=== PATIENT | male | born 1935 | race African-American/Black ===

== ENCOUNTER 2016-04-25 15:51 | Emergency (ER) | payer OTHER ==
[~2016-04-25] VITALS: Ht 182.9 cm; Wt 70.8 kg
[~2016-04-25 15:51] MED LIST: BACTRIM DS TAB1 EAC1 ORAL; IBUPROFEN600 MG ORAL; KEFLEX500 MG ORAL; LISINOPRIL10 MG ORAL; PHENAZOPYRIDIN100 MG ORAL; PHENERGAN6.25 MG/5 ORAL; UNOBMED
[2016-04-25] MEDS ORDERED: TRUVADA 100 MG1 EACH PO (16:16)
[2016-04-25] MEDS ORDERED: PREZISTA600 MG ORAL (16:16)
[2016-04-25 16:23] VITALS: BP 141/85
[2016-04-25] MEDS ORDERED: Dexamethasone 4mg/ml vial IM ONE (16:30)
[2016-04-25] MEDS ORDERED: DiphenhydrAMINE 50mg/ml Inj IM ONE (16:30)
[2016-04-25 17:58] LABS: EOSINOPHILS % (AUTO) 4.9 % (0.0-3.0); LYMPHOCYTES % (AUTO) 31.7 % (20.0-45.0); MEAN CORPUSCULAR HEMOGLOBIN 22.6 PG (27.0-31.0); MEAN CORPUSCULAR VOLUME 75 FL (80-99); MEAN PLATELET VOLUME 9.7 FL (6.5-10.1); MONOCYTES % (AUTO) 8.6 % (1.0-10.0); NEUTROPHILS % (AUTO) 53.8 % (45.0-75.0); PLATELET COUNT 167 K/UL (150-450); RED BLOOD COUNT 4.48 M/UL (4.70-6.10); RED CELL DISTRIBUTION WIDTH 13.8 % (11.6-14.8); WHITE BLOOD COUNT 6.8 K/UL (4.8-10.8)
[2016-04-25 18:06] LABS: PROTHROMBIN TIME 10.5 SEC (9.30-11.50)
[2016-04-25 18:08] VITALS: BP 132/79
[2016-04-25 18:11] LABS: ALANINE AMINOTRANSFERASE 17 U/L (3-41); ALBUMIN/GLOBULIN RATIO 0.9 (1.0-2.7); ANION GAP 13 (5-15); ASPARTATE AMINO TRANSFERASE 27 U/L (5-40); CARBON DIOXIDE 27 mEQ/L (20-30); CHLORIDE 100 mEQ/L (98-107); CREATININE 1.3 mg/dL (0.7-1.2); HEMOLYSIS 5; POTASSIUM 3.8 mEQ/L (3.4-4.9); SODIUM 140 mEQ/L (135-145); TOTAL PROTEIN 7.7 g/dL (6.6-8.7)
--- NOTE | 2016-04-25 18:16 | Emergency Room Report ---
History of Present Illness General Chief Complaint: General Complaint Present Illness HPI The patient is an 81-year-old male presenting with facial swelling which began this morning. Patient states that he feels a 2/10 dull ache to this region and does not radiate. Patient also experiences tingling. The patient states she has been taking lisinopril for the past 2 years but has not had this happen before. The patient denies using any new products or ingesting any new foods. The patient denies any difficulty swallowing or shortness of breath. Patient denies a rash. Patient denies other symptoms including nausea, vomiting, fever , chills, headache, dizziness, blurred vision Allergies: Coded Allergies: No Known Allergies (Unverified , 08/31/13) Patient History Past Medical History: see triage record Pertinent Family History: none Reviewed Nursing Documentation: PMH: Agreed, PSxH: Agreed Nursing Documentation-PMH Hx Hypertension: Yes Review of Systems All Other Systems: negative except mentioned in HPI Physical Exam Vital Signs Date Time Temp Pulse Resp B/P Pulse Ox O2 Delivery O2 Flow Rate FiO2 04/25/16 16:08 97.9 76 16 141/85 99 Room Air Sp02 EP Interpretation: reviewed, normal General Appearance: no apparent distress, alert, GCS 15, non-toxic Head: normocephalic, atraumatic Eyes: bilateral eye PERRL, bilateral eye normal inspection ENT: normal pharynx, other - + angioedema to R face Neck: normal inspection, full range of motion, supple/symm/no masses Respiratory: chest non-tender, lungs clear, normal breath sounds, no respiratory distress, no wheezing, speaking full sentences Cardiovascular #1: regular rate, rhythm, no edema Genitourinary: normal inspection, no CVA tenderness Musculoskeletal: back normal, gait/station normal, normal range of motion, non- tender Neurologic: alert, oriented x3, responsive, motor strength/tone normal, sensory intact, speech normal Psychiatric: judgement/insight normal, memory normal, mood/affect normal, no suicidal/homicidal ideation Skin: normal color, no rash, warm/dry, well hydrated Lymphatic: no adenopathy Medical Decision Making PA Attestation Dr. Adams is my supervising physician. Patient management was discussed with my supervising physician Diagnostic Impression: Primary Impression: Angioedema ER Course The patient is an 81-year-old male presenting with facial swelling which began this morning. Differential diagnoses considered but not limited to: Angioedema, dental abscess , dental infection, allergic reaction, cellulitis Physical exam: Vitals are within normal limits. No apparent distress HEENT: There is right-sided angioedema. Right cheek and right upper and lower lips are edematous. No tongue swelling. Oropharynx is patent. No lymphadenopathy. Respiratory distress. Lungs are clear to auscultation bilaterally. No rash. Skin is warm and dry Patient is given Decadron, Benadryl, and zantac Dr. Adams has spoken with the admitting physician regarding this patient at 18:15. The patient is placed on n.p.o. The patient has chosen to leave AMA. The patient states he is feeling better and wants to go home. Risks have been discussed with the patient including possible . Patient understands. The patient will return to ER if needed. Patient is advised he needs to stop taking the lisinopril and followup with his primary doctor as soon as possible. Laboratory Tests Test 04/25/16 17:30 White Blood Count 6.8 K/UL (4.8-10.8) Red Blood Count 4.48 M/UL (4.70-6.10) L Hemoglobin 10.1 G/DL (14.2-18.0) L Hematocrit 33.8 % (42.0-52.0) L Mean Corpuscular Volume 75 FL (80-99) L Mean Corpuscular Hemoglobin 22.6 PG (27.0-31.0) L Mean Corpuscular Hemoglobin Concent 30.0 G/DL (32.0-36.0) L Red Cell Distribution Width 13.8 % (11.6-14.8) Platelet Count 167 K/UL (150-450) Mean Platelet Volume 9.7 FL (6.5-10.1) Neutrophils (%) (Auto) 53.8 % (45.0-75.0) Lymphocytes (%) (Auto) 31.7 % (20.0-45.0) Monocytes (%) (Auto) 8.6 % (1.0-10.0) Eosinophils (%) (Auto) 4.9 % (0.0-3.0) H Basophils (%) (Auto) 1.0 % (0.0-2.0) Prothrombin Time 10.5 SEC (9.30-11.50) Prothrombin Time INR 1.0 (0.9-1.1) PTT 30 SEC (23-33) Sodium Level 140 mEQ/L (135-145) Potassium Level 3.8 mEQ/L (3.4-4.9) Chloride Level 100 mEQ/L (98-107) Carbon Dioxide Level 27 mEQ/L (20-30) Anion Gap 13 (5-15) Blood Urea Nitrogen 18 mg/dL (7-23) Creatinine 1.3 mg/dL (0.7-1.2) H Estimate Glomerular Filtration Rate mL/min (>60) Glucose Level 99 mg/dL (74-106) Calcium Level 9.0 mg/dL (8.6-10.2) Total Bilirubin < 0.2 mg/dL (0.0-1.2) Aspartate Amino Transferase (AST) 27 U/L (5-40) Alanine Aminotransferase (ALT) 17 U/L (3-41) Alkaline Phosphatase 118 U/L (40-129) Total Protein 7.7 g/dL (6.6-8.7) Albumin 3.7 g/dL (3.5-5.2) Globulin 4.0 g/dL Albumin/Globulin Ratio 0.9 (1.0-2.7) L Lab Results Impression CBC unremarkable. No leukocytosis CMP unremarkable Last Vital Signs Date Time Temp Pulse Resp B/P Pulse Ox O2 Delivery O2 Flow Rate FiO2 04/25/16 18:08 74 16 132/79 99 Room Air 04/25/16 16:08 97.9 Status: improved Disposition: AGAINST MEDICAL ADVICE Condition: Serious Referrals: NOT [facility]/,REFERRING (PCP) ANALI RAMIREZ Apr 25, 2016 18:16
[2016-04-25 20:03] VITALS: BP 128/72
[2016-04-25 20:05] VITALS: BP 128/72
== END 2016-04-25 20:06 | disposition left against medical advice (07) ==
LOC: EMR 17:46 → EDBEDREQ 18:58 → CANBEDREQ 19:52 → EMR 20:06
DX: T78.3XXA Angioneurotic edema, initial encounter (principal); I10 Essential (primary) hypertension; X58.XXXA Exposure to other specified factors, initial encounter; Y92.9 Unspecified place or not applicable; Y99.8 Other external cause status
CPT/HCPCS: 36415; 80053; 85025; 85610; 85730; 96372; 99283; J1100; J1200

== ENCOUNTER 2016-08-14 15:23 | Inpatient (IN) | payer OTHER ==
[~2016-08-14] VITALS: Ht 182.9 cm; Wt 61.7 kg
[~2016-08-14 15:23] MED LIST changes: +PREZISTA600 MG ORAL; +TRUVADA 100 MG1 EACH PO
--- NOTE | 2016-08-14 15:53 | Emergency Room Report ---
History of Present Illness General Chief Complaint: General Complaint Source: Medical Record Present Illness HPI 81 YO Male Presents to ED C/O productive cough x 2 weeks, with dysuria and frequency. denies fevers, reports chills. Patient reports history of prostate cancer, and HIV. Patient states his last CD4 count was in the 500s, and viral load was undetectable. Patient states he takes atripla. he denies rashes, abdominal pain, hematuria. Patient reports frequent nocturia. Patient states he is due for urology appointment at the end of this month. Denies penile discharge, testicular pain or swelling. Denies penile lesions. Denies CP, Palpitations, LOC, AMS, dizziness, Changes in Vision, Sensation, paresthesias, or a sudden severe headache. Allergies: Coded Allergies: No Known Allergies (Unverified , 08/31/13) Patient History Past Medical History: see triage record, HIV Past Surgical History: none Pertinent Family History: none Immunizations: UTD Reviewed Nursing Documentation: PMH: Agreed, PSxH: Agreed Nursing Documentation-PMH Past Medical History: No History, Except For Hx Hypertension: Yes Review of Systems All Other Systems: negative except mentioned in HPI Physical Exam Vital Signs Date Time Temp Pulse Resp B/P Pulse Ox O2 Delivery O2 Flow Rate FiO2 08/14/16 15:32 97.3 75 16 128/80 94 Room Air Sp02 EP Interpretation: reviewed, normal General Appearance: no apparent distress, alert, GCS 15, thin, Chronically Ill Head: normocephalic, atraumatic Eyes: bilateral eye PERRL, bilateral eye normal inspection ENT: normal ENT inspection Neck: no meningismus, no bony tend Respiratory: chest non-tender, lungs clear, normal breath sounds, speaking full sentences Cardiovascular #1: normal capillary refill Gastrointestinal: normal bowel sounds, non tender, soft, no guarding, no rebound, other - Negative Atwood signs, Negative MacBurney's sign, Negative Rosvigns Sign, Negative Psoas, No Peritoneal signs. Rectal: deferred Genitourinary: normal inspection, no CVA tenderness Musculoskeletal: back normal, gait/station normal, normal range of motion, non- tender Neurologic: alert, oriented x3, responsive, motor strength/tone normal, sensory intact, speech normal Psychiatric: judgement/insight normal, memory normal, mood/affect normal Skin: normal color, no rash, warm/dry, well hydrated Lymphatic: no adenopathy Medical Decision Making PA Attestation Dr. Adams is my supervising Physician whom patient management has been discussed with. Diagnostic Impression: Primary Impression: Acute UTI Additional Impression: Pneumonia Qualified Codes: J18.9 - Pneumonia, unspecified organism ER Course 81 YO Male Presents to ED C/O productive cough x 2 weeks, with dysuria and frequency. denies fevers, reports chills. Patient reports history of prostate cancer, and HIV. Patient states his last CD4 count was in the 500s, and viral load was undetectable. Patient states he takes atripla. he denies rashes, abdominal pain, hematuria. Patient reports frequent nocturia. Patient states he is due for urology appointment at the end of this month. Denies penile discharge, testicular pain or swelling. Denies penile lesions. Denies CP, Palpitations, LOC, AMS, dizziness, Changes in Vision, Sensation, paresthesias, or a sudden severe headache. Ddx considered but are not limited to URI, pneumonia, PE, pulmonary edema, bronchitis, AK, CHF, BPH, UTI Vital signs: Pt. has fever of 100.6, tachycardic 106 bpm H&PE are most consistent with possible PNA -- ORDERS: -CXR 1 View: Bilateral pulmonary infiltrates, no atelectasis, no effusions per preliminary read by Dr. Adams -CBC: anemia noted, not suspicious for acute blood loss -BMP: elevated alk. phos at 138, mildly elevate BUN, normal Cr. -UA: many bacteria, elevated WBC's, indicative of infection -Pro-BNP: WNL -Lactic Acid: WNL -Blood Cultures x 2: Pending -EK NSR with bi-Fasicular block no acute ST changes - interpreted by Dr. Adams ED INTERVENTIONS: -Pt placed on cardiac monitoring -IV Access established -3grams Unasyn IVPB DISPOSITION: at this time pt. will be admitted to Dr. Echeverria for Pneumonia and UTI. agreed to admit the pt. and to continue pt. care management. Labs Test 08/14/16 15:40 08/14/16 17:00 08/14/16 17:30 Urine Color Pale yellow Urine Appearance Cloudy Urine pH 6 (4.5-8.0) Urine Specific [place] 1.015 (1.005-1.035) Urine Protein 2+ (NEGATIVE) Urine Glucose (UA) Negative (NEGATIVE) Urine Ketones Negative (NEGATIVE) Urine Occult Blood 2+ (NEGATIVE) Urine Nitrite Negative (NEGATIVE) Urine Bilirubin Negative (NEGATIVE) Urine Urobilinogen Normal MG/DL (0.0-1.0) Urine Leukocyte Esterase 3+ (NEGATIVE) Urine RBC 0-2 /HPF (0 - 0) Urine WBC Tntc /HPF (0 - 0) Urine Squamous Epithelial Cells Occasional /LPF Urine Bacteria Many /HPF (NONE) Arterial Blood pH 7.383 (7.350-7.450) Arterial Blood Partial Pressure CO2 41.0 mmHg (35.0-45.0) Arterial Blood Partial Pressure O2 82.5 mmHg (75.0-100.0) Arterial Blood HCO3 23.9 mmol/L (22.0-26.0) Arterial Blood Oxygen Saturation 95.8 % (92.0-98.0) Arterial Blood Base Excess -1.1 Meek Test Positive White Blood Count 6.5 K/UL (4.8-10.8) Red Blood Count 5.07 M/UL (4.70-6.10) Hemoglobin 11.6 G/DL (14.2-18.0) Hematocrit 37.2 % (42.0-52.0) Mean Corpuscular Volume 73 FL (80-99) Mean Corpuscular Hemoglobin 22.9 PG (27.0-31.0) Mean Corpuscular Hemoglobin Concent 31.2 G/DL (32.0-36.0) Red Cell Distribution Width 15.4 % (11.6-14.8) Platelet Count 162 K/UL (150-450) Mean Platelet Volume 8.9 FL (6.5-10.1) Neutrophils (%) (Auto) 54.7 % (45.0-75.0) Lymphocytes (%) (Auto) 30.0 % (20.0-45.0) Monocytes (%) (Auto) 10.9 % (1.0-10.0) Eosinophils (%) (Auto) 3.1 % (0.0-3.0) Basophils (%) (Auto) 1.4 % (0.0-2.0) Sodium Level 143 mEQ/L (135-145) Potassium Level 4.2 mEQ/L (3.4-4.9) Chloride Level 102 mEQ/L (98-107) Carbon Dioxide Level 25 mEQ/L (20-30) Anion Gap 16 (5-15) Blood Urea Nitrogen 30 mg/dL (7-23) Creatinine 1.2 mg/dL (0.7-1.2) Estimat Glomerular Filtration Rate mL/min (>60) Glucose Level 88 mg/dL (74-106) Lactic Acid Level 0.80 mmol/L (0.66-2.22) Calcium Level 9.6 mg/dL (8.6-10.2) Total Bilirubin 0.2 mg/dL (0.0-1.2) Aspartate Amino Transf (AST/SGOT) 23 U/L (5-40) Alanine Aminotransferase (ALT/SGPT) 11 U/L (3-41) Alkaline Phosphatase 138 U/L (40-129) Pro-B-Type Natriuretic Peptide 80 pg/mL (0-450) Total Protein 8.7 g/dL (6.6-8.7) Albumin 3.9 g/dL (3.5-5.2) Globulin 4.8 g/dL Albumin/Globulin Ratio 0.8 (1.0-2.7) EKG Diagnostic Results EP Interpretation: Dr. Adams Rate: normal - 65 Rhythm: NSR ST Segments: no acute changes Other Impression bi-fasicular block noted. ASA given to the pt in ED: No PA Scribe Text this preliminary EKG reading was interpreted by Dr. Adams, and scribed by PA. Last Vital Signs Date Time Temp Pulse Resp B/P Pulse Ox O2 Delivery O2 Flow Rate FiO2 08/14/16 15:32 97.3 75 16 128/80 94 Room Air Disposition: ADMITTED INPATIENT Condition: Serious Referrals: [facility],REFERRING (PCP) Lou Chen Aug 14, 2016 15:53
[2016-08-14 16:11] VITALS: BP 128/80
[2016-08-14 16:34] LABS: APPEARANCE,URINE CLOUDY; KETONES,URINE NEGATIVE (NEGATIVE); LEUKOCYTE ESTERASE ,URINE 3+ (NEGATIVE); NITRITE,URINE NEGATIVE (NEGATIVE); PH,URINE 6 (4.5-8.0); PROTEIN,URINE 2+ (NEGATIVE); UROBILINOGEN,URINE NORMAL MG/DL (0.0-1.0)
[2016-08-14 16:45] LABS: RBC,URINE 0-2 /HPF (0 - 0); WBC,URINE TNTC /HPF (0 - 0)
[2016-08-14 16:46] LABS: BACTERIA,URINE MANY /HPF; SQUAMOUS EPITHELIAL CELL,UR OCCASIONAL /LPF (NONE/OCC)
[2016-08-14] MEDS ORDERED: Azithromycin 500 MG in NS 275 ML IV ONE (17:00)
[2016-08-14] MEDS ORDERED: cefTRIAXone 2 GM in NS 110 ML IVPB ONE (17:00)
[2016-08-14 17:30] VITALS: BP 131/84
[2016-08-14] MEDS ORDERED: Miralax 17gm pkt ORAL PRN (17:30)
[2016-08-14] MEDS ORDERED: Bactrim DS (160mg/800mg) tab ORAL SCH (17:30)
[2016-08-14] MEDS ORDERED: DuoNeb 0.5-3(2.5)mg/3ml neb HHN PRN (17:30)
[2016-08-14] MEDS ORDERED: Nitroglycerin Subl 0.4mg tab (Bottle Of 25) SL PRN (17:30)
[2016-08-14] MEDS ORDERED: Morphine Sulfate 2mg/ml Inj IVP PRN (17:30)
[2016-08-14 17:40] LABS: ABG ALLEN TEST POSITIVE; ABG BASE EXCESS -1.1
[2016-08-14 17:50] LABS: BASOPHILS % (AUTO) 1.4 % (0.0-2.0); EOSINOPHILS % (AUTO) 3.1 % (0.0-3.0); MEAN CORPUSCULAR HEMOGLOBIN 22.9 PG (27.0-31.0); MEAN CORPUSCULAR HGB CONC 31.2 G/DL (32.0-36.0); MEAN CORPUSCULAR VOLUME 73 FL (80-99); MEAN PLATELET VOLUME 8.9 FL (6.5-10.1); MONOCYTES % (AUTO) 10.9 % (1.0-10.0); NEUTROPHILS % (AUTO) 54.7 % (45.0-75.0); PLATELET COUNT 162 K/UL (150-450); RED BLOOD COUNT 5.07 M/UL (4.70-6.10); RED CELL DISTRIBUTION WIDTH 15.4 % (11.6-14.8); WHITE BLOOD COUNT 6.5 K/UL (4.8-10.8)
[2016-08-14 18:09] LABS: ALANINE AMINOTRANSFERASE 11 U/L (3-41); ALBUMIN/GLOBULIN RATIO 0.8 (1.0-2.7); ANION GAP 16 (5-15); ASPARTATE AMINO TRANSFERASE 23 U/L (5-40); CALCIUM 9.6 mg/dL (8.6-10.2); CARBON DIOXIDE 25 mEQ/L (20-30); CHLORIDE 102 mEQ/L (98-107); CREATININE 1.2 mg/dL (0.7-1.2); HEMOLYSIS 1; POTASSIUM 4.2 mEQ/L (3.4-4.9); SODIUM 143 mEQ/L (135-145); TOTAL PROTEIN 8.7 g/dL (6.6-8.7)
[2016-08-14 18:25] VITALS: BP 129/84
[2016-08-14] MEDS ORDERED: ASPIR 8181 MG ORAL (18:37)
[2016-08-14] MEDS ORDERED: INTELENCE100 MG ORAL (18:38)
[2016-08-14] MEDS ORDERED: INTELENCE200 MG ORAL (18:40)
[2016-08-14] MEDS ORDERED: NICOTINE PATCH1 EAC1 TD (18:42)
[2016-08-14] MEDS ORDERED: LISINOPRIL40 MG ORAL (18:44)
[2016-08-14] MEDS ORDERED: Azithromycin Inj IV ONE (18:45)
[2016-08-14] MEDS ORDERED: NORVIR100 MG ORAL (18:50)
[2016-08-14 19:57] VITALS: BP 141/94
[2016-08-14] MEDS: Darunavir 600mg tab ORAL SCH (21:00)
[2016-08-14] MEDS ORDERED: Vancomycin 1.25 GM in D5W 275 ML IVPB SCH (21:00)
[2016-08-14 22:00] VITALS: BP 148/84
[2016-08-14] MEDS ORDERED: Cefepime HCl 2 GM in D5W 110 ML IV SCH (23:00)
[2016-08-14 23:48] VITALS: BP 148/90
[2016-08-15] MEDS ORDERED: Cefepime 2gm ONE (00:07)
[2016-08-15] MEDS: Heparin 5000 units/ml inj SUBQ SCH ×3 (00:21→21:55)
[2016-08-15] MEDS ORDERED: Vancomycin 1.25 GM in D5W 275 ML IVPB SCH (02:00)
[2016-08-15] MEDS ORDERED: Vancomycin 1gm/D5W 275ml IVPB ONE ×2 (02:00)
[2016-08-15] MEDS ORDERED: Vancomycin 1gm inj IVPB ONE (02:06)
[2016-08-15] MEDS ORDERED: D5W IVPB ONE (03:00)
[2016-08-15] MEDS ORDERED: VANCOMYCIN IVPB ONE (03:00)
[2016-08-15 04:00] VITALS: BP 123/75
[2016-08-15 04:21] LABS: APPEARANCE,URINE CLEAR; KETONES,URINE NEGATIVE (NEGATIVE); LEUKOCYTE ESTERASE ,URINE 3+ (NEGATIVE); NITRITE,URINE NEGATIVE (NEGATIVE); PH,URINE 7 (4.5-8.0); PROTEIN,URINE 1+ (NEGATIVE); UROBILINOGEN,URINE NORMAL MG/DL (0.0-1.0)
[2016-08-15 04:39] LABS: BACTERIA,URINE MODERATE /HPF; SQUAMOUS EPITHELIAL CELL,UR FEW /LPF (NONE/OCC); TRANSITIONAL EPI CELLS,URINE FEW /LPF; WBC,URINE TNTC /HPF (0 - 0)
[2016-08-15 07:12] LABS: BASOPHILS % (AUTO) 1.2 % (0.0-2.0); EOSINOPHILS % (AUTO) 4.1 % (0.0-3.0); LYMPHOCYTES % (AUTO) 34.4 % (20.0-45.0); MEAN CORPUSCULAR HEMOGLOBIN 22.4 PG (27.0-31.0); MEAN CORPUSCULAR HGB CONC 29.8 G/DL (32.0-36.0); MEAN CORPUSCULAR VOLUME 75 FL (80-99); MEAN PLATELET VOLUME 9.5 FL (6.5-10.1); MONOCYTES % (AUTO) 9.6 % (1.0-10.0); NEUTROPHILS % (AUTO) 50.7 % (45.0-75.0); PLATELET COUNT 172 K/UL (150-450); RED BLOOD COUNT 5.06 M/UL (4.70-6.10); RED CELL DISTRIBUTION WIDTH 15.4 % (11.6-14.8); WHITE BLOOD COUNT 6.4 K/UL (4.8-10.8)
[2016-08-15 07:45] LABS: ALANINE AMINOTRANSFERASE 12 U/L (3-41); ALBUMIN/GLOBULIN RATIO 0.9 (1.0-2.7); ANION GAP 11 (5-15); ASPARTATE AMINO TRANSFERASE 23 U/L (5-40); CALCIUM 9.1 mg/dL (8.6-10.2); CARBON DIOXIDE 25 mEQ/L (20-30); CHLORIDE 104 mEQ/L (98-107); CREATININE 1.2 mg/dL (0.7-1.2); HEMOLYSIS 4; POTASSIUM 3.7 mEQ/L (3.4-4.9); SODIUM 140 mEQ/L (135-145)
[2016-08-15 08:00] VITALS: BP 134/97
[2016-08-15] MEDS: Darunavir 600mg tab ORAL SCH ×2 (09:00→21:49)
--- NOTE | 2016-08-15 11:33 | Diagnostic Imaging Report ---
Indication: Cough Comparison: 06/15/12 A single view chest radiograph was obtained. Findings: Reticular interstitial markings are present within the lungs bilaterally. The heart is borderline enlarged. Findings are probably on the basis of interstitial edema. Please correlate clinically. Aorta is mildly ectatic and calcified. Bones are osteopenic. Impression: Interstitial disease. Suspect interstitial edema versus pneumonitis. Please correlate clinically
[2016-08-15 12:00] VITALS: BP 144/88
--- NOTE | 2016-08-15 12:59 | History and Physical ---
History of Present Illness General Date patient seen: Aug 15, 2016 Reason for Hospitalization: General Complaint Present Illness HPI 81 year old male with hx of HIV, TD4> 500, ex-smoker, presented with CC of dysuria, nocturia, thinking that he has bladder infection. His cxr showed increased bilateral interstitial marking. He is admitted for further evaluation. Allergies: Coded Allergies: No Known Allergies (Unverified , 08/31/13) Medication History Scheduled Aspirin* (Aspir 81*), 81 MG ORAL DAILY, (Reported) Cephalexin* (Keflex*), 500 MG ORAL Q6H Darunavir Ethanolate* (Prezista*), 600 MG ORAL EVERY 12 HOURS, (Reported) Etravirine (Intelence), 200 MG ORAL BID, (Reported) Lisinopril* (Lisinopril*), 40 MG ORAL DAILY, (Reported) Phenazopyridine Hcl* (Pyridium*), 100 MG ORAL THREE TIMES A DAY Ritonavir* (Norvir*), 100 MG ORAL TWICE A DAY, (Reported) Trimethoprim/Sulfamethoxazole 160/800* (Bactrim Ds Tablet*), 1 TAB ORAL Q12H Scheduled PRN Ibuprofen* (Motrin*), 600 MG ORAL Q8H PRN for For Pain Promethazine/Dextromethorphan (Promethazine-Dm Syrup), 1 TSP ORAL Q4H PRN for For Cough Miscellaneous Medications Emtricitabine/Tenofovir (Truvada 100 mg-150 mg Tablet), 1 EACH PO, (Reported) Nicotine (Nicotine Patch), 21 MG TD, (Reported) Patient History Healthcare decision maker Resuscitation status Full Code Advanced Directive on File Past Medical/Surgical History Past Medical/Surgical History: (1) Interstitial lung disease (2) HIV disease (3) Acute UTI Review of Systems All Other Systems: negative except mentioned in HPI Physical Exam General Appearance: cachetic Lines, tubes and drains: peripheral HEENT: normocephalic Neck: non-tender, normal alignment Respiratory/Chest: chest wall non-tender, lungs clear Abdomen: normal bowel sounds, non tender Genitourinary/Rectal: normal genital exam Extremities: non-tender Last 24 Hour Vital Signs Date Time Temp Pulse Resp B/P Pulse Ox O2 Delivery O2 Flow Rate FiO2 08/15/16 12:00 97.7 68 18 144/88 95 Room Air 08/15/16 08:00 67 08/15/16 08:00 97.0 66 18 134/97 96 Room Air 08/15/16 04:00 97.5 64 18 123/75 97 Room Air 08/15/16 04:00 66 08/15/16 00:00 59 08/14/16 23:48 96.6 63 20 148/90 95 Room Air 08/14/16 22:15 98.4 68 23 141/94 97 Room Air 08/14/16 22:00 86 25 148/84 97 Room Air 08/14/16 19:57 98.4 68 23 141/94 97 Room Air 08/14/16 18:25 98.0 60 18 129/84 100 Room Air 08/14/16 17:30 98.0 67 18 131/84 97 Room Air 08/14/16 16:11 97.3 16 128/80 94 Room Air 08/14/16 15:32 97.3 75 16 128/80 94 Room Air Intake and Output 08/14/16 08/15/16 19:00 07:00 Intake Total 0 ml 580 ml Output Total 550 ml Balance 0 ml 30 ml Intake Oral 0 ml 360 ml IV Total 220 ml Output Urine Total 550 ml Laboratory Tests Test 08/14/16 15:40 08/14/16 17:00 08/14/16 17:30 08/15/16 02:50 Urine Color Pale yellow Yellow Urine Appearance Cloudy Clear Urine pH 6 (4.5-8.0) 7 (4.5-8.0) Urine Specific [place] 1.015 (1.005-1.035) 1.010 (1.005-1.035) Urine Protein 2+ (NEGATIVE) H 1+ (NEGATIVE) H Urine Glucose (UA) Negative (NEGATIVE) Negative (NEGATIVE) Urine Ketones Negative (NEGATIVE) Negative (NEGATIVE) Urine Occult Blood 2+ (NEGATIVE) H 1+ (NEGATIVE) H Urine Nitrite Negative (NEGATIVE) Negative (NEGATIVE) Urine Bilirubin Negative (NEGATIVE) Negative (NEGATIVE) Urine Urobilinogen Normal MG/DL (0.0-1.0) Normal MG/DL (0.0-1.0) Urine Leukocyte Esterase 3+ (NEGATIVE) H 3+ (NEGATIVE) H Urine RBC 0-2 /HPF (0 - 0) H 5-10 /HPF (0 - 0) H Urine WBC Tntc /HPF (0 - 0) H Tntc /HPF (0 - 0) H Urine Squamous Epithelial Cells Occasional /LPF Few /LPF (NONE/OCC) Urine Bacteria Many /HPF (NONE) H Moderate /HPF (NONE) H Arterial Blood pH 7.383 (7.350-7.450) Arterial Blood Partial Pressure CO2 41.0 mmHg (35.0-45.0) Arterial Blood Partial Pressure O2 82.5 mmHg (75.0-100.0) Arterial Blood HCO3 23.9 mmol/L (22.0-26.0) Arterial Blood Oxygen Saturation 95.8 % (92.0-98.0) Arterial Blood Base Excess -1.1 Meek Test Positive White Blood Count 6.5 K/UL (4.8-10.8) Red Blood Count 5.07 M/UL (4.70-6.10) Hemoglobin 11.6 G/DL (14.2-18.0) L Hematocrit 37.2 % (42.0-52.0) L Mean Corpuscular Volume 73 FL (80-99) L Mean Corpuscular Hemoglobin 22.9 PG (27.0-31.0) L Mean Corpuscular Hemoglobin Concent 31.2 G/DL (32.0-36.0) L Red Cell Distribution Width 15.4 % (11.6-14.8) H Platelet Count 162 K/UL (150-450) Mean Platelet Volume 8.9 FL (6.5-10.1) Neutrophils (%) (Auto) 54.7 % (45.0-75.0) Lymphocytes (%) (Auto) 30.0 % (20.0-45.0) Monocytes (%) (Auto) 10.9 % (1.0-10.0) H Eosinophils (%) (Auto) 3.1 % (0.0-3.0) H Basophils (%) (Auto) 1.4 % (0.0-2.0) Sodium Level 143 mEQ/L (135-145) Potassium Level 4.2 mEQ/L (3.4-4.9) Chloride Level 102 mEQ/L (98-107) Carbon Dioxide Level 25 mEQ/L (20-30) Anion Gap 16 (5-15) H Blood Urea Nitrogen 30 mg/dL (7-23) H Creatinine 1.2 mg/dL (0.7-1.2) Estimat Glomerular Filtration Rate mL/min (>60) Glucose Level 88 mg/dL (74-106) Lactic Acid Level 0.80 mmol/L (0.66-2.22) Calcium Level 9.6 mg/dL (8.6-10.2) Total Bilirubin 0.2 mg/dL (0.0-1.2) Aspartate Amino Transf (AST/SGOT) 23 U/L (5-40) Alanine Aminotransferase (ALT/SGPT) 11 U/L (3-41) Alkaline Phosphatase 138 U/L (40-129) H Pro-B-Type Natriuretic Peptide 80 pg/mL (0-450) Total Protein 8.7 g/dL (6.6-8.7) Albumin 3.9 g/dL (3.5-5.2) Globulin 4.8 g/dL Albumin/Globulin Ratio 0.8 (1.0-2.7) L Urine Transitional Epithelial Cells Few /LPF (NONE) H Test 08/15/16 05:20 White Blood Count 6.4 K/UL (4.8-10.8) Red Blood Count 5.06 M/UL (4.70-6.10) Hemoglobin 11.3 G/DL (14.2-18.0) L Hematocrit 37.9 % (42.0-52.0) L Mean Corpuscular Volume 75 FL (80-99) L Mean Corpuscular Hemoglobin 22.4 PG (27.0-31.0) L Mean Corpuscular Hemoglobin Concent 29.8 G/DL (32.0-36.0) L Red Cell Distribution Width 15.4 % (11.6-14.8) H Platelet Count 172 K/UL (150-450) Mean Platelet Volume 9.5 FL (6.5-10.1) Neutrophils (%) (Auto) 50.7 % (45.0-75.0) Lymphocytes (%) (Auto) 34.4 % (20.0-45.0) Monocytes (%) (Auto) 9.6 % (1.0-10.0) Eosinophils (%) (Auto) 4.1 % (0.0-3.0) H Basophils (%) (Auto) 1.2 % (0.0-2.0) Sodium Level 140 mEQ/L (135-145) Potassium Level 3.7 mEQ/L (3.4-4.9) Chloride Level 104 mEQ/L (98-107) Carbon Dioxide Level 25 mEQ/L (20-30) Anion Gap 11 (5-15) Blood Urea Nitrogen 27 mg/dL (7-23) H Creatinine 1.2 mg/dL (0.7-1.2) Estimat Glomerular Filtration Rate mL/min (>60) Glucose Level 93 mg/dL (74-106) Calcium Level 9.1 mg/dL (8.6-10.2) Total Bilirubin 0.2 mg/dL (0.0-1.2) Aspartate Amino Transf (AST/SGOT) 23 U/L (5-40) Alanine Aminotransferase (ALT/SGPT) 12 U/L (3-41) Alkaline Phosphatase 116 U/L (40-129) Total Protein 8.0 g/dL (6.6-8.7) Albumin 3.8 g/dL (3.5-5.2) Globulin 4.2 g/dL Albumin/Globulin Ratio 0.9 (1.0-2.7) L Microbiology Date/Time Source Procedure Growth Status 08/14/16 15:40 Urine,Clean Catch Urine Culture - Preliminary Resulted Height (Feet): 6 Height (Inches): 0.00 Weight (Pounds): 136 Medications Current Medications Medications (Trade) Dose Ordered Sig/Delgado Route PRN Reason Start Time Stop Time Status Last Admin Dose Admin Acetaminophen (Tylenol) 650 mg Q4H PRN ORAL fever 08/14/16 17:30 09/13/16 17:29 Albuterol/ Ipratropium 3 ml 3 ml Q4H PRN HHN Shortness of Breath 08/14/16 17:30 08/19/16 17:29 Cefepime HCl/ Dextrose (Maxipime/D5W) 110 ml @ 220 mls/hr Q24H IV 08/14/16 23:00 08/21/16 22:59 08/15/16 00:22 Darunavir (Prezista) 600 mg EVERY 12 HOURS ORAL 08/14/16 21:00 09/13/16 20:59 UNV Heparin Sodium (Porcine) (Heparin 5000 units/ml) 5,000 units EVERY 12 HOURS SUBQ 08/14/16 21:00 09/13/16 20:59 08/15/16 08:11 Morphine Sulfate (Morphine Sulfate) 2 mg Q4H PRN IVP Moderate Pain (Pain Scale 4-6) 08/14/16 17:30 08/21/16 17:29 Nitroglycerin (Ntg) 0.4 mg Q5MIN PRN SL Prn Chest Pain 08/14/16 17:30 09/13/16 17:29 Ondansetron HCl (Zofran) 4 mg Q6H PRN IVP Nausea & Vomiting 08/14/16 17:30 09/13/16 17:29 Polyethylene Glycol (Miralax) 17 gm DAILYPRN PRN ORAL Constipation 08/14/16 17:30 09/13/16 17:29 Temazepam (Restoril) 15 mg HSPRN PRN ORAL Insomnia 08/14/16 17:30 08/21/16 17:29 Vancomycin HCl 1 ea 1 ea DAILY PRN MISC PRN RX PROTOCOL 08/14/16 19:15 09/13/16 19:14 Vancomycin HCl/ Dextrose (Vancomycin/D5W) 275 ml @ 183.3 mls/ hr Q24H IVPB 08/15/16 02:00 08/20/16 01:59 Assessment/Plan Problem List: (1) Acute UTI (2) HIV disease ICD Codes: B20 - Human immunodeficiency virus [HIV] disease SNOMED: 36639709 (3) Interstitial lung disease ICD Codes: J84.9 - Interstitial pulmonary disease, unspecified SNOMED: 69354037, 197536216 (4) Hypertension Assessment/Plan IV antibiotics Urology evaluation monitor BP and treat check cultures ID to see to evaluate pts HIV status. med/surg DREW HAYDEN Aug 15, 2016 12:59
[2016-08-15 16:00] VITALS: BP 116/82
[2016-08-15] MEDS ORDERED: Azithromycin 500 MG in D5W 275 ML IVPB SCH (17:15)
[2016-08-15] MEDS ORDERED: cefTRIAXone 1 GM in D5W 55 ML IVPB SCH (17:15)
--- NOTE | 2016-08-15 17:38 | Consultation ---
Consult Note Consult Note DATE OF CONSULTATION: 08/15/2016 Infectious Diseases CONSULTATION covering for Dr. Moon CONSULTING PHYSICIAN: Cezar Jacob M.D., [facility]& REQUESTING PHYSICIAN: Gracie Echeverria M.D. 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 Lives in [facility] by himself, denies any sick contacts, reports remote h/o prostate ca for which he received XRT, prior davidson >3 years ago for a brief period but none recently, and currently is not sexually active per report. Denies sensation of urinary retention, denies any fever, chills, n/v, h/a, or visual complaints. Receives HIV care through Dr Roberto Carlos Zhang at [facility], and reports he was changed to this salvage ART regimen several years ago due to treatment failure. Kehinde CD4 reported to be 5 many years ago, but he also denies any history of OI to include PCP, cryptococcal meningitis, toxo encephalitis, or TB, and he reports he is up to date on his flu screen. 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 Denies any illicit drug use, and he endorses good compliance with his ART mesd. Labs on admission notable for absence of leukocytosis, pyuria and proteinuria with urine cx pending, normal LFTs, BNP wnl. unable to get sputum specimen in absence of productive cough. not on supplemental O2, but interestingly his PaO2 on ABG is low at 82. He was initially ordered for ceftriaxone and azithromycin but then switched to cefepime and vancomycin. PAST MEDICAL HISTORY: HIV prostate CA 2015 hemorrhoids Home MEDICATIONS: reviewed Current antibiotics: IV Cefepime and vancomycin ALLERGIES: No known drug allergies. SOCIAL HISTORY: as above in HPI. REVIEW OF SYSTEMS: Constitutional: No fever, no chills, and no night sweats. Skin: No rashes, bumps, or itching. HEENT: No headache, hearing, or vision changes. Breasts: No lumps, pain, or discharge. Pulmonary: non productive cough cough, endorses subtle shortness of breath. Cardiovascular: No chest pain, tightness, or palpitations. Gastrointestinal: No nausea or vomiting, : as above. PHYSICAL EXAMINATION: GENERAL: The patient is in no distress. VITAL SIGNS: Afebrile, normotensive, vitals reviewed. PULMONARY: scattered rhonchi, no dullness to percussion, equal chest expansion CARDIOVASCULAR: Regular rate. No S3 or S4., systolic ejection murmur ABDOMEN: Soft, nontender and nondistended. EXTREMITIES: No edema. Skin: no rash, faint patches of vitilligo : no discharge from penis, no scrotal edema nor tenderness rectal: external hemorrhoid. dried fecal material perianally neuro: non focal, neck supple LABORATORY DATA: reviewed. no leukocytosis. u/a: pyuria, proteinuria. urine and blood cx pending. Radiology: CXR reviewed Assessment/Plan ASSESSMENT: 81 y/o HIV+ male, presumably well-reconstituted by his report on salvage regimen of Truvada/Darunavir/r/Etravirine, admitted with UTI and pneumonitis w/ o fevers or hemodynamic instability. It will be important to confirm his CD4> 200, since his subacute dyspnea with PaO2 only at about 80 with interstitial lung pattern on CXR if he did have CD4<200 would be concerning for pneumocystis. 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 UTI, r/o low likelihood GC/chlamydia Pneumonitis HIV Plan d/c IV vancomycin and ertapenem Start ceftriaxone 1gm IV qday and azitromycin 500mg IV qday for 5 day course. plan to transition to oral regimen in next 1-2 days if responding to treatment. further antibiotic recs pending Ucx results. resume Truvada, Darunavir, ritonavir, and Etravirine CD4, HIV VL now MRSA nares screening urine legionella Ag hepatitis panel GC/chlamydia urine NAAT LDH PSA monitor CBC, chem panel Thank you for this consult. Please contact me with any questions. [phone] Cezar Jacob M.D. Aug 15, 2016 17:38
[2016-08-15] MEDS ORDERED: Nitroglycerin Subl 0.4mg tab (Bottle Of 25) SL PRN (18:00)
[2016-08-15] MEDS ORDERED: Ritonavir 100mg tab ORAL SCH (18:00)
[2016-08-15] MEDS ORDERED: Darunavir 600mg tab ORAL SCH (18:00)
[2016-08-15 18:30] LABS: PSA TOTAL 19.2 ng/mL (< 4.5)
[2016-08-15] MEDS ORDERED: DuoNeb 0.5-3(2.5)mg/3ml neb HHN PRN (18:30)
[2016-08-15] MEDS ORDERED: Miralax 17gm pkt ORAL PRN (18:30)
[2016-08-15] MEDS ORDERED: Morphine Sulfate 2mg/ml Inj IVP PRN (18:30)
[2016-08-15 20:00] VITALS: BP 145/91
[2016-08-15] MEDS ORDERED: Etravirine 100mg tab ORAL SCH (21:00)
[2016-08-15] MEDS: Etravirine 100mg tab ORAL SCH (21:50)
[2016-08-15] MEDS: Ritonavir 100mg tab ORAL SCH (21:50)
[2016-08-15] MEDS: cefTRIAXone 1 GM in D5W 55 ML IVPB SCH (21:51)
[2016-08-15] MEDS: Azithromycin 500 MG in D5W 275 ML IV SCH (23:16)
[2016-08-16] VITALS: BP 145/90
[2016-08-16 04:00] VITALS: BP 107/71
[2016-08-16 07:47] LABS: BASOPHILS % (AUTO) 1.4 % (0.0-2.0); EOSINOPHILS % (AUTO) 4.1 % (0.0-3.0); LYMPHOCYTES % (AUTO) 46.1 % (20.0-45.0); MEAN CORPUSCULAR HEMOGLOBIN 22.1 PG (27.0-31.0); MEAN CORPUSCULAR HGB CONC 29.5 G/DL (32.0-36.0); MEAN CORPUSCULAR VOLUME 75 FL (80-99); MEAN PLATELET VOLUME 9.8 FL (6.5-10.1); MONOCYTES % (AUTO) 8.6 % (1.0-10.0); NEUTROPHILS % (AUTO) 39.7 % (45.0-75.0); PLATELET COUNT 195 K/UL (150-450); RED BLOOD COUNT 5.62 M/UL (4.70-6.10); RED CELL DISTRIBUTION WIDTH 15.5 % (11.6-14.8)
[2016-08-16 07:49] LABS: ALANINE AMINOTRANSFERASE 16 U/L (3-41); ALBUMIN/GLOBULIN RATIO 0.8 (1.0-2.7); ANION GAP 17 (5-15); ASPARTATE AMINO TRANSFERASE 27 U/L (5-40); CALCIUM 9.5 mg/dL (8.6-10.2); CARBON DIOXIDE 22 mEQ/L (20-30); CHLORIDE 97 mEQ/L (98-107); CREATININE 1.2 mg/dL (0.7-1.2); HEMOLYSIS 4; MAGNESIUM 2.1 mg/dL (1.7-2.5); PHOSPHORUS 3.1 mg/dL (2.5-4.8); POTASSIUM 3.6 mEQ/L (3.4-4.9); SODIUM 136 mEQ/L (135-145); TOTAL PROTEIN 8.8 g/dL (6.6-8.7)
[2016-08-16 08:50] VITALS: BP 126/80
[2016-08-16] MEDS: Lisinopril 20mg tab ORAL SCH (08:54)
[2016-08-16] MEDS: Ritonavir 100mg tab ORAL SCH ×2 (08:54→17:43)
[2016-08-16] MEDS: Etravirine 100mg tab ORAL SCH ×2 (08:55→21:14)
[2016-08-16] MEDS: Darunavir 600mg tab ORAL SCH ×2 (08:57→17:44)
[2016-08-16] MEDS ORDERED: Lisinopril 20mg tab ORAL SCH (09:00)
[2016-08-16] MEDS: Heparin 5000 units/ml inj SUBQ SCH ×2 (09:03→21:15)
--- NOTE | 2016-08-16 10:16 | Diagnostic Imaging Report ---
Indications: COPD, chronic interstitial disease, smoker Technique: Continuous helical CT imaging of the thorax was performed with automatic exposure control on a Siemens sensation [address] scanner. Axial, coronal, sagittal images were reconstructed at 5 mm slice thickness. Thin section high-resolution axial images were reconstructed at 1 mm slice thickness and 10 mm interval. CTDI volume(s): 16 mGy Total DLP: 633 mGy-cm Findings: Comparison: CT abdomen pelvis 06/12/2014 Lungs are normally, symmetrically inflated. Increased interstitial markings primarily in the form of interlobular septal thickening are present throughout the periphery of both lungs, most prominent in the bases. Interspersed small-caliber cystic lucencies/honeycombing again noted. Mild traction bronchiectasis suggested in the affected portions of lung bases. Basal components of disease have increased from previous exam. 7 mm circumscribed soft tissue nodule with mild spiculation in the basal aspect of the lingula (5-48) unchanged. No new focal parenchymal abnormality detected. No significant emphysematous changes, interstitial nodularity, groundglass opacity, bronchial wall thickening. No significant pleural abnormalities detected. Heart remains normal in size. No pericardial abnormality is demonstrated. Scattered arterial mural calcifications including coronary artery involvement. Vascular patency indeterminate. Thoracic aorta nonaneurysmal. Central pulmonary arteries not overtly enlarged. Small lymph nodes are present in the mediastinum up to 1.5 cm in diameter, retaining their fatty roc. Chest wall soft tissues nonfocal. 1 cm circumscribed low-attenuation focus in posterior interpolar cortex of right kidney unchanged. Disc space narrowing with marginal osteophyte formation again noted in lower thoracic spine. IMPRESSION: Diffuse bilateral interstitial disease/fibrosis, apparently progressive from 06/12/2014. 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 No pleural calcification/plaque in to support a diagnosis of asbestos exposure, however. Stable 7 mm spiculated nodule left lung base, stability supporting benignity Arteriosclerosis Probable right renal cortical cysts Degenerative spondylosis
[2016-08-16 12:20] VITALS: BP 121/74
--- NOTE | 2016-08-16 14:28 | Infectious Diseases Prog Note ---
Assessment/Plan Assessment/Plan ASSESSMENT: 81 y/o HIV+ male, presumably well-reconstituted by his report on salvage regimen of Truvada/Darunavir/r/Etravirine, admitted with pyuria and pneumonitis w/o fevers or hemodynamic instability. It will be important to confirm his CD4> 200, since his subacute dyspnea with PaO2 only at about 80 with interstitial lung pattern on CXR if he did have CD4<200 would be concerning for pneumocystis. 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 Now that Ucx from admission seems to be negative for typical gram negative UTI organisms, he does have a boggy tender prostate on exam, and PSA is elevated without prior for comparison, he has acute vs chronic prostatitis, will still r/o chlamydia urethritis, and await results of CD4 count to ensure he doesn't need induced sputum for DFA. Prostatitis pyuria, r/o low likelihood GC/chlamydia Pneumonitis HIV Plan Continue ceftriaxone 1gm IV qday and azitromycin 500mg IV qday d#2/5 for pneumonitis, but plan to switch to oral monotherapy Levofloxacin 500mg oral once daily for 28 days in next 1-2 days for treatment of his acute prostatitis Start flomax 0.4mg oral once daily. Will need f/u with urologist with repeat PSA as outpatient in 2-3 months. continue Truvada, Darunavir, ritonavir, and Etravirine monitor results of CD4, HIV VL monitor results of urine legionella Ag pending hepatitis panel Pending chlamydia urine NAAT re-ordered GC urine NAAT monitor CBC, chem panel Subjective Constitutional: Reports: no symptoms Respiratory: Reports: dry cough Cardiovascular: Reports: no symptoms Genitourinary: Reports: frequency, other - weak urinary stream Allergies: Coded Allergies: No Known Allergies (Unverified , 08/31/13) Objective Vital Signs Last 24 Hour Vital Signs Date Time Temp Pulse Resp B/P Pulse Ox O2 Delivery O2 Flow Rate FiO2 08/16/16 12:20 97.9 64 18 121/74 96 Room Air 08/16/16 08:54 126/80 08/16/16 08:50 97.2 67 18 126/80 96 Room Air 08/16/16 04:00 97.7 62 18 107/71 95 Room Air 08/16/16 00:00 98.1 75 20 145/90 96 08/15/16 22:22 97.5 08/15/16 20:00 97.5 68 20 145/91 94 Room Air 08/15/16 16:00 97.7 68 18 116/82 95 Room Air Height (Feet): 6 Height (Inches): 0.00 Weight (Pounds): 136 General Appearance: no acute distress HEENT: anicteric Respiratory/Chest: rhonchi - bilaterally Cardiovascular: normal peripheral pulses, normal rate, regular rhythm Abdomen: normal bowel sounds, soft, non tender, non distended Genitourinary: other - boggy, tender prostate Extremities: no cyanosis, no edema Skin: no rash 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 Complete 08/15/16 02:50 Indwelling Cath Urine Culture - Preliminary Resulted 08/14/16 15:40 Urine,Clean Catch Urine Culture - Final Mixed Gram Positive Organism Complete Laboratory Tests Test 08/15/16 17:30 08/16/16 05:30 White Blood Count Pending 7.0 K/UL (4.8-10.8) Lymphocytes Pending Lactate Dehydrogenase 274 U/L (135-230) H Prostate Specific Antigen 19.2 ng/mL (< 4.5) H Percent CD3 Cells Pending Absolute CD3 Count Pending Percent CD4 Cells Pending Absolute CD4 Count Pending T-Lymphocyte CD4/CD8 Ratio Pending Percent CD8 Cells Pending Absolute CD8 Count Pending Hepatitis A IgM Antibody Pending Hepatitis B Surface Antigen Pending Hepatitis B Core IgM Antibody Pending Hepatitis C Antibody Pending HIV-1 RNA (PCR) log10 Value Pending HIV-1 RNA Ultraquantitative (PCR) Pending Urine Legionella Antigen Pending Red Blood Count 5.62 M/UL (4.70-6.10) Hemoglobin 12.4 G/DL (14.2-18.0) L Hematocrit 42.1 % (42.0-52.0) Mean Corpuscular Volume 75 FL (80-99) L Mean Corpuscular Hemoglobin 22.1 PG (27.0-31.0) L Mean Corpuscular Hemoglobin Concent 29.5 G/DL (32.0-36.0) L Red Cell Distribution Width 15.5 % (11.6-14.8) H Platelet Count 195 K/UL (150-450) Mean Platelet Volume 9.8 FL (6.5-10.1) Neutrophils (%) (Auto) 39.7 % (45.0-75.0) L Lymphocytes (%) (Auto) 46.1 % (20.0-45.0) H Monocytes (%) (Auto) 8.6 % (1.0-10.0) Eosinophils (%) (Auto) 4.1 % (0.0-3.0) H Basophils (%) (Auto) 1.4 % (0.0-2.0) Sodium Level 136 mEQ/L (135-145) Potassium Level 3.6 mEQ/L (3.4-4.9) Chloride Level 97 mEQ/L (98-107) L Carbon Dioxide Level 22 mEQ/L (20-30) Anion Gap 17 (5-15) H Blood Urea Nitrogen 23 mg/dL (7-23) Creatinine 1.2 mg/dL (0.7-1.2) Estimat Glomerular Filtration Rate mL/min (>60) Glucose Level 91 mg/dL (74-106) Calcium Level 9.5 mg/dL (8.6-10.2) Phosphorus Level 3.1 mg/dL (2.5-4.8) Magnesium Level 2.1 mg/dL (1.7-2.5) Total Bilirubin 0.3 mg/dL (0.0-1.2) Aspartate Amino Transf (AST/SGOT) 27 U/L (5-40) Alanine Aminotransferase (ALT/SGPT) 16 U/L (3-41) Alkaline Phosphatase 139 U/L (40-129) H Total Protein 8.8 g/dL (6.6-8.7) H Albumin 4.1 g/dL (3.5-5.2) Globulin 4.7 g/dL Albumin/Globulin Ratio 0.8 (1.0-2.7) L Current Medications Medications (Trade) Dose Ordered Sig/Delgado Route PRN Reason Start Time Stop Time Status Last Admin Dose Admin Acetaminophen (Tylenol) 650 mg Q4H PRN ORAL T>100.5 08/15/16 18:30 09/14/16 18:29 Albuterol/ Ipratropium (DuoNeb 0.5-3(2.5)mg/3ml) 3 ml Q4H PRN HHN Shortness of Breath 08/15/16 18:30 08/20/16 18:29 Azithromycin 500 mg/Dextrose 275 ml @ 275 mls/hr Q24HRS IV 08/15/16 20:00 08/21/16 20:01 08/15/16 23:16 Ceftriaxone Sodium/Dextrose (Rocephin/D5W) 55 ml @ 110 mls/hr Q24H IVPB 08/15/16 19:30 08/22/16 19:29 08/15/16 21:51 Darunavir (Prezista) 600 mg TWICE A DAY ORAL 08/15/16 20:00 09/14/16 19:59 08/16/16 08:57 Emtricitabine/ Tenofovir (Truvada 200/ 300mg) 1 tab DAILY ORAL 08/15/16 20:00 09/14/16 19:59 08/16/16 08:54 Etravirine (Intelence) 200 mg Q12HR ORAL 08/15/16 20:00 09/14/16 19:59 08/16/16 08:55 Heparin Sodium (Porcine) (Heparin 5000 units/ml) 5,000 units EVERY 12 HOURS SUBQ 08/15/16 21:00 09/14/16 20:59 08/16/16 09:03 Lisinopril (Prinivil) 40 mg DAILY ORAL 08/16/16 09:00 09/15/16 08:59 08/16/16 08:54 Morphine Sulfate (Morphine Sulfate) 2 mg Q4H PRN IVP Moderate Pain (Pain Scale 4-6) 08/15/16 18:30 08/22/16 18:29 08/15/16 21:52 Nitroglycerin (Ntg) 0.4 mg Q5MIN PRN SL Prn Chest Pain 08/15/16 18:00 09/14/16 17:59 Ondansetron HCl (Zofran) 4 mg Q6H PRN IVP Nausea & Vomiting 08/15/16 18:30 09/14/16 18:29 Polyethylene Glycol (Miralax) 17 gm DAILYPRN PRN ORAL Constipation 08/15/16 18:30 09/14/16 18:29 Ritonavir (Norvir) 100 mg TWICE A DAY ORAL 08/15/16 20:00 09/14/16 19:59 08/16/16 08:54 Temazepam (Restoril) 15 mg HSPRN PRN ORAL Insomnia 08/15/16 21:00 08/22/16 20:59 Cezar Jacob M.D. Aug 16, 2016 14:28
[2016-08-16 16:00] VITALS: BP 135/99
--- NOTE | 2016-08-16 18:30 | Consultation ---
DATE OF CONSULTATION: UROLOGY CONSULTATION ATTENDING/CONSULTING PHYSICIAN: Gracie Echeverria M.D. CHIEF COMPLAINT/HISTORY OF PRESENT ILLNESS: I was asked by Dr. Echeverria to evaluate this 81-year-old gentleman regarding history of urinary tract infection with dysuria and nocturia secondary to the same. Briefly, the patient reports a few-day history of some discomfort with urination and frequency of going. He denies any previous history of urinary tract infections. He presented to the emergency room where evidence of urinary tract infection was found on urinalysis and culture is still pending. The patient also has a history of prostate cancer. He underwent radiation treatment for the same approximately two to three years ago and reports that since that time, he has done well without evidence of recurrence. Given the urinary tract infection, I was asked to evaluate the patient regarding this. PAST MEDICAL HISTORY: 1. Prostate cancer. 2. HIV. 3. Interstitial lung disease with lung infections. PAST SURGICAL HISTORY: None. MEDICATIONS: Please see the chart for current medications administration details. ALLERGIES: No known drug allergies. SOCIAL HISTORY: Noncontributory. Unremarkable. FAMILY HISTORY: Noncontributory. REVIEW OF SYSTEMS: A 12-system review of systems was essentially unremarkable outside of what is described above. PHYSICAL EXAMINATION: GENERAL: The patient is an older gentleman, awake and alert, pleasant and oriented x4. No obvious distress. HEENT: NC/AT. EOMI. NECK: Supple. Oropharynx clear. CHEST: Within normal limits. ABDOMEN: Soft, flat, nontender, and nondistended. EXTREMITIES: Warm and well perfused. No cyanosis, clubbing or edema. BACK: No CVA tenderness to percussion. GENITOURINARY: Exam reveals normal male. External genitalia. LABORATORY DATA: White blood cell count 7.0, hematocrit 42.1, and platelets 195,000. Sodium 136, potassium 3.6, chloride 97, bicarb 22, BUN 23, and creatinine 1.2. LFTs within normal limits. Alkaline phosphatase 139. PSA 19.2. Urinalysis, specific gravity 1.010, pH 7.0. Dip test notable for 1+ protein, 1+ occult blood, 3+ leukocyte esterase. Microanalysis with 5 to 10 red blood cells per high-power field, too numerous to count white blood cells per high-power field, and moderate bacteria seen. Urine culture is pending. DIAGNOSTIC IMAGING: Chest x-ray with interstitial disease suspect interstitial edema versus pneumonitis. ASSESSMENT AND PLAN: In summary, the patient is an 81-year-old HIV-positive gentleman with a history of dysuria and nocturia for two to three days time. Workup here with urinalysis revealed evidence of urinary tract infection which is now being treated with ceftriaxone and azithromycin. The patient's discomfort has improved on the antibiotics. He also has a history of prostate cancer for which he underwent radiation therapy. His prostate specific antigen low, but the prostate specific antigen done here in the hospital reveals a value of 19. This could certainly be elevated secondary to his urinary tract infection/inflammation. I would not recommend any further pursuit of this until his infection is cleared and a repeat prostate specific antigen is done after he has recovered. In addition to the antibiotics, I am going to start the patient on some Flomax in effort to help him urinate a little better. Once his infection has been treated, he will be stable for discharge home and can follow up with his regular urologist. Thank you again for allowing me to participate in the care of this nice gentleman. Please do not hesitate to contact me any questions that you further have regarding his care. I will be happy to continue seeing him with you as needed. Joseph Mckeon M.D. DR: MARTHA JOB#: [id number] CC:
[2016-08-16] MEDS: cefTRIAXone 1 GM in D5W 55 ML IVPB SCH (18:51)
[2016-08-16 20:00] VITALS: BP 123/67
[2016-08-16] MEDS: Tamsulosin 0.4mg cap ORAL SCH (21:15)
[2016-08-16] MEDS: Azithromycin 500 MG in D5W 275 ML IV SCH (21:15)
--- NOTE | 2016-08-16 21:51 | Pulmonology Progress Note ---
Assessment/Plan Problems: (1) Acute UTI (2) HIV disease (3) Interstitial lung disease (4) Hypertension Assessment/Plan imrpoving continue abx check cultrues iD recommendation appreciated Subjective ROS Limited/Unobtainable: No Interval Events: doing better Allergies: Coded Allergies: No Known Allergies (Unverified , 08/31/13) Objective Last 24 Hour Vital Signs Date Time Temp Pulse Resp B/P Pulse Ox O2 Delivery O2 Flow Rate FiO2 08/16/16 20:00 97.3 69 20 123/67 95 Room Air 08/16/16 16:00 97.3 82 18 135/99 95 Room Air 08/16/16 12:20 97.9 64 18 121/74 96 Room Air 08/16/16 08:54 126/80 08/16/16 08:50 97.2 67 18 126/80 96 Room Air 08/16/16 04:00 97.7 62 18 107/71 95 Room Air 08/16/16 00:00 98.1 75 20 145/90 96 08/15/16 22:22 97.5 Intake and Output 08/15/16 08/16/16 19:00 07:00 Intake Total 400 ml 330 ml Output Total 550 ml 1200 ml Balance -150 ml -870 ml Intake Oral 400 ml IV Total 330 ml Output Urine Total 550 ml 1200 ml # Voids 2 General Appearance: WD/WN HEENT: normocephalic, atraumatic Respiratory/Chest: chest wall non-tender, lungs clear Cardiovascular: normal peripheral pulses, normal rate Genitourinary: normal external genitalia Extremities: no clubbing 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 Complete 08/15/16 02:50 Indwelling Cath Urine Culture - Preliminary Resulted 08/14/16 15:40 Urine,Clean Catch Urine Culture - Final Mixed Gram Positive Organism Complete Laboratory Tests 08/16/16 05:30: White Blood Count 7.0, Red Blood Count 5.62, Hemoglobin 12.4L, Hematocrit 42.1, Mean Corpuscular Volume 75L, Mean Corpuscular Hemoglobin 22.1L, Mean Corpuscular Hemoglobin Concent 29.5L, Red Cell Distribution Width 15.5H, Platelet Count 195, Mean Platelet Volume 9.8, Neutrophils (%) (Auto) 39.7L, Lymphocytes (%) (Auto) 46.1H, Monocytes (%) (Auto) 8.6, Eosinophils (%) (Auto) 4.1H, Basophils (%) (Auto) 1.4, Sodium Level 136, Potassium Level 3.6, Chloride Level 97L, Carbon Dioxide Level 22, Anion Gap 17H, Blood Urea Nitrogen 23, Creatinine 1.2, Estimat Glomerular Filtration Rate , Glucose Level 91, Calcium Level 9.5, Phosphorus Level 3.1, Magnesium Level 2.1, Total Bilirubin 0.3, Aspartate Amino Transf (AST/SGOT) 27, Alanine Aminotransferase (ALT/SGPT) 16, Alkaline Phosphatase 139H, Total Protein 8.8H, Albumin 4.1, Globulin 4.7, Albumin/Globulin Ratio 0.8L Current Medications Medications (Trade) Dose Ordered Sig/Delgado Route PRN Reason Start Time Stop Time Status Last Admin Dose Admin Acetaminophen (Tylenol) 650 mg Q4H PRN ORAL T>100.5 08/15/16 18:30 09/14/16 18:29 Albuterol/ Ipratropium (DuoNeb 0.5-3(2.5)mg/3ml) 3 ml Q4H PRN HHN Shortness of Breath 08/15/16 18:30 08/20/16 18:29 Azithromycin 500 mg/Dextrose 275 ml @ 275 mls/hr Q24HRS IV 08/15/16 20:00 08/21/16 20:01 08/16/16 21:15 Ceftriaxone Sodium/Dextrose (Rocephin/D5W) 55 ml @ 110 mls/hr Q24H IVPB 08/15/16 19:30 08/22/16 19:29 08/16/16 18:51 Darunavir (Prezista) 600 mg TWICE A DAY ORAL 08/15/16 20:00 09/14/16 19:59 08/16/16 17:44 Emtricitabine/ Tenofovir (Truvada 200/ 300mg) 1 tab DAILY ORAL 08/15/16 20:00 09/14/16 19:59 08/16/16 08:54 Etravirine (Intelence) 200 mg Q12HR ORAL 08/15/16 20:00 09/14/16 19:59 08/16/16 21:14 Heparin Sodium (Porcine) (Heparin 5000 units/ml) 5,000 units EVERY 12 HOURS SUBQ 08/15/16 21:00 09/14/16 20:59 08/16/16 21:15 Lisinopril (Prinivil) 40 mg DAILY ORAL 08/16/16 09:00 09/15/16 08:59 08/16/16 08:54 Morphine Sulfate (Morphine Sulfate) 2 mg Q4H PRN IVP Moderate Pain (Pain Scale 4-6) 08/15/16 18:30 08/22/16 18:29 08/15/16 21:52 Nitroglycerin (Ntg) 0.4 mg Q5MIN PRN SL Prn Chest Pain 08/15/16 18:00 09/14/16 17:59 Ondansetron HCl (Zofran) 4 mg Q6H PRN IVP Nausea & Vomiting 08/15/16 18:30 09/14/16 18:29 Polyethylene Glycol (Miralax) 17 gm DAILYPRN PRN ORAL Constipation 08/15/16 18:30 09/14/16 18:29 Ritonavir (Norvir) 100 mg TWICE A DAY ORAL 08/15/16 20:00 09/14/16 19:59 08/16/16 17:43 Tamsulosin HCl (Flomax) 0.4 mg BEDTIME ORAL 08/16/16 21:00 09/15/16 20:59 08/16/16 21:15 Temazepam (Restoril) 15 mg HSPRN PRN ORAL Insomnia 08/15/16 21:00 08/22/16 20:59 DREW HAYDEN Aug 16, 2016 21:51
[2016-08-17] VITALS (7 sets, daily range): BP systolic 103–134; BP diastolic 64–84
[2016-08-17] MEDS: Etravirine 100mg tab ORAL SCH ×2 (08:12→20:44)
[2016-08-17] MEDS: Lisinopril 20mg tab ORAL SCH (08:13)
[2016-08-17] MEDS: Darunavir 600mg tab ORAL SCH ×2 (08:13→17:00)
[2016-08-17] MEDS: Ritonavir 100mg tab ORAL SCH ×2 (08:14→17:00)
[2016-08-17] MEDS: Heparin 5000 units/ml inj SUBQ SCH ×2 (08:18→22:18)
[2016-08-17] MEDS ORDERED: Tubing IV Secondary IV ONE (10:03)
[2016-08-17] MEDS ORDERED: NS 275ml ONE (10:03)
--- NOTE | 2016-08-17 15:43 | Pulmonology Progress Note ---
Assessment/Plan Problems: (1) Acute UTI (2) HIV disease (3) Interstitial lung disease (4) Hypertension Assessment/Plan continue current abx check cultures doign better dc planning inprogress check labs in am tolerating diet Subjective ROS Limited/Unobtainable: No Constitutional: Reports: no symptoms HEENT: Repors: no symptoms Respiratory: Reports: no symptoms Allergies: Coded Allergies: No Known Allergies (Unverified , 08/31/13) Objective Last 24 Hour Vital Signs Date Time Temp Pulse Resp B/P Pulse Ox O2 Delivery O2 Flow Rate FiO2 08/17/16 12:00 98.1 69 18 104/69 95 Room Air 08/17/16 08:13 103/64 08/17/16 08:01 97.5 64 18 103/64 96 Room Air 08/17/16 04:00 97.2 68 20 110/66 95 Room Air 08/17/16 00:00 97.7 71 18 119/71 96 Room Air 08/16/16 20:00 97.3 69 20 123/67 95 Room Air 08/16/16 16:00 97.3 82 18 135/99 95 Room Air Intake and Output 08/16/16 08/17/16 19:00 07:00 Intake Total 450 ml Output Total 350 ml 1400 ml Balance -350 ml -950 ml Intake Oral 120 ml IV Total 330 ml Output Urine Total 350 ml 1400 ml # Bowel Movements 1 1 General Appearance: cachetic HEENT: normocephalic, atraumatic Respiratory/Chest: chest wall non-tender, lungs clear, chest wall tender Cardiovascular: normal peripheral pulses, normal rate Abdomen: normal bowel sounds, no organomegaly Extremities: no cyanosis 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: 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 Complete 08/15/16 02:50 Indwelling Cath Urine Culture - Final NO GROWTH AFTER 48 HOURS Complete 08/14/16 18:41 Rectum VRE Culture - Final NO VANCOMYCIN RESISTANT ENTEROCOCCUS ... Complete Current Medications Medications (Trade) Dose Ordered Sig/Delgado Route PRN Reason Start Time Stop Time Status Last Admin Dose Admin Acetaminophen (Tylenol) 650 mg Q4H PRN ORAL T>100.5 08/15/16 18:30 09/14/16 18:29 Albuterol/ Ipratropium (DuoNeb 0.5-3(2.5)mg/3ml) 3 ml Q4H PRN HHN Shortness of Breath 08/15/16 18:30 08/20/16 18:29 Azithromycin 500 mg/Dextrose 275 ml @ 275 mls/hr Q24HRS IV 08/15/16 20:00 08/21/16 20:01 08/16/16 21:15 Ceftriaxone Sodium/Dextrose (Rocephin/D5W) 55 ml @ 110 mls/hr Q24H IVPB 08/15/16 19:30 08/22/16 19:29 08/16/16 18:51 Darunavir (Prezista) 600 mg TWICE A DAY ORAL 08/15/16 20:00 09/14/16 19:59 08/17/16 08:13 Emtricitabine/ Tenofovir (Truvada 200/ 300mg) 1 tab DAILY ORAL 08/15/16 20:00 09/14/16 19:59 08/17/16 08:13 Etravirine (Intelence) 200 mg Q12HR ORAL 08/15/16 20:00 09/14/16 19:59 08/17/16 08:12 Heparin Sodium (Porcine) (Heparin 5000 units/ml) 5,000 units EVERY 12 HOURS SUBQ 08/15/16 21:00 09/14/16 20:59 08/17/16 08:18 Lisinopril (Prinivil) 40 mg DAILY ORAL 08/16/16 09:00 09/15/16 08:59 08/16/16 08:54 Morphine Sulfate (Morphine Sulfate) 2 mg Q4H PRN IVP Moderate Pain (Pain Scale 4-6) 08/15/16 18:30 08/22/16 18:29 08/15/16 21:52 Nitroglycerin (Ntg) 0.4 mg Q5MIN PRN SL Prn Chest Pain 08/15/16 18:00 09/14/16 17:59 Ondansetron HCl (Zofran) 4 mg Q6H PRN IVP Nausea & Vomiting 08/15/16 18:30 09/14/16 18:29 Polyethylene Glycol (Miralax) 17 gm DAILYPRN PRN ORAL Constipation 08/15/16 18:30 09/14/16 18:29 Ritonavir (Norvir) 100 mg TWICE A DAY ORAL 08/15/16 20:00 09/14/16 19:59 08/17/16 08:14 Tamsulosin HCl (Flomax) 0.4 mg BEDTIME ORAL 08/16/16 21:00 09/15/16 20:59 08/16/16 21:15 Temazepam (Restoril) 15 mg HSPRN PRN ORAL Insomnia 08/15/16 21:00 08/22/16 20:59 DREW HAYDEN Aug 17, 2016 15:43
--- NOTE | 2016-08-17 17:55 | Cardiology Report ---
APPROVED REPORT EKG Measurement Heart [id number] Normal sinus rhythm Left axis deviation Right bundle branch block Abnormal ECG
--- NOTE | 2016-08-17 18:19 | Infectious Diseases Prog Note ---
Assessment/Plan Assessment/Plan ASSESSMENT: 81 y/o HIV+ male, presumably well-reconstituted by his report on salvage regimen of Truvada/Darunavir/r/Etravirine, admitted with acute prostatitis and pneumonitis w/o fevers or hemodynamic instability. Pending CD4 to confirm he's not at risk of Pneumocystis. Stable on empiric ceftriaxone and azithromycin. repeat ucx from 08/16 is negative. blood cx remains ngtd. Acute Prostatitis pyuria, r/o low likelihood GC/chlamydia Pneumonitis HIV Plan Continue ceftriaxone 1gm IV qday and azitromycin 500mg IV qday d#3/5 for pneumonitis, but plan to switch to oral monotherapy Levofloxacin 500mg oral once daily for 28 days in next 1-2 days for treatment of his acute prostatitis Continue flomax 0.4mg oral once daily. Will need f/u with urologist with repeat PSA as outpatient in 2-3 months. continue Truvada, Darunavir, ritonavir, and Etravirine monitor results of CD4, HIV VL monitor results of urine legionella Ag pending hepatitis panel Pending chlamydia urine NAAT pending GC urine NAAT monitor CBC, chem panel Subjective Constitutional: Reports: no symptoms Respiratory: Reports: dry cough Allergies: Coded Allergies: No Known Allergies (Unverified , 08/31/13) Objective Vital Signs Last 24 Hour Vital Signs Date Time Temp Pulse Resp B/P Pulse Ox O2 Delivery O2 Flow Rate FiO2 08/17/16 16:00 96.6 57 18 133/76 97 Room Air 08/17/16 12:00 98.1 69 18 104/69 95 Room Air 08/17/16 08:13 103/64 08/17/16 08:01 97.5 64 18 103/64 96 Room Air 08/17/16 04:00 97.2 68 20 110/66 95 Room Air 08/17/16 00:00 97.7 71 18 119/71 96 Room Air 08/16/16 20:00 97.3 69 20 123/67 95 Room Air Height (Feet): 6 Height (Inches): 0.00 Weight (Pounds): 136 HEENT: atraumatic, anicteric Respiratory/Chest: rhonchi - bilaterally Cardiovascular: normal rate, regular rhythm Abdomen: soft, non tender, no organomegaly Skin: no rash Microbiology Date/Time Source Procedure Growth Status 08/14/16 18:41 Nasal Nares MRSA Culture - Final NO METHICILLIN RESISTANT STAPH AUREUS... Complete 08/15/16 02:50 Indwelling Cath Urine Culture - Final NO GROWTH AFTER 48 HOURS Complete 08/14/16 18:41 Rectum VRE Culture - Final NO VANCOMYCIN RESISTANT ENTEROCOCCUS ... Complete Current Medications Medications (Trade) Dose Ordered Sig/Delgado Route PRN Reason Start Time Stop Time Status Last Admin Dose Admin Acetaminophen (Tylenol) 650 mg Q4H PRN ORAL T>100.5 08/15/16 18:30 09/14/16 18:29 Albuterol/ Ipratropium (DuoNeb 0.5-3(2.5)mg/3ml) 3 ml Q4H PRN HHN Shortness of Breath 08/15/16 18:30 08/20/16 18:29 Azithromycin 500 mg/Dextrose 275 ml @ 275 mls/hr Q24HRS IV 08/15/16 20:00 08/21/16 20:01 08/16/16 21:15 Ceftriaxone Sodium/Dextrose (Rocephin/D5W) 55 ml @ 110 mls/hr Q24H IVPB 08/15/16 19:30 08/22/16 19:29 08/16/16 18:51 Darunavir (Prezista) 600 mg TWICE A DAY ORAL 08/15/16 20:00 09/14/16 19:59 08/17/16 17:00 Emtricitabine/ Tenofovir (Truvada 200/ 300mg) 1 tab DAILY ORAL 08/15/16 20:00 09/14/16 19:59 08/17/16 08:13 Etravirine (Intelence) 200 mg Q12HR ORAL 08/15/16 20:00 09/14/16 19:59 08/17/16 08:12 Heparin Sodium (Porcine) (Heparin 5000 units/ml) 5,000 units EVERY 12 HOURS SUBQ 08/15/16 21:00 09/14/16 20:59 08/17/16 08:18 Lisinopril (Prinivil) 40 mg DAILY ORAL 08/16/16 09:00 09/15/16 08:59 08/16/16 08:54 Morphine Sulfate (Morphine Sulfate) 2 mg Q4H PRN IVP Moderate Pain (Pain Scale 4-6) 08/15/16 18:30 08/22/16 18:29 08/15/16 21:52 Nitroglycerin (Ntg) 0.4 mg Q5MIN PRN SL Prn Chest Pain 08/15/16 18:00 09/14/16 17:59 Ondansetron HCl (Zofran) 4 mg Q6H PRN IVP Nausea & Vomiting 08/15/16 18:30 09/14/16 18:29 Polyethylene Glycol (Miralax) 17 gm DAILYPRN PRN ORAL Constipation 08/15/16 18:30 09/14/16 18:29 Ritonavir (Norvir) 100 mg TWICE A DAY ORAL 08/15/16 20:00 09/14/16 19:59 08/17/16 17:00 Tamsulosin HCl (Flomax) 0.4 mg BEDTIME ORAL 08/16/16 21:00 09/15/16 20:59 08/16/16 21:15 Temazepam (Restoril) 15 mg HSPRN PRN ORAL Insomnia 08/15/16 21:00 08/22/16 20:59 Cezar Jacob M.D. Aug 17, 2016 18:19
[2016-08-17] MEDS: Tamsulosin 0.4mg cap ORAL SCH (20:43)
[2016-08-17] MEDS: cefTRIAXone 1 GM in D5W 55 ML IVPB SCH (20:43)
[2016-08-17] MEDS: Azithromycin 500 MG in D5W 275 ML IV SCH (21:58)
[2016-08-18 04:00] VITALS: BP 122/68
[2016-08-18 07:08] LABS: CD3 ABSOLUTE 1972 /uL (622-2402); CD4 ABSOLUTE 592 /uL (359-1519); CD8 ABSOLUTE 1354 /uL (109-897); LYMPHOCYTES ABSOLUTE 2.9 x10E3/uL (0.7-3.1); LYMPHS 41 % (.); WBC 7.2 x10E3/uL (3.4-10.8)
[2016-08-18 08:00] VITALS: BP 116/72
[2016-08-18] MEDS: Etravirine 100mg tab ORAL SCH (08:38)
[2016-08-18] MEDS: Darunavir 600mg tab ORAL SCH (08:38)
[2016-08-18] MEDS: Lisinopril 20mg tab ORAL SCH (08:38)
[2016-08-18] MEDS: Heparin 5000 units/ml inj SUBQ SCH (08:41)
[2016-08-18] MEDS: Ritonavir 100mg tab ORAL SCH (08:41)
[2016-08-18 12:00] VITALS: BP 112/68
[2016-08-18] MEDS ORDERED: LEVOFLOXACIN500 MG ORAL (14:56)
--- NOTE | 2016-08-18 15:01 | Infectious Diseases Prog Note ---
Assessment/Plan Assessment/Plan ASSESSMENT: 81 y/o HIV+ male, CD4 now 592 (20.4%) on salvage regimen of Truvada/Darunavir/r/ Etravirine, admitted with acute prostatitis and pneumonitis w/o fevers or hemodynamic instability. .Stable on empiric ceftriaxone and azithromycin day 4. repeat ucx from 08/16 is negative. blood cx remains ngtd. Although he does have some discordance between his absolute CD4 and CD4%, so that his effective CD4 count is closer to 350 based on the CD4%, he isn't at significant risk of Pneumocystis, and his CT demonstrates some interval worsening of chronic interstitial disease vs 2 years ago. Ucx were nondiagnostic, and so final diagnosis here is Acute prostatitis, and is stable for discharge from ID standpoint today. I've ordered his 28 days Levofloxacin in the EMR. Acute Prostatitis pyuria, r/o low likelihood GC/chlamydia Pneumonitis HIV Plan D/C ceftriazone/azithromycin. Start oral monotherapy Levofloxacin 500mg oral once daily for 28 days for treatment of his acute prostatitis Continue flomax 0.4mg oral once daily. Will need f/u with urologist with repeat PSA as outpatient in 2-3 months. continue Truvada, Darunavir, ritonavir, and Etravirine Stable for hospital discharge from ID standpoint Subjective Constitutional: Reports: no symptoms Respiratory: Reports: no symptoms Genitourinary: Reports: no symptoms Skin: Reports: no symptoms Allergies: Coded Allergies: No Known Allergies (Unverified , 08/31/13) Objective Vital Signs Last 24 Hour Vital Signs Date Time Temp Pulse Resp B/P Pulse Ox O2 Delivery O2 Flow Rate FiO2 08/18/16 12:00 97.0 65 19 112/68 97 Room Air 08/18/16 08:38 116/72 08/18/16 08:00 97.5 83 18 116/72 96 Room Air 08/18/16 04:00 97.8 63 18 122/68 95 Room Air 08/17/16 23:38 97.0 69 18 131/80 94 Room Air 08/17/16 20:00 97.0 70 20 134/84 94 Room Air 08/17/16 16:00 96.6 57 18 133/76 97 Room Air Height (Feet): 6 Height (Inches): 0.00 Weight (Pounds): 136 General Appearance: no acute distress HEENT: atraumatic, anicteric Respiratory/Chest: lungs clear, rhonchi - bilaterally Cardiovascular: normal peripheral pulses Abdomen: soft, non tender, no organomegaly Extremities: no cyanosis, no edema Skin: no rash 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: 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 normal Musculoskeletal: atrophy Current Medications Medications (Trade) Dose Ordered Sig/Delgado Route PRN Reason Start Time Stop Time Status Last Admin Dose Admin Acetaminophen (Tylenol) 650 mg Q4H PRN ORAL T>100.5 08/15/16 18:30 09/14/16 18:29 Albuterol/ Ipratropium (DuoNeb 0.5-3(2.5)mg/3ml) 3 ml Q4H PRN HHN Shortness of Breath 08/15/16 18:30 08/20/16 18:29 Azithromycin 500 mg/Dextrose 275 ml @ 275 mls/hr Q24HRS IV 08/15/16 20:00 08/21/16 20:01 08/17/16 21:58 Ceftriaxone Sodium/Dextrose (Rocephin/D5W) 55 ml @ 110 mls/hr Q24H IVPB 08/15/16 19:30 08/22/16 19:29 08/17/16 20:43 Darunavir (Prezista) 600 mg TWICE A DAY ORAL 08/15/16 20:00 09/14/16 19:59 08/18/16 08:38 Emtricitabine/ Tenofovir (Truvada 200/ 300mg) 1 tab DAILY ORAL 08/15/16 20:00 09/14/16 19:59 08/18/16 08:38 Etravirine (Intelence) 200 mg Q12HR ORAL 08/15/16 20:00 09/14/16 19:59 08/18/16 08:38 Heparin Sodium (Porcine) (Heparin 5000 units/ml) 5,000 units EVERY 12 HOURS SUBQ 08/15/16 21:00 09/14/16 20:59 08/18/16 08:41 Lisinopril (Prinivil) 40 mg DAILY ORAL 08/16/16 09:00 09/15/16 08:59 08/18/16 08:38 Morphine Sulfate (Morphine Sulfate) 2 mg Q4H PRN IVP Moderate Pain (Pain Scale 4-6) 08/15/16 18:30 08/22/16 18:29 08/15/16 21:52 Nitroglycerin (Ntg) 0.4 mg Q5MIN PRN SL Prn Chest Pain 08/15/16 18:00 09/14/16 17:59 Ondansetron HCl (Zofran) 4 mg Q6H PRN IVP Nausea & Vomiting 08/15/16 18:30 09/14/16 18:29 Polyethylene Glycol (Miralax) 17 gm DAILYPRN PRN ORAL Constipation 08/15/16 18:30 09/14/16 18:29 Ritonavir (Norvir) 100 mg TWICE A DAY ORAL 08/15/16 20:00 09/14/16 19:59 08/18/16 08:41 Tamsulosin HCl (Flomax) 0.4 mg BEDTIME ORAL 08/16/16 21:00 09/15/16 20:59 08/17/16 20:43 Temazepam (Restoril) 15 mg HSPRN PRN ORAL Insomnia 08/15/16 21:00 08/22/16 20:59 Cezar Jacob M.D. Aug 18, 2016 15:01
--- NOTE | 2016-08-18 15:46 | Pulmonology Progress Note ---
Assessment/Plan Problems: (1) Acute UTI (2) HIV disease (3) Interstitial lung disease (4) Hypertension Assessment/Plan continue current abx check cultures doign better dc planning inprogress check labs in am tolerating diet\ dc home today Subjective ROS Limited/Unobtainable: No Constitutional: Reports: no symptoms HEENT: Repors: no symptoms Respiratory: Reports: no symptoms Cardiovascular: Reports: no symptoms Allergies: Coded Allergies: No Known Allergies (Unverified , 08/31/13) Objective Last 24 Hour Vital Signs Date Time Temp Pulse Resp B/P Pulse Ox O2 Delivery O2 Flow Rate FiO2 08/18/16 12:00 97.0 65 19 112/68 97 Room Air 08/18/16 08:38 116/72 08/18/16 08:00 97.5 83 18 116/72 96 Room Air 08/18/16 04:00 97.8 63 18 122/68 95 Room Air 08/17/16 23:38 97.0 69 18 131/80 94 Room Air 08/17/16 20:00 97.0 70 20 134/84 94 Room Air 08/17/16 16:00 96.6 57 18 133/76 97 Room Air Intake and Output 08/17/16 08/18/16 19:00 07:00 Intake Total 720 ml 730 ml Output Total 900 ml Balance 720 ml -170 ml Intake Oral 720 ml 400 ml IV Total 330 ml Output Urine Total 900 ml # Voids 10 # Bowel Movements 2 1 General Appearance: cachetic HEENT: normocephalic, atraumatic Respiratory/Chest: chest wall non-tender, lungs clear Cardiovascular: normal peripheral pulses, normal rate Abdomen: normal bowel sounds, soft, non tender Genitourinary: normal external genitalia Extremities: no clubbing 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: abnormal gait, responsive Lymphatic: no neck adenopathy Current Medications Medications (Trade) Dose Ordered Sig/Delgado Route PRN Reason Start Time Stop Time Status Last Admin Dose Admin Acetaminophen (Tylenol) 650 mg Q4H PRN ORAL T>100.5 08/15/16 18:30 09/14/16 18:29 Albuterol/ Ipratropium (DuoNeb 0.5-3(2.5)mg/3ml) 3 ml Q4H PRN HHN Shortness of Breath 08/15/16 18:30 08/20/16 18:29 Azithromycin 500 mg/Dextrose 275 ml @ 275 mls/hr Q24HRS IV 08/15/16 20:00 08/21/16 20:01 08/17/16 21:58 Ceftriaxone Sodium/Dextrose (Rocephin/D5W) 55 ml @ 110 mls/hr Q24H IVPB 08/15/16 19:30 08/22/16 19:29 08/17/16 20:43 Darunavir (Prezista) 600 mg TWICE A DAY ORAL 08/15/16 20:00 09/14/16 19:59 08/18/16 08:38 Emtricitabine/ Tenofovir (Truvada 200/ 300mg) 1 tab DAILY ORAL 08/15/16 20:00 09/14/16 19:59 08/18/16 08:38 Etravirine (Intelence) 200 mg Q12HR ORAL 08/15/16 20:00 09/14/16 19:59 08/18/16 08:38 Heparin Sodium (Porcine) (Heparin 5000 units/ml) 5,000 units EVERY 12 HOURS SUBQ 08/15/16 21:00 09/14/16 20:59 08/18/16 08:41 Lisinopril (Prinivil) 40 mg DAILY ORAL 08/16/16 09:00 09/15/16 08:59 08/18/16 08:38 Morphine Sulfate (Morphine Sulfate) 2 mg Q4H PRN IVP Moderate Pain (Pain Scale 4-6) 08/15/16 18:30 08/22/16 18:29 08/15/16 21:52 Nitroglycerin (Ntg) 0.4 mg Q5MIN PRN SL Prn Chest Pain 08/15/16 18:00 09/14/16 17:59 Ondansetron HCl (Zofran) 4 mg Q6H PRN IVP Nausea & Vomiting 08/15/16 18:30 09/14/16 18:29 Polyethylene Glycol (Miralax) 17 gm DAILYPRN PRN ORAL Constipation 08/15/16 18:30 09/14/16 18:29 Ritonavir (Norvir) 100 mg TWICE A DAY ORAL 08/15/16 20:00 09/14/16 19:59 08/18/16 08:41 Tamsulosin HCl (Flomax) 0.4 mg BEDTIME ORAL 08/16/16 21:00 09/15/16 20:59 08/17/16 20:43 Temazepam (Restoril) 15 mg HSPRN PRN ORAL Insomnia 08/15/16 21:00 08/22/16 20:59 DREW HAYDEN Aug 18, 2016 15:46
[2016-08-18 16:00] VITALS: BP 125/70
[2016-08-18] MEDS ORDERED: LEVAQUIN500 MG ORAL (16:21)
[2016-08-18] MEDS ORDERED: Tubing IV Secondary IV ONE (16:29)
[2016-08-18 22:08] LABS: HIV RNA PCR QUANT <40 copies/mL (.)
--- NOTE | 2016-08-19 07:41 | Discharge Summary ---
Discharge Summary Hospital Course Date of Admission Aug 14, 2016 at 17:34 Date of Discharge Aug 18, 2016 at 16:30 Admitting Diagnosis PNEUMONIA HPI Saira Menjivar is a 81 year old male who was admitted on Aug 14, 2016 at 17:34 for Pneumonia Hospital Course dc summary #[id number] Discharge Medications New Medications: Levofloxacin (Levofloxacin*) 500 Mg Tablet 500 MG ORAL DAILY for 28 Days, #28 TAB Tamsulosin Hcl (Tamsulosin Hcl*) 0.4 Mg Cap.er.24h 0.4 MG ORAL BEDTIME, #30 CAP Continued Medications: Darunavir Ethanolate* (Prezista*) 600 Mg Tablet 600 MG ORAL EVERY 12 HOURS, TAB Emtricitabine/Tenofovir (Truvada 100 mg-150 mg Tablet) 1 Each Tablet 1 EACH PO, TAB Etravirine (Intelence) 200 Mg Tablet 200 MG ORAL BID Lisinopril* (Lisinopril*) 40 Mg Tablet 40 MG ORAL DAILY Ritonavir* (Norvir*) 100 Mg Capsule 100 MG ORAL TWICE A DAY Discontinued Medications: Cephalexin* (Keflex*) 500 Mg Capsule 500 MG ORAL Q6H, #28 CAP Trimethoprim/Sulfamethoxazole 160/800* (Bactrim Ds Tablet*) 1 Each Tablet 1 TAB ORAL Q12H, #28 TAB Discharge Condition Upon Discharge: stable Discharge Disposition Patient was discharged to Home () Discharge Diagnoses: Discharge Instructions Discharge Instructions Special Instructions I have been assigned to complete a D/C Summary on this account. I was not involved in the patient management Kelsi Hart NP ([place]) Aug 19, 2016 07:41
--- NOTE | 2016-08-19 12:16 | Discharge Summary 2 SIG ---
DATE OF ADMISSION: 08/14/2016 DATE OF DISCHARGE: 08/18/2016 REASON FOR ADMISSION: 81-year-old male with history of HIV, HTN, prior smoking, presented to emergency room with complaint of dysuria and nocturia. He stated that he had a bladder infection. In the emergency department, chest x-ray revealed interstitial lung disease. Urinalysis was positive for UTI. No leukocytosis. ABG was stable on room air. The patient admitted for further management. ADMITTING DIAGNOSES: 1. Acute urinary tract infection. 2. Interstitial lung disease. 3. Human immunodeficiency virus disease. 4. History of hypertension. HOSPITAL STAY: The patient was admitted. The patient started on empiric antibiotics. ID consult was requested. Initial urine culture with mixed gram-positive organism. Repeated urine culture was negative. Infectious disease doctor diagnosed the patient with acute prostatitis and changed antibiotic therapy to monotherapy with Levaquin for total of 28 days. Urologist seen and evaluated the patient. Urologist started the patient on Flomax. PSA was elevated - 19.2. The patient with a history of prostate cancer, status post radiation in the past. According to urologist, the patient needs to be treated with antibiotics for acute prostatitis as well as take Flomax to help him with urination. The patient needs to follow up with the regular urologist and then repeat PSA in two to three months. T-cell subset was checked. CD4- 592. ART therapy was continued as per ID. Hepatitis panel was negative. Supplemental oxygen and pulmonary toilet provided as needed. Pulse oximetry was stable on room air. CT of the chest demonstrated findings consistent with usual interstitial pneumonitis, secondary to either idiopathic pulmonary fibrosis, collagen vascular disease or asbestosis. However, no pleural calcification or plaque to support the diagnosis of asbestos exposure. Stable 7 mm spiculated nodule in the left lung base. Stability supporting benign character. Blood pressure was stable with PAULA inhibitor. DVT prophylaxis provided. The patient's clinical condition improved. No fever. No leukocytosis. Laboratory work was stable. Patient was stable for discharge home on oral antibiotic for total of 28 days along with ART therapy. The patient to continue Flomax and follow up with the urologist on outpatient basis. DISCHARGE DIAGNOSES: 1. Acute prostatitis. 2. Interstitial pneumonitis. 3. Human immunodeficiency virus status. 4. Hypertension. 5. History of prostate cancer with radiation. DISCHARGE MEDICATIONS: see medications reconciliation lsit DISCHARGE INSTRUCTIONS: The patient to follow up with the primary medical doctor and urologist. Gracie Echeverria M.D. I have been assigned to dictate discharge summary on this account and I was not involved in the patient's management. Kelsi ChinoOur Lady Of Lourdes Memorial HospitalSerene NDerrick DR: ALLI JOB#: [id number] CC: DEJAH
== END 2016-08-18 16:30 | disposition home or self-care (01) | DRG 727 ==
LOC: EMR 15:45 → EDBEDREQ 17:19 → 2E 17:34 → EDBEDREQ 19:40 → 4W 08-15 17:51
DX: N41.0 Acute prostatitis (principal); B20 Human immunodeficiency virus [HIV] disease; J84.89 Other specified interstitial pulmonary diseases; N39.0 Urinary tract infection, site not specified; I10 Essential (primary) hypertension; Z85.46 Personal history of malignant neoplasm of prostate; Z87.891 Personal history of nicotine dependence; Z92.3 Personal history of irradiation
CPT/HCPCS: 36415; 36600; 71010; 71250; 80053; 81001; 81003; 82164; 82803; 83605; 83615; 83735; 83880; 84100; 84153; 85025; 86360; 86705; 86709; 86803; 87040; 87081; 87086; 87340; 87491; 87536; 93005

== ENCOUNTER 2016-11-09 11:51 | Emergency (ER) | payer MEDICARE, OTHER ==
[~2016-11-09] VITALS: Ht 182.9 cm; Wt 63.0 kg
[~2016-11-09 11:51] MED LIST changes: +ASPIR 8181 MG ORAL; +INTELENCE100 MG ORAL; +INTELENCE200 MG ORAL; +LEVAQUIN500 MG ORAL; +LEVOFLOXACIN500 MG ORAL; +LISINOPRIL40 MG ORAL; +NICOTINE PATCH1 EAC1 TD; +NORVIR100 MG ORAL
[2016-11-09 12:10] VITALS: BP 124/78
[2016-11-09] MEDS ORDERED: Dicyclomine HCl 10mg/5ml oral soln ORAL ONE (12:45)
--- NOTE | 2016-11-09 12:46 | Emergency Room Report ---
History of Present Illness General Chief Complaint: Diarrhea Source: Medical Record Present Illness HPI 81-year-old male presents to the emergency department complaining of diarrhea since this a.m. Patient states that he takes Bentyl twice daily regularly for approximately 2 years to manage side effects of his HIV medications which is diarrhea. States he has an appt. this wed with his PCP. Patient denies abdominal pain he denies blood in the stools or black tarry stools patient denies fevers, nausea, vomiting, recent travel or ill contacts with similar symptoms. Patient denies feeling lightheaded. he states he sees his infectious disease doctor regularly and states that his viral load is undetectable and CD4 counts are approximately 600. He denies recent antibiotic use. Denies CP, Palpitations, LOC, AMS, dizziness, Changes in Vision, Sensation, paresthesias, or a sudden severe headache. Allergies: Coded Allergies: No Known Allergies (Unverified , 08/31/13) Patient History Past Medical History: see triage record, HIV Past Surgical History: none Pertinent Family History: none Immunizations: UTD Reviewed Nursing Documentation: PMH: Agreed, PSxH: Agreed Nursing Documentation-PMH Past Medical History: No History, Except For Hx Hypertension: Yes Hx Diabetes: No Hx Cancer: Yes - Prostate cancer 2015 Hx Neurological Problems: No Review of Systems All Other Systems: negative except mentioned in HPI Physical Exam Vital Signs Date Time Temp Pulse Resp B/P (MAP) Pulse Ox O2 Delivery O2 Flow Rate FiO2 11/09/16 12:10 97.5 67 14 124/78 98 Room Air Sp02 EP Interpretation: reviewed, normal General Appearance: no apparent distress, alert, GCS 15, non-toxic Head: normocephalic, atraumatic Eyes: bilateral eye normal inspection, bilateral eye PERRL ENT: hearing grossly normal, normal voice Neck: full range of motion Respiratory: lungs clear, normal breath sounds, speaking full sentences Cardiovascular #1: regular rate, rhythm Gastrointestinal: normal bowel sounds, non tender, soft, non-distended, no guarding, no rebound Rectal: deferred Musculoskeletal: back normal, gait/station normal, normal range of motion, non- tender Neurologic: alert, oriented x3, responsive, motor strength/tone normal, sensory intact, normal gait, speech normal Psychiatric: judgement/insight normal, memory normal, mood/affect normal Skin: normal color, no rash, warm/dry, well hydrated Medical Decision Making PA Attestation Dr. Mendoza is my supervising Physician whom patient management has been discussed with. Diagnostic Impression: Primary Impression: Medication refill Additional Impression: Diarrhea Qualified Codes: R19.7 - Diarrhea, unspecified ER Course 81-year-old male presents to the emergency department complaining of diarrhea since this a.m. Patient states that he takes Bentyl twice daily regularly for approximately 2 years to manage side effects of his HIV medications which is diarrhea. States he has an appt. this wed with his PCP. Patient denies abdominal pain he denies blood in the stools or black tarry stools patient denies fevers, nausea, vomiting, recent travel or ill contacts with similar symptoms. Patient denies feeling lightheaded. he states he sees his infectious disease doctor regularly and states that his viral load is undetectable and CD4 counts are approximately 600. He denies recent antibiotic use. Denies CP, Palpitations, LOC, AMS, dizziness, Changes in Vision, Sensation, paresthesias, or a sudden severe headache. --- his soonest appt. with his PMD is this Wed. Ddx considered but are not limited to: medication non-compliance, OD, GE, infectious colitis, hypovolemia just to name a few. Vital signs: are WNL, pt. is afebrile H&PE are most consistent with need for medication refill. ORDERS: none required at this time, the diagnosis is clinical ED INTERVENTIONS: None required at this time. DISCHARGE: At this time pt. is stable for d/c to home. Will provide printed patient care instructions, and any necessary prescriptions. Care plan and follow up instructions have been discussed with the patient prior to discharge. Last Vital Signs Date Time Temp Pulse Resp B/P (MAP) Pulse Ox O2 Delivery O2 Flow Rate FiO2 11/09/16 12:10 97.5 67 14 124/78 98 Room Air Disposition: HOME, SELF-CARE Condition: Stable Scripts Dicyclomine Hcl* (BENTYL*) 10 Mg Capsule 10 MG ORAL BID, #10 CAP Prov: Lou Chen 11/09/16 Patient Instructions: Diarrhea, Adult, Medicine Refill at the Emergency Department Additional Instructions: Take medications as directed. Follow up with a Primary Care Provider in 3-5 days, even if your symptoms have resolved. --Please review list of primary care clinics, if you do not already have a primary care provider Return sooner to ED if new symptoms occur, or current symptoms become worse. - Please note that this Emergency Department Report was dictated using [employer]ice technology software, occasionally this can lead to erroneous entry secondary to interpretation by the dictation equipment. Lou Chen Nov 09, 2016 12:46
[2016-11-09] MEDS ORDERED: BENTYL10 MG ORAL (12:47)
== END 2016-11-09 12:56 | disposition home or self-care (01) ==
LOC: EMR 12:25
DX: R19.7 Diarrhea, unspecified (principal); Z76.0 Encounter for issue of repeat prescription; B20 Human immunodeficiency virus [HIV] disease; I10 Essential (primary) hypertension; Z85.46 Personal history of malignant neoplasm of prostate
CPT/HCPCS: 99281

== ENCOUNTER 2017-02-10 07:35 | Emergency (ER) | payer MEDICARE ==
[~2017-02-10] VITALS: Ht 182.9 cm; Wt 62.6 kg
[~2017-02-10 07:35] MED LIST changes: +BENTYL10 MG ORAL
[2017-02-10] MEDS ORDERED: ORABASE11.9 GM MM (08:04)
[2017-02-10] MEDS ORDERED: TESSALON PERLE100 MG ORAL (08:04)
--- NOTE | 2017-02-10 08:09 | Emergency Room Report ---
History of Present Illness General Chief Complaint: Pain Source: Patient Present Illness HPI 81-year-old male, no significant past medical history, presenting with right sided oral lesion intermittently for the last week. States that it is sometimes painful and he is unable to put his dentures on. Also states that he has had a dry cough for the last 2 days. No fever no chills no shortness of breath. He has been eating and drinking well Allergies: Coded Allergies: No Known Allergies (Unverified , 08/31/13) Patient History Past Medical History: see triage record Past Surgical History: none Pertinent Family History: none Reviewed Nursing Documentation: PMH: Agreed, PSxH: Agreed Nursing Documentation-PMH Hx Hypertension: Yes Hx Diabetes: No Hx Cancer: Yes - Prostate cancer 2015 Hx Neurological Problems: No Review of Systems All Other Systems: negative except mentioned in HPI Physical Exam Vital Signs Date Time Temp Pulse Resp B/P (MAP) Pulse Ox O2 Delivery O2 Flow Rate FiO2 02/10/17 07:44 97.5 68 19 149/99 99 Room Air Sp02 EP Interpretation: reviewed, normal General Appearance: normal inspection, well appearing, no apparent distress, alert, GCS 15, non-toxic Head: normocephalic, atraumatic Eyes: bilateral eye normal inspection, bilateral eye PERRL, bilateral eye EOMI ENT: other - small aphthous ulcer R side buccal mucosa. no signs of infection. mildly tender. no surrounding erythema Neck: normal inspection, full range of motion, supple Respiratory: normal inspection, lungs clear, normal breath sounds, no respiratory distress, no retraction, no wheezing, speaking full sentences, chest symmetrical Cardiovascular #1: normal inspection, regular rate, rhythm, no edema, normal capillary refill Cardiovascular #2: 2+ radial (R), 2+ radial (L) Gastrointestinal: normal inspection, non tender, soft, non-distended, no guarding Genitourinary: no CVA tenderness Musculoskeletal: normal inspection, back normal, normal range of motion, non- tender Neurologic: normal inspection, alert, oriented x3, responsive, motor strength/ tone normal, sensory intact, normal gait, speech normal Psychiatric: normal inspection, judgement/insight normal, memory normal Skin: normal inspection, normal color, no rash, warm/dry, well hydrated, normal turgor Medical Decision Making Diagnostic Impression: Primary Impression: Cough Additional Impression: Oral ulceration ER Course 81-year-old male, right-sided ulceration, cough for 2 days DDX: Right-sided ulceration appears to be an aphthous ulcer, recommended close followup with primary care Likely viral cough, lungs are clear Plan: None ER course: Patient has remained stable during ED stay. Disposition: Patient is to be discharged to home. Prescriptions given are O[employer] and Tessalon Perles Patient is instructed to follow up with their primary care doctor within 5 days. Patient is instructed to follow up closely for the aphthous ulcer Strict return precautions discussed with patient such as fever, chills, worsening/severe pain, chest pain, SOB, nausea, vomiting, which may indicate severe illness. Patient verbalizes understanding and agrees with plan. Please note that this Emergency Department Report was dictated using [employer] technology software, occasionally this can lead to erroneous entry secondary to interpretation by the dictation equipment Last Vital Signs Date Time Temp Pulse Resp B/P (MAP) Pulse Ox O2 Delivery O2 Flow Rate FiO2 02/10/17 07:44 97.5 68 19 149/99 99 Room Air Disposition: HOME, SELF-CARE Condition: Stable Scripts Benzonatate* (TESSALON PERLE*) 100 Mg Capsule 100 MG ORAL THREE TIMES A DAY for 7 Days, #21 PERLE 0 Refills Prov: Josephine Interiano M.D. 02/10/17 Benzocaine (ORABASE) 11.9 Gm Paste..g. 11.9 GM MM BID, #1 TUBE 0 Refills Prov: Josephine Interiano M.D. 02/10/17 Patient Instructions: Oral Ulcers, Cough, Adult Josephine Interiano M.D. Feb 10, 2017 08:09
[2017-02-10 08:22] VITALS: BP 149/99
== END 2017-02-10 08:22 | disposition home or self-care (01) ==
LOC: EMR 08:22
DX: R05 Cough (principal); K12.0 Recurrent oral aphthae; I10 Essential (primary) hypertension; Z85.46 Personal history of malignant neoplasm of prostate
CPT/HCPCS: 99283

== ENCOUNTER 2017-04-09 17:17 | Emergency (ER) | payer MEDICARE ==
[~2017-04-09] VITALS: Ht 182.9 cm; Wt 68.0 kg
[~2017-04-09 17:17] MED LIST changes: +ORABASE11.9 GM MM; +TESSALON PERLE100 MG ORAL
[2017-04-09 17:50] VITALS: BP 146/96
[2017-04-09 19:11] LABS: BASOPHILS % (AUTO) 1.5 % (0.0-2.0); EOSINOPHILS % (AUTO) 4.7 % (0.0-3.0); HEMATOCRIT 38.9 % (42.0-52.0); HEMOGLOBIN 11.9 G/DL (14.2-18.0); LYMPHOCYTES % (AUTO) 33.1 % (20.0-45.0); MEAN CORPUSCULAR VOLUME 78 FL (80-99); MONOCYTES % (AUTO) 9.5 % (1.0-10.0); NEUTROPHILS % (AUTO) 51.3 % (45.0-75.0); PLATELET COUNT 167 K/UL (150-450); RED BLOOD COUNT 4.98 M/UL (4.70-6.10); RED CELL DISTRIBUTION WIDTH 12.6 % (11.6-14.8); WHITE BLOOD COUNT 6.2 K/UL (4.8-10.8)
[2017-04-09 19:18] LABS: ANION GAP 7 mmol/L (5-15); BLOOD UREA NITROGEN 30 mg/dL (7-18); CALCIUM 9.2 MG/DL (8.5-10.1); CARBON DIOXIDE 28 MMOL/L (21-32); CHLORIDE 105 MMOL/L (98-107); CREATININE 1.2 MG/DL (0.55-1.30); POTASSIUM 3.7 MMOL/L (3.5-5.1); SODIUM 139 MMOL/L (136-145)
[2017-04-09 19:25] VITALS: BP 138/97
[2017-04-09 19:31] LABS: ALANINE AMINOTRANSFERASE 28 U/L (12-78); ALBUMIN 3.4 G/DL (3.4-5.0); ALBUMIN/GLOBULIN RATIO 0.7 (1.0-2.7); ALKALINE PHOSPHATASE 201 U/L (46-116); ASPARTATE AMINO TRANSFERASE 28 U/L (15-37); BILIRUBIN,TOTAL 0.2 MG/DL (0.2-1.0); CKMB 2.4 NG/ML (0.0-3.6); CREATINE KINASE 179 U/L (26-308)
--- NOTE | 2017-04-09 20:45 | Emergency Room Report ---
History of Present Illness General Chief Complaint: Multiple Trauma/Fall Source: Patient Present Illness HPI This patient states that he was walking today and fell onto his left shoulder. He has left shoulder pain. He states that the ground was uneven and he fell. He denies loss of consciousness. He denies head trauma. He states that this happened twice. He denies chest pain or shortness of breath. He denies fever or chills. He denies nausea or vomiting. He denies abdominal pain. He denies headache or neck pain. He has no other complaints. Allergies: Coded Allergies: No Known Allergies (Unverified , 08/31/13) Patient History Past Medical History: see triage record, HIV, other - metastatic prostate CA Social History: Denies: smoking, alcohol use, drug use Reviewed Nursing Documentation: PMH: Agreed, PSxH: Agreed Nursing Documentation-PMH Hx Cardiac Problems: No - HIV Hx Hypertension: Yes Hx Pacemaker: No Hx Asthma: No Hx COPD: No Hx Diabetes: No Hx Cancer: Yes - Prostate cancer 2015/ Bone CA Hx Gastrointestinal Problems: Yes - colostomy Hx Dialysis: No History Of Psychiatric Problem: No Hx Neurological Problems: No Hx Cerebrovascular Accident: No Hx Seizures: No Review of Systems All Other Systems: negative except mentioned in HPI Physical Exam Vital Signs Date Time Temp Pulse Resp B/P (MAP) Pulse Ox O2 Delivery O2 Flow Rate FiO2 04/09/17 17:40 97.7 71 16 146/96 95 Room Air 97.7 Sp02 EP Interpretation: reviewed, normal General Appearance: no apparent distress, alert, GCS 15, non-toxic Head: normocephalic, atraumatic Eyes: bilateral eye normal inspection, bilateral eye PERRL ENT: hearing grossly normal, normal pharynx, no angioedema, normal voice Neck: full range of motion, supple/symm/no masses Respiratory: chest non-tender, lungs clear, normal breath sounds, no respiratory distress, no retraction, no accessory muscle use, speaking full sentences Cardiovascular #1: regular rate, rhythm, no edema Gastrointestinal: normal bowel sounds, non tender, soft, non-distended, no guarding, no rebound Rectal: deferred Musculoskeletal: back normal, gait/station normal, normal range of motion, other - Pain with ROM of L. shoulder Neurologic: alert, oriented x3, responsive, motor strength/tone normal, sensory intact, speech normal Psychiatric: judgement/insight normal, memory normal, mood/affect normal, no suicidal/homicidal ideation Skin: normal color, no rash, warm/dry, well hydrated Lymphatic: no adenopathy Medical Decision Making Diagnostic Impression: Primary Impression: Fall Additional Impression: Contusion of left arm ER Course This patient had a couple falls and complains of left shoulder pain. Left shoulder x-ray, left humerus x-ray left elbow x-ray are unremarkable. I also obtained a CT of the patient's head secondary to his age. This is also unremarkable. Laboratory workup is also unremarkable. Overall this patient's evaluation is benign. The patient states he needed x-rays so that he could see a tanker serviceman because he feels that the roads should be fixed. He states that he does have a place to stay and now radiates the bus system regularly. He does not want to see a director of social work. Laboratory Tests Test 04/09/17 18:30 White Blood Count 6.2 K/UL (4.8-10.8) Red Blood Count 4.98 M/UL (4.70-6.10) Hemoglobin 11.9 G/DL (14.2-18.0) L Hematocrit 38.9 % (42.0-52.0) L Mean Corpuscular Volume 78 FL (80-99) L Mean Corpuscular Hemoglobin 23.9 PG (27.0-31.0) L Mean Corpuscular Hemoglobin Concent 30.6 G/DL (32.0-36.0) L Red Cell Distribution Width 12.6 % (11.6-14.8) Platelet Count 167 K/UL (150-450) Mean Platelet Volume 9.3 FL (6.5-10.1) Neutrophils (%) (Auto) 51.3 % (45.0-75.0) Lymphocytes (%) (Auto) 33.1 % (20.0-45.0) Monocytes (%) (Auto) 9.5 % (1.0-10.0) Eosinophils (%) (Auto) 4.7 % (0.0-3.0) H Basophils (%) (Auto) 1.5 % (0.0-2.0) Prothrombin Time 10.2 SEC (9.30-11.50) Prothrombin Time INR 1.0 (0.9-1.1) PTT 29 SEC (23-33) Sodium Level 139 MMOL/L (136-145) Potassium Level 3.7 MMOL/L (3.5-5.1) Chloride Level 105 MMOL/L (98-107) Carbon Dioxide Level 28 MMOL/L (21-32) Anion Gap 7 mmol/L (5-15) Blood Urea Nitrogen 30 mg/dL (7-18) H Creatinine 1.2 MG/DL (0.55-1.30) Estimate Glomerular Filtration Rate mL/min (>60) Glucose Level 95 MG/DL (74-106) Calcium Level 9.2 MG/DL (8.5-10.1) Total Bilirubin 0.2 MG/DL (0.2-1.0) Aspartate Amino Transferase (AST) 28 U/L (15-37) Alanine Aminotransferase (ALT) 28 U/L (12-78) Alkaline Phosphatase 201 U/L (46-116) H Total Creatine Kinase 179 U/L (26-308) Creatine Kinase MB 2.4 NG/ML (0.0-3.6) Creatine Kinase MB Relative Index 1.3 Troponin I 0.000 ng/mL (0.000-0.056) Total Protein 8.2 G/DL (6.4-8.2) Albumin 3.4 G/DL (3.4-5.0) Globulin 4.8 g/dL Albumin/Globulin Ratio 0.7 (1.0-2.7) L EKG Diagnostic Results Rate: normal Rhythm: NSR ST Segments: no acute changes Rhythm Strip Diag. Results EP Interpretation: yes Rate: 60's Rhythm: NSR, no PVC's, no ectopy, other - R.BBB Other X-Ray Diagnostic Results Other X-Ray Diagnostic Results : X-Ray ordered: L. shoulder, L. humerus, L. elbow # of Views/Limited Vs Complete: Complete Indication: Pain EP Interpretation: Yes Interpretation: no dislocation, no soft tissue swelling, no fractures, nonspecific bowel gas Impression: No acute disease Electronically Signed by: Anthony CT/MRI/US Diagnostic Results CT/MRI/US Diagnostic Results : Imaging Test Ordered: CT head Impression No acute findings. No intracranial bleed or mass effect. See official report. Last Vital Signs Date Time Temp Pulse Resp B/P (MAP) Pulse Ox O2 Delivery O2 Flow Rate FiO2 04/09/17 17:50 97.7 16 146/96 95 Room Air 97.7 04/09/17 17:40 71 Status: improved Disposition: HOME, SELF-CARE Condition: Improved Referrals: [facility],REFERRING (PCP) JAYLEEN BENAVIDEZ D.O. Apr 09, 2017 20:45
[2017-04-09 20:50] VITALS: BP 133/99
[2017-04-09 21:00] VITALS: BP 133/99
--- NOTE | 2017-04-10 10:24 | Diagnostic Imaging Report ---
Indication: Headache. Head trauma Technique: Contiguous 5 mm thick transaxial imaging of the head obtained in a Siemens Sensation [address] scanner. Soft tissue and bone windows generated. Automatic Exposure Control was utilized. Total Dose length Product (DLP): 1375.[address] Dose Index Volume (CTDIvol): 70.38 mGy Comparison: 05/01/2015 Findings: There is mild prominence of the ventricles, basal cisterns, and cerebral sulci consistent with atrophy. Mild, nonspecific, white matter hypoattenuation is noted throughout the brain consistent with chronic small vessel disease. Small focus of low-attenuation in the left thalamus consistent with an old lacunar infarct seen previously. There is no midline shift, edema, acute hemorrhage, mass effect, or abnormal extra-axial fluid collections. Bones and extra osseous soft tissues are unremarkable. Impression: No acute intracranial bleed, mass effect or edema. Mild atrophy of the brain. 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 [facility] has communicated the preliminary results to the Emergency Department. Their findings are largely concordant with this report. The CT scanner at [facility] is accredited by the [employer] and the scans are performed using dose optimization techniques as appropriate to a performed exam including Automatic Exposure control.
--- NOTE | 2017-04-10 11:08 | Diagnostic Imaging Report ---
Indication: Pain Findings: 3 views of the left elbow were obtained. No acute fractures, malalignment, erosions or periostitis are identified. Soft tissues are unremarkable. Impression: No acute injury
--- NOTE | 2017-04-10 11:08 | Diagnostic Imaging Report ---
Indication: Pain Findings: 2 views of the left humerus were obtained. No acute fractures, malalignment, erosions or periostitis are identified. Bones are osteopenic. Soft tissues are unremarkable. Impression: No acute injury.
--- NOTE | 2017-04-10 11:09 | Diagnostic Imaging Report ---
Indication: left shoulder pain Findings: 3 views of the left shoulder were obtained. Alignment of the left shoulder is normal. No acute fracture is identified. Bones are osteopenic. Soft tissues are unremarkable. Impression: No acute injury
--- NOTE | 2017-04-10 11:10 | Diagnostic Imaging Report ---
Indication: Chest pain. Chest trauma Comparison: 08/14/2016 A single view chest radiograph was obtained. Findings: Reticular densities demonstrated within the lungs bilaterally. Findings appear chronic. Heart is enlarged. Aorta is ectatic. Bones are osteopenic. IMPRESSION: No acute findings. Interstitial lung disease
--- NOTE | 2017-04-12 16:09 | Cardiology Report ---
APPROVED REPORT EKG Measurement Heart [id number] Normal sinus rhythm Left axis deviation Right bundle branch block Abnormal ECG
== END 2017-04-09 21:00 | disposition home or self-care (01) ==
LOC: EMR 18:32
DX: S40.022A Contusion of left upper arm, initial encounter (principal); W19.XXXA Unspecified fall, initial encounter; Y92.9 Unspecified place or not applicable; I10 Essential (primary) hypertension; Z93.3 Colostomy status; G31.9 Degenerative disease of nervous system, unspecified; J84.9 Interstitial pulmonary disease, unspecified; Z85.830 Personal history of malignant neoplasm of bone; Z85.46 Personal history of malignant neoplasm of prostate
CPT/HCPCS: 36415; 70450; 71045; 80053; 82550; 82553; 82962; 84484; 85025; 85610; 85730; 93005; 99284

== ENCOUNTER 2017-07-25 09:20 | Emergency (ER) | payer MEDICARE, OTHER ==
[~2017-07-25] VITALS: Ht 182.9 cm; Wt 72.6 kg
--- NOTE | 2017-07-25 09:54 | Emergency Room Report ---
History of Present Illness General Chief Complaint: Medication Refill Source: Patient Present Illness HPI The patient is requesting a refill of his HIV medications. He has no other complaints. Allergies: Coded Allergies: No Known Allergies (Unverified , 08/31/13) Patient History Past Medical History: HIV, other - Prostate CA Social History: Denies: smoking, alcohol use, drug use Reviewed Nursing Documentation: PMH: Agreed; PSxH: Agreed Nursing Documentation-PMH Hx Cardiac Problems: No - HIV Hx Hypertension: Yes Hx Pacemaker: No Hx Asthma: No Hx COPD: No Hx Diabetes: No Hx Cancer: Yes - Prostate cancer 2015/ Bone CA Hx Gastrointestinal Problems: Yes - colostomy Hx Dialysis: No Hx Neurological Problems: No Hx Cerebrovascular Accident: No Hx Seizures: No Review of Systems All Other Systems: negative except mentioned in HPI Physical Exam Vital Signs Date Time Temp Pulse Resp B/P (MAP) Pulse Ox O2 Delivery O2 Flow Rate FiO2 07/25/17 09:30 97.4 66 21 157/101 98 Room Air 97.3 Sp02 EP Interpretation: reviewed, normal General Appearance: no apparent distress, alert, GCS 15, non-toxic Head: normocephalic, atraumatic Eyes: bilateral eye normal inspection, bilateral eye PERRL ENT: hearing grossly normal, no angioedema, normal voice Respiratory: no respiratory distress, no retraction, no accessory muscle use, speaking full sentences Rectal: deferred Musculoskeletal: gait/station normal Neurologic: alert, oriented x3, responsive, motor strength/tone normal, sensory intact, speech normal Psychiatric: judgement/insight normal, memory normal, mood/affect normal, no suicidal/homicidal ideation Skin: normal color, no rash, warm/dry, well hydrated Medical Decision Making Diagnostic Impression: Primary Impression: Encounter for medication refill Additional Impression: HIV disease ER Course The patient is requesting a medication refill for his HIV meds. I felt that this patient should go to a local clinic so that he could have the proper testing and proper medication and follow-up. He was referred with a map to a clinic very close to this hospital. I am uncomfortable refilling HIV medications as this was not within my scope of practice. There is no evidence of an emergency medical condition based upon my history and physical exam. Last Vital Signs Date Time Temp Pulse Resp B/P (MAP) Pulse Ox O2 Delivery O2 Flow Rate FiO2 07/25/17 09:30 97.4 66 21 157/101 98 Room Air 97.3 Disposition: HOME, SELF-CARE Condition: Stable Patient Instructions: Medicine Refill at the Emergency Department Juana Suarez DO Jul 25, 2017 09:54
[2017-07-25 10:00] VITALS: BP 157/101
== END 2017-07-25 10:00 | disposition home or self-care (01) ==
LOC: EMR 09:50
DX: Z76.0 Encounter for issue of repeat prescription (principal); B20 Human immunodeficiency virus [HIV] disease; I10 Essential (primary) hypertension; Z85.46 Personal history of malignant neoplasm of prostate
CPT/HCPCS: 99281

== ENCOUNTER 2017-10-22 09:19 | Emergency (ER) | payer MEDICARE, MEDICAID ==
[~2017-10-22] VITALS: Ht 182.9 cm; Wt 63.5 kg
[2017-10-22] MEDS ORDERED: Isovue-300 100ml vial INJ PRN (09:45)
[2017-10-22 09:53] LABS: BASOPHILS % (AUTO) 1.1 % (0.0-2.0); HEMATOCRIT 41.1 % (42.0-52.0); HEMOGLOBIN 12.5 G/DL (14.2-18.0); MEAN CORPUSCULAR VOLUME 78 FL (80-99); MONOCYTES % (AUTO) 10.9 % (1.0-10.0); PLATELET COUNT 135 K/UL (150-450); RED BLOOD COUNT 5.27 M/UL (4.70-6.10); RED CELL DISTRIBUTION WIDTH 13.2 % (11.6-14.8); WHITE BLOOD COUNT 6.5 K/UL (4.8-10.8)
[2017-10-22 10:07] LABS: ANION GAP 9 mmol/L (5-15); BLOOD UREA NITROGEN 28 mg/dL (7-18); CARBON DIOXIDE 26 MMOL/L (21-32); CHLORIDE 110 MMOL/L (98-107); SODIUM 145 MMOL/L (136-145)
[2017-10-22 10:11] VITALS: BP 143/89
[2017-10-22 10:11] LABS: ALANINE AMINOTRANSFERASE 33 U/L (12-78); ALBUMIN 3.3 G/DL (3.4-5.0); ALBUMIN/GLOBULIN RATIO 0.7 (1.0-2.7); ALKALINE PHOSPHATASE 346 U/L (46-116); ASPARTATE AMINO TRANSFERASE 25 U/L (15-37); BILIRUBIN,TOTAL 0.3 MG/DL (0.2-1.0)
[2017-10-22 11:08] LABS: APPEARANCE,URINE CLEAR; BILIRUBIN, URINE NEGATIVE (NEGATIVE); COLOR,URINE PALE YELLOW; GLUCOSE, URINE (UA) NEGATIVE (NEGATIVE); KETONES,URINE NEGATIVE (NEGATIVE); LEUKOCYTE ESTERASE ,URINE 3+ (NEGATIVE); NITRITE,URINE POSITIVE (NEGATIVE); PH,URINE 7 (4.5-8.0); PROTEIN,URINE 1+ (NEGATIVE); UROBILINOGEN,URINE NORMAL MG/DL (0.0-1.0)
--- NOTE | 2017-10-22 11:18 | Diagnostic Imaging Report ---
Clinical Indication: Abdominal pain, rectal bleeding with straining, no bowel movements for 2 to 3 days Technique: No oral contrast utilized, per emergency room physician request IV administration nonionic contrast. Venous phase spiral acquisition obtained through the abdomen and pelvis. Multiplanar reconstructions were generated. Total dose length product 491.79 mGycm. CTDIvol(s) 9.87 mGy. Dose reduction achieved using automated exposure control Comparison: 06/12/2014 Findings: Lack of enteric contrast limits assessment of the GI tract. The rectum is filled with feces, upper limits of normal in caliber. There is colonic diverticulosis again demonstrated. Moderate retained stool is seen in the proximal colon. What may be a normal appendix is visible immediately adjacent to the cecum on the coronal images. There is no evidence of acute appendicitis. No small bowel distention. Distal esophagus, stomach, duodenum are unremarkable. No free or loculated intraperitoneal gas or fluid The liver, gallbladder, bile ducts, pancreas are all unremarkable. The spleen demonstrates a subcentimeter upper pole low-attenuation lesion, probably present previously in retrospect. The adrenals are unremarkable. The right kidney demonstrates an interpolar region cyst. Both kidneys demonstrate subcentimeter low-attenuation lesions which are too small to characterize. No retroperitoneal or mesenteric mass or adenopathy. There is some mural thickening of the distal aorta. The bladder wall is thickened. It demonstrates an anterior diverticulum. There is bilateral gynecomastia again demonstrated. The lung bases demonstrate extensive chronic fibrotic changes with honeycombing which appears to have progressed since the prior study. The bones demonstrate multiple osteosclerotic lesions. This is a new finding. The prostate does not appear to be enlarged. There are degenerative changes of the thoracic and lumbar spine Impression: Limited assessment of the GI tract, due to lack of enteric contrast Stool-filled but not frankly distended rectum. 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 Correlate with clinical history as regards any history of primary malignancy Progressive end-stage pulmonary fibrotic change Thickened bladder wall, probably on the basis of chronic bladder outlet obstruction. Cystitis also possibility. Bladder diverticulum is noted Bilateral gynecomastia Other findings as noted, including degenerative thoracic spondylosis, right renal cyst, subcentimeter low-attenuation renal lesions which are too small to characterize, nonspecific subcentimeter upper pole splenic lesion The CT scanner at [facility] is accredited by the [employer] and the scans are performed using protocols designed to limit radiation exposure to as low as reasonably achievable to attain images of sufficient resolution adequate for diagnostic evaluation.
--- NOTE | 2017-10-22 11:26 | Emergency Room Report ---
History of Present Illness General Chief Complaint: Constipation Source: Patient Present Illness HPI Patient complains of constipation. The patient's studies had constipation intermittently for many years. He states that he hasn't had a bowel movement in the past 3 days. He states he did try to disimpact himself at home with his fingers and with a Fleet enema. He has a history of HIV and is on antiretroviral therapy. He states he has a history of prostate cancer. He does have some fullness and abdominal pain. He denies nausea or vomiting. He denies fever or chills. He has started having some rectal bleeding after attempting to disimpact himself. He has no other complaints. Allergies: Coded Allergies: No Known Allergies (Unverified , 08/31/13) Patient History Past Medical History: HTN, HIV, other - Prostate CA Social History: Denies: smoking, alcohol use, drug use Reviewed Nursing Documentation: PMH: Agreed; PSxH: Agreed Nursing Documentation-PMH Past Medical History: No History, Except For Hx Cardiac Problems: No - HIV Hx Hypertension: Yes Hx Pacemaker: No Hx Asthma: No Hx COPD: No Hx Diabetes: No Hx Cancer: Yes - Prostate cancer 2015/ Bone CA Hx Gastrointestinal Problems: Yes - colostomy Hx Dialysis: No Hx Neurological Problems: No Hx Cerebrovascular Accident: No Hx Seizures: No Review of Systems All Other Systems: negative except mentioned in HPI Physical Exam Vital Signs Date Time Temp Pulse Resp B/P (MAP) Pulse Ox O2 Delivery O2 Flow Rate FiO2 10/22/17 09:24 97.2 68 14 145/92 96 Room Air 97.2 Sp02 EP Interpretation: reviewed, normal General Appearance: no apparent distress, alert, GCS 15, non-toxic, cachetic Head: normocephalic, atraumatic Eyes: bilateral eye normal inspection, bilateral eye PERRL ENT: hearing grossly normal, normal pharynx, no angioedema, normal voice Neck: full range of motion, supple/symm/no masses Respiratory: chest non-tender, lungs clear, normal breath sounds, no respiratory distress, no retraction, no accessory muscle use, speaking full sentences Cardiovascular #1: regular rate, rhythm, no edema Gastrointestinal: normal bowel sounds, non tender, soft, non-distended, no guarding, no rebound Rectal: blood streaked stool Musculoskeletal: back normal, gait/station normal, normal range of motion, non- tender Neurologic: alert, oriented x3, responsive, motor strength/tone normal, sensory intact, speech normal Psychiatric: judgement/insight normal, memory normal, mood/affect normal, no suicidal/homicidal ideation Skin: normal color, no rash, warm/dry, well hydrated Medical Decision Making Diagnostic Impression: Primary Impression: Constipation Additional Impressions: Lytic bone lesions on xray Prostatitis ER Course The patient had complained of 3 days of constipation. I was concerned given the patient's history of cancer that there could be a tumor or other reason for his constipation. I obtained a CT of the abdomen and pelvis. Appears he had a fecal impaction. He also is noted to have lytic lesions in his spine. 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 The patient was educated on these findings and instructed to follow-up with his primary oncologist. The patient is also found to have a urinary tract infection which is likely prostatitis. I will go ahead and treat this patient with a 10 day course of ciprofloxacin. I also put the patient on a bowel regimen. The patient underwent a Fleet enema and a soapsuds enema with complete resolution of his symptoms and a large bowel movement. The patient requested to go home. I did educate the patient on the importance of following up closely with his primary care physician. He is given close return precautions and follow-up instructions. Laboratory Tests Test 10/22/17 09:41 10/22/17 10:50 White Blood Count 6.5 K/UL (4.8-10.8) Red Blood Count 5.27 M/UL (4.70-6.10) Hemoglobin 12.5 G/DL (14.2-18.0) L Hematocrit 41.1 % (42.0-52.0) L Mean Corpuscular Volume 78 FL (80-99) L Mean Corpuscular Hemoglobin 23.8 PG (27.0-31.0) L Mean Corpuscular Hemoglobin Concent 30.5 G/DL (32.0-36.0) L Red Cell Distribution Width 13.2 % (11.6-14.8) Platelet Count 135 K/UL (150-450) L Mean Platelet Volume 8.0 FL (6.5-10.1) Neutrophils (%) (Auto) 58.0 % (45.0-75.0) Lymphocytes (%) (Auto) 25.0 % (20.0-45.0) Monocytes (%) (Auto) 10.9 % (1.0-10.0) H Eosinophils (%) (Auto) 5.0 % (0.0-3.0) H Basophils (%) (Auto) 1.1 % (0.0-2.0) Sodium Level 145 MMOL/L (136-145) Potassium Level 4.0 MMOL/L (3.5-5.1) Chloride Level 110 MMOL/L (98-107) H Carbon Dioxide Level 26 MMOL/L (21-32) Anion Gap 9 mmol/L (5-15) Blood Urea Nitrogen 28 mg/dL (7-18) H Creatinine 1.0 MG/DL (0.55-1.30) Estimate Glomerular Filtration Rate mL/min (>60) Glucose Level 87 MG/DL (74-106) Calcium Level 9.0 MG/DL (8.5-10.1) Total Bilirubin 0.3 MG/DL (0.2-1.0) Aspartate Amino Transferase (AST) 25 U/L (15-37) Alanine Aminotransferase (ALT) 33 U/L (12-78) Alkaline Phosphatase 346 U/L (46-116) H Total Protein 8.0 G/DL (6.4-8.2) Albumin 3.3 G/DL (3.4-5.0) L Globulin 4.7 g/dL Albumin/Globulin Ratio 0.7 (1.0-2.7) L Urine Color Pale yellow Urine Appearance Clear Urine pH 7 (4.5-8.0) Urine Specific [place] 1.010 (1.005-1.035) Urine Protein 1+ (NEGATIVE) H Urine Glucose (UA) Negative (NEGATIVE) Urine Ketones Negative (NEGATIVE) Urine Blood 2+ (NEGATIVE) H Urine Nitrite Positive (NEGATIVE) H Urine Bilirubin Negative (NEGATIVE) Urine Urobilinogen Normal MG/DL (0.0-1.0) Urine Leukocyte Esterase 3+ (NEGATIVE) H Urine RBC 2-4 /HPF (0 - 0) H Urine WBC 30-40 /HPF (0 - 0) H Urine Squamous Epithelial Cells Occasional /LPF Urine Bacteria Moderate /HPF (NONE) H CT/MRI/US Diagnostic Results CT/MRI/US Diagnostic Results : Imaging Test Ordered: CT abd/pelvis Impression Impression: Limited assessment of the GI tract, due to lack of enteric contrast Stool-filled but not frankly distended rectum. 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 Correlate with clinical history as regards any history of primary malignancy Progressive end-stage pulmonary fibrotic change Thickened bladder wall, probably on the basis of chronic bladder outlet obstruction. Cystitis also possibility. Bladder diverticulum is noted Bilateral gynecomastia Other findings as noted, including degenerative thoracic spondylosis, right renal cyst, subcentimeter low-attenuation renal lesions which are too small to characterize, nonspecific subcentimeter upper pole splenic lesion Last Vital Signs Date Time Temp Pulse Resp B/P (MAP) Pulse Ox O2 Delivery O2 Flow Rate FiO2 10/22/17 10:11 97.2 69 16 143/89 96 Room Air 97.2 Status: improved Disposition: HOME, SELF-CARE Condition: Improved Referrals: [facility],REFERRING (PCP) Patient Instructions: Constipation, Adult Juana Suarez DO Oct 22, 2017 11:26
[2017-10-22] MEDS ORDERED: cefTRIAXone 1 GM in NS 55 ML IVPB ONE (11:30)
[2017-10-22] MEDS ORDERED: Fleet's Enema 133ml RECTAL ONE (11:30)
[2017-10-22 13:00] VITALS: BP 142/88
[2017-10-22] MEDS ORDERED: COLACE100 MG ORAL (13:14)
[2017-10-22] MEDS ORDERED: MIRALAX17 G2 ORAL (13:14)
[2017-10-22] MEDS ORDERED: CIPROFLOXACIN500 M2 ORAL (13:14)
[2017-10-22 13:47] VITALS: BP 142/88
== END 2017-10-22 13:48 | disposition home or self-care (01) ==
LOC: EMR 09:59
DX: K59.00 Constipation, unspecified (principal); N41.9 Inflammatory disease of prostate, unspecified; M89.9 Disorder of bone, unspecified
CPT/HCPCS: 36415; 74177; 80053; 81003; 85025; 87086; 96361; 96365; 99284; J0696; Q9967

== ENCOUNTER 2017-12-23 15:14 | Emergency (ER) | payer MEDICARE, MEDICAID ==
[~2017-12-23] VITALS: Ht 182.9 cm; Wt 63.5 kg
[~2017-12-23 15:14] MED LIST changes: +CIPROFLOXACIN500 M2 ORAL; +COLACE100 MG ORAL; +MIRALAX17 G2 ORAL
[2017-12-23 15:58] VITALS: BP 117/73
--- NOTE | 2017-12-23 16:19 | Diagnostic Imaging Report ---
Indication: Chest pain Technique: One view of the chest Comparison: 04/09/2017 Findings: Again demonstrated is diffuse mild interstitial disease, similar to the previous exam. The heart size is upper limits normal. The aorta is tortuous. No focal airspace consolidation. Pleural spaces are clear. Impression: Bilateral diffuse interstitial disease. Nonspecific, but appearance and similarity to previous study suggests on the basis of chronic senescent changes. Correlate with clinical history and findings.
[2017-12-23 16:43] LABS: ANION GAP 6 mmol/L (5-15); BLOOD UREA NITROGEN 23 mg/dL (7-18); CALCIUM 9.5 MG/DL (8.5-10.1); CARBON DIOXIDE 29 MMOL/L (21-32); CHLORIDE 103 MMOL/L (98-107); CREATININE 1.1 MG/DL (0.55-1.30); POTASSIUM 4.5 MMOL/L (3.5-5.1); SODIUM 138 MMOL/L (136-145)
[2017-12-23 16:46] LABS: EOSINOPHILS % (AUTO) 5.5 % (0.0-3.0); HEMATOCRIT 37.9 % (42.0-52.0); LYMPHOCYTES % (AUTO) 29.9 % (20.0-45.0); MEAN CORPUSCULAR VOLUME 77 FL (80-99); MONOCYTES % (AUTO) 13.7 % (1.0-10.0); NEUTROPHILS % (AUTO) 48.8 % (45.0-75.0); PLATELET COUNT 130 K/UL (150-450); RED CELL DISTRIBUTION WIDTH 13.6 % (11.6-14.8)
[2017-12-23 16:47] LABS: ALANINE AMINOTRANSFERASE 20 U/L (12-78); ALBUMIN/GLOBULIN RATIO 0.5 (1.0-2.7); ALKALINE PHOSPHATASE 405 U/L (46-116); ASPARTATE AMINO TRANSFERASE 29 U/L (15-37); BILIRUBIN,TOTAL 0.4 MG/DL (0.2-1.0); CREATINE KINASE 82 U/L (26-308)
--- NOTE | 2017-12-23 17:59 | Emergency Room Report ---
History of Present Illness General Chief Complaint: General Complaint Source: Patient Present Illness HPI 82-year-old male presenting with diarrhea. Says he had diarrhea 2 days ago about 5 episodes at that time. No fever no chills or abdominal pain. Ever since it has stopped. He was given Lomotil by his PCP. Currently denying any symptoms at this time. Has been able to eat and drink today. No history of antibiotic use or recent travel Allergies: Coded Allergies: No Known Allergies (Unverified , 08/31/13) Patient History Past Medical History: see triage record Past Surgical History: none Pertinent Family History: none Reviewed Nursing Documentation: PMH: Agreed; PSxH: Agreed Nursing Documentation-PMH Hx Cardiac Problems: No - HIV Hx Hypertension: Yes Hx Pacemaker: No Hx Asthma: No Hx COPD: No Hx Diabetes: No Hx Cancer: Yes - Prostate cancer 2015/ Bone CA Hx Gastrointestinal Problems: Yes - colostomy Hx Dialysis: No Hx Neurological Problems: No Hx Cerebrovascular Accident: No Hx Seizures: No Review of Systems All Other Systems: negative except mentioned in HPI Physical Exam Vital Signs Date Time Temp Pulse Resp B/P (MAP) Pulse Ox O2 Delivery O2 Flow Rate FiO2 12/23/17 15:34 97.3 84 14 117/73 96 Room Air Sp02 EP Interpretation: reviewed, normal General Appearance: normal inspection, well appearing, no apparent distress, alert, GCS 15, non-toxic Head: normocephalic, atraumatic Eyes: bilateral eye normal inspection, bilateral eye PERRL, bilateral eye EOMI ENT: normal ENT inspection, normal pharynx, normal voice, moist mucus membranes Neck: normal inspection, full range of motion, supple Respiratory: normal inspection, lungs clear, normal breath sounds, no respiratory distress, no retraction, no wheezing, speaking full sentences, chest symmetrical Cardiovascular #1: normal inspection, regular rate, rhythm, no edema, normal capillary refill Cardiovascular #2: 2+ radial (R), 2+ radial (L) Gastrointestinal: normal inspection, non tender, soft, non-distended, no guarding Genitourinary: no CVA tenderness Musculoskeletal: normal inspection, back normal, normal range of motion, non- tender Neurologic: normal inspection, alert, oriented x3, responsive, motor strength/ tone normal, sensory intact, normal gait, speech normal Psychiatric: normal inspection, judgement/insight normal, memory normal Skin: normal inspection, normal color, no rash, warm/dry, well hydrated, normal turgor Medical Decision Making Diagnostic Impression: Primary Impression: Diarrhea ER Course 82-year-old male with diarrhea 2 days ago, now resolved DDX: Gastroenteritis, infectious diarrhea although less likely as it has already resolved Is denying any abdominal pain this time Plan: Will obtain basic labs ER course: Patient has remained stable during ED stay. no diarrhea repeat abd exam benign ambulating around ed tolerating PO dc home Disposition: Patient is to be discharged to home. Patient is instructed to follow up with their primary care doctor within 5 days. Strict return precautions discussed with patient such as fever, chills, abdominal pain, chest pain, SOB, nausea, vomiting, return of severe diarrhea which may indicate severe illness. Patient verbalizes understanding and agrees with plan. Please note that this Emergency Department Report was dictated using [employer] maker technology software, occasionally this can lead to erroneous entry secondary to interpretation by the dictation equipment EKG Diagnostic Results EP Interpretation: Yes Rate: normal Rhythm: NSR ST Segments: No acute changes , RBBB ASA given to patient: No Rhythm Strip EP Interpretation: Yes Rate: 70 Rhythm: NSR, no PVCs, no ectopy Chest X-ray CXR: Ordered: Yes 1 view Indication: Chest pain EP interpretation: Yes Read by radiology Impression: Bilateral diffuse interstitial disease. Nonspecific, but appearance and similarity to previous study suggests on the basis of chronic senescent changes. Correlate with clinical history and findings. Electronically signed by Josephine Interiano MD Laboratory Tests Test 12/23/17 16:00 12/23/17 18:00 White Blood Count 7.0 K/UL (4.8-10.8) Red Blood Count 4.90 M/UL (4.70-6.10) Hemoglobin 12.0 G/DL (14.2-18.0) L Hematocrit 37.9 % (42.0-52.0) L Mean Corpuscular Volume 77 FL (80-99) L Mean Corpuscular Hemoglobin 24.6 PG (27.0-31.0) L Mean Corpuscular Hemoglobin Concent 31.7 G/DL (32.0-36.0) L Red Cell Distribution Width 13.6 % (11.6-14.8) Platelet Count 130 K/UL (150-450) L Mean Platelet Volume 8.8 FL (6.5-10.1) Neutrophils (%) (Auto) 48.8 % (45.0-75.0) Lymphocytes (%) (Auto) 29.9 % (20.0-45.0) Monocytes (%) (Auto) 13.7 % (1.0-10.0) H Eosinophils (%) (Auto) 5.5 % (0.0-3.0) H Basophils (%) (Auto) 2.0 % (0.0-2.0) Sodium Level 138 MMOL/L (136-145) Potassium Level 4.5 MMOL/L (3.5-5.1) Chloride Level 103 MMOL/L (98-107) Carbon Dioxide Level 29 MMOL/L (21-32) Anion Gap 6 mmol/L (5-15) Blood Urea Nitrogen 23 mg/dL (7-18) H Creatinine 1.1 MG/DL (0.55-1.30) Estimate Glomerular Filtration Rate mL/min (>60) Glucose Level 74 MG/DL (74-106) Lactic Acid Level 1.50 mmol/L (0.4-2.0) Calcium Level 9.5 MG/DL (8.5-10.1) Total Bilirubin 0.4 MG/DL (0.2-1.0) Aspartate Amino Transferase (AST) 29 U/L (15-37) Alanine Aminotransferase (ALT) 20 U/L (12-78) Alkaline Phosphatase 405 U/L (46-116) H Total Creatine Kinase 82 U/L (26-308) Troponin I 0.000 ng/mL (0.000-0.056) Total Protein 8.8 G/DL (6.4-8.2) H Albumin 3.0 G/DL (3.4-5.0) L Globulin 5.8 g/dL Albumin/Globulin Ratio 0.5 (1.0-2.7) L Lipase 186 U/L (73-393) Urine Color Pale yellow Urine Appearance Clear Urine pH 6.5 (4.5-8.0) Urine Specific [place] 1.015 (1.005-1.035) Urine Protein Negative (NEGATIVE) Urine Glucose (UA) Negative (NEGATIVE) Urine Ketones Negative (NEGATIVE) Urine Blood Negative (NEGATIVE) Urine Nitrite Negative (NEGATIVE) Urine Bilirubin Negative (NEGATIVE) Urine Urobilinogen Normal MG/DL (0.0-1.0) Urine Leukocyte Esterase Negative (NEGATIVE) Microbiology Date/Time Source Procedure Growth Status 12/23/17 16:00 Nasal Nares Influenza Types A,B Antigen (ONUR) - Final Complete Last Vital Signs Date Time Temp Pulse Resp B/P (MAP) Pulse Ox O2 Delivery O2 Flow Rate FiO2 12/23/17 16:43 84 14 Room Air 12/23/17 15:58 97.3 117/73 96 Disposition: HOME, SELF-CARE Condition: Improved Referrals: NON PHYSICIAN (PCP) Josephine Interiano M.D. Dec 23, 2017 17:59
[2017-12-23 18:02] VITALS: BP 137/81
[2017-12-23 18:31] LABS: APPEARANCE,URINE CLEAR; BILIRUBIN, URINE NEGATIVE (NEGATIVE); COLOR,URINE PALE YELLOW; GLUCOSE, URINE (UA) NEGATIVE (NEGATIVE); KETONES,URINE NEGATIVE (NEGATIVE); LEUKOCYTE ESTERASE ,URINE NEGATIVE (NEGATIVE); NITRITE,URINE NEGATIVE (NEGATIVE); PH,URINE 6.5 (4.5-8.0); PROTEIN,URINE NEGATIVE (NEGATIVE); UROBILINOGEN,URINE NORMAL MG/DL (0.0-1.0)
[2017-12-23 19:27] VITALS: BP 132/83
--- NOTE | 2017-12-25 16:39 | Cardiology Report ---
APPROVED REPORT EKG Measurement Heart [id number] Normal sinus rhythm Right bundle branch block Abnormal ECG
== END 2017-12-23 19:35 | disposition home or self-care (01) ==
LOC: EMR 17:04
DX: R19.7 Diarrhea, unspecified (principal); I10 Essential (primary) hypertension; Z85.46 Personal history of malignant neoplasm of prostate; Z85.830 Personal history of malignant neoplasm of bone
CPT/HCPCS: 36415; 71045; 80053; 81003; 82550; 83605; 83690; 84484; 85025; 86710; 87040; 93005; 96360; 99284

== ENCOUNTER 2018-01-01 09:52 | Emergency (ER) | payer MEDICAID, MEDICARE, OTHER ==
[~2018-01-01] VITALS: Ht 182.9 cm; Wt 61.2 kg
[2018-01-01 10:11] VITALS: BP 157/92
[2018-01-01] MEDS ORDERED: LOMOTIL TABLET1 EAC1 PO (10:30)
[2018-01-01] MEDS ORDERED: PHENERGAN6.25 MG/5 ORAL (10:30)
[2018-01-01 10:35] VITALS: BP 143/97
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
== END 2018-01-01 10:38 | disposition home or self-care (01) ==
LOC: EMR 10:25
DX: K52.9 Noninfective gastroenteritis and colitis, unspecified (principal); J84.9 Interstitial pulmonary disease, unspecified; I10 Essential (primary) hypertension; Z85.46 Personal history of malignant neoplasm of prostate; Z85.830 Personal history of malignant neoplasm of bone
CPT/HCPCS: 99283

== ENCOUNTER 2018-04-02 11:07 | Emergency (ER) | payer MEDICARE, MEDICAID ==
[~2018-04-02] VITALS: Ht 170.2 cm; Wt 74.8 kg
[~2018-04-02 11:07] MED LIST changes: +LOMOTIL TABLET1 EAC1 PO
[2018-04-02 11:10] VITALS: BP 135/91
[2018-04-02] MEDS ORDERED: Tylenol #3 tab (300mg/30mg) ORAL ONE (11:30)
[2018-04-02 11:58] LABS: BASOPHILS % (AUTO) 1.1 % (0.0-2.0); EOSINOPHILS % (AUTO) 1.4 % (0.0-3.0); HEMATOCRIT 41.6 % (42.0-52.0); HEMOGLOBIN 12.6 G/DL (14.2-18.0); LYMPHOCYTES % (AUTO) 21.2 % (20.0-45.0); MEAN CORPUSCULAR VOLUME 75 FL (80-99); MONOCYTES % (AUTO) 12.3 % (1.0-10.0); NEUTROPHILS % (AUTO) 64.1 % (45.0-75.0); PLATELET COUNT 186 K/UL (150-450); RED BLOOD COUNT 5.56 M/UL (4.70-6.10); RED CELL DISTRIBUTION WIDTH 13.3 % (11.6-14.8); WHITE BLOOD COUNT 8.8 K/UL (4.8-10.8)
[2018-04-02 12:09] LABS: ANION GAP 11 mmol/L (5-15); BLOOD UREA NITROGEN 17 mg/dL (7-18); CALCIUM 9.7 MG/DL (8.5-10.1); CARBON DIOXIDE 24 MMOL/L (21-32); CHLORIDE 101 MMOL/L (98-107); CREATININE 1.1 MG/DL (0.55-1.30); POTASSIUM 4.4 MMOL/L (3.5-5.1); SODIUM 136 MMOL/L (136-145)
[2018-04-02 12:19] LABS: ALANINE AMINOTRANSFERASE 25 U/L (12-78); ALBUMIN 3.1 G/DL (3.4-5.0); ALBUMIN/GLOBULIN RATIO 0.6 (1.0-2.7); ALKALINE PHOSPHATASE 844 U/L (46-116); ASPARTATE AMINO TRANSFERASE 98 U/L (15-37); BILIRUBIN,TOTAL 0.5 MG/DL (0.2-1.0)
[2018-04-02 12:56] LABS: APPEARANCE,URINE CLEAR; BILIRUBIN, URINE NEGATIVE (NEGATIVE); COLOR,URINE PALE YELLOW; GLUCOSE, URINE (UA) NEGATIVE (NEGATIVE); KETONES,URINE NEGATIVE (NEGATIVE); LEUKOCYTE ESTERASE ,URINE 1+ (NEGATIVE); NITRITE,URINE NEGATIVE (NEGATIVE); PH,URINE 7 (4.5-8.0); PROTEIN,URINE 1+ (NEGATIVE); UROBILINOGEN,URINE NORMAL MG/DL (0.0-1.0)
--- NOTE | 2018-04-02 12:58 | Emergency Room Report ---
History of Present Illness General Chief Complaint: Pain Source: Patient Present Illness HPI 82yo M with h/o HIV on antiretrovirals, last viral load undetectable, htn, prostate ca not on meds, presents with dizziness, reports he was just standing and covered dizzy and fell hitting his head, he denies any neck pain, reports pain all over. Denies f/c, slurred speech, n/v, n/t/weakness. He has a rash which he reports was itchy earlier this week, but went to [facility] and was given a topical ointment that has resolved the itching. Allergies: Coded Allergies: No Known Allergies (Unverified , 08/31/13) Patient History Past Medical History: see triage record Reviewed Nursing Documentation: PMH: Agreed; PSxH: Agreed Nursing Documentation-PMH Past Medical History: No History, Except For Hx Hypertension: Yes Hx Pacemaker: No Hx Asthma: No Hx COPD: No Hx Diabetes: No Hx Cancer: Yes - bone cancer Hx Gastrointestinal Problems: Yes - colostomy Hx Dialysis: No Hx Neurological Problems: No Hx Cerebrovascular Accident: No Hx Seizures: No Review of Systems All Other Systems: negative except mentioned in HPI Physical Exam Vital Signs Date Time Temp Pulse Resp B/P (MAP) Pulse Ox O2 Delivery O2 Flow Rate FiO2 04/02/18 11:10 98.2 95 15 135/91 96 Room Air Sp02 EP Interpretation: reviewed, normal General Appearance: no apparent distress, alert, non-toxic Head: normocephalic, atraumatic - R frontal brow with 3cm linear laceration, no active bleeding or wound contamination Eyes: bilateral eye normal inspection, bilateral eye PERRL, bilateral eye EOMI ENT: normal ENT inspection, hearing grossly normal, normal pharynx, no angioedema, normal voice, moist mucus membranes Neck: normal inspection, full range of motion, supple, supple/symm/no masses Respiratory: chest non-tender, lungs clear, normal breath sounds, no rhonchi, no respiratory distress, no retraction, no accessory muscle use, chest symmetrical, palpation of chest normal Cardiovascular #1: normal peripheral pulses, regular rate, rhythm Cardiovascular #2: 2+ radial (R), 2+ radial (L) Gastrointestinal: normal inspection, non tender, soft, no mass, no guarding, no rebound Rectal: deferred Genitourinary: normal inspection, no CVA tenderness Musculoskeletal: back normal, gait/station normal, normal range of motion, non- tender, no calf tenderness Neurologic: alert, 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 Results Rhythm Strip Time: 12:57 EP Interpretation: yes Rate: 94 Rhythm: NSR, no PVC's, no ectopy Chest X-Ray Diagnostic Results Chest X-Ray Diagnostic Results : Chest X-Ray Ordered: Yes # of Views/Limited/Complete: 1 View Indication: Other - syncope EP Interpretation: Yes Interpretation: no consolidation, no effusion, no pneumothorax, no acute cardiopulmonary disease Impression: No acute disease Electronically Signed by: Esdras Mcgee MD Last Vital Signs Date Time Temp Pulse Resp B/P (MAP) Pulse Ox O2 Delivery O2 Flow Rate FiO2 04/02/18 12:16 98.2 04/02/18 11:10 94 16 135/91 96 Room Air Referrals: NON PHYSICIAN (PCP) ESDRAS MCGEE M.D Apr 02, 2018 12:58
[2018-04-02] MEDS ORDERED: Tetanus/Diptheria/Pertussis Vaccine 0.5ml Syr IM ONE (13:00)
[2018-04-02 13:02] VITALS: BP 159/93
[2018-04-02] MEDS ORDERED: Lidocaine 1% MPF 10mg/ml 5ml ONE (14:24)
[2018-04-02] MEDS ORDERED: Lidocaine 1% MPF 10mg/ml 5ml IM ONE (14:30)
[2018-04-02] MEDS ORDERED: Gadavist 7.5mMol/7.5ml vial IV PRN (14:30)
--- NOTE | 2018-04-02 14:34 | Diagnostic Imaging Report ---
Indication: Headache Technique: Contiguous 5 mm thick transaxial imaging of the head obtained in a Siemens Sensation [address] scanner. Soft tissue and bone windows generated. Automatic Exposure Control was utilized. Total Dose length Product (DLP): 1411.[address] Dose Index Volume (CTDIvol): 70.38 mGy Comparison: none Findings: There is a 5 mm focus of hypoattenuation in the left anterior thalamus region. This is likely a small hypertensive bleed. This is not likely to be traumatic. There is no edema or mass effect. Patchy low attenuation of white matter tracts demonstrated throughout the auguste radiata and centrum semiovale and deep white matter. Moderate atrophy of the brain noted involving both cerebrum and cerebellum. Osseous structures are intact. IMPRESSION: 5 mm round focus of acute hemorrhage in the left anterior thalamus region. No associated edema or mass effect. This was not seen previously. Mild to moderate generalized atrophy of the brain. White matter low-attenuation mostly periventricular in location likely due to chronic small vessel disease Findings discussed with Dr. Serrano via telephone to: 2:20 PM, 04/02/[address] scanner at [facility] is accredited by the [employer] and the scans are performed using dose optimization techniques as appropriate to a performed exam including Automatic Exposure control.
[2018-04-02] MEDS ORDERED: LORazepam Inj 2mg/ml 1ml ONE (14:40)
--- NOTE | 2018-04-02 14:42 | Diagnostic Imaging Report ---
Indication: Neck pain. Technique: Continuous helical imaging of the cervical spine was obtained transaxially from the skull base to the upper thoracic spine. 2-D coronal and sagittal reformatted images were obtained. Automatic Exposure Control was utilized. Total Dose length Product (DLP): 272.[address] Dose Index Volume (CTDIvol): 13.06 mGy Comparison: None Findings: No acute fractures identified. Bone mineralization is patchy with areas of abnormal sclerosis involving several levels suspicious for osteoblastic metastasis. 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 The findings are compatible with that diagnosis. There is no acute fracture or pathologic fracture identified. The vertebral body heights are normal. The configuration of the facets and lateral bodies and lamina appear normal. There is no soft tissue swelling identified. Mild endplate spur formation noted within the mid cervical spine. Some calcification of the carotid arteries demonstrated within the neck. IMPRESSION: No acute fracture or acute injury identified. 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 Mild degenerative changes as described above The CT scanner at [facility] is accredited by the [employer] and the scans are performed using dose optimization techniques as appropriate to a performed exam including Automatic Exposure control.
[2018-04-02] MEDS ORDERED: LORazepam Inj 2mg/ml 1ml IV ONE (15:00)
--- NOTE | 2018-04-02 15:19 | Diagnostic Imaging Report ---
Indication: Dyspnea Comparison: 12/23/2017 A single view chest radiograph was obtained. Findings: Reticular densities throughout the lungs demonstrated probably slightly worse although the current examination is technically dissimilar. The heart is enlarged. Aorta is mildly enlarged. Bones are osteopenic. IMPRESSION: Interstitial disease. A component of this is likely fibrosis. There may be superimposed pneumonitis or mild interstitial edema. Please correlate clinically. Cardiomegaly
[2018-04-02 15:20] LABS: INR 1.1 (0.9-1.1)
[2018-04-02 16:00] VITALS: BP 151/100
--- NOTE | 2018-04-02 16:23 | Diagnostic Imaging Report ---
Indication: Acute bleed seen on recent CT. Patient presented with head trauma Technique: The head was imaged in a 1.5 Eunice magnet. Sequences obtained include sagittal and axial T1 FLAIR, axial T2 fast spin echo with fat saturation, axial T2 FLAIR, diffusion and ADC map. Gadolinium-enhanced axial and coronal T1 FLAIR obtained also. Comparison: None Study is degraded by motion. There is a 5 mm rounded focus of isointense signal both on T1 and T2-weighted images in the anterior left thalamus corresponding to the hyperdense focus on recent CT and consistent with a acute focus of hemorrhage. There is no associated edema or mass effect. The lesion does not enhance. No abnormal enhancement of the brain or meninges identified on this study. Given the location, the finding is probably on the basis of hypertension. Gradient echo T2* sequence also demonstrates associated blooming artifact. There are other areas of low signal blooming artifact within the central aspect of the midbrain, right thalamus, the fredi. These are also small vessel territories and likely represent areas of hypertension related old microbleeds. Differential diagnosis includes cavernous angiomas and amyloid deposition but the distribution favors chronic hypertension. Patchy T2 hyperintense signal involving white matter tracts in the auguste radiata and centrum semiovale as well as deep white matter including white matter tracts in the brainstem noted. Findings likely due to chronic small vessel disease. Generalized atrophy of the cerebrum and cerebellum noted. The corpus callosum is unremarkable. The sella is unremarkable. Calvarial signal appears relatively normal. There is abnormal low signal intensity within the visualized part of the cervical spine consistent with metastatic neoplasm. IMPRESSION: 5 mm acute bleed in the anterior left thalamus. No associated edema or mass effect or abnormal enhancement. Favor hypertensive etiology. Multifocal blooming artifacts from hemosiderin on T2* gradient echo within small vessel territories of the thalami and brainstem. These are also likely associated with chronic hypertension. No evidence of ANIMAL TECHNICIAN metastasis. Abnormal bone marrow within the visualized part of the cervical spine consistent with prostate metastasis. Age-related involutional changes of the brain. Nonspecific white matter signal alteration likely due to chronic microvascular disease.
[2018-04-02] MEDS ORDERED: Metoprolol 5mg/5ml Inj IVP STA (17:29)
[2018-04-02 20:36] VITALS: BP 172/99
[2018-04-02 21:41] VITALS: BP 172/99
== END 2018-04-02 21:40 | disposition short-term general hospital (02) ==
LOC: EDBD 11:07 → EMR 11:50 → EDBEDREQ 13:07 → UNDOADMIN 13:15 → 2E 13:15 → EDBEDREQ 13:55 → EMR 21:40
DX: S01.81XA Laceration without foreign body of other part of head, initial encounter (principal); W19.XXXA Unspecified fall, initial encounter; Y92.89 Other specified places as the place of occurrence of the external cause; Z23 Encounter for immunization; I62.9 Nontraumatic intracranial hemorrhage, unspecified; R21 Rash and other nonspecific skin eruption; I10 Essential (primary) hypertension; Z85.46 Personal history of malignant neoplasm of prostate; Z85.830 Personal history of malignant neoplasm of bone; Z93.3 Colostomy status; Z79.82 Long term (current) use of aspirin; R00.0 Tachycardia, unspecified
CPT/HCPCS: 12013; 36415; 70450; 70553; 71045; 72125; 80053; 81003; 83690; 83880; 84484; 85025; 85610; 85730; 86710; 87081; 90471; 90715; 93005; 96361; 96374; 96375; 99284; A9585

== ENCOUNTER 2018-04-25 10:01 | Inpatient (IN) | payer MEDICARE, MEDICAID ==
[~2018-04-25] VITALS: Ht 175.3 cm; Wt 60.4 kg
[2018-04-25 10:04] VITALS: BP 122/76
--- NOTE | 2018-04-25 10:09 | NUR ---
ED Nurse Note: pt brought by RA from home due to bilateral leg pain for several weeks. per pt, seen by multiple ERs and was in rehab facility but nothing helped. per EMS, pt was able to walk with minimal assistance with walker. per pt, using electric wheelchair for ambulation. AAO x4. respirations even and non-labored noted. skin looks very dry. per pt, grand son takes care pt at home. no recent injury. will wait for the further order.
[2018-04-25] MEDS ORDERED: Meclizine 25mg tab ORAL ONE (10:15)
--- NOTE | 2018-04-25 10:28 | Emergency Room Report ---
History of Present Illness General Chief Complaint: Pain Source: Patient, Medical Record, EMS Present Illness HPI Patient is an 83-year-old male who presented after increased generalized body pain. Patient a prior history of intracranial hemorrhage on prior visit. Patient reported having bilateral leg pain. He reports having associated dizziness and difficulty with ambulation. Patient was noted to have recently been seen at [facility]. Allergies: Coded Allergies: No Known Allergies (Unverified , 08/31/13) Patient History Reviewed Nursing Documentation: PMH: Agreed; PSxH: Agreed Nursing Documentation-PMH Past Medical History: No History, Except For Hx Cardiac Problems: No - HIV POSITIVE Hx Hypertension: Yes Hx Pacemaker: No Hx Asthma: No Hx COPD: No Hx Diabetes: No Hx Cancer: Yes - prostate Hx Gastrointestinal Problems: Yes - colostomy Hx Dialysis: No Hx Neurological Problems: No Hx Cerebrovascular Accident: No Hx Seizures: No Review of Systems All Other Systems: negative except mentioned in HPI Physical Exam Vital Signs Date Time Temp Pulse Resp B/P (MAP) Pulse Ox O2 Delivery O2 Flow Rate FiO2 04/25/18 09:58 97.9 76 14 122/76 99 Room Air Sp02 EP Interpretation: reviewed, normal General Appearance: normal inspection, well appearing, no apparent distress, alert, GCS 15 Head: atraumatic ENT: normal ENT inspection, hearing grossly normal, normal voice Neck: normal inspection, full range of motion, supple, no bony tend Respiratory: normal inspection, lungs clear, normal breath sounds, no respiratory distress, no retraction, no wheezing Cardiovascular #1: regular rate, rhythm, no edema Gastrointestinal: normal inspection, normal bowel sounds, non tender, soft, no guarding, no hernia Genitourinary: no CVA tenderness Musculoskeletal: normal inspection, back normal, normal range of motion Neurologic: normal inspection, alert, oriented x3, responsive, obstetrician and gynaecologist III-XII nml as tested, speech normal Psychiatric: normal inspection, judgement/insight normal, mood/affect normal Skin: normal inspection, normal color, no rash Medical Decision Making Diagnostic Impression: Primary Impression: HIV disease Additional Impressions: Dehydration Thalamic hemorrhage ER Course Patient presented for dizziness and lower extremity pain. Differential diagnosis include was not limited to thalamic pain syndrome, vascular insufficiency, electrolyte abnormality among others.Because of complexity of patient's case laboratory testing and imaging studies were ordered. Patient was noted to have CT head which is unchanged from previous CT which showed some thalamic hemorrhage. Laboratory testing was notable for elevated alkaline phosphatase as well as some evidence of dehydration. Patient was started on IV fluids. Dr. Prabhu Trejo was contacted for inpatient management due to panel physician Labs Test 04/25/18 10:30 White Blood Count 7.3 K/UL (4.8-10.8) Red Blood Count 4.86 M/UL (4.70-6.10) Hemoglobin 11.0 G/DL (14.2-18.0) Hematocrit 36.3 % (42.0-52.0) Mean Corpuscular Volume 75 FL (80-99) Mean Corpuscular Hemoglobin 22.6 PG (27.0-31.0) Mean Corpuscular Hemoglobin Concent 30.2 G/DL (32.0-36.0) Red Cell Distribution Width 13.4 % (11.6-14.8) Platelet Count 183 K/UL (150-450) Mean Platelet Volume 7.0 FL (6.5-10.1) Neutrophils (%) (Auto) 64.7 % (45.0-75.0) Lymphocytes (%) (Auto) 21.4 % (20.0-45.0) Monocytes (%) (Auto) 11.7 % (1.0-10.0) Eosinophils (%) (Auto) 0.5 % (0.0-3.0) Basophils (%) (Auto) 1.7 % (0.0-2.0) Prothrombin Time 11.9 SEC (9.30-11.50) Prothromb Time International Ratio 1.1 (0.9-1.1) Activated Partial Thromboplast Time 34 SEC (23-33) Sodium Level 142 MMOL/L (136-145) Potassium Level 4.0 MMOL/L (3.5-5.1) Chloride Level 103 MMOL/L (98-107) Carbon Dioxide Level 27 MMOL/L (21-32) Anion Gap 12 mmol/L (5-15) Blood Urea Nitrogen 25 mg/dL (7-18) Creatinine 1.1 MG/DL (0.55-1.30) Estimat Glomerular Filtration Rate mL/min (>60) Glucose Level 118 MG/DL (74-106) Calcium Level 9.6 MG/DL (8.5-10.1) Total Bilirubin 0.5 MG/DL (0.2-1.0) Aspartate Amino Transf (AST/SGOT) 24 U/L (15-37) Alanine Aminotransferase (ALT/SGPT) 14 U/L (12-78) Alkaline Phosphatase 643 U/L (46-116) Total Protein 8.8 G/DL (6.4-8.2) Albumin 2.7 G/DL (3.4-5.0) Globulin 6.1 g/dL Albumin/Globulin Ratio 0.4 (1.0-2.7) Triglycerides Level 118 MG/DL (30-150) Cholesterol Level 187 MG/DL (< 200) LDL Cholesterol 131 mg/dL (<100) HDL Cholesterol 34 MG/DL (40-60) Cholesterol/HDL Ratio 5.5 (3.3-4.4) EKG Diagnostic Results Rate: normal - 74 Rhythm: NSR ST Segments: other - rbbb Last Vital Signs Date Time Temp Pulse Resp B/P (MAP) Pulse Ox O2 Delivery O2 Flow Rate FiO2 04/25/18 10:04 97.9 76 14 122/76 99 Room Air Status: improved Disposition: ADMITTED INPATIENT Condition: Stable Curtis Gallegos MD Apr 25, 2018 10:28
[2018-04-25 10:40] LABS: BASOPHILS % (AUTO) 1.7 % (0.0-2.0); EOSINOPHILS % (AUTO) 0.5 % (0.0-3.0); HEMATOCRIT 36.3 % (42.0-52.0); LYMPHOCYTES % (AUTO) 21.4 % (20.0-45.0); MEAN CORPUSCULAR VOLUME 75 FL (80-99); MONOCYTES % (AUTO) 11.7 % (1.0-10.0); NEUTROPHILS % (AUTO) 64.7 % (45.0-75.0); PLATELET COUNT 183 K/UL (150-450); RED BLOOD COUNT 4.86 M/UL (4.70-6.10); RED CELL DISTRIBUTION WIDTH 13.4 % (11.6-14.8); WHITE BLOOD COUNT 7.3 K/UL (4.8-10.8)
[2018-04-25 10:52] LABS: INR 1.1 (0.9-1.1)
--- NOTE | 2018-04-25 10:56 | NUR ---
ED Nurse Note: per Dr. Gallegos, pt does not need to be on equipment monitor phototypesetting.
[2018-04-25 10:58] LABS: ANION GAP 12 mmol/L (5-15); BLOOD UREA NITROGEN 25 mg/dL (7-18); CALCIUM 9.6 MG/DL (8.5-10.1); CARBON DIOXIDE 27 MMOL/L (21-32); CHLORIDE 103 MMOL/L (98-107); CREATININE 1.1 MG/DL (0.55-1.30); SODIUM 142 MMOL/L (136-145)
[2018-04-25 11:02] LABS: ALANINE AMINOTRANSFERASE 14 U/L (12-78); ALBUMIN 2.7 G/DL (3.4-5.0); ALBUMIN/GLOBULIN RATIO 0.4 (1.0-2.7); ALKALINE PHOSPHATASE 643 U/L (46-116); ASPARTATE AMINO TRANSFERASE 24 U/L (15-37); BILIRUBIN,TOTAL 0.5 MG/DL (0.2-1.0); CHOLESTEROL 187 MG/DL (< 200); HDL CHOLESTEROL 34 MG/DL (40-60); TRIGLYCERIDES 118 MG/DL (30-150)
--- NOTE | 2018-04-25 11:02 | Diagnostic Imaging Report ---
EXAM: CT Head Without Intravenous Contrast CLINICAL HISTORY: DIZZY TECHNIQUE: Axial computed tomography images of the head/brain without intravenous contrast. Coronal and sagittal images were obtained and reviewed. CTDI is 140.91 mGy and DLP is 2628 mGy-cm. One or more of the following dose reduction techniques were used: automated exposure control, adjustment of the mA and/or kV according to patient size, use of iterative reconstruction technique. COMPARISON: CT head dated 04/02/18 FINDINGS: Brain: 5 mm residual hyperdensity in the anterior left thalamus. Generalized parenchymal volume loss, likely age-related. Mild periventricular white matter hypodensities. No evidence of acute intracranial hemorrhage. No mass effect or midline shift. Ventricles: Unremarkable. No ventriculomegaly. Bones/joints: Unremarkable. No acute fracture. Soft tissues: Unremarkable. Sinuses: Unremarkable as visualized. No acute sinusitis. Mastoid air cells: Unremarkable as visualized. No mastoid effusion. IMPRESSION: 1. No significant change in the 5 mm hyperdensity in the anterior left thalamus, consistent with a remote parenchymal hemorrhage. 2. No acute intracranial hemorrhage, mass effect, or midline shift. 3. Moderate periventricular white matter hypodensities, likely related to chronic small vessel disease changes. 4. Mild generalized cerebral parenchymal volume loss, likely age- related.
[2018-04-25] MEDS ORDERED: COREG3.125 MG ORAL (11:21)
[2018-04-25 12:04] VITALS: BP 119/72
--- NOTE | 2018-04-25 12:37 | NUR ---
ED Nurse Note: lunch tray provide.
[2018-04-25] MEDS ORDERED: Miralax 17gm pkt ORAL PRN (13:30)
[2018-04-25] MEDS ORDERED: Zolpidem 5mg tab ORAL PRN (13:30)
[2018-04-25] MEDS ORDERED: Morphine Sulfate 2mg/ml Inj(IV/IM USE ONLY) IVP PRN (13:30)
[2018-04-25] MEDS ORDERED: Mylanta II UD 30ml ORAL PRN (13:30)
[2018-04-25] MEDS ORDERED: LORazepam Inj 2mg/ml 1ml IV PRN (13:30)
[2018-04-25] MEDS ORDERED: Dextrose 50% 25ml Syringe IV PRN (13:45)
[2018-04-25 14:01] VITALS: BP 127/79
--- NOTE | 2018-04-25 16:11 | NUR ---
NURSE NOTES: Received patient via gurney from ER, report given by LORI Moyer. Patient in stable condition. Heart monitor on, IV patent. Patient is confused and forgetful. Bed in lowest position with 2 side rails up. Call light and bed side table within reach. Will continue to monitor.
--- NOTE | 2018-04-25 16:11 | NUR ---
ED Nurse Note: Reports given to LORI Fonseca
[2018-04-25 16:25] VITALS: BP 125/76
--- NOTE | 2018-04-25 16:53 | Consultation ---
History of Present Illness General Date patient seen: Apr 25, 2018 Chief Complaint: Pain Present Illness HPI 83 year male with hx of HIV, thalamic CVA, cachexia, pulmonary fibrosis, recently signed AMA from an nursing facility. Brought in by paramedics with CC of increased weakness, unable to care for himself. Pt is admitted to telemetry for further w/u. Allergies: Coded Allergies: No Known Allergies (Unverified , 08/31/13) Medication History Scheduled Aspirin* (Aspir 81*), 81 MG ORAL DAILY, (Reported) Benzocaine (Orabase), 11.9 GM MM BID Benzonatate* (Tessalon Perle*), 100 MG ORAL THREE TIMES A DAY Carvedilol (Coreg), Unknown Dose ORAL EVERY 12 HOURS, (Reported) Cephalexin* (Keflex*), 500 MG ORAL Q6H Ciprofloxacin Hcl* (Ciprofloxacin Hcl*), 500 MG ORAL Q12H Darunavir Ethanolate* (Prezista*), 600 MG ORAL EVERY 12 HOURS, (Reported) Dicyclomine Hcl* (Bentyl*), 10 MG ORAL BID Diphenoxylate HCl/Atropine (Lomotil Tablet), 1 EACH PO THREE TIMES A DAY Docusate Sodium* (Colace*), 100 MG ORAL TWICE A DAY Etravirine (Intelence), 200 MG ORAL BID, (Reported) Levofloxacin (Levofloxacin*), 500 MG ORAL DAILY Levofloxacin* (Levaquin*), 500 MG ORAL DAILY, (Reported) Levofloxacin* (Levaquin*), 500 MG ORAL DAILY, (Reported) Lisinopril* (Lisinopril*), 40 MG ORAL DAILY, (Reported) Phenazopyridine Hcl* (Pyridium*), 100 MG ORAL THREE TIMES A DAY Polyethylene Glycol 3350* (Miralax*), 17 GM ORAL DAILY Ritonavir* (Norvir*), 100 MG ORAL TWICE A DAY, (Reported) Trimethoprim/Sulfamethoxazole 160/800* (Bactrim Ds Tablet*), 1 TAB ORAL Q12H Scheduled PRN Ibuprofen* (Motrin*), 600 MG ORAL Q8H PRN for For Pain Promethazine/Dextromethorphan (Promethazine-Dm Syrup), 1 TSP ORAL Q4H PRN for For Cough Miscellaneous Medications Emtricitabine/Tenofovir (Truvada 100 mg-150 mg Tablet), 1 EACH PO, (Reported) Nicotine (Nicotine Patch), 21 MG TD, (Reported) Patient History Healthcare decision maker N Resuscitation status Advanced Directive on File Past Medical/Surgical History Past Medical/Surgical History: (1) Thalamic hemorrhage (2) HIV disease (3) Interstitial lung disease (4) Hypertension Review of Systems All Other Systems: negative except mentioned in HPI Physical Exam General Appearance: WD/WN Lines, tubes and drains: peripheral, central line HEENT: normocephalic, atraumatic Neck: non-tender, normal alignment Respiratory/Chest: chest wall non-tender, lungs clear Breasts: no masses Cardiovascular/Chest: normal peripheral pulses Abdomen: normal bowel sounds Last 24 Hour Vital Signs Date Time Temp Pulse Resp B/P (MAP) Pulse Ox O2 Delivery O2 Flow Rate FiO2 04/25/18 16:25 98.0 78 20 125/76 (92) 04/25/18 16:09 98.0 75 16 120/70 100 Room Air 04/25/18 14:01 98.2 78 20 127/79 95 Room Air 04/25/18 12:04 98.0 74 14 119/72 96 Room Air 04/25/18 10:56 76 14 Room Air 04/25/18 10:04 97.9 76 14 122/76 99 Room Air 04/25/18 09:58 97.9 76 14 122/76 99 Room Air Laboratory Tests Test 04/25/18 10:30 White Blood Count 7.3 K/UL (4.8-10.8) Red Blood Count 4.86 M/UL (4.70-6.10) Hemoglobin 11.0 G/DL (14.2-18.0) L Hematocrit 36.3 % (42.0-52.0) L Mean Corpuscular Volume 75 FL (80-99) L Mean Corpuscular Hemoglobin 22.6 PG (27.0-31.0) L Mean Corpuscular Hemoglobin Concent 30.2 G/DL (32.0-36.0) L Red Cell Distribution Width 13.4 % (11.6-14.8) Platelet Count 183 K/UL (150-450) Mean Platelet Volume 7.0 FL (6.5-10.1) Neutrophils (%) (Auto) 64.7 % (45.0-75.0) Lymphocytes (%) (Auto) 21.4 % (20.0-45.0) Monocytes (%) (Auto) 11.7 % (1.0-10.0) H Eosinophils (%) (Auto) 0.5 % (0.0-3.0) Basophils (%) (Auto) 1.7 % (0.0-2.0) Prothrombin Time 11.9 SEC (9.30-11.50) H Prothromb Time International Ratio 1.1 (0.9-1.1) Activated Partial Thromboplast Time 34 SEC (23-33) H Sodium Level 142 MMOL/L (136-145) Potassium Level 4.0 MMOL/L (3.5-5.1) Chloride Level 103 MMOL/L (98-107) Carbon Dioxide Level 27 MMOL/L (21-32) Anion Gap 12 mmol/L (5-15) Blood Urea Nitrogen 25 mg/dL (7-18) H Creatinine 1.1 MG/DL (0.55-1.30) Estimat Glomerular Filtration Rate mL/min (>60) Glucose Level 118 MG/DL (74-106) H Calcium Level 9.6 MG/DL (8.5-10.1) Total Bilirubin 0.5 MG/DL (0.2-1.0) Aspartate Amino Transf (AST/SGOT) 24 U/L (15-37) Alanine Aminotransferase (ALT/SGPT) 14 U/L (12-78) Alkaline Phosphatase 643 U/L (46-116) H Total Protein 8.8 G/DL (6.4-8.2) H Albumin 2.7 G/DL (3.4-5.0) L Globulin 6.1 g/dL Albumin/Globulin Ratio 0.4 (1.0-2.7) L Triglycerides Level 118 MG/DL (30-150) Cholesterol Level 187 MG/DL (< 200) LDL Cholesterol 131 mg/dL (<100) H HDL Cholesterol 34 MG/DL (40-60) L Cholesterol/HDL Ratio 5.5 (3.3-4.4) H Height (Feet): 5 Height (Inches): 9.00 Weight (Pounds): 160 Medications Current Medications Medications (Trade) Dose Ordered Sig/Delgado Route PRN Reason Start Time Stop Time Status Last Admin Dose Admin Acetaminophen (Tylenol) 650 mg Q4H PRN ORAL fever 04/25/18 13:40 05/25/18 13:39 Al Hydroxide/Mg Hydroxide (Mylanta II) 30 ml Q6H PRN ORAL dyspepsia 04/25/18 13:30 05/25/18 13:29 Darunavir (Prezista) 600 mg EVERY 12 HOURS ORAL 04/25/18 21:00 05/25/18 20:59 UNV Dextrose (Dextrose 50%) 25 ml Q30M PRN IV Hypoglycemia 04/25/18 13:45 05/25/18 13:39 Dextrose (Dextrose 50%) 50 ml Q30M PRN IV hypoglycemia 04/25/18 13:45 05/25/18 13:44 Lorazepam (Ativan 2mg/ml 1ml) 0.5 mg Q4H PRN IV For Anxiety 04/25/18 13:30 05/02/18 13:29 Morphine Sulfate (Morphine Sulfate) 1 mg Q4H PRN IVP For Pain 04/25/18 13:30 05/02/18 13:29 Ondansetron HCl (Zofran) 4 mg Q6H PRN IVP Nausea & Vomiting 04/25/18 13:30 05/25/18 13:29 Polyethylene Glycol (Miralax) 17 gm HSPRN PRN ORAL Constipation 04/25/18 13:30 05/25/18 13:29 Ritonavir (Norvir) 100 mg TWICE A DAY ORAL 04/25/18 18:00 05/25/18 17:59 UNV Zolpidem Tartrate (Ambien) 5 mg HSPRN PRN ORAL Insomnia 04/25/18 13:30 05/02/18 13:29 Assessment/Plan Problem List: (1) Acute encephalopathy ICD Codes: G93.40 - Encephalopathy, unspecified SNOMED: 93561365, 270180770 (2) Interstitial lung disease ICD Codes: J84.9 - Interstitial pulmonary disease, unspecified SNOMED: 39414154, 478586878 (3) HIV disease ICD Codes: B20 - Human immunodeficiency virus [HIV] disease SNOMED: 91678087 (4) Thalamic hemorrhage ICD Codes: I61.0 - Nontraumatic intracerebral hemorrhage in hemisphere, subcortical SNOMED: 576550234 (5) Polyneuropathic pain ICD Codes: M79.2 - Neuralgia and neuritis, unspecified SNOMED: 791537800 (6) Protein-calorie malnutrition, severe ICD Codes: E43 - Unspecified severe protein-calorie malnutrition SNOMED: 144281315, 935238750, 211428475 (7) Hypertension Assessment/Plan symptomatic treatment iv fluids check electrolytes HIV treatment pt/ot pain management, trial of Methadone for neuropathic pain dvt prophylaxis. Gracie Echeverria MD Apr 25, 2018 16:52
[2018-04-25] MEDS ORDERED: Ritonavir 100mg tab ORAL SCH (18:00)
--- NOTE | 2018-04-25 19:16 | NUR ---
HAND-OFF: Report given to LORI Nieto.
--- NOTE | 2018-04-25 19:49 | NUR ---
NURSE NOTES: RECEIVED PATIENT RESTING IN BED, NO COMPLAINTS OF PAIN AT THIS TIME. FALL PRECAUTIONS IN PLACE: CALL LIGHT, BEDSIDE TABLE AND URINAL WITHIN REACH, BED IN LOW POSITION AND BED ALARM ON. WILL CONTINUE WITH PLAN OF CARE.
[2018-04-25 20:00] VITALS: BP 126/74
[2018-04-25] MEDS ORDERED: Darunavir 600mg tab ORAL SCH (21:00)
[2018-04-26] VITALS: BP 112/72
[2018-04-26 04:00] VITALS: BP 126/69
--- NOTE | 2018-04-26 07:22 | NUR ---
HAND-OFF: Report given to LORI LAL. PATIENT ASLEEP, NO SIGNS OF DISTRESS NOTED.
[2018-04-26 07:32] LABS: BASOPHILS % (AUTO) 1.1 % (0.0-2.0); EOSINOPHILS % (AUTO) 1.1 % (0.0-3.0); HEMATOCRIT 32.1 % (42.0-52.0); HEMOGLOBIN 9.8 G/DL (14.2-18.0); LYMPHOCYTES % (AUTO) 26.5 % (20.0-45.0); MEAN CORPUSCULAR VOLUME 75 FL (80-99); MONOCYTES % (AUTO) 12.8 % (1.0-10.0); NEUTROPHILS % (AUTO) 58.6 % (45.0-75.0); PLATELET COUNT 171 K/UL (150-450); RED BLOOD COUNT 4.28 M/UL (4.70-6.10); RED CELL DISTRIBUTION WIDTH 13.4 % (11.6-14.8); WHITE BLOOD COUNT 7.4 K/UL (4.8-10.8)
[2018-04-26 07:47] LABS: ALANINE AMINOTRANSFERASE 11 U/L (12-78); ALBUMIN 2.5 G/DL (3.4-5.0); ALBUMIN/GLOBULIN RATIO 0.4 (1.0-2.7); ALKALINE PHOSPHATASE 545 U/L (46-116); ANION GAP 12 mmol/L (5-15); ASPARTATE AMINO TRANSFERASE 21 U/L (15-37); BILIRUBIN,TOTAL 0.6 MG/DL (0.2-1.0); BLOOD UREA NITROGEN 26 mg/dL (7-18); CALCIUM 9.6 MG/DL (8.5-10.1); CARBON DIOXIDE 23 MMOL/L (21-32); CHLORIDE 107 MMOL/L (98-107); CHOLESTEROL 172 MG/DL (< 200); CREATININE 1.1 MG/DL (0.55-1.30); HDL CHOLESTEROL 32 MG/DL (40-60); POTASSIUM 3.8 MMOL/L (3.5-5.1); SODIUM 142 MMOL/L (136-145); TRIGLYCERIDES 94 MG/DL (30-150)
[2018-04-26 08:00] VITALS: BP 122/76
--- NOTE | 2018-04-26 11:09 | Pulmonology Progress Note ---
Assessment/Plan Problems: (1) Sepsis (2) Acute encephalopathy (3) Interstitial lung disease (4) HIV disease (5) Thalamic hemorrhage (6) Polyneuropathic pain (7) Protein-calorie malnutrition, severe (8) Hypertension Assessment/Plan had one episode of fever chaudhry culture start empiric Zosyn ID evaluation anemia w/u iv fluids pt/ot Subjective ROS Limited/Unobtainable: No Interval Events: comfortable Allergies: Coded Allergies: No Known Allergies (Unverified , 08/31/13) Objective Last 24 Hour Vital Signs Date Time Temp Pulse Resp B/P (MAP) Pulse Ox O2 Delivery O2 Flow Rate FiO2 04/26/18 04:00 97.2 81 18 126/69 (88) 97 04/26/18 04:00 79 04/26/18 00:00 84 04/26/18 00:00 97.3 87 18 112/72 (85) 95 04/25/18 23:17 97.3 04/25/18 21:00 Room Air 04/25/18 20:00 84 04/25/18 20:00 101.4 85 16 126/74 (91) 95 04/25/18 16:47 Room Air 04/25/18 16:40 81 04/25/18 16:25 98.0 78 20 125/76 (92) 04/25/18 16:09 98.0 75 16 120/70 100 Room Air 04/25/18 14:01 98.2 78 20 127/79 95 Room Air 04/25/18 12:04 98.0 74 14 119/72 96 Room Air Intake and Output 04/25/18 04/26/18 19:00 07:00 Intake Total 200 ml Output Total 300 ml 100 ml Balance -100 ml -100 ml Intake Oral 200 ml Output Urine Total 300 ml 100 ml # Voids 2 # Bowel Movements 1 General Appearance: WD/WN HEENT: normocephalic, atraumatic Respiratory/Chest: chest wall non-tender, lungs clear Cardiovascular: normal peripheral pulses, normal rate Abdomen: normal bowel sounds, soft, non tender Genitourinary: normal external genitalia Extremities: no clubbing Skin: no lesions 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: shank sorter II-XII grossly normal Laboratory Tests 04/26/18 06:15: White Blood Count 7.4, Red Blood Count 4.28L, Hemoglobin 9.8L, Hematocrit 32.1L , Mean Corpuscular Volume 75L, Mean Corpuscular Hemoglobin 23.0L, Mean Corpuscular Hemoglobin Concent 30.6L, Red Cell Distribution Width 13.4, Platelet Count 171, Mean Platelet Volume 7.8, Neutrophils (%) (Auto) 58.6, Lymphocytes (%) (Auto) 26.5, Monocytes (%) (Auto) 12.8H, Eosinophils (%) (Auto) 1.1, Basophils (%) (Auto) 1.1, Sodium Level 142, Potassium Level 3.8, Chloride Level 107, Carbon Dioxide Level 23, Anion Gap 12, Blood Urea Nitrogen 26H, Creatinine 1.1, Estimat Glomerular Filtration Rate , Glucose Level 102, Uric Acid [Pending], Calcium Level 9.6, Total Bilirubin 0.6, Aspartate Amino Transf ( AST/SGOT) 21, Alanine Aminotransferase (ALT/SGPT) 11L, Alkaline Phosphatase 545H , Total Creatine Kinase [Pending], Total Protein 8.2, Albumin 2.5L, Globulin 5.7 , Albumin/Globulin Ratio 0.4L, Triglycerides Level 94, Cholesterol Level 172, LDL Cholesterol 117H, HDL Cholesterol 32L, Cholesterol/HDL Ratio 5.4H, Thyroid Stimulating Hormone (TSH) 0.888 Current Medications Medications (Trade) Dose Ordered Sig/Delgado Route PRN Reason Start Time Stop Time Status Last Admin Dose Admin Acetaminophen (Tylenol) 650 mg Q4H PRN ORAL fever 04/25/18 13:40 05/25/18 13:39 04/25/18 22:47 Al Hydroxide/Mg Hydroxide (Mylanta II) 30 ml Q6H PRN ORAL dyspepsia 04/25/18 13:30 05/25/18 13:29 Darunavir (Prezista) 600 mg EVERY 12 HOURS ORAL 04/25/18 21:00 05/25/18 20:59 UNV Dextrose (Dextrose 50%) 25 ml Q30M PRN IV Hypoglycemia 04/25/18 13:45 05/25/18 13:39 Dextrose (Dextrose 50%) 50 ml Q30M PRN IV hypoglycemia 04/25/18 13:45 05/25/18 13:44 Lorazepam (Ativan 2mg/ml 1ml) 0.5 mg Q4H PRN IV For Anxiety 3/17/19 13:30 05/02/18 13:29 Morphine Sulfate (Morphine Sulfate) 1 mg Q4H PRN IVP For Pain 04/25/18 13:30 05/02/18 13:29 Ondansetron HCl (Zofran) 4 mg Q6H PRN IVP Nausea & Vomiting 04/25/18 13:30 05/25/18 13:29 Piperacillin Sod/ Tazobactam Sod 3.375 gm/Sodium Chloride 110 ml @ 220 mls/hr EVERY 8 HOURS IVPB 04/26/18 14:00 05/03/18 13:59 UNV Polyethylene Glycol (Miralax) 17 gm HSPRN PRN ORAL Constipation 04/25/18 13:30 05/25/18 13:29 Ritonavir (Norvir) 100 mg TWICE A DAY ORAL 04/25/18 18:00 05/25/18 17:59 UNV Zolpidem Tartrate (Ambien) 5 mg HSPRN PRN ORAL Insomnia 04/25/18 13:30 05/02/18 13:29 Gracie Echeverria MD Apr 26, 2018 11:09
[2018-04-26 11:18] LABS: CREATINE KINASE 73 U/L (26-308)
[2018-04-26] MEDS ORDERED: Morphine Sulfate 2mg/ml Inj(IV/IM USE ONLY) IVP PRN (11:30)
--- NOTE | 2018-04-26 11:40 | NUR ---
CASE MANAGEMENT:REVIEW 83 YR OLD MALE BIBA FROM HOME CC: BLE PAIN. GENERALIZED WEAKNESS PMH: HIV SI: DEHYDRATION. THALAMIC HEMORRHAGE 97.8 76 14 122/76 99% ON RA H/H-11.0/36.3 BUN+25 IS: MECLIZINE PO VENOUS DUPLEX CT HEAD : TO TELEMETRY INTERQUAL CRITERIA MET
[2018-04-26 12:00] VITALS: BP 132/72
--- NOTE | 2018-04-26 13:42 | Consultation ---
History of Present Illness General Date patient seen: Apr 26, 2018 Chief Complaint: Pain Present Illness HPI 83 y/o M with hx of HIV on ARV (per pt he is undetectable), prostatitis, HTN, thalamic CVA, cachexia, pulmonary fibrosis, SNF resident presents to ED on 04/25 with increased weakness, b/l leg pain, dizziness and unable to care for himself. Of note, he had recently signed AMA from a nursing facility Tm 101.4 no leukocytosis Allergies: Coded Allergies: No Known Allergies (Unverified , 08/31/13) Medication History Scheduled Aspirin* (Aspir 81*), 81 MG ORAL DAILY, (Reported) Benzocaine (Orabase), 11.9 GM MM BID Benzonatate* (Tessalon Perle*), 100 MG ORAL THREE TIMES A DAY Carvedilol (Coreg), Unknown Dose ORAL EVERY 12 HOURS, (Reported) Cephalexin* (Keflex*), 500 MG ORAL Q6H Ciprofloxacin Hcl* (Ciprofloxacin Hcl*), 500 MG ORAL Q12H Darunavir Ethanolate* (Prezista*), 600 MG ORAL EVERY 12 HOURS, (Reported) Dicyclomine Hcl* (Bentyl*), 10 MG ORAL BID Diphenoxylate HCl/Atropine (Lomotil Tablet), 1 EACH PO THREE TIMES A DAY Docusate Sodium* (Colace*), 100 MG ORAL TWICE A DAY Etravirine (Intelence), 200 MG ORAL BID, (Reported) Levofloxacin (Levofloxacin*), 500 MG ORAL DAILY Levofloxacin* (Levaquin*), 500 MG ORAL DAILY, (Reported) Levofloxacin* (Levaquin*), 500 MG ORAL DAILY, (Reported) Lisinopril* (Lisinopril*), 40 MG ORAL DAILY, (Reported) Phenazopyridine Hcl* (Pyridium*), 100 MG ORAL THREE TIMES A DAY Polyethylene Glycol 3350* (Miralax*), 17 GM ORAL DAILY Ritonavir* (Norvir*), 100 MG ORAL TWICE A DAY, (Reported) Trimethoprim/Sulfamethoxazole 160/800* (Bactrim Ds Tablet*), 1 TAB ORAL Q12H Scheduled PRN Ibuprofen* (Motrin*), 600 MG ORAL Q8H PRN for For Pain Promethazine/Dextromethorphan (Promethazine-Dm Syrup), 1 TSP ORAL Q4H PRN for For Cough Miscellaneous Medications Emtricitabine/Tenofovir (Truvada 100 mg-150 mg Tablet), 1 EACH PO, (Reported) Nicotine (Nicotine Patch), 21 MG TD, (Reported) Patient History Healthcare decision maker N Resuscitation status Full Code Advanced Directive on File Patient History Narrative Pmhx: as above Shx: reviewed Fhx non contributory Review of Systems All Other Systems: negative except mentioned in HPI Physical Exam Physical Exam Narrative General Appearance: WD/WN Lines, tubes and drains: peripheral, central line HEENT: normocephalic, atraumatic Neck: non-tender, normal alignment Respiratory/Chest: chest wall non-tender, lungs clear Breasts: no masses Cardiovascular/Chest: normal peripheral pulses Abdomen: normal bowel sounds Last 24 Hour Vital Signs Date Time Temp Pulse Resp B/P (MAP) Pulse Ox O2 Delivery O2 Flow Rate FiO2 04/26/18 04:00 97.2 81 18 126/69 (88) 97 04/26/18 04:00 79 04/26/18 00:00 84 04/26/18 00:00 97.3 87 18 112/72 (85) 95 04/25/18 23:17 97.3 04/25/18 21:00 Room Air 04/25/18 20:00 84 04/25/18 20:00 101.4 85 16 126/74 (91) 95 04/25/18 16:47 Room Air 04/25/18 16:40 81 04/25/18 16:25 98.0 78 20 125/76 (92) 04/25/18 16:09 98.0 75 16 120/70 100 Room Air 04/25/18 14:01 98.2 78 20 127/79 95 Room Air Intake and Output 04/25/18 04/26/18 19:00 07:00 Intake Total 200 ml Output Total 300 ml 100 ml Balance -100 ml -100 ml Intake Oral 200 ml Output Urine Total 300 ml 100 ml # Voids 2 # Bowel Movements 1 Laboratory Tests Test 04/26/18 06:15 White Blood Count 7.4 K/UL (4.8-10.8) Red Blood Count 4.28 M/UL (4.70-6.10) L Hemoglobin 9.8 G/DL (14.2-18.0) L Hematocrit 32.1 % (42.0-52.0) L Mean Corpuscular Volume 75 FL (80-99) L Mean Corpuscular Hemoglobin 23.0 PG (27.0-31.0) L Mean Corpuscular Hemoglobin Concent 30.6 G/DL (32.0-36.0) L Red Cell Distribution Width 13.4 % (11.6-14.8) Platelet Count 171 K/UL (150-450) Mean Platelet Volume 7.8 FL (6.5-10.1) Neutrophils (%) (Auto) 58.6 % (45.0-75.0) Lymphocytes (%) (Auto) 26.5 % (20.0-45.0) Monocytes (%) (Auto) 12.8 % (1.0-10.0) H Eosinophils (%) (Auto) 1.1 % (0.0-3.0) Basophils (%) (Auto) 1.1 % (0.0-2.0) Sodium Level 142 MMOL/L (136-145) Potassium Level 3.8 MMOL/L (3.5-5.1) Chloride Level 107 MMOL/L (98-107) Carbon Dioxide Level 23 MMOL/L (21-32) Anion Gap 12 mmol/L (5-15) Blood Urea Nitrogen 26 mg/dL (7-18) H Creatinine 1.1 MG/DL (0.55-1.30) Estimat Glomerular Filtration Rate mL/min (>60) Glucose Level 102 MG/DL (74-106) Uric Acid 6.6 MG/DL (2.6-7.2) Calcium Level 9.6 MG/DL (8.5-10.1) Total Bilirubin 0.6 MG/DL (0.2-1.0) Aspartate Amino Transf (AST/SGOT) 21 U/L (15-37) Alanine Aminotransferase (ALT/SGPT) 11 U/L (12-78) L Alkaline Phosphatase 545 U/L (46-116) H Total Creatine Kinase 73 U/L (26-308) Total Protein 8.2 G/DL (6.4-8.2) Albumin 2.5 G/DL (3.4-5.0) L Globulin 5.7 g/dL Albumin/Globulin Ratio 0.4 (1.0-2.7) L Triglycerides Level 94 MG/DL (30-150) Cholesterol Level 172 MG/DL (< 200) LDL Cholesterol 117 mg/dL (<100) H HDL Cholesterol 32 MG/DL (40-60) L Cholesterol/HDL Ratio 5.4 (3.3-4.4) H Thyroid Stimulating Hormone (TSH) 0.888 uiU/mL (0.358-3.740) Height (Feet): 5 Height (Inches): 9.00 Weight (Pounds): 160 Medications Current Medications Medications (Trade) Dose Ordered Sig/Delgado Route PRN Reason Start Time Stop Time Status Last Admin Dose Admin Acetaminophen (Tylenol) 650 mg Q4H PRN ORAL fever 04/25/18 13:40 05/25/18 13:39 04/25/18 22:47 Al Hydroxide/Mg Hydroxide (Mylanta II) 30 ml Q6H PRN ORAL dyspepsia 04/25/18 13:30 05/25/18 13:29 Darunavir (Prezista) 600 mg EVERY 12 HOURS ORAL 04/25/18 21:00 05/25/18 20:59 UNV Dextrose (Dextrose 50%) 25 ml Q30M PRN IV Hypoglycemia 04/25/18 13:45 05/25/18 13:39 Dextrose (Dextrose 50%) 50 ml Q30M PRN IV hypoglycemia 04/25/18 13:45 05/25/18 13:44 Lorazepam (Ativan 2mg/ml 1ml) 0.5 mg Q4H PRN IV For Anxiety 04/25/18 13:30 05/02/18 13:29 Methadone HCl (Methadone HCl) 5 mg EVERY 12 HOURS ORAL 04/26/18 11:15 05/03/18 11:14 04/26/18 12:06 Morphine Sulfate (Morphine Sulfate) 1 mg Q4H PRN IVP breakthrough pain 04/26/18 11:30 05/02/18 13:29 Ondansetron HCl (Zofran) 4 mg Q6H PRN IVP Nausea & Vomiting 04/25/18 13:30 05/25/18 13:29 Piperacillin Sod/ Tazobactam Sod 3.375 gm/Sodium Chloride 110 ml @ 27.5 mls/hr EVERY 8 HOURS IVPB 04/26/18 14:00 05/03/18 13:59 Polyethylene Glycol (Miralax) 17 gm HSPRN PRN ORAL Constipation 04/25/18 13:30 05/25/18 13:29 Ritonavir (Norvir) 100 mg TWICE A DAY ORAL 04/25/18 18:00 05/25/18 17:59 UNV Zolpidem Tartrate (Ambien) 5 mg HSPRN PRN ORAL Insomnia 04/25/18 13:30 05/02/18 13:29 Assessment/Plan Assessment/Plan Abx: Zosyn 04/26- Assessment: Fever- ?source- r/o flu, bacteremia, PNA, DVT -04/26 CXR: Bilateral interstitial disease, suspect chronic, unchanged from . Superimposed acute process also possible -Head CT: No significant change in the 5 mm hyperdensity in the anterior left thalamus, consistent with a remote parenchymal hemorrhage. No acute intracranial hemorrhage, mass effect, or midline shift. Moderate periventricular white matter hypodensities, likely related to chronic small vessel disease changes. Mild generalized cerebral parenchymal volume loss, likely age-related. No leukocytosis Dizziness/weakness HIV prostatitis HTN thalamic CVA/ICH cachexia pulmonary fibrosis SNF resident Plan: -Switch Zosyn #1 to Ceftriaxone, empiric pending cultures -f.u cx -Monitor CBC/CMP, temperatures -u/a w/ reflex, CXR, influenza sc, Bcx x2 -HIV VL and CD4 am -will hold ARV until we have a complete list of his HIV regimen as to avoid partial/incomplete treatment and enhance drug resistance -aspiration precautions -f/u V. duplex Thank you for this consultation. Will continue to follow along with you. Valeria Wadsworth M.D. Apr 26, 2018 13:42
[2018-04-26] MEDS ORDERED: Piperacillin/Tazobactam 3.375 GM in NS 110 ML IVPB SCH (14:00)
--- NOTE | 2018-04-26 14:24 | NUR ---
RADIOLOGY DEPT., CHEST X-RAY DONE..-P.DYE
[2018-04-26 16:00] VITALS: BP 122/71
--- NOTE | 2018-04-26 16:29 | Diagnostic Imaging Report ---
Indication: Cough Technique: One view of the chest Comparison: 04/02/2018 Findings: Bilateral interstitial disease appears unchanged, is likely chronic. No focal airspace consolidation. Heart size is normal. Impression: Bilateral interstitial disease, suspect chronic, unchanged from 04/02/2018. Superimposed acute process also possible
--- NOTE | 2018-04-26 19:30 | NUR ---
NURSE NOTES: Received report from Segundo Davis RN. Patient in bed asleep with no S/S of acute pain or distress noted at this time. Able to verbally express needs and wants appropriately with no difficulty. On R/A with 02 sat at 95-96% with no respiratory distress at this time. IV line intact and patent. Safety precaution in place; siderails x3 up, call light within reach, bed in lowest position, brakes and alarm on at all times and placed on continuous cardiac monitoring per protocol. Needs and wants anticipated and attended, will continue plan of care and monitor for any changes noted.
[2018-04-26 20:00] VITALS: BP 156/89
--- NOTE | 2018-04-26 21:30 | History and Physical Report ---
DATE OF ADMISSION: 04/25/2018 TIME SEEN: 2 p.m. CONSULTANTS: 1. Gracie Echeverria M.D. 2. Diego Kurtz M.D. 3. Charlie Moon M.D. 4. Horace Gagnon M.D. CHIEF COMPLAINT: Increased weakness, lower extremity pain. BRIEF HISTORY: This is an 83-year-old male, who lives at home, with history of HIV presents to [facility] last night with history of one-week increased weakness, lower extremity pain. The patient diagnosed with the above, being admitted to telemetry for further care. Currently, calm in bed, slight general pain, slightly weak. No complaint. REVIEW OF SYSTEMS: No chest pain. No shortness of breath. No nausea, vomiting, or diarrhea. PAST MEDICAL HISTORY: HIV, prostate cancer, malnutrition, polyneuropathy, hypertension, encephalopathy. PAST SURGICAL HISTORY: None. ALLERGIES: Denies. SOCIAL HISTORY: Positive smoking. No alcohol. No intravenous drug abuse. FAMILY HISTORY: Noncontributory. PHYSICAL EXAMINATION: GENERAL: Calm in bed, oriented x2, in no acute distress. VITAL SIGNS: Temperature is 97 degrees, pulse 81, respiratory rate 18, and blood pressure 126/69 CARDIOVASCULAR: No murmurs. LUNGS: Distant and clear. ABDOMEN: Bowel sounds positive. Nontender. Nondistended. EXTREMITIES: No cyanosis, clubbing, or edema. NEUROLOGIC: The patient moves all extremities, slightly weak LABORATORY AND DIAGNOSTIC DATA: H and H 9.8/32 otherwise CBC is normal. BMP shows BUN 26, ALT 11, alkaline phosphatase 145. Albumin 2.5. TSH 0.88. INR is 1.1. PTT is 34. MEDICATIONS: Include Zosyn, morphine, methadone, ritonavir, Tylenol, polyethylene glycol, morphine, zolpidem, lorazepam. ASSESSMENT: 1. Weakness, lower extremity pain. 2. Dizziness. 3. History of HIV. 4. Prostate cancer. 5. Malnutrition. 6. Polyneuropathy. 7. Acute hypertension. 8. Encephalopathy. PLAN: 1. Blood pressure and pain control. 2. Continue previous medications. 3. Psych evaluation. 4. PT and dietary evaluation. 5. CBC and BMP in the morning. 6. We will continue to follow the patient. Prabhu Trejo D.O. DR: Hu JOB#: [id number] CC:
[2018-04-26] MEDS ORDERED: cefTRIAXone 1 GM in D5W 55 ML IVPB SCH (22:30)
[2018-04-27] VITALS: BP 126/84
[2018-04-27 04:00] VITALS: BP 121/77
--- NOTE | 2018-04-27 04:01 | NUR ---
NURSE NOTES: Patient in bed asleep with no S/S of acute pain or distress at this time. Will continue to monitor
--- NOTE | 2018-04-27 07:19 | NUR ---
HAND-OFF: Report given to Suellen Szymanski Patient in bed in stable condition. Endorsed plan of care
--- NOTE | 2018-04-27 07:20 | NUR ---
NURSE NOTES: Received patient awake on semi larsen position on stable condition with no SOB or distress noted. On tele monitor, SR. A/O X 2-3, verbally responsive and able to make needs known. IV intact and patent. Kept patient clean and comfortable in bed, call light within patient reach, will continue to monitor accordingly.
[2018-04-27 08:00] VITALS: BP 123/85
[2018-04-27 08:06] LABS: INR 1.1 (0.9-1.1)
[2018-04-27 08:10] LABS: BASOPHILS % (AUTO) 1.4 % (0.0-2.0); EOSINOPHILS % (AUTO) 1.6 % (0.0-3.0); HEMATOCRIT 31.8 % (42.0-52.0); HEMOGLOBIN 9.8 G/DL (14.2-18.0); LYMPHOCYTES % (AUTO) 26.7 % (20.0-45.0); MEAN CORPUSCULAR VOLUME 75 FL (80-99); MONOCYTES % (AUTO) 9.4 % (1.0-10.0); NEUTROPHILS % (AUTO) 60.9 % (45.0-75.0); PLATELET COUNT 175 K/UL (150-450); RED BLOOD COUNT 4.26 M/UL (4.70-6.10); RED CELL DISTRIBUTION WIDTH 13.2 % (11.6-14.8); WHITE BLOOD COUNT 7.6 K/UL (4.8-10.8)
[2018-04-27 08:28] LABS: LACTATE DEHYDROGENASE 200 U/L (81-234); PHOSPHORUS 3.3 MG/DL (2.5-4.9)
[2018-04-27 08:55] LABS: % IRON SATURATION 14 % (15-50); IRON 22 ug/dL (50-175); TOTAL IRON BINDING CAPACITY 154 ug/dL (250-450)
[2018-04-27 08:58] LABS: ANION GAP 13 mmol/L (5-15); BLOOD UREA NITROGEN 28 mg/dL (7-18); CALCIUM 9.4 MG/DL (8.5-10.1); CARBON DIOXIDE 22 MMOL/L (21-32); CHLORIDE 107 MMOL/L (98-107); CREATININE 1.1 MG/DL (0.55-1.30); SODIUM 142 MMOL/L (136-145)
[2018-04-27] MEDS ORDERED: Memantine 5 MG TAB ORAL SCH (09:00)
[2018-04-27 10:00] LABS: APPEARANCE,URINE CLEAR; BILIRUBIN, URINE NEGATIVE (NEGATIVE); GLUCOSE, URINE (UA) NEGATIVE (NEGATIVE); KETONES,URINE NEGATIVE (NEGATIVE); LEUKOCYTE ESTERASE ,URINE 1+ (NEGATIVE); NITRITE,URINE NEGATIVE (NEGATIVE); PH,URINE 5 (4.5-8.0); PROTEIN,URINE 1+ (NEGATIVE); UROBILINOGEN,URINE 1 MG/DL (0.0-1.0)
[2018-04-27 10:13] LABS: COLOR,URINE YELLOW
--- NOTE | 2018-04-27 10:15 | Pulmonology Progress Note ---
Assessment/Plan Problems: (1) Sepsis (2) Acute encephalopathy (3) Interstitial lung disease (4) HIV disease (5) Thalamic hemorrhage (6) Polyneuropathic pain (7) Protein-calorie malnutrition, severe (8) Hypertension Assessment/Plan pain is better controlled with methadone had one episode of fever chaudhry culture start empiric Zosyn ID evaluation appreciated anemia w/u check PSA start Venofer iv fluids pt/ot Subjective ROS Limited/Unobtainable: No Constitutional: Reports: no symptoms HEENT: Repors: no symptoms Respiratory: Reports: no symptoms Allergies: Coded Allergies: No Known Allergies (Unverified , 08/31/13) Objective Last 24 Hour Vital Signs Date Time Temp Pulse Resp B/P (MAP) Pulse Ox O2 Delivery O2 Flow Rate FiO2 04/27/18 09:00 Room Air 04/27/18 08:00 98.1 79 18 123/85 (98) 98 04/27/18 08:00 76 04/27/18 04:00 98.2 81 19 121/77 (92) 98 04/27/18 04:00 78 04/27/18 00:00 98.0 83 19 126/84 (98) 97 04/27/18 00:00 82 04/26/18 21:00 Room Air 04/26/18 20:00 98.5 76 20 156/89 (111) 97 04/26/18 20:00 88 04/26/18 16:00 78 04/26/18 16:00 97.4 86 18 122/71 (88) 97 04/26/18 12:00 97.3 84 18 132/72 (92) 96 04/26/18 12:00 81 Intake and Output 04/26/18 04/27/18 18:59 06:59 Intake Total 480 ml 120 ml Output Total 650 ml 200 ml Balance -170 ml -80 ml Intake Oral 480 ml 120 ml Output Urine Total 650 ml 200 ml General Appearance: cachetic HEENT: normocephalic, atraumatic Respiratory/Chest: chest wall non-tender, lungs clear Cardiovascular: normal peripheral pulses, normal rate, regular rhythm Abdomen: normal bowel sounds, soft, non tender Genitourinary: normal external genitalia Extremities: no clubbing Skin: no rash 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: casing man II-XII grossly normal Microbiology Date/Time Source Procedure Growth Status 04/25/18 16:00 Nasal Nares MRSA Culture - Final NO METHICILLIN RESISTANT STAPH AUREUS... Complete 04/25/18 16:00 Rectum VRE Culture - Final NO VANCOMYCIN RESISTANT ENTEROCOCCUS ... Complete 04/25/18 16:00 Rectum - Final NO CARBAPENEM-RESISTANT ENTEROBACTERI... Complete Laboratory Tests 04/27/18 06:20: White Blood Count 7.6, Red Blood Count 4.26L, Hemoglobin 9.8L, Hematocrit 31.8L , Mean Corpuscular Volume 75L, Mean Corpuscular Hemoglobin 23.0L, Mean Corpuscular Hemoglobin Concent 30.7L, Red Cell Distribution Width 13.2, Platelet Count 175, Mean Platelet Volume 6.8, Neutrophils (%) (Auto) 60.9, Lymphocytes (%) (Auto) 26.7, Monocytes (%) (Auto) 9.4, Eosinophils (%) (Auto) 1.6, Basophils (%) (Auto) 1.4, Neutrophils % (Manual) [Pending], Lymphocytes % ( Manual) [Pending], Lymphocytes [Pending], Platelet Estimate [Pending], Platelet Morphology [Pending], Erythrocyte Sedimentation Rate 85H, Reticulocyte Count [ Pending], Prothrombin Time 11.6H, Prothromb Time International Ratio 1.1, Activated Partial Thromboplast Time 36H, Sodium Level 142, Potassium Level 4.0, Chloride Level 107, Carbon Dioxide Level 22, Anion Gap 13, Blood Urea Nitrogen 28H, Creatinine 1.1, Estimat Glomerular Filtration Rate , Glucose Level 87, Calcium Level 9.4, Phosphorus Level 3.3, Magnesium Level 2.2, Iron Level 22L, Total Iron Binding Capacity 154L, Percent Iron Saturation 14L, Unsaturated Iron Binding 132, Lactate Dehydrogenase 200, C-Reactive Protein, Quantitative 17.8H, Carcinoembryonic Antigen [Pending], Vitamin B12 Level 592, Folate 13.7, Percent CD3 Cells [Pending], Absolute CD3 Count [Pending], Percent CD4 Cells [Pending], Absolute CD4 Count [Pending], T-Lymphocyte CD4/CD8 Ratio [Pending], Percent CD8 Cells [Pending], Absolute CD8 Count [Pending], HIV-1 RNA (PCR) log10 Value [ Pending], HIV-1 RNA Ultraquantitative (PCR) [Pending] 04/27/18 09:15: Urine Color Yellow, Urine Appearance Clear, Urine pH 5, Urine Specific [place] 1.020, Urine Protein 1+H, Urine Glucose (UA) Negative, Urine Ketones Negative, Urine Blood Negative, Urine Nitrite Negative, Urine Bilirubin Negative, Urine Urobilinogen 1H, Urine Leukocyte Esterase 1+H, Urine RBC [Pending], Urine WBC [ Pending], Urine Squamous Epithelial Cells [Pending], Urine Bacteria [Pending] Current Medications Medications (Trade) Dose Ordered Sig/Delgado Route PRN Reason Start Time Stop Time Status Last Admin Dose Admin Acetaminophen (Tylenol) 650 mg Q4H PRN ORAL fever 04/25/18 13:40 05/25/18 13:39 04/25/18 22:47 Al Hydroxide/Mg Hydroxide (Mylanta II) 30 ml Q6H PRN ORAL dyspepsia 04/25/18 13:30 05/25/18 13:29 Ceftriaxone Sodium 1 gm/ Dextrose 55 ml @ 110 mls/hr Q24H IVPB 04/26/18 22:30 05/03/18 22:29 04/26/18 21:32 Dextrose (Dextrose 50%) 25 ml Q30M PRN IV Hypoglycemia 04/25/18 13:45 05/25/18 13:39 Dextrose (Dextrose 50%) 50 ml Q30M PRN IV hypoglycemia 04/25/18 13:45 05/25/18 13:44 Iron Sucrose 100 mg/Sodium Chloride 60 ml @ 240 mls/hr BEDTIME IVPB 04/27/18 21:00 05/01/18 21:14 UNV Lorazepam (Ativan 2mg/ml 1ml) 0.5 mg Q4H PRN IV For Anxiety 04/25/18 13:30 05/02/18 13:29 Memantine (Namenda) 5 mg BID ORAL 04/27/18 09:00 05/27/18 08:59 04/27/18 09:33 Methadone HCl (Methadone HCl) 5 mg EVERY 12 HOURS ORAL 04/26/18 11:15 05/03/18 11:14 04/27/18 08:15 Morphine Sulfate (Morphine Sulfate) 1 mg Q4H PRN IVP breakthrough pain 04/26/18 11:30 05/02/18 13:29 Ondansetron HCl (Zofran) 4 mg Q6H PRN IVP Nausea & Vomiting 04/25/18 13:30 05/25/18 13:29 Polyethylene Glycol (Miralax) 17 gm HSPRN PRN ORAL Constipation 04/25/18 13:30 05/25/18 13:29 Zolpidem Tartrate (Ambien) 5 mg HSPRN PRN ORAL Insomnia 04/25/18 13:30 05/02/18 13:29 Gracie Echeverria MD Apr 27, 2018 10:15
--- NOTE | 2018-04-27 11:05 | Infectious Diseases Prog Note ---
Assessment/Plan Assessment/Plan Abx: Zosyn 04/26- Assessment: Fever; improving- ?source- r/o flu, bacteremia, PNA -04/26 CXR: Bilateral interstitial disease, suspect chronic, unchanged from . Superimposed acute process also possible -Head CT: No significant change in the 5 mm hyperdensity in the anterior left thalamus, consistent with a remote parenchymal hemorrhage. No acute intracranial hemorrhage, mass effect, or midline shift. Moderate periventricular white matter hypodensities, likely related to chronic small vessel disease changes. Mild generalized cerebral parenchymal volume loss, likely age-related. -Bcx , influenza sc p -u/a wbc 5-10, nit neg, leuk +1; no UTI symptoms -v/ duplex BLE: no DVT No leukocytosis Dizziness/weakness HIV- per pt VL Undetectable prostatitis HTN thalamic CVA/ICH cachexia pulmonary fibrosis SNF resident Plan: -Continue empiric Ceftriaxone #2 pending cultures -04/26 SP ZOsyn #1 -f.u cx -Monitor CBC/CMP, temperatures -f/u influenza sc, Bcx x2 -f/u HIV VL and CD4 -will hold ARV until we have a complete list of his HIV regimen as to avoid partial/incomplete treatment and enhance drug resistance -aspiration precautions Thank you for this consultation. Will continue to follow along with you. Subjective Allergies: Coded Allergies: No Known Allergies (Unverified , 08/31/13) Subjective afebrile >36hrs no leukocytosis Bcx p Objective Vital Signs Last 24 Hour Vital Signs Date Time Temp Pulse Resp B/P (MAP) Pulse Ox O2 Delivery O2 Flow Rate FiO2 04/27/18 09:00 Room Air 04/27/18 08:00 98.1 79 18 123/85 (98) 98 04/27/18 08:00 76 04/27/18 04:00 98.2 81 19 121/77 (92) 98 04/27/18 04:00 78 04/27/18 00:00 98.0 83 19 126/84 (98) 97 04/27/18 00:00 82 04/26/18 21:00 Room Air 04/26/18 20:00 98.5 76 20 156/89 (111) 97 04/26/18 20:00 88 04/26/18 16:00 78 04/26/18 16:00 97.4 86 18 122/71 (88) 97 04/26/18 12:00 97.3 84 18 132/72 (92) 96 04/26/18 12:00 81 Height (Feet): 5 Height (Inches): 9.00 Weight (Pounds): 160 Objective General Appearance: WD/WN Lines, tubes and drains: peripheral, central line HEENT: normocephalic, atraumatic Neck: non-tender, normal alignment Respiratory/Chest: chest wall non-tender, lungs clear Breasts: no masses Cardiovascular/Chest: normal peripheral pulses Abdomen: normal bowel sounds Microbiology Date/Time Source Procedure Growth Status 04/25/18 16:00 Nasal Nares MRSA Culture - Final NO METHICILLIN RESISTANT STAPH AUREUS... Complete 04/25/18 16:00 Rectum VRE Culture - Final NO VANCOMYCIN RESISTANT ENTEROCOCCUS ... Complete 04/25/18 16:00 Rectum - Final NO CARBAPENEM-RESISTANT ENTEROBACTERI... Complete Laboratory Tests Test 04/27/18 06:20 04/27/18 09:15 White Blood Count 7.6 K/UL (4.8-10.8) Red Blood Count 4.26 M/UL (4.70-6.10) L Hemoglobin 9.8 G/DL (14.2-18.0) L Hematocrit 31.8 % (42.0-52.0) L Mean Corpuscular Volume 75 FL (80-99) L Mean Corpuscular Hemoglobin 23.0 PG (27.0-31.0) L Mean Corpuscular Hemoglobin Concent 30.7 G/DL (32.0-36.0) L Red Cell Distribution Width 13.2 % (11.6-14.8) Platelet Count 175 K/UL (150-450) Mean Platelet Volume 6.8 FL (6.5-10.1) Neutrophils (%) (Auto) 60.9 % (45.0-75.0) Lymphocytes (%) (Auto) 26.7 % (20.0-45.0) Monocytes (%) (Auto) 9.4 % (1.0-10.0) Eosinophils (%) (Auto) 1.6 % (0.0-3.0) Basophils (%) (Auto) 1.4 % (0.0-2.0) Neutrophils % (Manual) Pending Lymphocytes % (Manual) Pending Lymphocytes Pending Platelet Estimate Pending Platelet Morphology Pending Erythrocyte Sedimentation Rate 85 MM/HR (0-20) H Reticulocyte Count Pending Prothrombin Time 11.6 SEC (9.30-11.50) H Prothromb Time International Ratio 1.1 (0.9-1.1) Activated Partial Thromboplast Time 36 SEC (23-33) H Sodium Level 142 MMOL/L (136-145) Potassium Level 4.0 MMOL/L (3.5-5.1) Chloride Level 107 MMOL/L (98-107) Carbon Dioxide Level 22 MMOL/L (21-32) Anion Gap 13 mmol/L (5-15) Blood Urea Nitrogen 28 mg/dL (7-18) H Creatinine 1.1 MG/DL (0.55-1.30) Estimat Glomerular Filtration Rate mL/min (>60) Glucose Level 87 MG/DL (74-106) Calcium Level 9.4 MG/DL (8.5-10.1) Phosphorus Level 3.3 MG/DL (2.5-4.9) Magnesium Level 2.2 MG/DL (1.8-2.4) Iron Level 22 ug/dL (50-175) L Total Iron Binding Capacity 154 ug/dL (250-450) L Percent Iron Saturation 14 % (15-50) L Unsaturated Iron Binding 132 ug/dL (112-346) Lactate Dehydrogenase 200 U/L (81-234) C-Reactive Protein, Quantitative 17.8 mg/dL (0.00-0.90) H Carcinoembryonic Antigen Pending Free Prostate Specific Antigen Pending Percent Free Prostate Specific Ag Pending Prostate Specific Antigen Total Pending Vitamin B12 Level 592 PG/ML (193-986) Folate 13.7 NG/ML (8.6-58.9) Percent CD3 Cells Pending Absolute CD3 Count Pending Percent CD4 Cells Pending Absolute CD4 Count Pending T-Lymphocyte CD4/CD8 Ratio Pending Percent CD8 Cells Pending Absolute CD8 Count Pending HIV-1 RNA (PCR) log10 Value Pending HIV-1 RNA Ultraquantitative (PCR) Pending Urine Color Yellow Urine Appearance Clear Urine pH 5 (4.5-8.0) Urine Specific [place] 1.020 (1.005-1.035) Urine Protein 1+ (NEGATIVE) H Urine Glucose (UA) Negative (NEGATIVE) Urine Ketones Negative (NEGATIVE) Urine Blood Negative (NEGATIVE) Urine Nitrite Negative (NEGATIVE) Urine Bilirubin Negative (NEGATIVE) Urine Urobilinogen 1 MG/DL (0.0-1.0) H Urine Leukocyte Esterase 1+ (NEGATIVE) H Urine RBC 0 /HPF (0 - 0) Urine WBC 5-10 /HPF (0 - 0) H Urine Squamous Epithelial Cells Few /LPF (NONE/OCC) Urine Bacteria Few /HPF (NONE) Current Medications Medications (Trade) Dose Ordered Sig/Delgado Route PRN Reason Start Time Stop Time Status Last Admin Dose Admin Acetaminophen (Tylenol) 650 mg Q4H PRN ORAL fever 04/25/18 13:40 05/25/18 13:39 04/25/18 22:47 Al Hydroxide/Mg Hydroxide (Mylanta II) 30 ml Q6H PRN ORAL dyspepsia 04/25/18 13:30 05/25/18 13:29 Ceftriaxone Sodium 1 gm/ Dextrose 55 ml @ 110 mls/hr Q24H IVPB 04/26/18 22:30 05/03/18 22:29 04/26/18 21:32 Dextrose (Dextrose 50%) 25 ml Q30M PRN IV Hypoglycemia 04/25/18 13:45 05/25/18 13:39 Dextrose (Dextrose 50%) 50 ml Q30M PRN IV hypoglycemia 04/25/18 13:45 05/25/18 13:44 Iron Sucrose 100 mg/Sodium Chloride 60 ml @ 240 mls/hr BEDTIME IV 04/27/18 21:00 05/01/18 21:14 Lorazepam (Ativan 2mg/ml 1ml) 0.5 mg Q4H PRN IV For Anxiety 04/25/18 13:30 05/02/18 13:29 Memantine (Namenda) 5 mg BID ORAL 04/27/18 09:00 05/27/18 08:59 04/27/18 09:33 Methadone HCl (Methadone HCl) 5 mg EVERY 12 HOURS ORAL 04/26/18 11:15 05/03/18 11:14 04/27/18 08:15 Morphine Sulfate (Morphine Sulfate) 1 mg Q4H PRN IVP breakthrough pain 04/26/18 11:30 05/02/18 13:29 Ondansetron HCl (Zofran) 4 mg Q6H PRN IVP Nausea & Vomiting 04/25/18 13:30 05/25/18 13:29 Polyethylene Glycol (Miralax) 17 gm HSPRN PRN ORAL Constipation 04/25/18 13:30 05/25/18 13:29 Zolpidem Tartrate (Ambien) 5 mg HSPRN PRN ORAL Insomnia 04/25/18 13:30 05/02/18 13:29 Valeria Wadsworth M.D. Apr 27, 2018 11:05
[2018-04-27 12:00] VITALS: BP 120/80
--- NOTE | 2018-04-27 12:40 | NUR ---
NURSE NOTES: Transferred patient to [address] on stable condition, no SOB or distress noted. Belongings checked with nurse. Charge nurse, fish house worker aware of transfer.
[2018-04-27] MEDS ORDERED: LORazepam Inj 2mg/ml 1ml IV PRN (13:30)
[2018-04-27] MEDS ORDERED: Mylanta II UD 30ml ORAL PRN (13:30)
[2018-04-27] MEDS ORDERED: Morphine Sulfate 2mg/ml Inj(IV/IM USE ONLY) IVP PRN (14:00)
--- NOTE | 2018-04-27 14:26 | General Progress Note ---
Assessment/Plan Problem List: (1) Protein-calorie malnutrition, severe ICD Codes: E43 - Unspecified severe protein-calorie malnutrition SNOMED: 553984629, [id number], [id number] (2) Polyneuropathic pain ICD Codes: M79.2 - Neuralgia and neuritis, unspecified SNOMED: 877492743 (3) Acute UTI (4) Hypertension (5) HIV disease ICD Codes: B20 - Human immunodeficiency virus [HIV] disease SNOMED: 98616479 Status: unchanged Assessment/Plan pt diet abx cbc bmp am Subjective Constitutional: Reports: weakness Allergies: Coded Allergies: No Known Allergies (Unverified , 08/31/13) All Systems: reviewed and negative except above Subjective sleepy calm in bed Objective Last 24 Hour Vital Signs Date Time Temp Pulse Resp B/P (MAP) Pulse Ox O2 Delivery O2 Flow Rate FiO2 04/27/18 12:00 97.8 80 18 120/80 (93) 98 04/27/18 09:00 Room Air 04/27/18 08:00 98.1 79 18 123/85 (98) 98 04/27/18 08:00 76 04/27/18 04:00 98.2 81 19 121/77 (92) 98 04/27/18 04:00 78 04/27/18 00:00 98.0 83 19 126/84 (98) 97 04/27/18 00:00 82 04/26/18 21:00 Room Air 04/26/18 20:00 98.5 76 20 156/89 (111) 97 04/26/18 20:00 88 04/26/18 16:00 78 04/26/18 16:00 97.4 86 18 122/71 (88) 97 Intake and Output 04/26/18 04/27/18 19:00 07:00 Intake Total 480 ml 120 ml Output Total 650 ml 200 ml Balance -170 ml -80 ml Intake Oral 480 ml 120 ml Output Urine Total 650 ml 200 ml Laboratory Tests 04/27/18 06:20: White Blood Count 7.6, Red Blood Count 4.26L, Hemoglobin 9.8L, Hematocrit 31.8L , Mean Corpuscular Volume 75L, Mean Corpuscular Hemoglobin 23.0L, Mean Corpuscular Hemoglobin Concent 30.7L, Red Cell Distribution Width 13.2, Platelet Count 175, Mean Platelet Volume 6.8, Neutrophils (%) (Auto) 60.9, Lymphocytes (%) (Auto) 26.7, Monocytes (%) (Auto) 9.4, Eosinophils (%) (Auto) 1.6, Basophils (%) (Auto) 1.4, Differential Total Cells Counted 100, Neutrophils % (Manual) 64, Lymphocytes % (Manual) 23, Monocytes % (Manual) 11H, Eosinophils % (Manual) 2, Basophils % (Manual) 0, Band Neutrophils 0, Lymphocytes [Pending], Platelet Estimate Adequate, Platelet Morphology Normal, Hypochromasia 1+, Microcytosis 1+, Erythrocyte Sedimentation Rate 85H, Reticulocyte Count 0.6, Prothrombin Time 11.6H, Prothromb Time International Ratio 1.1, Activated Partial Thromboplast Time 36H, Sodium Level 142, Potassium Level 4.0, Chloride Level 107, Carbon Dioxide Level 22, Anion Gap 13, Blood Urea Nitrogen 28H, Creatinine 1.1, Estimat Glomerular Filtration Rate , Glucose Level 87, Calcium Level 9.4, Phosphorus Level 3.3, Magnesium Level 2.2, Iron Level 22L, Total Iron Binding Capacity 154L, Percent Iron Saturation 14L, Unsaturated Iron Binding 132, Lactate Dehydrogenase 200, C-Reactive Protein, Quantitative 17.8H, Carcinoembryonic Antigen [Pending], Free Prostate Specific Antigen [Pending], Percent Free Prostate Specific Ag [Pending], Prostate Specific Antigen Total [Pending], Vitamin B12 Level 592, Folate 13.7, Percent CD3 Cells [Pending], Absolute CD3 Count [Pending], Percent CD4 Cells [Pending], Absolute CD4 Count [Pending], T-Lymphocyte CD4/CD8 Ratio [Pending], Percent CD8 Cells [Pending], Absolute CD8 Count [Pending], HIV-1 RNA (PCR) log10 Value [ Pending], HIV-1 RNA Ultraquantitative (PCR) [Pending] 04/27/18 09:15: Urine Color Yellow, Urine Appearance Clear, Urine pH 5, Urine Specific [place] 1.020, Urine Protein 1+H, Urine Glucose (UA) Negative, Urine Ketones Negative, Urine Blood Negative, Urine Nitrite Negative, Urine Bilirubin Negative, Urine Urobilinogen 1H, Urine Leukocyte Esterase 1+H, Urine RBC 0, Urine WBC 5-10H, Urine Squamous Epithelial Cells Few, Urine Bacteria Few Height (Feet): 5 Height (Inches): 9.00 Weight (Pounds): 160 General Appearance: lethargic EENT: normal ENT inspection Neck: normal alignment Cardiovascular: normal peripheral pulses, normal rate, regular rhythm Respiratory/Chest: chest wall non-tender, lungs clear, normal breath sounds Abdomen: normal bowel sounds, non tender, soft Extremities: normal inspection Edema: no edema noted Arm (L), no edema noted Arm (R), no edema noted Leg (L), no edema noted Leg (R), no edema noted Pedal (L), no edema noted Pedal (R), no edema noted Generalized Neurologic: motor weakness Skin: normal pigmentation, warm/dry Prabhu Trejo DO Apr 27, 2018 14:26
[2018-04-27 15:50] VITALS: BP 116/77
--- NOTE | 2018-04-27 15:53 | NUR ---
Rehab/P.T Note: P.T evaluation completed and treatment initiated. Please refer to P.T evaluation for current functional status. Pt is alert, O x 4 , pleasant and cooperative. Pt appeared generally weak and deconditioned. Pt currently requires MIN A X 1 for bed mobility , transfers and gait/ambulation activities using the FWW. Skilled P.T service is warranted to improve his strength, balance and endurance to increase his independence functional mobilities and safety. Recommend SNF for short term rehab VS home with P.T depending on progress. Thank you for this referral.
[2018-04-27] MEDS: Memantine 5 MG TAB ORAL SCH (17:08)
--- NOTE | 2018-04-27 19:27 | NUR ---
HAND-OFF: Report given to LORI Johns.
--- NOTE | 2018-04-27 19:30 | NUR ---
NURSE NOTES: Report received from LORI France. Patient alert, oriented, resting in bed. Denies pain. IV intact patent. Bed in low position, side rails up x2, call light within reach. Encouraged to call as needed for assistance oob. Will continue to monitor.
[2018-04-27 20:00] VITALS: BP 140/81
--- NOTE | 2018-04-27 20:19 | Cardiology Progress Note ---
Assessment/Plan Assessment/Plan The patient is seen and examined, full consult note is dictated. Objective Last 24 Hour Vital Signs Date Time Temp Pulse Resp B/P (MAP) Pulse Ox O2 Delivery O2 Flow Rate FiO2 04/27/18 15:50 98.4 77 18 116/77 (90) 97 04/27/18 12:00 97.8 80 18 120/80 (93) 98 04/27/18 09:00 Room Air 04/27/18 08:00 98.1 79 18 123/85 (98) 98 04/27/18 08:00 76 04/27/18 04:00 98.2 81 19 121/77 (92) 98 04/27/18 04:00 78 04/27/18 00:00 98.0 83 19 126/84 (98) 97 04/27/18 00:00 82 04/26/18 21:00 Room Air Intake and Output 04/26/18 04/27/18 19:00 07:00 Intake Total 480 ml 120 ml Output Total 650 ml 200 ml Balance -170 ml -80 ml Intake Oral 480 ml 120 ml Output Urine Total 650 ml 200 ml Laboratory Tests Test 04/27/18 06:20 04/27/18 09:15 White Blood Count 7.6 K/UL (4.8-10.8) Red Blood Count 4.26 M/UL (4.70-6.10) L Hemoglobin 9.8 G/DL (14.2-18.0) L Hematocrit 31.8 % (42.0-52.0) L Mean Corpuscular Volume 75 FL (80-99) L Mean Corpuscular Hemoglobin 23.0 PG (27.0-31.0) L Mean Corpuscular Hemoglobin Concent 30.7 G/DL (32.0-36.0) L Red Cell Distribution Width 13.2 % (11.6-14.8) Platelet Count 175 K/UL (150-450) Mean Platelet Volume 6.8 FL (6.5-10.1) Neutrophils (%) (Auto) 60.9 % (45.0-75.0) Lymphocytes (%) (Auto) 26.7 % (20.0-45.0) Monocytes (%) (Auto) 9.4 % (1.0-10.0) Eosinophils (%) (Auto) 1.6 % (0.0-3.0) Basophils (%) (Auto) 1.4 % (0.0-2.0) Differential Total Cells Counted 100 Neutrophils % (Manual) 64 % (45-75) Lymphocytes % (Manual) 23 % (20-45) Monocytes % (Manual) 11 % (1-10) H Eosinophils % (Manual) 2 % (0-3) Basophils % (Manual) 0 % (0-2) Band Neutrophils 0 % (0-8) Lymphocytes Pending Platelet Estimate Adequate Platelet Morphology Normal Hypochromasia 1+ Microcytosis 1+ Erythrocyte Sedimentation Rate 85 MM/HR (0-20) H Reticulocyte Count 0.6 % (0.0-2.0) Prothrombin Time 11.6 SEC (9.30-11.50) H Prothromb Time International Ratio 1.1 (0.9-1.1) Activated Partial Thromboplast Time 36 SEC (23-33) H Sodium Level 142 MMOL/L (136-145) Potassium Level 4.0 MMOL/L (3.5-5.1) Chloride Level 107 MMOL/L (98-107) Carbon Dioxide Level 22 MMOL/L (21-32) Anion Gap 13 mmol/L (5-15) Blood Urea Nitrogen 28 mg/dL (7-18) H Creatinine 1.1 MG/DL (0.55-1.30) Estimat Glomerular Filtration Rate mL/min (>60) Glucose Level 87 MG/DL (74-106) Calcium Level 9.4 MG/DL (8.5-10.1) Phosphorus Level 3.3 MG/DL (2.5-4.9) Magnesium Level 2.2 MG/DL (1.8-2.4) Iron Level 22 ug/dL (50-175) L Total Iron Binding Capacity 154 ug/dL (250-450) L Percent Iron Saturation 14 % (15-50) L Unsaturated Iron Binding 132 ug/dL (112-346) Lactate Dehydrogenase 200 U/L (81-234) C-Reactive Protein, Quantitative 17.8 mg/dL (0.00-0.90) H Carcinoembryonic Antigen Pending Free Prostate Specific Antigen Pending Percent Free Prostate Specific Ag Pending Prostate Specific Antigen Total Pending Vitamin B12 Level 592 PG/ML (193-986) Folate 13.7 NG/ML (8.6-58.9) Percent CD3 Cells Pending Absolute CD3 Count Pending Percent CD4 Cells Pending Absolute CD4 Count Pending T-Lymphocyte CD4/CD8 Ratio Pending Percent CD8 Cells Pending Absolute CD8 Count Pending HIV-1 RNA (PCR) log10 Value Pending HIV-1 RNA Ultraquantitative (PCR) Pending Urine Color Yellow Urine Appearance Clear Urine pH 5 (4.5-8.0) Urine Specific [place] 1.020 (1.005-1.035) Urine Protein 1+ (NEGATIVE) H Urine Glucose (UA) Negative (NEGATIVE) Urine Ketones Negative (NEGATIVE) Urine Blood Negative (NEGATIVE) Urine Nitrite Negative (NEGATIVE) Urine Bilirubin Negative (NEGATIVE) Urine Urobilinogen 1 MG/DL (0.0-1.0) H Urine Leukocyte Esterase 1+ (NEGATIVE) H Urine RBC 0 /HPF (0 - 0) Urine WBC 5-10 /HPF (0 - 0) H Urine Squamous Epithelial Cells Few /LPF (NONE/OCC) Urine Bacteria Few /HPF (NONE) Microbiology Date/Time Source Procedure Growth Status 04/25/18 16:00 Nasal Nares MRSA Culture - Final NO METHICILLIN RESISTANT STAPH AUREUS... Complete 04/25/18 16:00 Rectum VRE Culture - Final NO VANCOMYCIN RESISTANT ENTEROCOCCUS ... Complete 04/25/18 16:00 Rectum - Final NO CARBAPENEM-RESISTANT ENTEROBACTERI... Complete Horace Gagnon MD Apr 27, 2018 20:19
[2018-04-27] MEDS ORDERED: Zolpidem 5mg tab ORAL PRN (21:00)
[2018-04-27] MEDS ORDERED: Iron Sucrose 100 MG in NS 55 ML IV SCH (21:00)
[2018-04-27] MEDS ORDERED: Miralax 17gm pkt ORAL PRN (21:00)
[2018-04-27] MEDS: Iron Sucrose 100 MG in NS 55 ML IV SCH (21:50)
[2018-04-28] VITALS (9 sets, daily range): BP systolic 103–145; BP diastolic 66–97
[2018-04-28] MEDS: cefTRIAXone 1 GM in D5W 55 ML IVPB SCH ×2 (00:05→22:46)
--- NOTE | 2018-04-28 00:15 | Consultation ---
DATE OF CONSULTATION: 04/27/2018 CARDIOLOGY CONSULTATION CONSULTING PHYSICIAN: Horace Gagnon M.D. REFERRING PHYSICIAN: Prabhu Trejo D.O. REASON FOR CONSULTATION: Management of presyncope. HISTORY OF PRESENT ILLNESS: The patient is a very pleasant 83-year-old gentleman, who presents to the hospital with increased generalized body pain, weakness, and inability to bear weight, as well as difficulty with ambulation. The patient was recently seen in [facility] as well as at [facility]. His cardiovascular history is significant for history of hypertension and intracranial hemorrhage. At the time of arrival to the hospital, the patient's blood pressure was 122/76 and heart rate was 76. Cardiology consultation was made at the request of Dr. Trejo for management of presyncope. The patient denies any chest pain or shortness of breath with activities. PAST MEDICAL HISTORY: Significant for, 1. Human immunodeficiency virus disease. 2. Hypertension. 3. History of prostate cancer. 4. Status post colostomy placement. PAST SURGICAL HISTORY: Colostomy placement. MEDICATIONS: List of medications at home includes, 1. Aspirin 81 mg p.o. daily. 2. Benzocaine paste. 3. Coreg 3.125 mg twice daily. 4. Keflex 500 mg q.6 hours. 5. Ciprofloxacin 500 mg q.12 hours. 6. Prezista 600 mg q.12 hours. 7. Bentyl 10 mg p.o. twice daily. 8. Lomotil tablet 1 tablet 3 times a day. 9. Colace 100 mg twice a day. 10. Truvada 100/150 one tablet daily. 11. 200 mg twice daily. 12. Motrin 600 mg q.6 h. p.r.n. pain. 13. Levofloxacin 500 mg daily. 14. Lisinopril 40 mg p.o. daily. 15. Nicotine patch 20 mg t.i.d. 16. Pyridium 100 mg 3 times daily. 17. MiraLAX 17 gram daily. 18. Promethazine DM syrup 1 teaspoon oral q.4 hours p.r.n. cough. 19. Norvir 100 mg twice daily. 20. Bactrim DS 1 tablet q.12 hours. ALLERGIES: No known drug allergies. SOCIAL HISTORY: Denies any tobacco, alcohol, or illicit drug use. REVIEW OF SYSTEMS: HEENT: Denies any headache, diplopia, or blurred vision. CONSTITUTIONAL: Complains of generalized weakness, but no fever, chills, or night sweats. CARDIOVASCULAR: Denies any chest pain, shortness of breath, PND, orthopnea, or leg swelling. PULMONARY: Denies any cough, hemoptysis, or wheezing. GASTROINTESTINAL: Denies any nausea, vomiting, diarrhea, constipation, abdominal pain, or GI bleed. GENITOURINARY: Denies any hematuria, dysuria, or incontinence. History of prostate cancer. NEUROLOGY: Denies any motor dysfunction, sensory deficit, or altered speech although the patient has history of intracranial hemorrhage. PHYSICAL EXAMINATION: VITAL SIGNS: Blood pressure was 122/76, respirations of 14, pulse of 76, temperature 97.9 degrees Fahrenheit, and O2 saturation 99% on room air. GENERAL: This is a very unfortunate 83-year-old gentleman seen in Cardiology consultation. He appeared to be cachectic, awake, and alert. No apparent respiratory distress. HEENT: Atraumatic and normocephalic. Pupils are equal, round, and reactive to light and accommodation. Bitemporal wasting. NECK: JVP less than 5 cm. No carotid bruit. CVS: Normal S1 and S2. There is a 2/6 mid systolic murmur at the left sternal border. PMI is at fourth intercostal space at midclavicular line. LUNGS: Clear to auscultation bilaterally. ABDOMEN: Soft, nontender, and nondistended. No hepatosplenomegaly. Positive bowel sounds. EXTREMITIES: No evidence of edema, clubbing, or cyanosis. Presence of arachnodactyly and long arm span as well bilaterally. IMAGING STUDY: Chest x-ray showed bilateral interstitial disease, suspect chronic interstitial lung disease. LABORATORY FINDING: WBC 7.3, hemoglobin 11.0, hematocrit of 36.3, and platelet counts is 183,000. Sodium 142, potassium is 4.0, chloride is 103, bicarbonate 27, BUN of 35, and creatinine 1.1. Glucose is 118. Calcium is 9.6. Total cholesterol 187, LDL of 131, and HDL of 34. INR is 1.1. ASSESSMENT AND PLAN: The patient is an unfortunate 83-year-old gentleman, seen in Cardiology consultation. 1. Presyncope. The patient also had a prior history of syncope, possible etiologies would be vasovagal versus neurocardiogenic syncope. The patient requires to be on hydration. In view of systolic murmur, I would like to obtain 2D echocardiography for assessment of aortic valve disease. 2. History of intracranial hemorrhage. 3. History of prostate cancer. 4. History of colostomy bag placement. 5. History of hypertension. I would like to thank, Dr. Trejo, for allowing me to participate in the care of this patient. Horace Gagnon M.D. DR: ROME JOB#: [id number] CC:
--- NOTE | 2018-04-28 02:30 | Consultation ---
DATE OF CONSULTATION: 04/27/2018 INITIAL PSYCHIATRIC EVALUATION: CONSULTING PHYSICIAN: Shar Jacob M.D. HISTORY OF PRESENT ILLNESS: This is an 83-year-old male patient who is admitted to [facility] progressively increased weakness and lower extremity pain, but he has been exhibiting altered mental status and decline in cognition below his baseline secondary to the progression of his medical illness. He lives at home. He does have altered mental status, confusion, the cognition has declined below baseline. That is why, his attending has requested daily psychiatric consultation. I saw and assessed at bedside. He was slightly poor historian. Unable to give much information because he and lot of information has been chart review. The patient is a poor historian. MEDICAL HISTORY: He has a history of hypertension, angioedema, history of HIV, , sepsis, GI problems, urinary tract infection as well. ALLERGIES: No known drug allergies. PSYCHOTROPIC MEDICATIONS ON ADMISSION: He is only on Ativan at this point. SUBSTANCE ABUSE HISTORY: The patient has no history of any drug and alcohol use. FAMILY PSYCHIATRIC HISTORY: Denies. PAIN ASSESSMENT: 0/10. DEVELOPMENTAL PROBLEMS: Denies. SOCIAL HISTORY: He lives with his family. He is financially supported by [address] and Medicare. PSYCHIATRIC HISTORY: The patient has possible depression per chart, but no clear evidence. This patient reports . STRENGTHS: He is motivated to get better and has a place to live. WEAKNESSES: Minimal support system and poor finances per chart. MENTAL STATUS EXAMINATION: This is an 83-year-old male. Appearance is disheveled. Attitude, irritable and agitated. Affect, guarded and restricted. Intellect is poor as he does not know current events and does not know the last four presidents. Mood depressed and anxious. Motor activity, psychomotor agitation. Attention span is poor. He is able to do serial 7's, spell world backwards. Orientation x2, place and person, not time and situation. Speech is low volume. Thought process, disorganized. Thought content, no signs of any paranoid delusions or auditory hallucinations. Abstract reasoning is poor, the patient does not understand proverbs, has concrete thinking. Insight is poor because he is unable to recognize he has psych disorder. Judgment is poor because he is unable to make clear decisions for self. No signs of any suicidal or homicidal ideations. Short-term memory 2/3 word recall after with poor short-term memory. Long-term memory is intact based on the knowledge of long-term events in his life such as the high school that he went to. DIAGNOSIS: Major depressive disorder, mild, recurrent with psychotic features, rule out pseudodementia. PLAN: Plan for this patient is I am going to add a dose of Namenda 5 mg twice a day to prevent any further decline in this patient's cognition and he will continue to be followed by Psychiatry throughout hospital course and in addition to that I am also going to continue him on his Ativan at a dose of 0.5 mg IV q.4 h. p.r.n. anxiety and agitation. Provided him 20 minutes of cognitive behavioral therapy as well as 20 minutes of insight-oriented psychotherapy to help him identify condition such as better behavior and impulse control on the unit. Chart is reviewed. Discussed with staff. Seen and assessed at bedside. I would like to thank Dr. Prabhu Trejo for this interesting consultation. Shar Jacob M.D. DR: FRANCISCA JOB#: [id number] CC:
--- NOTE | 2018-04-28 06:30 | NUR ---
NURSE NOTES: Orthostatic vital signs as follows: Supine BP 145/95 Pulse 80 O2Sat 95% Sitting BP 140/94 Pulse 86 O2Sat 96% Standing BP 143/97 Pulse 106 O2Sat 96%
[2018-04-28 07:31] LABS: ANION GAP 11 mmol/L (5-15); BLOOD UREA NITROGEN 25 mg/dL (7-18); CALCIUM 9.6 MG/DL (8.5-10.1); CARBON DIOXIDE 25 MMOL/L (21-32); CHLORIDE 108 MMOL/L (98-107); CREATININE 0.9 MG/DL (0.55-1.30); POTASSIUM 3.9 MMOL/L (3.5-5.1); SODIUM 144 MMOL/L (136-145)
--- NOTE | 2018-04-28 07:42 | NUR ---
NURSE NOTES:WALKING ROUNDS DONE WITH NIGHT RN(CEM),PATIENT A/OX4,ROOM AIR,IV SITE PATENT,NO C/ PAIN,ADVISED RE:NEEDS UA COLLECTION,VERBALIZED UNDERSTANDING.PLAN OF CARE DISCUSSED,WILL CONTINUE TO MONITOR,
--- NOTE | 2018-04-28 07:42 | NUR ---
NURSE NOTES: Given report to Rachel Cano RN
[2018-04-28 07:53] LABS: BASOPHILS % (AUTO) 1.9 % (0.0-2.0); EOSINOPHILS % (AUTO) 3.3 % (0.0-3.0); HEMOGLOBIN 9.2 G/DL (14.2-18.0); LYMPHOCYTES % (AUTO) 27.3 % (20.0-45.0); MEAN CORPUSCULAR VOLUME 75 FL (80-99); MONOCYTES % (AUTO) 10.5 % (1.0-10.0); PLATELET COUNT 181 K/UL (150-450); RED BLOOD COUNT 4.03 M/UL (4.70-6.10); RED CELL DISTRIBUTION WIDTH 12.9 % (11.6-14.8); WHITE BLOOD COUNT 6.5 K/UL (4.8-10.8)
[2018-04-28] MEDS: Memantine 5 MG TAB ORAL SCH ×2 (08:19→17:27)
[2018-04-28 11:08] LABS: APPEARANCE,URINE CLEAR; BILIRUBIN, URINE NEGATIVE (NEGATIVE); GLUCOSE, URINE (UA) NEGATIVE (NEGATIVE); KETONES,URINE NEGATIVE (NEGATIVE); LEUKOCYTE ESTERASE ,URINE 1+ (NEGATIVE); NITRITE,URINE NEGATIVE (NEGATIVE); PH,URINE 5 (4.5-8.0); PROTEIN,URINE 1+ (NEGATIVE); UROBILINOGEN,URINE 1 MG/DL (0.0-1.0)
[2018-04-28 11:09] LABS: COLOR,URINE YELLOW
--- NOTE | 2018-04-28 11:54 | Pulmonology Progress Note ---
Assessment/Plan Problems: (1) Sepsis (2) Acute encephalopathy (3) Interstitial lung disease (4) HIV disease (5) Thalamic hemorrhage (6) Polyneuropathic pain (7) Protein-calorie malnutrition, severe (8) Prostate cancer (9) Hypertension Assessment/Plan start marinol pain is better controlled with methadone, responding very well to Methadone had one episode of fever chaudhry culture start empiric Zosyn ID evaluation appreciated anemia w/u check PSA, > 1200 start Venofer iv fluids pt/ot Subjective Interval Events: no new complains Allergies: Coded Allergies: No Known Allergies (Unverified , 08/31/13) Objective Last 24 Hour Vital Signs Date Time Temp Pulse Resp B/P (MAP) Pulse Ox O2 Delivery O2 Flow Rate FiO2 04/28/18 08:00 97.2 74 18 116/75 (89) 97 04/28/18 07:44 Room Air 04/28/18 06:10 106 143/97 (112) 96 04/28/18 06:05 86 140/94 (109) 96 04/28/18 06:00 80 145/95 (112) 95 04/28/18 04:00 98.1 74 18 134/77 (96) 95 04/28/18 00:00 98.0 77 18 131/79 (96) 94 04/27/18 21:00 Room Air 04/27/18 20:00 97.8 77 16 140/81 (100) 97 04/27/18 15:50 98.4 77 18 116/77 (90) 97 04/27/18 12:00 97.8 80 18 120/80 (93) 98 Intake and Output 04/27/18 04/28/18 18:59 06:59 Intake Total 480 ml 360 ml Output Total 350 ml 700 ml Balance 130 ml -340 ml Intake Oral 480 ml 360 ml Output Urine Total 350 ml 700 ml # Voids 5 General Appearance: cachetic HEENT: normocephalic, atraumatic Respiratory/Chest: chest wall non-tender, lungs clear Cardiovascular: normal peripheral pulses, regular rhythm Abdomen: normal bowel sounds, soft, non tender Genitourinary: normal external genitalia Extremities: no cyanosis Skin: no rash 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: fashion consultant II-XII grossly normal Lymphatic: no neck adenopathy Microbiology Date/Time Source Procedure Growth Status 04/26/18 20:15 Blood Blood Culture - Preliminary NO GROWTH AFTER 24 HOURS Resulted 04/26/18 20:00 Blood Blood Culture - Preliminary NO GROWTH AFTER 24 HOURS Resulted 04/25/18 16:00 Nasal Nares MRSA Culture - Final NO METHICILLIN RESISTANT STAPH AUREUS... Complete 04/25/18 16:00 Rectum VRE Culture - Final NO VANCOMYCIN RESISTANT ENTEROCOCCUS ... Complete 04/25/18 16:00 Rectum - Final NO CARBAPENEM-RESISTANT ENTEROBACTERI... Complete Laboratory Tests 04/28/18 06:03: White Blood Count 6.5, Red Blood Count 4.03L, Hemoglobin 9.2L, Hematocrit 30.0L , Mean Corpuscular Volume 75L, Mean Corpuscular Hemoglobin 22.9L, Mean Corpuscular Hemoglobin Concent 30.7L, Red Cell Distribution Width 12.9, Platelet Count 181, Mean Platelet Volume 6.5, Neutrophils (%) (Auto) 57.0, Lymphocytes (%) (Auto) 27.3, Monocytes (%) (Auto) 10.5H, Eosinophils (%) (Auto) 3.3H, Basophils (%) (Auto) 1.9, Sodium Level 144, Potassium Level 3.9, Chloride Level 108H, Carbon Dioxide Level 25, Anion Gap 11, Blood Urea Nitrogen 25H, Creatinine 0.9, Estimat Glomerular Filtration Rate , Glucose Level 89, Calcium Level 9.6 Current Medications Medications (Trade) Dose Ordered Sig/Delgado Route PRN Reason Start Time Stop Time Status Last Admin Dose Admin Acetaminophen (Tylenol) 650 mg Q4H PRN ORAL T>100.5 04/27/18 13:45 05/25/18 13:39 Al Hydroxide/Mg Hydroxide (Mylanta II) 30 ml Q6H PRN ORAL dyspepsia 04/27/18 13:30 05/25/18 13:29 Ceftriaxone Sodium 1 gm/ Dextrose 55 ml @ 110 mls/hr Q24H IVPB 04/27/18 22:30 05/03/18 22:29 04/28/18 00:05 Dextrose (Dextrose 50%) 25 ml Q30M PRN IV Hypoglycemia 04/27/18 13:15 05/25/18 13:39 Dextrose (Dextrose 50%) 50 ml Q30M PRN IV hypoglycemia 04/27/18 13:15 05/25/18 13:44 Iron Sucrose 100 mg/Sodium Chloride 60 ml @ 240 mls/hr BEDTIME IV 04/27/18 21:00 05/01/18 21:14 04/27/18 21:50 Lorazepam (Ativan 2mg/ml 1ml) 0.5 mg Q4H PRN IV For Anxiety 04/27/18 13:30 05/02/18 13:29 Memantine (Namenda) 5 mg BID ORAL 04/27/18 18:00 05/27/18 08:59 04/28/18 08:19 Methadone HCl (Methadone HCl) 5 mg EVERY 12 HOURS ORAL 04/27/18 21:00 05/03/18 11:14 04/28/18 08:19 Morphine Sulfate (Morphine Sulfate) 1 mg Q4H PRN IVP breakthrough pain 04/27/18 14:00 05/02/18 13:59 Ondansetron HCl (Zofran) 4 mg Q6H PRN IVP Nausea & Vomiting 04/27/18 13:30 05/25/18 13:29 Polyethylene Glycol (Miralax) 17 gm HSPRN PRN ORAL Constipation 04/27/18 21:00 05/25/18 20:59 Zolpidem Tartrate (Ambien) 5 mg HSPRN PRN ORAL Insomnia 04/27/18 21:00 05/02/18 20:59 Gracie Echeverria MD Apr 28, 2018 11:54
--- NOTE | 2018-04-28 12:29 | NUR ---
NURSE NOTES:SPOKE WITH JUAN(NV TECH) RE:NM WHOLE BODY SCAN TO BE DONE TOMORROW MORNING.PER CONVERSATION,NO PREP FOR THIS PROCEDURE.CHARGE NURSE(ANNABELLA SANDOVAL.)INFORMED.
[2018-04-28] MEDS ORDERED: Tubing IV Secondary IV ONE (13:13)
[2018-04-28] MEDS ORDERED: NS 275ml ONE (13:13)
--- NOTE | 2018-04-28 13:20 | Infectious Diseases Prog Note ---
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 Superimposed acute process also possible -Head CT: No significant change in the 5 mm hyperdensity in the anterior left thalamus, consistent with a remote parenchymal hemorrhage. No acute intracranial hemorrhage, mass effect, or midline shift. Moderate periventricular white matter hypodensities, likely related to chronic small vessel disease changes. Mild generalized cerebral parenchymal volume loss, likely age-related. -Bcx NTD -influenza sc p -u/a wbc 5-10, nit neg, leuk +1; no UTI symptoms -v/ duplex BLE: no DVT No leukocytosis Dizziness/weakness HIV- per pt VL Undetectable -04/2018 CD4 508 (20.4%) prostatitis HTN thalamic CVA/ICH cachexia pulmonary fibrosis SN[facility] resident Plan: -Continue empiric Ceftriaxone #3/-5 pending cultures -04/26 SP ZOsyn #1 -f.u cx -Monitor CBC/CMP, temperatures -f/u influenza sc, Bcx x2 -f/u HIV VL -Resume ARV (Isentress, norvir, truvada, intelence, prezista) -aspiration precautions Thank you for this consultation. Will continue to follow along with you. Subjective Allergies: Coded Allergies: No Known Allergies (Unverified , 08/31/13) Subjective afebrile >48 hrs no leukocytosis Bcx NTD feeling better Objective Vital Signs Last 24 Hour Vital Signs Date Time Temp Pulse Resp B/P (MAP) Pulse Ox O2 Delivery O2 Flow Rate FiO2 04/28/18 12:00 97.9 72 17 124/77 (93) 99 04/28/18 08:00 97.2 74 18 116/75 (89) 97 04/28/18 07:44 Room Air 04/28/18 06:10 106 143/97 (112) 96 04/28/18 06:05 86 140/94 (109) 96 04/28/18 06:00 80 145/95 (112) 95 04/28/18 04:00 98.1 74 18 134/77 (96) 95 04/28/18 00:00 98.0 77 18 131/79 (96) 94 04/27/18 21:00 Room Air 04/27/18 20:00 97.8 77 16 140/81 (100) 97 04/27/18 15:50 98.4 77 18 116/77 (90) 97 Height (Feet): 5 Height (Inches): 9.00 Weight (Pounds): 133 Objective General Appearance: WD/WN Lines, tubes and drains: peripheral, central line HEENT: normocephalic, atraumatic Neck: non-tender, normal alignment Respiratory/Chest: chest wall non-tender, lungs clear Breasts: no masses Cardiovascular/Chest: normal peripheral pulses Abdomen: normal bowel sounds Microbiology Date/Time Source Procedure Growth Status 04/26/18 20:15 Blood Blood Culture - Preliminary NO GROWTH AFTER 24 HOURS Resulted 04/26/18 20:00 Blood Blood Culture - Preliminary NO GROWTH AFTER 24 HOURS Resulted 04/25/18 16:00 Nasal Nares MRSA Culture - Final NO METHICILLIN RESISTANT STAPH AUREUS... Complete 04/25/18 16:00 Rectum VRE Culture - Final NO VANCOMYCIN RESISTANT ENTEROCOCCUS ... Complete 04/25/18 16:00 Rectum - Final NO CARBAPENEM-RESISTANT ENTEROBACTERI... Complete Laboratory Tests Test 04/28/18 06:03 White Blood Count 6.5 K/UL (4.8-10.8) Red Blood Count 4.03 M/UL (4.70-6.10) L Hemoglobin 9.2 G/DL (14.2-18.0) L Hematocrit 30.0 % (42.0-52.0) L Mean Corpuscular Volume 75 FL (80-99) L Mean Corpuscular Hemoglobin 22.9 PG (27.0-31.0) L Mean Corpuscular Hemoglobin Concent 30.7 G/DL (32.0-36.0) L Red Cell Distribution Width 12.9 % (11.6-14.8) Platelet Count 181 K/UL (150-450) Mean Platelet Volume 6.5 FL (6.5-10.1) Neutrophils (%) (Auto) 57.0 % (45.0-75.0) Lymphocytes (%) (Auto) 27.3 % (20.0-45.0) Monocytes (%) (Auto) 10.5 % (1.0-10.0) H Eosinophils (%) (Auto) 3.3 % (0.0-3.0) H Basophils (%) (Auto) 1.9 % (0.0-2.0) Sodium Level 144 MMOL/L (136-145) Potassium Level 3.9 MMOL/L (3.5-5.1) Chloride Level 108 MMOL/L (98-107) H Carbon Dioxide Level 25 MMOL/L (21-32) Anion Gap 11 mmol/L (5-15) Blood Urea Nitrogen 25 mg/dL (7-18) H Creatinine 0.9 MG/DL (0.55-1.30) Estimat Glomerular Filtration Rate mL/min (>60) Glucose Level 89 MG/DL (74-106) Calcium Level 9.6 MG/DL (8.5-10.1) Current Medications Medications (Trade) Dose Ordered Sig/Delgado Route PRN Reason Start Time Stop Time Status Last Admin Dose Admin Acetaminophen (Tylenol) 650 mg Q4H PRN ORAL T>100.5 04/27/18 13:45 05/25/18 13:39 Al Hydroxide/Mg Hydroxide (Mylanta II) 30 ml Q6H PRN ORAL dyspepsia 04/27/18 13:30 05/25/18 13:29 Ceftriaxone Sodium 1 gm/ Dextrose 55 ml @ 110 mls/hr Q24H IVPB 04/27/18 22:30 05/03/18 22:29 04/28/18 00:05 Dextrose (Dextrose 50%) 25 ml Q30M PRN IV Hypoglycemia 04/27/18 13:15 05/25/18 13:39 Dextrose (Dextrose 50%) 50 ml Q30M PRN IV hypoglycemia 04/27/18 13:15 05/25/18 13:44 Dronabinol (Marinol) 2.5 mg TID ORAL 04/28/18 13:00 05/28/18 12:59 Iron Sucrose 100 mg/Sodium Chloride 60 ml @ 240 mls/hr BEDTIME IV 04/27/18 21:00 05/01/18 21:14 04/27/18 21:50 Lorazepam (Ativan 2mg/ml 1ml) 0.5 mg Q4H PRN IV For Anxiety 04/27/18 13:30 05/02/18 13:29 Memantine (Namenda) 5 mg BID ORAL 04/27/18 18:00 4/18/19 08:59 04/28/18 08:19 Methadone HCl (Methadone HCl) 5 mg EVERY 12 HOURS ORAL 04/27/18 21:00 05/03/18 11:14 04/28/18 08:19 Morphine Sulfate (Morphine Sulfate) 1 mg Q4H PRN IVP breakthrough pain 04/27/18 14:00 05/02/18 13:59 Ondansetron HCl (Zofran) 4 mg Q6H PRN IVP Nausea & Vomiting 04/27/18 13:30 05/25/18 13:29 Polyethylene Glycol (Miralax) 17 gm HSPRN PRN ORAL Constipation 04/27/18 21:00 05/25/18 20:59 Zolpidem Tartrate (Ambien) 5 mg HSPRN PRN ORAL Insomnia 04/27/18 21:00 05/02/18 20:59 Valeria Wadsworth M.D. Apr 28, 2018 13:20
[2018-04-28] MEDS: Dronabinol 2.5mg Cap ORAL SCH ×2 (13:22→17:27)
--- NOTE | 2018-04-28 14:42 | NUR ---
CASE MANAGEMENT:REVIEW 04/28/18 SI: SEPSIS. ACUTE ENCEPHALOPATHY PROSTATE CANCER 97.9 72 17 124/77 99% ON RA H/H-9.2/30.0 IS: IV ROCEPHIN Q24HRS IV VENOFER QHS METHADONE PO Q12 : MED/SURG STATUS 3 EAST DCP: HOME WITH HOME HEALTH
--- NOTE | 2018-04-28 14:47 | General Progress Note ---
Assessment/Plan Problem List: (1) Protein-calorie malnutrition, severe ICD Codes: E43 - Unspecified severe protein-calorie malnutrition SNOMED: 309137782, 180934398, 677100082 (2) Polyneuropathic pain ICD Codes: M79.2 - Neuralgia and neuritis, unspecified SNOMED: 798025124 (3) Acute UTI (4) Hypertension (5) HIV disease ICD Codes: B20 - Human immunodeficiency virus [HIV] disease SNOMED: 83777920 Status: stable, progressing Assessment/Plan pt diet abx cbc bmp am dc plan w hh Subjective Constitutional: Reports: weakness Allergies: Coded Allergies: No Known Allergies (Unverified , 08/31/13) All Systems: reviewed and negative except above Subjective sleepy calm in bed Objective Last 24 Hour Vital Signs Date Time Temp Pulse Resp B/P (MAP) Pulse Ox O2 Delivery O2 Flow Rate FiO2 04/28/18 12:00 97.9 72 17 124/77 (93) 99 04/28/18 08:00 97.2 74 18 116/75 (89) 97 04/28/18 07:44 Room Air 04/28/18 06:10 106 143/97 (112) 96 04/28/18 06:05 86 140/94 (109) 96 04/28/18 06:00 80 145/95 (112) 95 04/28/18 04:00 98.1 74 18 134/77 (96) 95 04/28/18 00:00 98.0 77 18 131/79 (96) 94 04/27/18 21:00 Room Air 04/27/18 20:00 97.8 77 16 140/81 (100) 97 04/27/18 15:50 98.4 77 18 116/77 (90) 97 Intake and Output 04/27/18 04/28/18 19:00 07:00 Intake Total 480 ml 360 ml Output Total 350 ml 700 ml Balance 130 ml -340 ml Intake Oral 480 ml 360 ml Output Urine Total 350 ml 700 ml # Voids 5 Laboratory Tests 04/28/18 06:03: White Blood Count 6.5, Red Blood Count 4.03L, Hemoglobin 9.2L, Hematocrit 30.0L , Mean Corpuscular Volume 75L, Mean Corpuscular Hemoglobin 22.9L, Mean Corpuscular Hemoglobin Concent 30.7L, Red Cell Distribution Width 12.9, Platelet Count 181, Mean Platelet Volume 6.5, Neutrophils (%) (Auto) 57.0, Lymphocytes (%) (Auto) 27.3, Monocytes (%) (Auto) 10.5H, Eosinophils (%) (Auto) 3.3H, Basophils (%) (Auto) 1.9, Sodium Level 144, Potassium Level 3.9, Chloride Level 108H, Carbon Dioxide Level 25, Anion Gap 11, Blood Urea Nitrogen 25H, Creatinine 0.9, Estimat Glomerular Filtration Rate , Glucose Level 89, Calcium Level 9.6 Height (Feet): 5 Height (Inches): 9.00 Weight (Pounds): 133 General Appearance: lethargic EENT: normal ENT inspection Neck: normal alignment Cardiovascular: normal peripheral pulses, normal rate, regular rhythm Respiratory/Chest: chest wall non-tender, lungs clear, normal breath sounds Abdomen: normal bowel sounds, non tender, soft Extremities: normal inspection Edema: no edema noted Arm (L), no edema noted Arm (R), no edema noted Leg (L), no edema noted Leg (R), no edema noted Pedal (L), no edema noted Pedal (R), no edema noted Generalized Neurologic: responsive, motor weakness Skin: normal pigmentation, warm/dry Prabhu Trejo DO Apr 28, 2018 14:47
--- NOTE | 2018-04-28 16:00 | NUR ---
NURSE NOTES:AMBULATING IN HALLWAY WITH PHYSICAL THERAPY,TOLERATED ACTIVITY WELL.NO SYNCOPAL EPISODE.NO SIGNIFICANT TO NEURO STATUS,A/OX2-3.NEEDS ATTENDED.CALL BRAY WITH IN REACH.
[2018-04-28] MEDS: Patient's Own Med - Norvir 100mg ORAL SCH (17:27)
[2018-04-28] MEDS ORDERED: Ritonavir 100mg tab ORAL SCH (18:00)
[2018-04-28] MEDS ORDERED: Darunavir 600mg tab ORAL SCH (18:00)
--- NOTE | 2018-04-28 19:35 | NUR ---
NURSE NOTES: Initial rounding done, pt is AAOX3, responds appropriately to simple questions. resting comfortably at the moment, repositioned and placed pillow for leg support. Call light w/in reach.
--- NOTE | 2018-04-28 19:40 | NUR ---
NURSE NOTES: Pt resting in bed comfortably, responds appropriately with simple questions. no c/o noted. Call light w/in reach.
--- NOTE | 2018-04-28 19:47 | NUR ---
HAND-OFF: Report given to TASNEEM SANDOVAL.PATIENT STABLE.
[2018-04-28] MEDS ORDERED: Etravirine 100mg tab ORAL SCH (21:00)
[2018-04-28] MEDS ORDERED: Isentress 400mg tab ORAL SCH (21:00)
[2018-04-28] MEDS: Iron Sucrose 100 MG in NS 55 ML IV SCH (21:49)
--- NOTE | 2018-04-28 23:51 | Cardiology Progress Note ---
Assessment/Plan Assessment/Plan 1. Presyncope. The patient also had a prior history of syncope, possible etiologies would be vasovagal versus neurocardiogenic syncope. Continue hydration. 2. Mild aortic stenosis 3. History of intracranial hemorrhage. 4. History of hypertension. Subjective Subjective Sinus rhythm at rate of 74. Objective Last 24 Hour Vital Signs Date Time Temp Pulse Resp B/P (MAP) Pulse Ox O2 Delivery O2 Flow Rate FiO2 04/28/18 21:00 Room Air 04/28/18 20:00 97.9 74 18 103/66 (78) 98 04/28/18 16:00 98.2 84 18 118/73 (88) 97 04/28/18 16:00 98.2 79 18 127/77 (94) 97 04/28/18 16:00 98.2 92 18 128/80 (96) 97 04/28/18 12:00 97.9 72 17 124/77 (93) 99 04/28/18 08:00 97.2 74 18 116/75 (89) 97 04/28/18 07:44 Room Air 04/28/18 06:10 106 143/97 (112) 96 04/28/18 06:05 86 140/94 (109) 96 04/28/18 06:00 80 145/95 (112) 95 04/28/18 04:00 98.1 74 18 134/77 (96) 95 04/28/18 00:00 98.0 77 18 131/79 (96) 94 Intake and Output 04/27/18 04/28/18 19:00 07:00 Intake Total 480 ml 360 ml Output Total 350 ml 700 ml Balance 130 ml -340 ml Intake Oral 480 ml 360 ml Output Urine Total 350 ml 700 ml # Voids 5 2D Echo: LVEF 65%, Mild AR, Mod MR, Grade I LVDD, RVSP 41 mmHg, ANSHU 1.7 cm2 Laboratory Tests Test 04/28/18 06:03 White Blood Count 6.5 K/UL (4.8-10.8) Red Blood Count 4.03 M/UL (4.70-6.10) L Hemoglobin 9.2 G/DL (14.2-18.0) L Hematocrit 30.0 % (42.0-52.0) L Mean Corpuscular Volume 75 FL (80-99) L Mean Corpuscular Hemoglobin 22.9 PG (27.0-31.0) L Mean Corpuscular Hemoglobin Concent 30.7 G/DL (32.0-36.0) L Red Cell Distribution Width 12.9 % (11.6-14.8) Platelet Count 181 K/UL (150-450) Mean Platelet Volume 6.5 FL (6.5-10.1) Neutrophils (%) (Auto) 57.0 % (45.0-75.0) Lymphocytes (%) (Auto) 27.3 % (20.0-45.0) Monocytes (%) (Auto) 10.5 % (1.0-10.0) H Eosinophils (%) (Auto) 3.3 % (0.0-3.0) H Basophils (%) (Auto) 1.9 % (0.0-2.0) Sodium Level 144 MMOL/L (136-145) Potassium Level 3.9 MMOL/L (3.5-5.1) Chloride Level 108 MMOL/L (98-107) H Carbon Dioxide Level 25 MMOL/L (21-32) Anion Gap 11 mmol/L (5-15) Blood Urea Nitrogen 25 mg/dL (7-18) H Creatinine 0.9 MG/DL (0.55-1.30) Estimat Glomerular Filtration Rate mL/min (>60) Glucose Level 89 MG/DL (74-106) Calcium Level 9.6 MG/DL (8.5-10.1) Microbiology Date/Time Source Procedure Growth Status 04/26/18 20:15 Blood Blood Culture - Preliminary NO GROWTH AFTER 24 HOURS Resulted 04/26/18 20:00 Blood Blood Culture - Preliminary NO GROWTH AFTER 24 HOURS Resulted 04/28/18 16:45 Nasopharynx Influenza Types A,B Antigen (ONUR) - Final Complete Objective HEENT: Atraumatic and normocephalic. Pupils are equal, round, and reactive to light and accommodation. Bitemporal wasting. NECK: JVP less than 5 cm. No carotid bruit. CVS: Normal S1 and S2. There is a 2/6 mid systolic murmur at the left sternal border. PMI is at fourth intercostal space at midclavicular line. LUNGS: Clear to auscultation bilaterally. ABDOMEN: Soft, nontender, and nondistended. No hepatosplenomegaly. Positive bowel sounds. EXTREMITIES: No evidence of edema, clubbing, or cyanosis. Presence of arachnodactyly and long arm span as well bilaterally. Horace Gagnon MD Apr 28, 2018 23:51
[2018-04-29] VITALS (8 sets, daily range): BP systolic 117–141; BP diastolic 72–84
--- NOTE | 2018-04-29 02:45 | Progress Note ---
DATE: 04/28/2018 SUBJECTIVE: This is an 83-year-old female patient. She is admitted to the hospital at [facility] secondary to generalized weakness and lower extremity pain but she also has been having altered mental status and decline in cognition below baseline that is why her attending physician has requested daily psychiatric consultation for this patient. MENTAL STATUS EXAMINATION: The patient is an 83-year-old female. Appearance is disheveled. Attitude, irritable and agitated. Affect, guarded and restricted. Intellect poor. Mood depressed and anxious. Motor activity, psychomotor agitation. Attention span is poor. Orientation x2. Speech is pressured. Thought process, disorganized and illogical. Insight and judgment is poor. DIAGNOSIS: Major depressive disorder, mild, recurrent with psychotic features, rule out pseudodementia. PLAN: Plan for this patient is to treat this patient with the psychotropic medication regimen consisting of Namenda 5 mg twice a day and Ativan 0.5 mg IV q.4 hours p.r.n. anxiety and agitation. Provided with 20 minutes of cognitive physical therapy to help identify automatic negative thoughts and help convert negative thoughts to more positive thoughts to reduce depression, anxiety, and mood lability and help her to have more adaptive behavioral pattern. Chart reviewed and discussed with staff. Seen and assessed at room. A 20 minutes of cognitive behavioral therapy provided. Shar Jacob M.D. DR: Luther JOB#: [id number] CC:
[2018-04-29 07:46] LABS: BASOPHILS % (AUTO) 1.9 % (0.0-2.0); EOSINOPHILS % (AUTO) 3.9 % (0.0-3.0); HEMATOCRIT 36.8 % (42.0-52.0); HEMOGLOBIN 11.1 G/DL (14.2-18.0); LYMPHOCYTES % (AUTO) 27.4 % (20.0-45.0); MEAN CORPUSCULAR VOLUME 76 FL (80-99); MONOCYTES % (AUTO) 7.7 % (1.0-10.0); NEUTROPHILS % (AUTO) 59.1 % (45.0-75.0); PLATELET COUNT 207 K/UL (150-450); RED BLOOD COUNT 4.82 M/UL (4.70-6.10); WHITE BLOOD COUNT 6.4 K/UL (4.8-10.8)
[2018-04-29 07:47] LABS: ANION GAP 14 mmol/L (5-15); BLOOD UREA NITROGEN 26 mg/dL (7-18); CALCIUM 10.3 MG/DL (8.5-10.1); CARBON DIOXIDE 25 MMOL/L (21-32); CHLORIDE 104 MMOL/L (98-107); POTASSIUM 3.9 MMOL/L (3.5-5.1); SODIUM 143 MMOL/L (136-145)
--- NOTE | 2018-04-29 07:48 | NUR ---
HAND-OFF: Report given to LORI Mcneil.
--- NOTE | 2018-04-29 07:50 | NUR ---
NURSE NOTES: Report received from outgoing RN, rounds made. Patient alert, oriented x3, calm. Nuclear Medicine at bedside. Patient aware of new order for body scan, to be done around 11 am. LFA IV heplock intact, site asymptomatic. No distress noted. Denies pain, NV, SOB on RA. Call light in reach, bed in lowest position. Will continue to monitor.
[2018-04-29] MEDS: Memantine 5 MG TAB ORAL SCH ×2 (09:09→17:24)
[2018-04-29] MEDS: Dronabinol 2.5mg Cap ORAL SCH ×3 (09:09→17:24)
--- NOTE | 2018-04-29 09:09 | NUR ---
CREDIT RISK MANAGEMENT DIRECTOR Co-Signature: Reviewed patient's chart. Reviewed and approved CREDIT RISK MANAGEMENT DIRECTOR notes Addendum: 04/29/18 at 0910 by SHERRI HARDY PT,MG Amended: Links added.
[2018-04-29] MEDS: Patient's Own Med - Norvir 100mg ORAL SCH ×2 (09:12→17:25)
[2018-04-29] MEDS: Patient's Own Med - Truvada 200/300mg ORAL SCH (09:12)
--- NOTE | 2018-04-29 09:20 | NUR ---
NURSE NOTES: Patient informed of order for Stool OB. Provided/instructed on hat in toilet and to notify RN if has BM, verbalized understanding.
--- NOTE | 2018-04-29 12:01 | NUR ---
Nuclear Medicine whole body bone scan complete.
--- NOTE | 2018-04-29 12:10 | Pulmonology Progress Note ---
Assessment/Plan Problems: (1) Sepsis (2) Acute encephalopathy (3) Interstitial lung disease (4) HIV disease (5) Thalamic hemorrhage (6) Polyneuropathic pain (7) Protein-calorie malnutrition, severe (8) Prostate cancer (9) Hypertension Assessment/Plan Bone scan in process start marinol pain is better controlled with methadone, responding very well to Methadone had one episode of fever chaudhry culture start empiric Zosyn ID evaluation appreciated anemia w/u check PSA, > 1200 start Venofer iv fluids pt/ot Subjective ROS Limited/Unobtainable: No Constitutional: Reports: no symptoms HEENT: Repors: no symptoms Allergies: Coded Allergies: No Known Allergies (Unverified , 08/31/13) Objective Last 24 Hour Vital Signs Date Time Temp Pulse Resp B/P (MAP) Pulse Ox O2 Delivery O2 Flow Rate FiO2 04/29/18 09:00 Room Air 04/29/18 08:00 97.3 77 18 130/83 (99) 96 04/29/18 06:10 84 135/82 (99) 04/29/18 06:05 71 139/81 (100) 04/29/18 06:00 97.9 87 20 134/82 (99) 95 04/29/18 00:00 97.7 74 18 117/72 (87) 97 04/28/18 21:00 Room Air 04/28/18 20:00 97.9 74 18 103/66 (78) 98 04/28/18 16:00 98.2 84 18 118/73 (88) 97 04/28/18 16:00 98.2 79 18 127/77 (94) 97 04/28/18 16:00 98.2 92 18 128/80 (96) 97 Intake and Output 04/28/18 04/29/18 19:00 07:00 Intake Total 500 ml 115 ml Output Total 500 ml 200 ml Balance 0 ml -85 ml Intake Oral 500 ml IV Total 115 ml Output Urine Total 500 ml 200 ml # Voids 4 Objective General Appearance: cachectic HEENT: normocephalic, anicteric Respiratory/Chest: chest wall non-tender, normal breath sounds Breasts: no masses Cardiovascular: normal rate Abdomen: soft, non tender, non distended Extremities: no clubbing Skin: no rash 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 Lymphatic: no neck adenopathy General Appearance: cachetic Microbiology Date/Time Source Procedure Growth Status 04/26/18 20:15 Blood Blood Culture - Preliminary NO GROWTH AFTER 48 HOURS Resulted 04/26/18 20:00 Blood Blood Culture - Preliminary NO GROWTH AFTER 48 HOURS Resulted 04/28/18 16:45 Nasopharynx Influenza Types A,B Antigen (ONUR) - Final Complete Laboratory Tests 04/29/18 06:18: White Blood Count 6.4, Red Blood Count 4.82, Hemoglobin 11.1L, Hematocrit 36.8L , Mean Corpuscular Volume 76L, Mean Corpuscular Hemoglobin 22.9L, Mean Corpuscular Hemoglobin Concent 30.1L, Red Cell Distribution Width 13.0, Platelet Count 207, Mean Platelet Volume 7.1, Neutrophils (%) (Auto) 59.1, Lymphocytes (%) (Auto) 27.4, Monocytes (%) (Auto) 7.7, Eosinophils (%) (Auto) 3.9H, Basophils (%) (Auto) 1.9, Sodium Level 143, Potassium Level 3.9, Chloride Level 104, Carbon Dioxide Level 25, Anion Gap 14, Blood Urea Nitrogen 26H, Creatinine 1.0, Estimat Glomerular Filtration Rate , Glucose Level 89, Calcium Level 10.3H Current Medications Medications (Trade) Dose Ordered Sig/Delgado Route PRN Reason Start Time Stop Time Status Last Admin Dose Admin Acetaminophen (Tylenol) 650 mg Q4H PRN ORAL T>100.5 04/27/18 13:45 05/25/18 13:39 Al Hydroxide/Mg Hydroxide (Mylanta II) 30 ml Q6H PRN ORAL dyspepsia 04/27/18 13:30 05/25/18 13:29 Ceftriaxone Sodium 1 gm/ Dextrose 55 ml @ 110 mls/hr Q24H IVPB 04/27/18 22:30 05/03/18 22:29 04/28/18 22:46 Dextrose (Dextrose 50%) 25 ml Q30M PRN IV Hypoglycemia 04/27/18 13:15 05/25/18 13:39 Dextrose (Dextrose 50%) 50 ml Q30M PRN IV hypoglycemia 04/27/18 13:15 05/25/18 13:44 Dronabinol (Marinol) 2.5 mg TID ORAL 04/28/18 13:00 05/28/18 12:59 04/29/18 09:09 Iron Sucrose 100 mg/Sodium Chloride 60 ml @ 240 mls/hr BEDTIME IV 04/27/18 21:00 05/01/18 21:14 04/28/18 21:49 Lorazepam (Ativan 2mg/ml 1ml) 0.5 mg Q4H PRN IV For Anxiety 04/27/18 13:30 05/02/18 13:29 Memantine (Namenda) 5 mg BID ORAL 04/27/18 18:00 05/27/18 08:59 04/29/18 09:09 Methadone HCl (Methadone HCl) 5 mg EVERY 12 HOURS ORAL 04/27/18 21:00 05/03/18 11:14 04/29/18 09:11 Morphine Sulfate (Morphine Sulfate) 1 mg Q4H PRN IVP breakthrough pain 04/27/18 14:00 05/02/18 13:59 Ondansetron HCl (Zofran) 4 mg Q6H PRN IVP Nausea & Vomiting 04/27/18 13:30 05/25/18 13:29 Patient Own Medication (Patient's Own Med) 1 ea BID ORAL 04/28/18 18:00 05/28/18 17:59 04/29/18 09:11 Patient Own Medication (Patient's Own Med) 1 ea BID ORAL 04/28/18 18:00 05/28/18 17:59 04/29/18 09:11 Patient Own Medication (Patient's Own Med) 1 ea BID ORAL 04/28/18 18:00 05/28/18 17:59 04/29/18 09:12 Patient Own Medication (Patient's Own Med) 1 ea BID ORAL 04/28/18 18:00 05/28/18 17:59 04/29/18 09:12 Patient Own Medication (Patient's Own Med) 1 ea DAILY ORAL 04/29/18 09:00 05/29/18 08:59 04/29/18 09:12 Polyethylene Glycol (Miralax) 17 gm HSPRN PRN ORAL Constipation 04/27/18 21:00 05/25/18 20:59 Zolpidem Tartrate (Ambien) 5 mg HSPRN PRN ORAL Insomnia 04/27/18 21:00 05/02/18 20:59 Gracie Echeverria MD Apr 29, 2018 12:10
--- NOTE | 2018-04-29 12:41 | Infectious Diseases Prog Note ---
Assessment/Plan Assessment/Plan Assessment: Fever; SP - no obvious source. possible viral, PNA -04/26 CXR: Bilateral interstitial disease, suspect chronic, unchanged from . Superimposed acute process also possible -Head CT: No significant change in the 5 mm hyperdensity in the anterior left thalamus, consistent with a remote parenchymal hemorrhage. No acute intracranial hemorrhage, mass effect, or midline shift. Moderate periventricular white matter hypodensities, likely related to chronic small vessel disease changes. Mild generalized cerebral parenchymal volume loss, likely age-related. -Bcx NTD -influenza sc neg -u/a wbc 5-10, nit neg, leuk +1; no UTI symptoms -v/ duplex BLE: no DVT No leukocytosis Dizziness/weakness HIV- per pt VL Undetectable -04/2018 CD4 508 (20.4%) prostatitis HTN thalamic CVA/ICH cachexia pulmonary fibrosis SNF resident Plan: -D/c empiric Ceftriaxone #4/3-5 and monitor off abx -ok to discharge off antibiotics from ID perspective -04/26 SP ZOsyn #1 -f.u cx -Monitor CBC/CMP, temperatures -f/u Bcx x2 -f/u HIV VL -Cont ARV (Isentress, norvir, truvada, intelence, prezista) -aspiration precautions Thank you for this consultation. Will continue to follow along with you. Subjective Allergies: Coded Allergies: No Known Allergies (Unverified , 08/31/13) Subjective afebrile >72 hrs no leukocytosis Bcx NTD feeling better influenza sc neg Objective Vital Signs Last 24 Hour Vital Signs Date Time Temp Pulse Resp B/P (MAP) Pulse Ox O2 Delivery O2 Flow Rate FiO2 04/29/18 09:00 Room Air 04/29/18 08:00 97.3 77 18 130/83 (99) 96 04/29/18 06:10 84 135/82 (99) 04/29/18 06:05 71 139/81 (100) 04/29/18 06:00 97.9 87 20 134/82 (99) 95 04/29/18 00:00 97.7 74 18 117/72 (87) 97 04/28/18 21:00 Room Air 04/28/18 20:00 97.9 74 18 103/66 (78) 98 04/28/18 16:00 98.2 84 18 118/73 (88) 97 04/28/18 16:00 98.2 79 18 127/77 (94) 97 04/28/18 16:00 98.2 92 18 128/80 (96) 97 Height (Feet): 5 Height (Inches): 9.00 Weight (Pounds): 133 Objective General Appearance: WD/WN Lines, tubes and drains: peripheral, central line HEENT: normocephalic, atraumatic Neck: non-tender, normal alignment Respiratory/Chest: chest wall non-tender, lungs clear Breasts: no masses Cardiovascular/Chest: normal peripheral pulses Abdomen: normal bowel sounds Microbiology Date/Time Source Procedure Growth Status 04/26/18 20:15 Blood Blood Culture - Preliminary NO GROWTH AFTER 48 HOURS Resulted 04/26/18 20:00 Blood Blood Culture - Preliminary NO GROWTH AFTER 48 HOURS Resulted 04/28/18 16:45 Nasopharynx Influenza Types A,B Antigen (ONUR) - Final Complete Laboratory Tests Test 04/29/18 06:18 White Blood Count 6.4 K/UL (4.8-10.8) Red Blood Count 4.82 M/UL (4.70-6.10) Hemoglobin 11.1 G/DL (14.2-18.0) L Hematocrit 36.8 % (42.0-52.0) L Mean Corpuscular Volume 76 FL (80-99) L Mean Corpuscular Hemoglobin 22.9 PG (27.0-31.0) L Mean Corpuscular Hemoglobin Concent 30.1 G/DL (32.0-36.0) L Red Cell Distribution Width 13.0 % (11.6-14.8) Platelet Count 207 K/UL (150-450) Mean Platelet Volume 7.1 FL (6.5-10.1) Neutrophils (%) (Auto) 59.1 % (45.0-75.0) Lymphocytes (%) (Auto) 27.4 % (20.0-45.0) Monocytes (%) (Auto) 7.7 % (1.0-10.0) Eosinophils (%) (Auto) 3.9 % (0.0-3.0) H Basophils (%) (Auto) 1.9 % (0.0-2.0) Sodium Level 143 MMOL/L (136-145) Potassium Level 3.9 MMOL/L (3.5-5.1) Chloride Level 104 MMOL/L (98-107) Carbon Dioxide Level 25 MMOL/L (21-32) Anion Gap 14 mmol/L (5-15) Blood Urea Nitrogen 26 mg/dL (7-18) H Creatinine 1.0 MG/DL (0.55-1.30) Estimat Glomerular Filtration Rate mL/min (>60) Glucose Level 89 MG/DL (74-106) Calcium Level 10.3 MG/DL (8.5-10.1) H Current Medications Medications (Trade) Dose Ordered Sig/Delgado Route PRN Reason Start Time Stop Time Status Last Admin Dose Admin Acetaminophen (Tylenol) 650 mg Q4H PRN ORAL T>100.5 04/27/18 13:45 05/25/18 13:39 Al Hydroxide/Mg Hydroxide (Mylanta II) 30 ml Q6H PRN ORAL dyspepsia 04/27/18 13:30 05/25/18 13:29 Ceftriaxone Sodium 1 gm/ Dextrose 55 ml @ 110 mls/hr Q24H IVPB 04/27/18 22:30 05/03/18 22:29 04/28/18 22:46 Dextrose (Dextrose 50%) 25 ml Q30M PRN IV Hypoglycemia 04/27/18 13:15 05/25/18 13:39 Dextrose (Dextrose 50%) 50 ml Q30M PRN IV hypoglycemia 04/27/18 13:15 05/25/18 13:44 Dronabinol (Marinol) 2.5 mg TID ORAL 04/28/18 13:00 05/28/18 12:59 04/29/18 09:09 Iron Sucrose 100 mg/Sodium Chloride 60 ml @ 240 mls/hr BEDTIME IV 04/27/18 21:00 05/01/18 21:14 04/28/18 21:49 Lorazepam (Ativan 2mg/ml 1ml) 0.5 mg Q4H PRN IV For Anxiety 04/27/18 13:30 05/02/18 13:29 Memantine (Namenda) 5 mg BID ORAL 04/27/18 18:00 05/27/18 08:59 04/29/18 09:09 Methadone HCl (Methadone HCl) 5 mg EVERY 12 HOURS ORAL 04/27/18 21:00 05/03/18 11:14 04/29/18 09:11 Morphine Sulfate (Morphine Sulfate) 1 mg Q4H PRN IVP breakthrough pain 04/27/18 14:00 05/02/18 13:59 Ondansetron HCl (Zofran) 4 mg Q6H PRN IVP Nausea & Vomiting 04/27/18 13:30 05/25/18 13:29 Patient Own Medication (Patient's Own Med) 1 ea BID ORAL 04/28/18 18:00 05/28/18 17:59 04/29/18 09:11 Patient Own Medication (Patient's Own Med) 1 ea BID ORAL 04/28/18 18:00 05/28/18 17:59 04/29/18 09:11 Patient Own Medication (Patient's Own Med) 1 ea BID ORAL 04/28/18 18:00 05/28/18 17:59 04/29/18 09:12 Patient Own Medication (Patient's Own Med) 1 ea BID ORAL 04/28/18 18:00 05/28/18 17:59 04/29/18 09:12 Patient Own Medication (Patient's Own Med) 1 ea DAILY ORAL 04/29/18 09:00 05/29/18 08:59 04/29/18 09:12 Polyethylene Glycol (Miralax) 17 gm HSPRN PRN ORAL Constipation 04/27/18 21:00 05/25/18 20:59 Zolpidem Tartrate (Ambien) 5 mg HSPRN PRN ORAL Insomnia 04/27/18 21:00 05/02/18 20:59 Valeria Wadsworth M.D. Apr 29, 2018 12:41
--- NOTE | 2018-04-29 14:47 | General Progress Note ---
Assessment/Plan Problem List: (1) Protein-calorie malnutrition, severe ICD Codes: E43 - Unspecified severe protein-calorie malnutrition SNOMED: 407960225, 545931813, 270608252 (2) Polyneuropathic pain ICD Codes: M79.2 - Neuralgia and neuritis, unspecified SNOMED: 063362720 (3) Acute UTI (4) Hypertension (5) HIV disease ICD Codes: B20 - Human immunodeficiency virus [HIV] disease SNOMED: 79902707 Status: stable, progressing Assessment/Plan pt diet abx cbc bmp am dc plan snf Subjective Constitutional: Reports: weakness Allergies: Coded Allergies: No Known Allergies (Unverified , 08/31/13) All Systems: reviewed and negative except above Subjective sleepy calm in bed Objective Last 24 Hour Vital Signs Date Time Temp Pulse Resp B/P (MAP) Pulse Ox O2 Delivery O2 Flow Rate FiO2 04/29/18 09:00 Room Air 04/29/18 08:00 97.3 77 18 130/83 (99) 96 04/29/18 06:10 84 135/82 (99) 04/29/18 06:05 71 139/81 (100) 04/29/18 06:00 97.9 87 20 134/82 (99) 95 04/29/18 00:00 97.7 74 18 117/72 (87) 97 04/28/18 21:00 Room Air 04/28/18 20:00 97.9 74 18 103/66 (78) 98 04/28/18 16:00 98.2 84 18 118/73 (88) 97 04/28/18 16:00 98.2 79 18 127/77 (94) 97 04/28/18 16:00 98.2 92 18 128/80 (96) 97 Intake and Output 04/28/18 04/29/18 18:59 06:59 Intake Total 500 ml 115 ml Output Total 500 ml 200 ml Balance 0 ml -85 ml Intake Oral 500 ml IV Total 115 ml Output Urine Total 500 ml 200 ml # Voids 4 Laboratory Tests 04/29/18 06:18: White Blood Count 6.4, Red Blood Count 4.82, Hemoglobin 11.1L, Hematocrit 36.8L , Mean Corpuscular Volume 76L, Mean Corpuscular Hemoglobin 22.9L, Mean Corpuscular Hemoglobin Concent 30.1L, Red Cell Distribution Width 13.0, Platelet Count 207, Mean Platelet Volume 7.1, Neutrophils (%) (Auto) 59.1, Lymphocytes (%) (Auto) 27.4, Monocytes (%) (Auto) 7.7, Eosinophils (%) (Auto) 3.9H, Basophils (%) (Auto) 1.9, Sodium Level 143, Potassium Level 3.9, Chloride Level 104, Carbon Dioxide Level 25, Anion Gap 14, Blood Urea Nitrogen 26H, Creatinine 1.0, Estimat Glomerular Filtration Rate , Glucose Level 89, Calcium Level 10.3H Height (Feet): 5 Height (Inches): 9.00 Weight (Pounds): 133 General Appearance: lethargic EENT: normal ENT inspection Neck: normal alignment Cardiovascular: normal peripheral pulses, normal rate, regular rhythm Respiratory/Chest: chest wall non-tender, lungs clear, normal breath sounds Abdomen: normal bowel sounds, non tender, soft Extremities: normal inspection Edema: no edema noted Arm (L), no edema noted Arm (R), no edema noted Leg (L), no edema noted Leg (R), no edema noted Pedal (L), no edema noted Pedal (R), no edema noted Generalized Neurologic: motor weakness Skin: normal pigmentation, warm/dry Prabhu Trejo DO Apr 29, 2018 14:47
--- NOTE | 2018-04-29 16:04 | Diagnostic Imaging Report ---
Indication: Whole-body pain. Prostate CA. Technique: 27 mCi of technetium 99 M-MDP was injected intravenously. A whole-body bone scan was then performed in anterior and posterior projections. Several spot images were also obtained. Comparison: None Findings: . There is extensive diffuse patchy abnormal uptake within the axial skeleton including the entire spine, pelvic bones and multiple ribs consistent with the metastatic neoplasm. Impression: Extensive metastatic neoplasm secondary to prostate CA
--- NOTE | 2018-04-29 16:40 | NUR ---
P.T. NOTES S/P: APPROACHED PATIENT IN THE PM. PATIENT FOUND LYING SUPINE IN BED, FAST ASLEEP. PATIENT U/A TO BE AWAKENED. NOTIFIED RN OF PATIENT'S STATUS. WILL F/U NEXT TX. TIME AND CONT WITH P.T. PLAN. RSABADO.
--- NOTE | 2018-04-29 17:20 | NUR ---
NURSE NOTES: Dr. Echeverria notified of Body Scan results, no new orders received.
--- NOTE | 2018-04-29 19:45 | Progress Note ---
DATE: 04/29/2018 SUBJECTIVE: The patient is a 83-year-old female patient who is admitted to the hospital due to generalized weakness and she still has some altered mental status, confusion, and anxiety worsened by stress from medical illness. That is why, attending has requested daily psychiatric consultation. MENTAL STATUS EXAMINATION: This is an 83-year-old female. Appearance is disheveled. Attitude, irritable and agitated. Affect, guarded and restricted. Intellect poor. Mood, depressed and anxious. Motor activity, psychomotor agitation. Attention span is poor. Orientation x2. Speech is low volume. Thought process, disorganized and illogical. Insight and judgment is poor. DIAGNOSIS: 1. Major depressive disorder, mild, recurrent with psychotic features. 2. Rule out dementia with psychosis. PLAN: Treat with Namenda 5 mg twice a day and Ativan 0.5 mg IV q.4 h. p.r.n. anxiety and agitation. Provided with 20 minutes of cognitive behavioral therapy to help identify automatic negative thoughts and help convert negative thoughts to more positive thoughts to reduce depression, anxiety, and mood lability. A 20 minutes of cognitive behavioral therapy was provided. Chart reviewed and discussed with staff. Seen and assessed at bedside. Shar Jacob M.D. DR: ALLIE/SHANNON JOB#: [id number] CC:
--- NOTE | 2018-04-29 19:55 | NUR ---
HAND-OFF: Report given to Douglas SANDOVAL.
--- NOTE | 2018-04-29 20:08 | NUR ---
NURSE NOTES: Pt is in bed, awake and verbal. No acute distress noted. Pt is instructed to call for assistance before getting out of bed. Fall precaution in place. Bed low in position,side rails up and call light within reach. Pty will be monitored.
[2018-04-29] MEDS: Iron Sucrose 100 MG in NS 55 ML IV SCH (20:40)
[2018-04-30] VITALS: BP 132/82
[2018-04-30 04:00] VITALS: BP 134/86
--- NOTE | 2018-04-30 04:50 | NUR ---
NURSE NOTES: Pt is in bed, awake and verbal. Pt is closely monitored for fall risk.
--- NOTE | 2018-04-30 07:22 | NUR ---
HAND-OFF: Report given to LORI Mcneil.
--- NOTE | 2018-04-30 07:30 | NUR ---
NURSE NOTES: Report received from outgoing RN, rounds made. Patient sitting in high fowlers position in bed, SR up x4, fall risk. Patient alert, oriented x4, calm/fatigue. Denies pain, SOB on RA, NV. LFA heplock intact, asymptomatic. Call light in reach, bed in lowest position, will continue to monitor.
[2018-04-30 07:46] LABS: BASOPHILS % (AUTO) 1.3 % (0.0-2.0); EOSINOPHILS % (AUTO) 2.3 % (0.0-3.0); HEMATOCRIT 34.9 % (42.0-52.0); HEMOGLOBIN 10.5 G/DL (14.2-18.0); LYMPHOCYTES % (AUTO) 32.6 % (20.0-45.0); MEAN CORPUSCULAR VOLUME 75 FL (80-99); MONOCYTES % (AUTO) 8.1 % (1.0-10.0); NEUTROPHILS % (AUTO) 55.7 % (45.0-75.0); PLATELET COUNT 214 K/UL (150-450); RED BLOOD COUNT 4.65 M/UL (4.70-6.10); RED CELL DISTRIBUTION WIDTH 13.5 % (11.6-14.8); WHITE BLOOD COUNT 4.9 K/UL (4.8-10.8)
[2018-04-30 08:00] VITALS: BP 128/78
[2018-04-30 08:37] LABS: ANION GAP 11 mmol/L (5-15); BLOOD UREA NITROGEN 25 mg/dL (7-18); CALCIUM 9.7 MG/DL (8.5-10.1); CARBON DIOXIDE 27 MMOL/L (21-32); CHLORIDE 107 MMOL/L (98-107); CREATININE 1.2 MG/DL (0.55-1.30); SODIUM 145 MMOL/L (136-145)
[2018-04-30] MEDS: Patient's Own Med - Norvir 100mg ORAL SCH (09:00)
[2018-04-30] MEDS: Patient's Own Med - Truvada 200/300mg ORAL SCH (09:00)
[2018-04-30] MEDS: Dronabinol 2.5mg Cap ORAL SCH (10:03)
[2018-04-30] MEDS: Memantine 5 MG TAB ORAL SCH (10:03)
[2018-04-30 12:00] VITALS: BP 131/77
--- NOTE | 2018-04-30 12:58 | Pulmonology Progress Note ---
Assessment/Plan Problems: (1) Sepsis (2) Acute encephalopathy (3) Interstitial lung disease (4) Prostate cancer (5) Hypertension (6) Protein-calorie malnutrition, severe (7) Polyneuropathic pain (8) Thalamic hemorrhage (9) HIV disease Assessment/Plan Bone scan reviewed, extensive bone involvement dc marinol might have contributed to current confusion pain is better controlled with methadone, responding very well to Methadone had one episode of fever chaudhry culture ID evaluation appreciated anemia w/u check PSA, > 1200 start Venofer iv fluids pt/ot neuro evaluation Subjective ROS Limited/Unobtainable: No Constitutional: Reports: no symptoms HEENT: Repors: no symptoms Allergies: Coded Allergies: No Known Allergies (Unverified , 08/31/13) Objective Last 24 Hour Vital Signs Date Time Temp Pulse Resp B/P (MAP) Pulse Ox O2 Delivery O2 Flow Rate FiO2 04/30/18 08:00 97.4 85 19 128/78 (95) 95 04/30/18 04:00 97.4 85 18 134/86 (102) 96 04/30/18 00:00 97.4 78 18 132/82 (99) 97 04/29/18 21:00 Room Air 04/29/18 20:00 97.2 72 18 130/84 (99) 100 04/29/18 16:00 97.3 106 19 141/83 (102) 97 Intake and Output 04/29/18 04/30/18 19:00 07:00 Intake Total 640 ml 300 ml Balance 640 ml 300 ml Intake Oral 640 ml 240 ml IV Total 60 ml # Voids 3 2 Objective General Appearance: cachectic HEENT: normocephalic, anicteric Respiratory/Chest: chest wall non-tender, normal breath sounds Breasts: no masses Cardiovascular: normal rate Abdomen: soft, non tender, non distended Extremities: no clubbing Skin: no rash 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: guide plant II-XII grossly normal Lymphatic: no neck adenopathy Microbiology Date/Time Source Procedure Growth Status 04/28/18 16:45 Nasopharynx Influenza Types A,B Antigen (ONUR) - Final Complete Laboratory Tests 04/30/18 06:31: White Blood Count 4.9, Red Blood Count 4.65L, Hemoglobin 10.5L, Hematocrit 34.9L , Mean Corpuscular Volume 75L, Mean Corpuscular Hemoglobin 22.7L, Mean Corpuscular Hemoglobin Concent 30.2L, Red Cell Distribution Width 13.5, Platelet Count 214, Mean Platelet Volume 8.1, Neutrophils (%) (Auto) 55.7, Lymphocytes (%) (Auto) 32.6, Monocytes (%) (Auto) 8.1, Eosinophils (%) (Auto) 2.3, Basophils (%) (Auto) 1.3, Sodium Level 145, Potassium Level 4.0, Chloride Level 107, Carbon Dioxide Level 27, Anion Gap 11, Blood Urea Nitrogen 25H, Creatinine 1.2, Estimat Glomerular Filtration Rate , Glucose Level 90, Calcium Level 9.7 Current Medications Medications (Trade) Dose Ordered Sig/Delgado Route PRN Reason Start Time Stop Time Status Last Admin Dose Admin Acetaminophen (Tylenol) 650 mg Q4H PRN ORAL T>100.5 04/27/18 13:45 05/25/18 13:39 Al Hydroxide/Mg Hydroxide (Mylanta II) 30 ml Q6H PRN ORAL dyspepsia 04/27/18 13:30 05/25/18 13:29 Dextrose (Dextrose 50%) 25 ml Q30M PRN IV Hypoglycemia 04/27/18 13:15 05/25/18 13:39 Dextrose (Dextrose 50%) 50 ml Q30M PRN IV hypoglycemia 04/27/18 13:15 05/25/18 13:44 Dronabinol (Marinol) 2.5 mg TID ORAL 04/28/18 13:00 05/28/18 12:59 04/30/18 10:03 Iron Sucrose 100 mg/Sodium Chloride 60 ml @ 240 mls/hr BEDTIME IV 04/27/18 21:00 05/01/18 21:14 04/29/18 20:40 Lorazepam (Ativan 2mg/ml 1ml) 0.5 mg Q4H PRN IV For Anxiety 04/27/18 13:30 05/02/18 13:29 Memantine (Namenda) 5 mg BID ORAL 04/27/18 18:00 05/27/18 08:59 04/30/18 10:03 Methadone HCl (Methadone HCl) 5 mg EVERY 12 HOURS ORAL 04/27/18 21:00 05/03/18 11:14 04/30/18 10:03 Morphine Sulfate (Morphine Sulfate) 1 mg Q4H PRN IVP breakthrough pain 04/27/18 14:00 05/02/18 13:59 Ondansetron HCl (Zofran) 4 mg Q6H PRN IVP Nausea & Vomiting 04/27/18 13:30 05/25/18 13:29 Patient Own Medication (Patient's Own Med) 1 ea BID ORAL 04/28/18 18:00 05/28/18 17:59 04/30/18 09:00 Patient Own Medication (Patient's Own Med) 1 ea BID ORAL 04/28/18 18:00 05/28/18 17:59 04/30/18 09:00 Patient Own Medication (Patient's Own Med) 1 ea BID ORAL 04/28/18 18:00 05/28/18 17:59 04/30/18 09:00 Patient Own Medication (Patient's Own Med) 1 ea BID ORAL 04/28/18 18:00 05/28/18 17:59 04/30/18 09:00 Patient Own Medication (Patient's Own Med) 1 ea DAILY ORAL 04/29/18 09:00 05/29/18 08:59 04/30/18 09:00 Polyethylene Glycol (Miralax) 17 gm HSPRN PRN ORAL Constipation 04/27/18 21:00 05/25/18 20:59 Zolpidem Tartrate (Ambien) 5 mg HSPRN PRN ORAL Insomnia 04/27/18 21:00 05/02/18 20:59 04/29/18 20:40 Gracie Echeverria MD Apr 30, 2018 12:58
--- NOTE | 2018-04-30 13:37 | General Progress Note ---
Assessment/Plan Problem List: (1) Protein-calorie malnutrition, severe ICD Codes: E43 - Unspecified severe protein-calorie malnutrition SNOMED: 822680981, 432671764, 560022633 (2) Polyneuropathic pain ICD Codes: M79.2 - Neuralgia and neuritis, unspecified SNOMED: 071453516 (3) Acute UTI (4) Hypertension (5) HIV disease ICD Codes: B20 - Human immunodeficiency virus [HIV] disease SNOMED: 97426249 Status: stable, progressing Assessment/Plan pt diet abx dc to snf Subjective Constitutional: Reports: weakness Allergies: Coded Allergies: No Known Allergies (Unverified , 08/31/13) All Systems: reviewed and negative except above Subjective sleepy calm in bed Objective Last 24 Hour Vital Signs Date Time Temp Pulse Resp B/P (MAP) Pulse Ox O2 Delivery O2 Flow Rate FiO2 04/30/18 08:00 97.4 85 19 128/78 (95) 95 04/30/18 04:00 97.4 85 18 134/86 (102) 96 04/30/18 00:00 97.4 78 18 132/82 (99) 97 04/29/18 21:00 Room Air 04/29/18 20:00 97.2 72 18 130/84 (99) 100 04/29/18 16:00 97.3 106 19 141/83 (102) 97 Intake and Output 04/29/18 04/30/18 18:59 06:59 Intake Total 640 ml 300 ml Balance 640 ml 300 ml Intake Oral 640 ml 240 ml IV Total 60 ml # Voids 3 2 Laboratory Tests 04/30/18 06:31: White Blood Count 4.9, Red Blood Count 4.65L, Hemoglobin 10.5L, Hematocrit 34.9L , Mean Corpuscular Volume 75L, Mean Corpuscular Hemoglobin 22.7L, Mean Corpuscular Hemoglobin Concent 30.2L, Red Cell Distribution Width 13.5, Platelet Count 214, Mean Platelet Volume 8.1, Neutrophils (%) (Auto) 55.7, Lymphocytes (%) (Auto) 32.6, Monocytes (%) (Auto) 8.1, Eosinophils (%) (Auto) 2.3, Basophils (%) (Auto) 1.3, Sodium Level 145, Potassium Level 4.0, Chloride Level 107, Carbon Dioxide Level 27, Anion Gap 11, Blood Urea Nitrogen 25H, Creatinine 1.2, Estimat Glomerular Filtration Rate , Glucose Level 90, Calcium Level 9.7 Height (Feet): 5 Height (Inches): 9.00 Weight (Pounds): 133 General Appearance: lethargic EENT: normal ENT inspection Neck: normal alignment Cardiovascular: normal peripheral pulses, normal rate, regular rhythm Respiratory/Chest: chest wall non-tender, lungs clear, normal breath sounds Abdomen: normal bowel sounds, non tender, soft Extremities: normal inspection Edema: no edema noted Arm (L), no edema noted Arm (R), no edema noted Leg (L), no edema noted Leg (R), no edema noted Pedal (L), no edema noted Pedal (R), no edema noted Generalized Neurologic: motor weakness Skin: normal pigmentation, warm/dry Prabhu Trejo DO Apr 30, 2018 13:37
--- NOTE | 2018-04-30 13:40 | Cardiology Report ---
APPROVED REPORT EXAM: Two-dimensional and M-mode echocardiogram with Doppler and color Doppler. INDICATION Aortic valve disorder M-Mode DIMENSIONS IVSd1.2 (0.7-1.1cm)Left Atrium (MM)2.1 (1.6-4.0cm) LVDd5.2 (3.5-5.6cm)Aortic Root3.5 (2.0-3.7cm) PWd0.9 (0.7-1.1cm)Aortic Cusp Exc.1.2 (1.5-2.0cm) IVSs1.3 cm LVDs3.6 (2.5-4.0cm) PWs1.1 cm Normal left ventricular chamber size, systolic function and wall motion. Left ventricular ejection fraction estimated to be 65-70%. No evidence of left ventricular hypertrophy. No evidence of pericardial fat or effusion. All other cardiac chamber sizes are within normal limits. Mild aortic valve sclerosis with mildly reduced cusp excursion. Mildly thickened mitral valve leaflets with normal excursion. Mild mitral annulus and aortic root calcification. Pulmonic valve not well visualized. IVC at normal size without physiologic collapse. A color flow and spectral Doppler study was performed and revealed: Mild aortic insufficiency . Peak aortic valve gradient of 17 mm Hg and a mean of 8 mmHg. Aortic valve area 1.7 cm2 calculated by continuity equation. Mitral diastolic velocities suggest reduced left ventricular relaxation c/w mild LV diastolic dysfunction (Grade I ) Moderate mitral regurgitation. Mild tricuspid regurgitation. Tricuspid systolic velocities suggests peak right ventricular systolic pressure of 41 mmHg,consistent with mild pulmonary hypertension .
--- NOTE | 2018-04-30 14:19 | NUR ---
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
--- NOTE | 2018-04-30 15:00 | Progress Note ---
DATE: 04/30/2018 SUBJECTIVE: This is an 83-year-old patient with generalized weakness. This patient also has some mood lability and altered mental status worsened by stress of his medical illness having increased depression and altered mental status. DIAGNOSIS: Major depressive disorder, mild, recurrent, without psychotic features, rule out dementia with psychosis. PLAN: Treat him with Ativan 0.5 mg IV q.4 hours p.r.n. and Namenda 5 twice a day. Provide him with 20 minutes of cognitive behavioral therapy will help him identify his automatic negative thoughts, help him convert those negative thoughts to more positive thoughts to reduce depression, anxiety, suicidality. Chart reviewed. Discussed with staff. Seen and assessed at bedside. Shar Jacob M.D. DR: FRANCISCA JOB#: [id number] CC:
--- NOTE | 2018-04-30 15:32 | Infectious Diseases Prog Note ---
Assessment/Plan Assessment/Plan Assessment: Fever; SP - no obvious source. 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 Superimposed acute process also possible -Head CT: No significant change in the 5 mm hyperdensity in the anterior left thalamus, consistent with a remote parenchymal hemorrhage. No acute intracranial hemorrhage, mass effect, or midline shift. Moderate periventricular white matter hypodensities, likely related to chronic small vessel disease changes. Mild generalized cerebral parenchymal volume loss, likely age-related. 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 Thank you for this consultation. Will continue to follow along with you. Subjective Allergies: Coded Allergies: No Known Allergies (Unverified , 08/31/13) Subjective afebrile no leukocytosis Bcx NTD off abx bone scan w/ extensive metastasis Objective Vital Signs Last 24 Hour Vital Signs Date Time Temp Pulse Resp B/P (MAP) Pulse Ox O2 Delivery O2 Flow Rate FiO2 04/30/18 09:00 Room Air 04/30/18 08:00 97.4 85 19 128/78 (95) 95 04/30/18 04:00 97.4 85 18 134/86 (102) 96 04/30/18 00:00 97.4 78 18 132/82 (99) 97 04/29/18 21:00 Room Air 04/29/18 20:00 97.2 72 18 130/84 (99) 100 04/29/18 16:00 97.3 106 19 141/83 (102) 97 Height (Feet): 5 Height (Inches): 9.00 Weight (Pounds): 133 Objective General Appearance: WD/WN Lines, tubes and drains: peripheral, central line HEENT: normocephalic, atraumatic Neck: non-tender, normal alignment Respiratory/Chest: chest wall non-tender, lungs clear Breasts: no masses Cardiovascular/Chest: normal peripheral pulses Abdomen: normal bowel sounds Microbiology Date/Time Source Procedure Growth Status 04/28/18 16:45 Nasopharynx Influenza Types A,B Antigen (ONUR) - Final Complete Laboratory Tests Test 04/30/18 06:31 White Blood Count 4.9 K/UL (4.8-10.8) Red Blood Count 4.65 M/UL (4.70-6.10) L Hemoglobin 10.5 G/DL (14.2-18.0) L Hematocrit 34.9 % (42.0-52.0) L Mean Corpuscular Volume 75 FL (80-99) L Mean Corpuscular Hemoglobin 22.7 PG (27.0-31.0) L Mean Corpuscular Hemoglobin Concent 30.2 G/DL (32.0-36.0) L Red Cell Distribution Width 13.5 % (11.6-14.8) Platelet Count 214 K/UL (150-450) Mean Platelet Volume 8.1 FL (6.5-10.1) Neutrophils (%) (Auto) 55.7 % (45.0-75.0) Lymphocytes (%) (Auto) 32.6 % (20.0-45.0) Monocytes (%) (Auto) 8.1 % (1.0-10.0) Eosinophils (%) (Auto) 2.3 % (0.0-3.0) Basophils (%) (Auto) 1.3 % (0.0-2.0) Sodium Level 145 MMOL/L (136-145) Potassium Level 4.0 MMOL/L (3.5-5.1) Chloride Level 107 MMOL/L (98-107) Carbon Dioxide Level 27 MMOL/L (21-32) Anion Gap 11 mmol/L (5-15) Blood Urea Nitrogen 25 mg/dL (7-18) H Creatinine 1.2 MG/DL (0.55-1.30) Estimat Glomerular Filtration Rate mL/min (>60) Glucose Level 90 MG/DL (74-106) Calcium Level 9.7 MG/DL (8.5-10.1) Current Medications Medications (Trade) Dose Ordered Sig/Delgado Route PRN Reason Start Time Stop Time Status Last Admin Dose Admin Acetaminophen (Tylenol) 650 mg Q4H PRN ORAL T>100.5 04/27/18 13:45 05/25/18 13:39 Al Hydroxide/Mg Hydroxide (Mylanta II) 30 ml Q6H PRN ORAL dyspepsia 04/27/18 13:30 05/25/18 13:29 Dextrose (Dextrose 50%) 25 ml Q30M PRN IV Hypoglycemia 04/27/18 13:15 05/25/18 13:39 Dextrose (Dextrose 50%) 50 ml Q30M PRN IV hypoglycemia 04/27/18 13:15 05/25/18 13:44 Iron Sucrose 100 mg/Sodium Chloride 60 ml @ 240 mls/hr BEDTIME IV 04/27/18 21:00 05/01/18 21:14 04/29/18 20:40 Lorazepam (Ativan 2mg/ml 1ml) 0.5 mg Q4H PRN IV For Anxiety 04/27/18 13:30 05/02/18 13:29 Memantine (Namenda) 5 mg BID ORAL 04/27/18 18:00 05/27/18 08:59 04/30/18 10:03 Methadone HCl (Methadone HCl) 5 mg EVERY 12 HOURS ORAL 04/27/18 21:00 05/03/18 11:14 04/30/18 10:03 Morphine Sulfate (Morphine Sulfate) 1 mg Q4H PRN IVP breakthrough pain 04/27/18 14:00 05/02/18 13:59 Ondansetron HCl (Zofran) 4 mg Q6H PRN IVP Nausea & Vomiting 04/27/18 13:30 05/25/18 13:29 Patient Own Medication (Patient's Own Med) 1 ea BID ORAL 04/28/18 18:00 05/28/18 17:59 04/30/18 09:00 Patient Own Medication (Patient's Own Med) 1 ea BID ORAL 04/28/18 18:00 05/28/18 17:59 04/30/18 09:00 Patient Own Medication (Patient's Own Med) 1 ea BID ORAL 04/28/18 18:00 05/28/18 17:59 04/30/18 09:00 Patient Own Medication (Patient's Own Med) 1 ea BID ORAL 04/28/18 18:00 05/28/18 17:59 04/30/18 09:00 Patient Own Medication (Patient's Own Med) 1 ea DAILY ORAL 04/29/18 09:00 05/29/18 08:59 04/30/18 09:00 Polyethylene Glycol (Miralax) 17 gm HSPRN PRN ORAL Constipation 04/27/18 21:00 05/25/18 20:59 Zolpidem Tartrate (Ambien) 5 mg HSPRN PRN ORAL Insomnia 04/27/18 21:00 05/02/18 20:59 04/29/18 20:40 Valeria Wadsworth M.D. Apr 30, 2018 15:32
[2018-04-30 16:00] VITALS: BP 126/73
[2018-04-30] MEDS ORDERED: NAMENDA5 MG ORAL (16:42)
[2018-04-30] MEDS ORDERED: NORVIR100 MG ORAL (16:43)
[2018-04-30] MEDS ORDERED: INTELENCE100 MG ORAL (16:43)
[2018-04-30] MEDS ORDERED: ISENTRESS100 MG ORAL (16:43)
--- NOTE | 2018-04-30 16:43 | Consultation ---
History of Present Illness General Chief Complaint: Pain Present Illness Allergies: Coded Allergies: No Known Allergies (Unverified , 08/31/13) Medication History Scheduled Aspirin* (Aspir 81*), 81 MG ORAL DAILY, (Reported) Benzocaine (Orabase), 11.9 GM MM BID Benzonatate* (Tessalon Perle*), 100 MG ORAL THREE TIMES A DAY Carvedilol (Coreg), Unknown Dose ORAL EVERY 12 HOURS, (Reported) Cephalexin* (Keflex*), 500 MG ORAL Q6H Ciprofloxacin Hcl* (Ciprofloxacin Hcl*), 500 MG ORAL Q12H Darunavir Ethanolate* (Prezista*), 600 MG ORAL EVERY 12 HOURS, (Reported) Dicyclomine Hcl* (Bentyl*), 10 MG ORAL BID Diphenoxylate HCl/Atropine (Lomotil Tablet), 1 EACH PO THREE TIMES A DAY Docusate Sodium* (Colace*), 100 MG ORAL TWICE A DAY Etravirine (Intelence), 200 MG ORAL BID, (Reported) Etravirine* (Intelence*), 200 MG ORAL EVERY 12 HOURS, (Reported) Levofloxacin (Levofloxacin*), 500 MG ORAL DAILY Levofloxacin* (Levaquin*), 500 MG ORAL DAILY, (Reported) Levofloxacin* (Levaquin*), 500 MG ORAL DAILY, (Reported) Lisinopril* (Lisinopril*), 40 MG ORAL DAILY, (Reported) Memantine Hcl* (Namenda*), 5 MG ORAL TWICE A DAY, (Reported) Phenazopyridine Hcl* (Pyridium*), 100 MG ORAL THREE TIMES A DAY Polyethylene Glycol 3350* (Miralax*), 17 GM ORAL DAILY Raltegravir Potassium (Isentress), 400 MG ORAL TWICE A DAY, (Reported) Ritonavir* (Norvir*), 100 MG ORAL TWICE A DAY, (Reported) Trimethoprim/Sulfamethoxazole 160/800* (Bactrim Ds Tablet*), 1 TAB ORAL Q12H Scheduled PRN Ibuprofen* (Motrin*), 600 MG ORAL Q8H PRN for For Pain Promethazine/Dextromethorphan (Promethazine-Dm Syrup), 1 TSP ORAL Q4H PRN for For Cough Miscellaneous Medications Emtricitabine/Tenofovir (Truvada 100 mg-150 mg Tablet), 1 EACH PO, (Reported) Nicotine (Nicotine Patch), 21 MG TD, (Reported) Patient History Healthcare decision maker N Resuscitation status Full Code Advanced Directive on File Physical Exam Last 24 Hour Vital Signs Date Time Temp Pulse Resp B/P (MAP) Pulse Ox O2 Delivery O2 Flow Rate FiO2 04/30/18 16:00 98.3 87 19 126/73 (90) 96 04/30/18 12:00 97.3 88 20 131/77 (95) 95 04/30/18 09:00 Room Air 04/30/18 08:00 97.4 85 19 128/78 (95) 95 04/30/18 04:00 97.4 85 18 134/86 (102) 96 04/30/18 00:00 97.4 78 18 132/82 (99) 97 04/29/18 21:00 Room Air 04/29/18 20:00 97.2 72 18 130/84 (99) 100 Intake and Output 04/29/18 04/30/18 18:59 06:59 Intake Total 640 ml 300 ml Balance 640 ml 300 ml Intake Oral 640 ml 240 ml IV Total 60 ml # Voids 3 2 Laboratory Tests Test 04/30/18 06:31 White Blood Count 4.9 K/UL (4.8-10.8) Red Blood Count 4.65 M/UL (4.70-6.10) L Hemoglobin 10.5 G/DL (14.2-18.0) L Hematocrit 34.9 % (42.0-52.0) L Mean Corpuscular Volume 75 FL (80-99) L Mean Corpuscular Hemoglobin 22.7 PG (27.0-31.0) L Mean Corpuscular Hemoglobin Concent 30.2 G/DL (32.0-36.0) L Red Cell Distribution Width 13.5 % (11.6-14.8) Platelet Count 214 K/UL (150-450) Mean Platelet Volume 8.1 FL (6.5-10.1) Neutrophils (%) (Auto) 55.7 % (45.0-75.0) Lymphocytes (%) (Auto) 32.6 % (20.0-45.0) Monocytes (%) (Auto) 8.1 % (1.0-10.0) Eosinophils (%) (Auto) 2.3 % (0.0-3.0) Basophils (%) (Auto) 1.3 % (0.0-2.0) Sodium Level 145 MMOL/L (136-145) Potassium Level 4.0 MMOL/L (3.5-5.1) Chloride Level 107 MMOL/L (98-107) Carbon Dioxide Level 27 MMOL/L (21-32) Anion Gap 11 mmol/L (5-15) Blood Urea Nitrogen 25 mg/dL (7-18) H Creatinine 1.2 MG/DL (0.55-1.30) Estimat Glomerular Filtration Rate mL/min (>60) Glucose Level 90 MG/DL (74-106) Calcium Level 9.7 MG/DL (8.5-10.1) Height (Feet): 5 Height (Inches): 9.00 Weight (Pounds): 133 Medications Current Medications Medications (Trade) Dose Ordered Sig/Delgado Route PRN Reason Start Time Stop Time Status Last Admin Dose Admin Acetaminophen (Tylenol) 650 mg Q4H PRN ORAL T>100.5 04/27/18 13:45 05/25/18 13:39 Al Hydroxide/Mg Hydroxide (Mylanta II) 30 ml Q6H PRN ORAL dyspepsia 04/27/18 13:30 05/25/18 13:29 Dextrose (Dextrose 50%) 25 ml Q30M PRN IV Hypoglycemia 04/27/18 13:15 05/25/18 13:39 Dextrose (Dextrose 50%) 50 ml Q30M PRN IV hypoglycemia 04/27/18 13:15 05/25/18 13:44 Iron Sucrose 100 mg/Sodium Chloride 60 ml @ 240 mls/hr BEDTIME IV 04/27/18 21:00 05/01/18 21:14 04/29/18 20:40 Lorazepam (Ativan 2mg/ml 1ml) 0.5 mg Q4H PRN IV For Anxiety 04/27/18 13:30 05/02/18 13:29 Memantine (Namenda) 5 mg BID ORAL 04/27/18 18:00 05/27/18 08:59 04/30/18 10:03 Methadone HCl (Methadone HCl) 5 mg EVERY 12 HOURS ORAL 04/27/18 21:00 05/03/18 11:14 04/30/18 10:03 Morphine Sulfate (Morphine Sulfate) 1 mg Q4H PRN IVP breakthrough pain 04/27/18 14:00 05/02/18 13:59 Ondansetron HCl (Zofran) 4 mg Q6H PRN IVP Nausea & Vomiting 04/27/18 13:30 05/25/18 13:29 Patient Own Medication (Patient's Own Med) 1 ea BID ORAL 04/28/18 18:00 05/28/18 17:59 04/30/18 09:00 Patient Own Medication (Patient's Own Med) 1 ea BID ORAL 04/28/18 18:00 05/28/18 17:59 04/30/18 09:00 Patient Own Medication (Patient's Own Med) 1 ea BID ORAL 04/28/18 18:00 05/28/18 17:59 04/30/18 09:00 Patient Own Medication (Patient's Own Med) 1 ea BID ORAL 04/28/18 18:00 05/28/18 17:59 04/30/18 09:00 Patient Own Medication (Patient's Own Med) 1 ea DAILY ORAL 04/29/18 09:00 05/29/18 08:59 04/30/18 09:00 Polyethylene Glycol (Miralax) 17 gm HSPRN PRN ORAL Constipation 04/27/18 21:00 05/25/18 20:59 Zolpidem Tartrate (Ambien) 5 mg HSPRN PRN ORAL Insomnia 04/27/18 21:00 05/02/18 20:59 04/29/18 20:40 Assessment/Plan Assessment/Plan Oncology Consult RFC: Prostate ca Chief Complaint: Pain REQ MD: Nicanor Trejo DOS: 04/30/18 HPI Patient is an 83-year-old male who presented after increased generalized body pain. Patient a prior history of intracranial hemorrhage on prior visit. Patient reported having bilateral leg pain. He reports having associated dizziness and difficulty with ambulation. Patient was noted to have recently been [facility] at [facility]. psa is 1286 is elevated and metastatic disease noted Allergies: No Known Allergies (Unverified , 08/31/13) Reviewed Nursing Documentation: PMH: Agreed; PSxH: Agreed Past Medical History: No History, Except For Hx Cardiac Problems: No - HIV POSITIVE Hx Hypertension: Yes Hx Pacemaker: No Hx Asthma: No Hx COPD: No Hx Diabetes: No Hx Cancer: Yes - prostate Hx Gastrointestinal Problems: Yes - colostomy Hx Dialysis: No Hx Neurological Problems: No Hx Cerebrovascular Accident: No Hx Seizures: No Review of Systems All Other Systems: negative except mentioned in HPI General Vitals: reviewed if any abnormal, note them General Appearance: NAD HEENT: normocephalic, atraumatic Neck: non-tender, normal alignment Respiratory/Chest: normal breath sounds bilaterally Cardiovascular/Chest: normal peripheral pulses, normal rate Abdomen: normal bowel sounds, soft, nontender Extremities: normal range of motion ER Procedures - General Procedures ER MDM/Plan Assessment and Recs: # Prostate cancer, stage IV, metastatic, psa 1286 --> bone scan extensive diffuse patchy abnormal uptake within the axial skeleton including the entire spine, pelvic bones and multiple ribs consistent with the metastatic neoplasm. --> outpatient management v hospice as per pcp decision # Anemia of chronic disease --> anemia panel has been reviewed # HIV disease --> HAART meds as per ID # Thalamic hemorrhage --> CT head which is unchanged from previous CT which showed some thalamic hemorrhage. --> stable for dc The timing of this note does not necessarily reflect the time of the patient was seen. Greatly appreciate consultation! Marcello Villanueva MD Apr 30, 2018 16:43
[2018-04-30] MEDS ORDERED: METHADONE H5 MG/5 M1 PO (16:48)
[2018-04-30] MEDS ORDERED: METHADONE HCL5 MG PO (16:49)
[2018-04-30] MEDS ORDERED: AMBIEN5 MG ORAL (16:50)
[2018-04-30] MEDS ORDERED: MIRALAX17 G2 ORAL (16:51)
[2018-04-30] MEDS ORDERED: TYLENOL325 MG ORAL (16:52)
--- NOTE | 2018-04-30 17:10 | NUR ---
NURSE NOTES: Patient informed of discharge plans for today. IV heplock discontinued. Report given to Phyllis SANDOVAL at [facility]. Patient transferred via [facility] at 1710 in stable condition, with all belongings.
--- NOTE | 2018-04-30 20:46 | Cardiology Progress Note ---
Assessment/Plan Assessment/Plan 1. Presyncope. The patient also had a prior history of syncope, possible etiologies would be vasovagal versus neurocardiogenic syncope. Continue hydration. 2. Mild aortic stenosis 3. History of intracranial hemorrhage. 4. History of hypertension. Subjective Subjective Sinus rhythm at rate of 74. Objective Last 24 Hour Vital Signs Date Time Temp Pulse Resp B/P (MAP) Pulse Ox O2 Delivery O2 Flow Rate FiO2 04/30/18 16:00 98.3 87 19 126/73 (90) 96 04/30/18 12:00 97.3 88 20 131/77 (95) 95 04/30/18 09:00 Room Air 04/30/18 08:00 97.4 85 19 128/78 (95) 95 04/30/18 04:00 97.4 85 18 134/86 (102) 96 04/30/18 00:00 97.4 78 18 132/82 (99) 97 04/29/18 21:00 Room Air Intake and Output 04/29/18 04/30/18 18:59 06:59 Intake Total 640 ml 300 ml Balance 640 ml 300 ml Intake Oral 640 ml 240 ml IV Total 60 ml # Voids 3 2 Laboratory Tests Test 04/30/18 06:31 White Blood Count 4.9 K/UL (4.8-10.8) Red Blood Count 4.65 M/UL (4.70-6.10) L Hemoglobin 10.5 G/DL (14.2-18.0) L Hematocrit 34.9 % (42.0-52.0) L Mean Corpuscular Volume 75 FL (80-99) L Mean Corpuscular Hemoglobin 22.7 PG (27.0-31.0) L Mean Corpuscular Hemoglobin Concent 30.2 G/DL (32.0-36.0) L Red Cell Distribution Width 13.5 % (11.6-14.8) Platelet Count 214 K/UL (150-450) Mean Platelet Volume 8.1 FL (6.5-10.1) Neutrophils (%) (Auto) 55.7 % (45.0-75.0) Lymphocytes (%) (Auto) 32.6 % (20.0-45.0) Monocytes (%) (Auto) 8.1 % (1.0-10.0) Eosinophils (%) (Auto) 2.3 % (0.0-3.0) Basophils (%) (Auto) 1.3 % (0.0-2.0) Sodium Level 145 MMOL/L (136-145) Potassium Level 4.0 MMOL/L (3.5-5.1) Chloride Level 107 MMOL/L (98-107) Carbon Dioxide Level 27 MMOL/L (21-32) Anion Gap 11 mmol/L (5-15) Blood Urea Nitrogen 25 mg/dL (7-18) H Creatinine 1.2 MG/DL (0.55-1.30) Estimat Glomerular Filtration Rate mL/min (>60) Glucose Level 90 MG/DL (74-106) Calcium Level 9.7 MG/DL (8.5-10.1) Microbiology Date/Time Source Procedure Growth Status 04/28/18 16:45 Nasopharynx Influenza Types A,B Antigen (ONUR) - Final Complete Objective HEENT: Atraumatic and normocephalic. Pupils are equal, round, and reactive to light and accommodation. Bitemporal wasting. NECK: JVP less than 5 cm. No carotid bruit. CVS: Normal S1 and S2. There is a 2/6 mid systolic murmur at the left sternal border. PMI is at fourth intercostal space at midclavicular line. LUNGS: Clear to auscultation bilaterally. ABDOMEN: Soft, nontender, and nondistended. No hepatosplenomegaly. Positive bowel sounds. EXTREMITIES: No evidence of edema, clubbing, or cyanosis. Presence of arachnodactyly and long arm span as well bilaterally. Horace Gagnon MD Apr 30, 2018 20:46
--- NOTE | 2018-05-01 00:22 | Cardiology Report ---
APPROVED REPORT EKG Measurement Heart [id number] ND [id number] Normal sinus rhythm Right bundle branch block Abnormal ECG
--- NOTE | 2018-05-01 14:43 | NUR ---
NURSE NOTES: Received a call from pharmacy regarding patient medication left at the pharmacy CN printed the face sheet and tried to reach out next of kin no name or number listed, tried Mrs. Menjivar home number listed on facesheet no answer. CN tried to call for [facility] no answer. Informed the pharmacist. medication will be in the pharmacy till patient or family request per pharmacist.
--- NOTE | 2018-05-02 05:30 | Consultation ---
DATE OF CONSULTATION: 04/30/2018 PSYCHOTHERAPY CONSULTATION PROGRESS NOTE CONSULTING PHYSICIAN: Miranda Clifford PsyD. TREATING ATTENDING PHYSICIAN: Prabhu Trejo D.O. HISTORY OF PRESENT ILLNESS: The patient is an 83-year-old male patient. The patient has a history of generalized weakness. The patient is from [place]. Apparently, he lives at home. He suddenly experienced one-sided weakness and lower extremity pain, and for these reasons he was brought to the hospital for continuation of care. The patient has a history of HIV as well. This patient was slightly confused and disorganized upon admission. For these reasons, he was referred for psychotherapeutic services. When this clinician assessed the patient, the patient becomes slightly more alert and awake, he states that he does live by himself, that he had experienced pain and was brought to the hospital. The patient states that he has concerns, slightly anxious, not knowing what is happening to him, feeling helpless and hopeless. However, denies suicidal or homicidal thoughts of ideation. No auditory or visual hallucinations. He still has some confusion, however, is more cooperative and has been able to communicate. The patient states that he has a history of anxiety as well and he has in the past tried psychotropic medications for his anxiety. PAST MEDICAL HISTORY: Includes a history of hypertension, HIV, acute urinary tract infection, prostate cancer, and sepsis. ALLERGIES: The patient has no known drug allergies. SUBSTANCE USE HISTORY: The patient does have a history of smoking cigarettes according to self report. He denies a history of alcohol use or illicit substance use. PSYCHIATRIC HISTORY: He states that he does have a history of anxiety and had taken psychotropic medications in the past. SOCIAL HISTORY: The patient is an 83-year-old single male patient. He lives in [place] independently. Financially sustained by [employer]. MENTAL STATUS EXAMINATION: He is alert and oriented to person and place. Mood is slightly anxious. Affect is calm. Thought process, disorganized. Fair attention and concentration. Fair insight, judgment, and impulse control. DIAGNOSES: Rule out major depressive disorder, moderate, recurrent without psychotic features and generalized anxiety disorder. PLAN: Provided the patient with reality orientation confused and disorganized. Oriented to person, place, time and situation. Provided the patient with supportive psychotherapy the patient's feelings of anxiety and restlessness and his fears of being in the hospital setting . Provided the patient with cognitive behavioral therapy which can help the adjusting the patient's feelings of anxiety and restlessness and positive coping skills for this patient. Continue medication compliance, positive coping skills. Will see her back in the unit. Psychotherapy provided to this patient, 45 minutes. Miranda Clifford PsyD. DR: JOSE CARLOS JOB#: [id number] CC:
--- NOTE | 2018-05-02 14:18 | Discharge Summary ---
Discharge Summary Discharge Summary _ DATE OF ADMISSION: 04/25/2018 DATE OF DISCHARGE: 04/30/2018 DISCHARGED BY: Dr. Trejo REASON FOR ADMISSION: 83 years old male with past medical history of hypertension, recent intracranial /thalamic hemorrhage, prostate cancer, colostomy, HIV status presented to emergency department with generalized body pain, including bilateral leg pain. Patient reported associated dizziness and difficulty with ambulation. Upon evaluation vital signs were stable. Laboratory workup revealed no leukocytosis, hemoglobin 11.1,. Hematocrit 36.3 BUN 25 creatinine 1.1. Elevated alkaline phosphatase 643. Albumin 2.7. EKG revealed normal sinus rhythm with right bundle branch block. CT of the head revealed no acute intracranial hemorrhage, mass-effect or midline shift. Mild generalized cerebral parenchymal volume loss, likely age- related. No significant change in the 5 mm hyperdensity in the anterior left thalamus, consistent with a remote parenchymal hemorrhage. Therefore , no change from previous CT. Patient started on the IV hydration and admitted for further management CONSULTANTS: truck striker Dr. Gagnon pulmonary Dr. Echeverria ID specialist Dr. Moon piece maker/oncologist Dr. Villanueva psychiatrist Dr. Jacob HOSPITAL COURSE: Patient admitted and started on the IV fluids. Renal parameters and electrolytes were closely monitored. Electrolytes corrected as needed. Pain management was addressed. Trial of methadone provided for neuropathic pain. DVT prophylaxis provided. I Symptomatic treatment provided. Fall precaution maintained. Patient was working with physical therapist. Food Inspector recommendation implemented in plan of care. Marinol was added to medication regimen to improve appetite. Patient spiked fever up to 101.4, later on the day of admission. Patient pancultured started on empiric antibiotics. No leukocytosis. Chest x-ray revealed bilateral interstitial disease, suspecting chronic. Aspiration precaution maintained. No further fever. Blood culture negative. Rapid influenza screen test negative. Infectious disease doctor recommended to stop antibiotic and monitor patient off antibiotics. In April 2018 CD4 508 and viral load nondetectable. Antiretroviral therapy with Isentress, Norvir, Truvada, Intelence, and Prezista continued. Hemoglobin and hematocrit were closely monitor with goal to keep hemoglobin above 7. Hemoglobin hematocrit remained in baseline. Anemia workup was consistent with anemia of chronic disease. Low iron noted as well. Stable B12 and folate level. Patient received IV Venofer while in the hospital. Cancer tumor markers revealed stable CEA and significantly elevated PSA- 1286. Bone scan revealed extensive metastatic neoplasms secondary to prostate cancer. Per oncologist patient had prostate cancer stage IV metastatic. Oncologist recommended outpatient management and strongly consider hospice. Surface Hydrologist followed. Patient resented with episode of presyncope and had prior history of syncope. Per truck striker, possible etiology could be vasovagal versus neurocardiogenic. Orthostatic vital signs done 1 time revealed no evidence of orthostatic changes. Patient was hydrated with IV fluids. Echocardiogram revealed preserved ejection fraction 65-70% with no evidence of left ventricular hypertrophy. No evidence of pericardial effusion. No evidence of wall motion abnormality. Mild aortic insufficiency noted. Moderate mitral regurgitation. Right ventricular systolic pressure of 41 consistent with a mild pulmonary hypertension. Blood pressure was closely monitored, remained stable. Psychiatrist followed. 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 Psychiatric medication regimen was optimized as per psychiatrist. Patient provided with a cognitive behavioral therapy. Pain management was addressed. Supportive care provided. Bowel regimen instituted. Placement was arranged to long-term facility for continuation of care. Patient was stable for transfer. FINAL DIAGNOSES: Acute encephalopathy Metastatic prostate cancer stage IV Thalamic hemorrhage, recent history HIV disease Neuropathic pain Presyncope with prior history of syncope - likely vasovagal versus neurocardiogenic Mild aortic stenosis Severe protein calorie malnutrition History of hypertension Interstitial lung disease Anemia of chronic disease Major depressive disorder, mild, recurrent, without psychotic features DISCHARGE MEDICATIONS: See Medication Reconciliation list. DISCHARGE INSTRUCTIONS: Patient was discharged to the long-term facility. Follow up with medical doctor at the facility. I have been assigned to dictate discharge summary for this account. I was not involved in the patient's management. Kelsi Hart NP May 02, 2018 14:18
== END 2018-04-30 17:12 | DRG 977 ==
LOC: EDBD 10:01 → EMR 10:41 → EDBEDREQ 15:34 → 2E 15:47 → 3E 04-27 13:00
DX: G62.9 Polyneuropathy, unspecified (principal); B20 Human immunodeficiency virus [HIV] disease; E43 Unspecified severe protein-calorie malnutrition; N39.0 Urinary tract infection, site not specified; G93.40 Encephalopathy, unspecified; F33.0 Major depressive disorder, recurrent, mild; J84.9 Interstitial pulmonary disease, unspecified; C79.51 Secondary malignant neoplasm of bone; Z68.23 Body mass index [BMI] 23.0-23.9, adult; N41.9 Inflammatory disease of prostate, unspecified; I10 Essential (primary) hypertension; C61 Malignant neoplasm of prostate; Z86.73 Personal history of transient ischemic attack (TIA), and cerebral infarction without residual deficits; Z87.891 Personal history of nicotine dependence; I34.0 Nonrheumatic mitral (valve) insufficiency; I35.0 Nonrheumatic aortic (valve) stenosis; R55 Syncope and collapse
CPT/HCPCS: 36415; 70450; 71045; 78306; 80048; 80053; 80061; 81001; 81003; 82378; 82550; 82607; 82746; 82962; 83540; 83550; 83615; 83735; 84100; 84133; 84153; 84154; 84300; 84443; 84550; 85007; 85025; 85044; 85060; 85610; 85651; 85730; 86140; 86360; 86710; 87040; 87081; 87536; 89050; 93005; 93306; 93970; 96374; 99285

== ENCOUNTER 2018-10-28 19:30 | Inpatient (IN) | payer MEDICARE, MEDICAID ==
[~2018-10-28] VITALS: Ht 180.3 cm; Wt 54.1 kg
[~2018-10-28 19:30] MED LIST changes: +AMBIEN5 MG ORAL; +COREG3.125 MG ORAL; +INTELENCE200 MG GT; -INTELENCE200 MG ORAL; +ISENTRESS100 MG GT; +METHADONE H5 MG/5 M1 PO; +METHADONE HCL5 MG GT; +NAMENDA5 MG GT; +PREZISTA600 MG GT; -PREZISTA600 MG ORAL; +TRUVADA 100 MG1 EACH GT; -TRUVADA 100 MG1 EACH PO; +TYLENOL325 MG ORAL
[2018-10-28 19:35] VITALS: BP 125/73
--- NOTE | 2018-10-28 19:35 | NUR ---
ED Nurse Note: Pt HUNTER from [facility], pt reported failure to thrive, pt is cachectic, davidson and g-tube present. Pt is A&Ox3, reporting 8/10 generalized body pain. Vss
--- NOTE | 2018-10-28 20:00 | Emergency Room Report ---
History of Present Illness General Chief Complaint: Generalized Weakness Source: Medical Record Present Illness HPI 83-year-old male history of HIV, failure to thrive x19 days, patient is not eating, unknown aggravating or relieving factors severity is severe, symptoms are constant, patient is a poor historian, cannot tell me what is going on he states everything is hurting there may be a component of dementia Allergies: Coded Allergies: No Known Allergies (Unverified , 08/31/13) Patient History Limited by: medical condition - Demented Past Medical History: see triage record, old chart reviewed Reviewed Nursing Documentation: PMH: Agreed; PSxH: Agreed Nursing Documentation-PMH Hx Cardiac Problems: Yes - HIV POSITIVE Hx Hypertension: Yes Hx Pacemaker: No Hx Asthma: No Hx COPD: No Hx Diabetes: No Hx Cancer: Yes - prostate Hx Gastrointestinal Problems: Yes Hx Dialysis: No Hx Neurological Problems: No Hx Cerebrovascular Accident: No Hx Seizures: No Review of Systems All Other Systems: limited - Demented Physical Exam Vital Signs Date Time Temp Pulse Resp B/P (MAP) Pulse Ox O2 Delivery O2 Flow Rate FiO2 10/28/18 19:32 98.2 81 14 125/73 (90) 97 Room Air Sp02 EP Interpretation: reviewed, normal General Appearance: alert, cachetic, Chronically Ill Head: normocephalic, atraumatic Eyes: bilateral eye PERRL, bilateral eye EOMI ENT: uvula midline, dry mucus membranes Neck: supple, thyroid normal, supple/symm/no masses Respiratory: lungs clear, no respiratory distress, no retraction, no accessory muscle use Cardiovascular #1: normal peripheral pulses, regular rate, rhythm, no edema, no gallop, no murmur Gastrointestinal: non tender, soft, no guarding, no rebound Musculoskeletal: normal inspection Neurologic: alert, responsive Psychiatric: mood/affect normal Skin: no rash, warm/dry Medical Decision Making Diagnostic Impression: Primary Impression: Dehydration Additional Impressions: Failure to thrive Qualified Codes: R62.7 - Adult failure to thrive Altered mental status Qualified Codes: R41.82 - Altered mental status, unspecified ER Course 83-year-old male multiple comorbidities presents with dehydration, altered mental status, differential diagnosis includes UTI, sepsis, worsening dementia IV line placed, fluids given, labs show an elevated lactic acid may be secondary to dehydration Patient is clinically dehydrated, and confused We will admit patient to Dr. Trejo Laboratory Tests Test 10/28/18 20:25 10/28/18 21:20 10/28/18 21:30 10/29/18 05:15 White Blood Count 8.1 K/UL (4.8-10.8) 8.3 K/UL (4.8-10.8) Red Blood Count 3.69 M/UL (4.70-6.10) L 3.34 M/UL (4.70-6.10) L Hemoglobin 8.7 G/DL (14.2-18.0) L 7.8 G/DL (14.2-18.0) L Hematocrit 28.8 % (42.0-52.0) L 25.9 % (42.0-52.0) L Mean Corpuscular Volume 78 FL (80-99) L 78 FL (80-99) L Mean Corpuscular Hemoglobin 23.7 PG (27.0-31.0) L 23.4 PG (27.0-31.0) L Mean Corpuscular Hemoglobin Concent 30.4 G/DL (32.0-36.0) L 30.1 G/DL (32.0-36.0) L Red Cell Distribution Width 16.0 % (11.6-14.8) H 17.3 % (11.6-14.8) H Platelet Count 184 K/UL (150-450) 196 K/UL (150-450) Mean Platelet Volume 7.2 FL (6.5-10.1) 6.4 FL (6.5-10.1) L Neutrophils (%) (Auto) 71.2 % (45.0-75.0) % (45.0-75.0) Lymphocytes (%) (Auto) 18.4 % (20.0-45.0) L % (20.0-45.0) Monocytes (%) (Auto) 9.3 % (1.0-10.0) % (1.0-10.0) Eosinophils (%) (Auto) 0.5 % (0.0-3.0) % (0.0-3.0) Basophils (%) (Auto) 0.7 % (0.0-2.0) % (0.0-2.0) Sodium Level 140 MMOL/L (136-145) 142 MMOL/L (136-145) Potassium Level 3.7 MMOL/L (3.5-5.1) 4.0 MMOL/L (3.5-5.1) Chloride Level 102 MMOL/L (98-107) 106 MMOL/L (98-107) Carbon Dioxide Level 28 MMOL/L (21-32) 29 MMOL/L (21-32) Anion Gap 10 mmol/L (5-15) 7 mmol/L (5-15) Blood Urea Nitrogen 20 mg/dL (7-18) H 19 mg/dL (7-18) H Creatinine 0.6 MG/DL (0.55-1.30) 0.6 MG/DL (0.55-1.30) Estimate Glomerular Filtration Rate mL/min (>60) mL/min (>60) Glucose Level 93 MG/DL (74-106) 81 MG/DL (74-106) Lactic Acid Level 2.60 mmol/L (0.4-2.0) H 2.00 mmol/L (0.66-2.22) Calcium Level 8.5 MG/DL (8.5-10.1) 8.4 MG/DL (8.5-10.1) L Phosphorus Level 2.7 MG/DL (2.5-4.9) Magnesium Level 2.2 MG/DL (1.8-2.4) Total Bilirubin 0.6 MG/DL (0.2-1.0) 0.7 MG/DL (0.2-1.0) Aspartate Amino Transferase (AST) 38 U/L (15-37) H 33 U/L (15-37) Alanine Aminotransferase (ALT) 19 U/L (12-78) 15 U/L (12-78) Alkaline Phosphatase 552 U/L (46-116) H 506 U/L (46-116) H Total Creatine Kinase 203 U/L (26-140) H Creatine Kinase MB 23.3 NG/ML (0.0-3.6) H Creatine Kinase MB Relative Index 11.4 Troponin I 0.000 ng/mL (0.000-0.056) Pro-B-Type Natriuretic Peptide 1065 pg/mL (0-125) H Total Protein 6.2 G/DL (6.4-8.2) L 5.9 G/DL (6.4-8.2) L Albumin 1.6 G/DL (3.4-5.0) L 1.6 G/DL (3.4-5.0) L Globulin 4.6 g/dL 4.3 g/dL Albumin/Globulin Ratio 0.3 (1.0-2.7) L 0.4 (1.0-2.7) L Lipase 94 U/L (73-393) Prothrombin Time 12.0 SEC (9.30-11.50) H Prothrombin Time INR 1.1 (0.9-1.1) PTT 34 SEC (23-33) H Urine Color Yellow Urine Appearance Cloudy Urine pH 7 (4.5-8.0) Urine Specific [place] 1.010 (1.005-1.035) Urine Protein 2+ (NEGATIVE) H Urine Glucose (UA) Negative (NEGATIVE) Urine Ketones Negative (NEGATIVE) Urine Blood 4+ (NEGATIVE) H Urine Nitrite Negative (NEGATIVE) Urine Bilirubin Negative (NEGATIVE) Urine Urobilinogen 4 MG/DL (0.0-1.0) H Urine Leukocyte Esterase 3+ (NEGATIVE) H Urine RBC 15-20 /HPF (0 - 0) H Urine WBC Tntc /HPF (0 - 0) H Urine Squamous Epithelial Cells None /LPF (NONE/OCC) Urine Bacteria Moderate /HPF (NONE) H Differential Total Cells Counted 100 Neutrophils % (Manual) 70 % (45-75) Lymphocytes % (Manual) 20 % (20-45) Monocytes % (Manual) 8 % (1-10) Eosinophils % (Manual) 2 % (0-3) Basophils % (Manual) 0 % (0-2) Band Neutrophils 0 % (0-8) Platelet Estimate Adequate Platelet Morphology Normal Hypochromasia 1+ Anisocytosis 1+ Microcytosis 1+ Hemoglobin A1c 6.0 % (4.3-6.0) Triglycerides Level 68 MG/DL (30-150) Cholesterol Level 95 MG/DL (< 200) LDL Cholesterol 58 mg/dL (<100) HDL Cholesterol 28 MG/DL (40-60) L Cholesterol/HDL Ratio 3.4 (3.3-4.4) Prostate Specific Antigen 430.41 ng/mL (0.13-4.0) H Thyroid Stimulating Hormone (TSH) 4.201 uiU/mL (0.358-3.740) EKG Diagnostic Results EKG Time: 19:43 EP Interpretation: NSR rate 78, QTc 503, RBBB, LAFB no acute ST elevations Chest X-Ray Diagnostic Results Chest X-Ray Diagnostic Results : Chest X-Ray Ordered: Yes # of Views/Limited/Complete: 1 View Indication: Other - weakness EP Interpretation: Yes Interpretation: no consolidation, no effusion, no pneumothorax, no acute cardiopulmonary disease Impression: No acute disease Electronically Signed by: Angelito Arriaga MD Last Vital Signs Date Time Temp Pulse Resp B/P (MAP) Pulse Ox O2 Delivery O2 Flow Rate FiO2 10/28/18 19:32 98.2 81 14 125/73 (90) 97 Room Air Disposition: ADMITTED INPATIENT Condition: Stable Referrals: Prabhu Trejo DO (PCP) Angelito Arriaga MD Oct 28, 2018 20:00
[2018-10-28 20:51] LABS: BASOPHILS % (AUTO) 0.7 % (0.0-2.0); EOSINOPHILS % (AUTO) 0.5 % (0.0-3.0); HEMATOCRIT 28.8 % (42.0-52.0); HEMOGLOBIN 8.7 G/DL (14.2-18.0); LYMPHOCYTES % (AUTO) 18.4 % (20.0-45.0); MEAN CORPUSCULAR VOLUME 78 FL (80-99); MONOCYTES % (AUTO) 9.3 % (1.0-10.0); NEUTROPHILS % (AUTO) 71.2 % (45.0-75.0); PLATELET COUNT 184 K/UL (150-450); RED BLOOD COUNT 3.69 M/UL (4.70-6.10); WHITE BLOOD COUNT 8.1 K/UL (4.8-10.8)
[2018-10-28] MEDS ORDERED: Morphine Sulfate 4mg/ml Inj (IV USE ONLY) IVP ONE (21:00)
[2018-10-28 21:27] LABS: ALANINE AMINOTRANSFERASE 19 U/L (12-78); ALBUMIN 1.6 G/DL (3.4-5.0); ALBUMIN/GLOBULIN RATIO 0.3 (1.0-2.7); ALKALINE PHOSPHATASE 552 U/L (46-116); ANION GAP 10 mmol/L (5-15); ASPARTATE AMINO TRANSFERASE 38 U/L (15-37); BILIRUBIN,TOTAL 0.6 MG/DL (0.2-1.0); BLOOD UREA NITROGEN 20 mg/dL (7-18); CALCIUM 8.5 MG/DL (8.5-10.1); CARBON DIOXIDE 28 MMOL/L (21-32); CHLORIDE 102 MMOL/L (98-107); CREATININE 0.6 MG/DL (0.55-1.30); PHOSPHORUS 2.7 MG/DL (2.5-4.9); POTASSIUM 3.7 MMOL/L (3.5-5.1); SODIUM 140 MMOL/L (136-145)
--- NOTE | 2018-10-28 21:30 | NUR ---
TRANSFER TO FLOOR: Patient transferred to as ordered, per DR GUTIERREZ. Report given to LORI Adler. Belongings and medications given to . Family and or S/O informed of transfer.
[2018-10-28 21:32] LABS: CKMB 23.3 NG/ML (0.0-3.6); CREATINE KINASE 203 U/L (26-140)
[2018-10-28 21:42] LABS: APPEARANCE,URINE CLOUDY; BILIRUBIN, URINE NEGATIVE (NEGATIVE); COLOR,URINE YELLOW; GLUCOSE, URINE (UA) NEGATIVE (NEGATIVE); KETONES,URINE NEGATIVE (NEGATIVE); LEUKOCYTE ESTERASE ,URINE 3+ (NEGATIVE); NITRITE,URINE NEGATIVE (NEGATIVE); PH,URINE 7 (4.5-8.0); PROTEIN,URINE 2+ (NEGATIVE); UROBILINOGEN,URINE 4 MG/DL (0.0-1.0)
[2018-10-28 21:49] LABS: INR 1.1 (0.9-1.1)
[2018-10-28 22:19] VITALS: BP 115/61
[2018-10-28] MEDS ORDERED: Miralax 17gm pkt ORAL PRN (22:30)
[2018-10-28] MEDS ORDERED: LORazepam Inj 2mg/ml 1ml IV PRN (22:30)
[2018-10-28] MEDS ORDERED: Morphine Sulfate 2mg/ml Inj(IV/IM USE ONLY) IVP PRN (22:30)
[2018-10-29] VITALS (7 sets, daily range): BP systolic 93–137; BP diastolic 60–83
--- NOTE | 2018-10-29 02:11 | NUR ---
NURSES NOTE: Pt received at apprx 2230 from ED. Patient answers some questions appropriately, but has moments of confusion, A/O x2. Pt claims he is experiencing pain but is unable to explain location or describe pain. VS taken, within normal limits. Admission process initiated. Pt noted with many pressure ulcers and skin tears on various locations of the body. Necessary documentation of such locations processed. Pt left appearing comfortable and at rest. Bed at lowest level, call light within reach.
--- NOTE | 2018-10-29 02:30 | NUR ---
NURSE NOTES: Pt transferred in stable condition to [facility]. Report given to LORI Navas; endorsed to please start TF. Will continue to monitor.
--- NOTE | 2018-10-29 02:41 | NUR ---
NURSE NOTES: Received report from Sly. Kept clean and comfortable. Patient alert x 2. Skin is warm, noted with dressing change , intact, clean. IV site noted. GT site noted, will start feeding as ordered. No s/s of pain or discomfort noted. Abdomen is soft and non distended. Oriented patient to the room. No belongings. Call light is at bedside. Will continue plan of care.
[2018-10-29 06:39] LABS: HEMATOCRIT 25.9 % (42.0-52.0); HEMOGLOBIN 7.8 G/DL (14.2-18.0); MEAN CORPUSCULAR VOLUME 78 FL (80-99); PLATELET COUNT 196 K/UL (150-450); RED BLOOD COUNT 3.34 M/UL (4.70-6.10); RED CELL DISTRIBUTION WIDTH 17.3 % (11.6-14.8); WHITE BLOOD COUNT 8.3 K/UL (4.8-10.8)
--- NOTE | 2018-10-29 07:28 | NUR ---
HAND-OFF: Report given to LORI Hopkins.
[2018-10-29 07:50] LABS: ALANINE AMINOTRANSFERASE 15 U/L (12-78); ALBUMIN 1.6 G/DL (3.4-5.0); ALBUMIN/GLOBULIN RATIO 0.4 (1.0-2.7); ALKALINE PHOSPHATASE 506 U/L (46-116); ANION GAP 7 mmol/L (5-15); ASPARTATE AMINO TRANSFERASE 33 U/L (15-37); BILIRUBIN,TOTAL 0.7 MG/DL (0.2-1.0); BLOOD UREA NITROGEN 19 mg/dL (7-18); CALCIUM 8.4 MG/DL (8.5-10.1); CARBON DIOXIDE 29 MMOL/L (21-32); CHLORIDE 106 MMOL/L (98-107); CHOLESTEROL 95 MG/DL (< 200); CREATININE 0.6 MG/DL (0.55-1.30); HDL CHOLESTEROL 28 MG/DL (40-60); SODIUM 142 MMOL/L (136-145); TRIGLYCERIDES 68 MG/DL (30-150)
--- NOTE | 2018-10-29 07:53 | NUR ---
NURSE NOTES: received pt in bed, no complaint of pain or discomfort. Patient is bedbound. Patient receives Jevity 1.2@ 50cc/hr x20hr. Has MAURI saline locked IV access. Baez catheter [address], anchored to right thigh. Bed locked at the lowest position possible, call light within easy reach, siderails upx2. Will continue to monitor pt and follow up with the plan of care.
[2018-10-29] MEDS: Heparin 5000 units/ml inj SUBQ SCH ×2 (08:45→20:49)
[2018-10-29] MEDS ORDERED: Ritonavir 100mg tab ORAL SCH (09:00)
[2018-10-29] MEDS ORDERED: Darunavir 600mg tab ORAL SCH (09:00)
--- NOTE | 2018-10-29 09:00 | NUR ---
P.T Note: P.T evaluation completed. Pt is alert, O x 2 , follows simple one step commands. Pt presented LOM on B shoulders due to tightness and LLE Hip and knee flexion contracture. Pt is apprehensive and resistive during mobility assessment. Pt is dependent in all areas of bed mobilities. Based on P.T evaluation , pt is baseline dependent in all aspects of ADL/self care and locomotion and not a candidate for skilled P.T services. Recommend DC to prior living arrangement for total care and comfort. DC P.T services. Thank you for this referral.
--- NOTE | 2018-10-29 10:16 | NUR ---
RD ASSESSMENT & RECOMMENDATIONS SEE CARE ACTIVITY FOR COMPLETE ASSESSMENT DAILY ESTIMATED NEEDS: Needs based on Malnutrition, HIV, severe wasting, wounds, 43kg 30-40 kcals/kg 7975-0007 total kcals 1.25-2 g protein/kg 54-86 g total protein 25-30 mL/kg 3780-0831 total fluid mLs NUTRITION DIAGNOSIS: Malnutrition, severe, in the context of chronic disease r/t HIV, FTT, h/o prostate ca, as evidenced by pt w/ severe generalized wasting, presents w/ 46lbs wt loss/ 33% unfavorable wt change in 2 years, currently @53% of [place] Body Weight. CURRENT TF:Jevity 1.2 @50 x20 ENTERAL NUTRITION RECOMMENDATIONS: Glucerna 1.2 @55ml/hr x24 hrs to provide 1320ml, 1584 kcal, 79g pro, 1063ml free H2O - Rec rate and TF change to Glucerna 1.2. - Initiate @35ml/hr for 6 hrs, advance as tolerated 10ml/hr q4-6 hrs to goal rate - Flush per MD, HOB over 30 degrees -------- ADDITIONAL RECOMMENDATIONS: * Pt is 6ft tall (72 inches) and 43.2kg per bed scale * REC TF CHANGE ABOVE * WOUND CARE: (f/up w/ WC eval) Add DEBBIE BID Add VIT C 500mg daily * Weekly CALIBRATED BED SCALE WTS * NISS w/ TF's for glycemic control
--- NOTE | 2018-10-29 10:36 | GI Initial Consult Note ---
History of Present Illness General Date patient seen: Oct 29, 2018 Time patient seen: 10:32 Reason for Hospitalization: Generalized Weakness Referring physician: YOUNG GUTIERREZ Reason for Consultation: FTT Present Illness HPI 83-year-old male history of HIV, failure to thrive x19 days, patient is not eating, unknown aggravating or relieving factors severity is severe, symptoms are constant, patient is a poor historian, cannot tell me what is going on he states everything is hurting there may be a component of dementia. GI consulted for FTT. Pt seen, awake alert NAD, GT dependent. At time of evaluation, no active s/sx of N/V/D. GTF's currently running. Abdomen soft, non distended, no tenderness. Presents today with Hgb of 7.8. Home Meds Active Scripts Diphenoxylate HCl/Atropine (Lomotil Tablet) 1 Each Tablet, 1 EACH PO THREE TIMES A DAY for diarrhea, #20 TAB Prov:Curtis Gallegos MD 01/01/18 Promethazine/Dextromethorphan (Promethazine-Dm Syrup) 6.25 Mg/5 Ml Syrp, 1 TSP ORAL Q4H PRN for For Cough, #118 ML 0 Refills Prov:Curtis Gallegos MD 01/01/18 Docusate Sodium* (COLACE*) 100 Mg Capsule, 100 MG ORAL TWICE A DAY, #60 CAP Prov:Juana Suarez DO 10/22/17 Polyethylene Glycol 3350* (MIRALAX*) 17 Gm Powd.pack, 17 GM ORAL DAILY, #30 PACKET Prov:Juana Suarez DO 10/22/17 Ciprofloxacin Hcl* (CIPROFLOXACIN HCL*) 500 Mg Tablet, 500 MG ORAL Q12H for 10 Days, #20 TAB 0 Refills Prov:Juana Suarez DO 10/22/17 Benzonatate* (TESSALON PERLE*) 100 Mg Capsule, 100 MG ORAL THREE TIMES A DAY for 7 Days, #21 PERLE 0 Refills Prov:Retino,Clairose M.D. 02/10/17 Benzocaine (ORABASE) 11.9 Gm Paste..g., 11.9 GM MM BID, #1 TUBE 0 Refills Prov:Retino,Clairose M.D. 02/10/17 Dicyclomine Hcl* (BENTYL*) 10 Mg Capsule, 10 MG ORAL BID, #10 CAP Prov:Lou Chen 11/09/16 Levofloxacin (LEVOFLOXACIN*) 500 Mg Tablet, 500 MG ORAL DAILY for 28 Days, #28 TAB Prov:Cezar Jacob M.D. 08/18/16 Ibuprofen* (MOTRIN*) 600 Mg Tablet, 600 MG ORAL Q8H PRN for For Pain, #30 TAB Prov:ANALI RAMIREZ 08/11/15 Cephalexin* (KEFLEX*) 500 Mg Capsule, 500 MG ORAL Q6H, #28 CAP Prov:Matty Macedo MD 05/17/15 Phenazopyridine Hcl* (PYRIDIUM*) 100 Mg Tablet, 100 MG ORAL THREE TIMES A DAY for 3 Days, TAB Prov:Anderson Jerry MD 08/31/13 Trimethoprim/Sulfamethoxazole 160/800* (BACTRIM DS TABLET*) 1 Each Tablet, 1 TAB ORAL Q12H, #28 TAB Prov:Anderson Jerry MD 08/31/13 Reported Medications Acetaminophen (Tylenol) 325 Mg Tablet, 650 MG ORAL Q4HR for temperature >100.5, #30 TAB 0 Refills 04/30/18 Polyethylene Glycol 3350* (MIRALAX*) 17 Gm Powd.pack, 17 GM ORAL DAILY, PACKET 04/30/18 Zolpidem Tartrate* (AMBIEN*) 5 Mg Tablet, 5 MG ORAL BEDTIME PRN for Insomnia, TAB 04/30/18 Methadone Hcl* (METHADONE*) 5 Mg Tablet, 5 MG PO EVERY 12 HOURS, #10 TAB 0 Refills 04/30/18 Methadone Hcl (METHADONE HCL) 5 Mg/5 Ml Solution, 5 MG PO EVERY 12 HOURS 04/30/18 Ritonavir* (NORVIR*) 100 Mg Capsule, 100 MG ORAL TWICE A DAY, #60 CAP 04/30/18 Raltegravir Potassium (ISENTRESS) 100 Mg Tab.chew, 400 MG ORAL TWICE A DAY, TAB 04/30/18 Etravirine* (INTELENCE*) 100 Mg Tablet, 200 MG ORAL EVERY 12 HOURS, #60 TAB 0 Refills 04/30/18 Memantine Hcl* (NAMENDA*) 5 Mg Tablet, 5 MG ORAL TWICE A DAY, TAB 04/30/18 Carvedilol (Coreg) 3.125 Mg Tablet, ORAL EVERY 12 HOURS, TAB 04/25/18 Levofloxacin* (LEVAQUIN*) 500 Mg Tablet, 500 MG ORAL DAILY for 28 Days, TAB 08/18/16 Levofloxacin* (LEVAQUIN*) 500 Mg Tablet, 500 MG ORAL DAILY for 28 Days, TAB 08/18/16 Ritonavir* (NORVIR*) 100 Mg Capsule, 100 MG ORAL TWICE A DAY 08/14/16 Lisinopril* (LISINOPRIL*) 40 Mg Tablet, 40 MG ORAL DAILY 08/14/16 Nicotine (NICOTINE PATCH) 1 Each Patch.td24, 21 MG TD 08/14/16 Etravirine (INTELENCE) 200 Mg Tablet, 200 MG ORAL BID 08/14/16 Aspirin* (ASPIR 81*) 81 Mg Tablet.dr, 81 MG ORAL DAILY 08/14/16 Darunavir Ethanolate* (PREZISTA*) 600 Mg Tablet, 600 MG ORAL EVERY 12 HOURS, TAB 04/25/16 Emtricitabine/Tenofovir (Truvada 100 mg-150 mg Tablet) 1 Each Tablet, 1 EACH PO , TAB 04/25/16 Med list reviewed/reconciled: Yes Allergies: Coded Allergies: No Known Allergies (Unverified , 08/31/13) Patient History Limited by: medical condition History Provided By: Medical Record PMH Narrative Limited by: medical condition - Demented Past Medical History: see triage record, old chart reviewed Reviewed Nursing Documentation: PMH: Agreed; PSxH: Agreed Nursing Documentation-PMH Hx Cardiac Problems: Yes - HIV POSITIVE Hx Hypertension: Yes Hx Pacemaker: No Hx Asthma: No Hx COPD: No Hx Diabetes: No Hx Cancer: Yes - prostate Hx Gastrointestinal Problems: Yes Hx Dialysis: No Hx Neurological Problems: No Hx Cerebrovascular Accident: No Hx Seizures: No Review of Systems All Other Systems: limited Physical Exam Vital Signs Date Time Temp Pulse Resp B/P (MAP) Pulse Ox O2 Delivery O2 Flow Rate FiO2 10/28/18 19:32 98.2 81 14 125/73 (90) 97 Room Air Sp02 EP Interpretation: reviewed, normal Labs Laboratory Tests Test 10/28/18 20:25 10/28/18 21:20 10/28/18 21:30 10/29/18 05:15 White Blood Count 8.1 K/UL (4.8-10.8) 8.3 K/UL (4.8-10.8) Red Blood Count 3.69 M/UL (4.70-6.10) L 3.34 M/UL (4.70-6.10) L Hemoglobin 8.7 G/DL (14.2-18.0) L 7.8 G/DL (14.2-18.0) L Hematocrit 28.8 % (42.0-52.0) L 25.9 % (42.0-52.0) L Mean Corpuscular Volume 78 FL (80-99) L 78 FL (80-99) L Mean Corpuscular Hemoglobin 23.7 PG (27.0-31.0) L 23.4 PG (27.0-31.0) L Mean Corpuscular Hemoglobin Concent 30.4 G/DL (32.0-36.0) L 30.1 G/DL (32.0-36.0) L Red Cell Distribution Width 16.0 % (11.6-14.8) H 17.3 % (11.6-14.8) H Platelet Count 184 K/UL (150-450) 196 K/UL (150-450) Mean Platelet Volume 7.2 FL (6.5-10.1) 6.4 FL (6.5-10.1) L Neutrophils (%) (Auto) 71.2 % (45.0-75.0) % (45.0-75.0) Lymphocytes (%) (Auto) 18.4 % (20.0-45.0) L % (20.0-45.0) Monocytes (%) (Auto) 9.3 % (1.0-10.0) % (1.0-10.0) Eosinophils (%) (Auto) 0.5 % (0.0-3.0) % (0.0-3.0) Basophils (%) (Auto) 0.7 % (0.0-2.0) % (0.0-2.0) Sodium Level 140 MMOL/L (136-145) 142 MMOL/L (136-145) Potassium Level 3.7 MMOL/L (3.5-5.1) 4.0 MMOL/L (3.5-5.1) Chloride Level 102 MMOL/L (98-107) 106 MMOL/L (98-107) Carbon Dioxide Level 28 MMOL/L (21-32) 29 MMOL/L (21-32) Anion Gap 10 mmol/L (5-15) 7 mmol/L (5-15) Blood Urea Nitrogen 20 mg/dL (7-18) H 19 mg/dL (7-18) H Creatinine 0.6 MG/DL (0.55-1.30) 0.6 MG/DL (0.55-1.30) Estimat Glomerular Filtration Rate mL/min (>60) mL/min (>60) Glucose Level 93 MG/DL (74-106) 81 MG/DL (74-106) Lactic Acid Level 2.60 mmol/L (0.4-2.0) H 2.00 mmol/L (0.66-2.22) Calcium Level 8.5 MG/DL (8.5-10.1) 8.4 MG/DL (8.5-10.1) L Phosphorus Level 2.7 MG/DL (2.5-4.9) Magnesium Level 2.2 MG/DL (1.8-2.4) Total Bilirubin 0.6 MG/DL (0.2-1.0) 0.7 MG/DL (0.2-1.0) Aspartate Amino Transf (AST/SGOT) 38 U/L (15-37) H 33 U/L (15-37) Alanine Aminotransferase (ALT/SGPT) 19 U/L (12-78) 15 U/L (12-78) Alkaline Phosphatase 552 U/L (46-116) H 506 U/L (46-116) H Total Creatine Kinase 203 U/L (26-140) H Creatine Kinase MB 23.3 NG/ML (0.0-3.6) H Creatine Kinase MB Relative Index 11.4 Troponin I 0.000 ng/mL (0.000-0.056) Pro-B-Type Natriuretic Peptide 1065 pg/mL (0-125) H Total Protein 6.2 G/DL (6.4-8.2) L 5.9 G/DL (6.4-8.2) L Albumin 1.6 G/DL (3.4-5.0) L 1.6 G/DL (3.4-5.0) L Globulin 4.6 g/dL 4.3 g/dL Albumin/Globulin Ratio 0.3 (1.0-2.7) L 0.4 (1.0-2.7) L Lipase 94 U/L (73-393) Prothrombin Time 12.0 SEC (9.30-11.50) H Prothromb Time International Ratio 1.1 (0.9-1.1) Activated Partial Thromboplast Time 34 SEC (23-33) H Urine Color Yellow Urine Appearance Cloudy Urine pH 7 (4.5-8.0) Urine Specific [place] 1.010 (1.005-1.035) Urine Protein 2+ (NEGATIVE) H Urine Glucose (UA) Negative (NEGATIVE) Urine Ketones Negative (NEGATIVE) Urine Blood 4+ (NEGATIVE) H Urine Nitrite Negative (NEGATIVE) Urine Bilirubin Negative (NEGATIVE) Urine Urobilinogen 4 MG/DL (0.0-1.0) H Urine Leukocyte Esterase 3+ (NEGATIVE) H Urine RBC 15-20 /HPF (0 - 0) H Urine WBC Tntc /HPF (0 - 0) H Urine Squamous Epithelial Cells None /LPF (NONE/OCC) Urine Bacteria Moderate /HPF (NONE) H Differential Total Cells Counted 100 Neutrophils % (Manual) 70 % (45-75) Lymphocytes % (Manual) 20 % (20-45) Monocytes % (Manual) 8 % (1-10) Eosinophils % (Manual) 2 % (0-3) Basophils % (Manual) 0 % (0-2) Band Neutrophils 0 % (0-8) Platelet Estimate Adequate Platelet Morphology Normal Hypochromasia 1+ Anisocytosis 1+ Microcytosis 1+ Hemoglobin A1c 6.0 % (4.3-6.0) Triglycerides Level 68 MG/DL (30-150) Cholesterol Level 95 MG/DL (< 200) LDL Cholesterol 58 mg/dL (<100) HDL Cholesterol 28 MG/DL (40-60) L Cholesterol/HDL Ratio 3.4 (3.3-4.4) Thyroid Stimulating Hormone (TSH) 4.201 uiU/mL (0.358-3.740) General Appearance: no apparent distress, thin Head: normocephalic EENT: PERRL/EOMI, normal ENT inspection Neck: supple Respiratory: normal breath sounds, no respiratory distress Cardiovascular: normal rate Gastrointestinal: normal inspection, non tender, soft, normal bowel sounds, non -distended Rectal: deferred Genitourinary: deferred Musculoskeletal: normal inspection, back normal Neurologic: alert, responsive Skin: normal inspection, normal color, no rash, warm/dry, palpation normal, well hydrated Lymphatic: normal inspection, no adenopathy Current Medications Current Medications Medications (Trade) Dose Ordered Sig/Delgado Route PRN Reason Start Time Stop Time Status Last Admin Dose Admin Acetaminophen (Tylenol) 650 mg Q4H PRN ORAL fever 10/28/18 22:30 11/27/18 22:29 Darunavir (Prezista) 600 mg EVERY 12 HOURS ORAL 10/29/18 09:00 11/28/18 08:59 UNV Dextrose (Dextrose 50%) 25 ml Q30M PRN IV Hypoglycemia 10/28/18 22:30 11/27/18 22:29 Dextrose (Dextrose 50%) 50 ml Q30M PRN IV Hypoglycemia 10/28/18 22:30 11/27/18 22:29 Heparin Sodium (Porcine) (Heparin 5000 units/ml) 5,000 units EVERY 12 HOURS SUBQ 10/29/18 09:00 11/28/18 08:59 10/29/18 08:45 Lorazepam (Ativan 2mg/ml 1ml) 0.5 mg Q4H PRN IV For Anxiety 10/28/18 22:30 11/04/18 22:29 Methadone HCl (Methadone HCl) 5 mg EVERY 12 HOURS ORAL 10/29/18 09:00 11/05/18 08:59 UNV Morphine Sulfate (Morphine Sulfate) 1 mg EVERY 4 HOURS PRN IVP For Pain 10/28/18 22:30 11/04/18 22:29 Ondansetron HCl (Zofran) 4 mg Q6H PRN IVP Nausea & Vomiting 10/28/18 22:30 11/27/18 22:29 Polyethylene Glycol (Miralax) 17 gm HSPRN PRN ORAL Constipation 10/28/18 22:30 11/27/18 22:29 Ritonavir (Norvir) 100 mg TWICE A DAY ORAL 10/29/18 09:00 11/28/18 08:59 UNV Zolpidem Tartrate (Ambien) 5 mg HSPRN PRN ORAL Insomnia 10/28/18 22:30 11/04/18 22:29 GI: Plan Problems: (1) Anemia (2) Failure to thrive (3) Dehydration (4) Altered mental status (5) FTT (failure to thrive) in adult (6) Protein-calorie malnutrition, severe Plan dietary consult for nutritional needs ST evaluation for oral gratification continue GT feedings GT site care daily/prn anemia work up, will consider EGD if needed OB stool r/o GI bleed monitor H&H, prn transfusions bowel regimen ppi fu labs Discussed with Dr. Patten. Thank you for this patient referral, we will follow. The patient was seen and examined at bedside and all new and available data was reviewed in the patients chart. I agree with the above findings, impression and plan. (Patient seen earlier today. Signature stamp does not reflect patient encounter time.). - MD Yoon ChavezHonorhealth Scottsdale Thompson Peak Medical CenterAdy CHRISTIANSON Oct 29, 2018 10:36
--- NOTE | 2018-10-29 11:06 | Diagnostic Imaging Report ---
Indication: Dyspnea Comparison: 04/26/2018 A single view chest radiograph was obtained. 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 Findings are unchanged. The heart is enlarged. Aorta is ectatic. There is abnormal sclerosis of the right glenoid and scapula suspicious for infiltrative disease such as metastatic neoplasm. Some of the thoracic vertebra and ribs also appear dense. IMPRESSION: Interstitial densities unchanged from the previous examination likely reflecting fibrosis. Further examination of this with CT may be of benefit. 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
--- NOTE | 2018-10-29 11:14 | Consultation ---
History of Present Illness General Date patient seen: Oct 29, 2018 Reason for Hospitalization: Generalized Weakness Present Illness HPI This is a very pleasant 83-year-old male with multiple medical comorbidities including HIV who is a long-term resident that has been losing weight and significantly deteriorating with failure to thrive for some time now there was admitted to [facility] for care and management. On admission identified to have multiple concerning follow-up wounds requiring extensive care. Surgery called to evaluate and assist with care. Patient seen, patient evaluated, chart reviewed. Patient states he is well. Patient knows his name or president where he is what city he was born in and is fairly cognitively actively intact patient is aware of the multiple decubitus injuries he sustained states he does not move around much and just stays in bed to be comfortable. Allergies: Coded Allergies: No Known Allergies (Unverified , 08/31/13) Medication History Scheduled Acetaminophen (Tylenol), 650 MG ORAL Q4HR, (Reported) Aspirin* (Aspir 81*), 81 MG ORAL DAILY, (Reported) Benzocaine (Orabase), 11.9 GM MM BID Benzonatate* (Tessalon Perle*), 100 MG ORAL THREE TIMES A DAY Carvedilol (Coreg), Unknown Dose ORAL EVERY 12 HOURS, (Reported) Cephalexin* (Keflex*), 500 MG ORAL Q6H Ciprofloxacin Hcl* (Ciprofloxacin Hcl*), 500 MG ORAL Q12H Darunavir Ethanolate* (Prezista*), 600 MG ORAL EVERY 12 HOURS, (Reported) Dicyclomine Hcl* (Bentyl*), 10 MG ORAL BID Diphenoxylate HCl/Atropine (Lomotil Tablet), 1 EACH PO THREE TIMES A DAY Docusate Sodium* (Colace*), 100 MG ORAL TWICE A DAY Etravirine (Intelence), 200 MG ORAL BID, (Reported) Etravirine* (Intelence*), 200 MG ORAL EVERY 12 HOURS, (Reported) Levofloxacin (Levofloxacin*), 500 MG ORAL DAILY Levofloxacin* (Levaquin*), 500 MG ORAL DAILY, (Reported) Levofloxacin* (Levaquin*), 500 MG ORAL DAILY, (Reported) Lisinopril* (Lisinopril*), 40 MG ORAL DAILY, (Reported) Memantine Hcl* (Namenda*), 5 MG ORAL TWICE A DAY, (Reported) Methadone Hcl (Methadone Hcl), 5 MG PO EVERY 12 HOURS, (Reported) Methadone Hcl* (Methadone*), 5 MG PO EVERY 12 HOURS, (Reported) Phenazopyridine Hcl* (Pyridium*), 100 MG ORAL THREE TIMES A DAY Polyethylene Glycol 3350* (Miralax*), 17 GM ORAL DAILY Polyethylene Glycol 3350* (Miralax*), 17 GM ORAL DAILY, (Reported) Raltegravir Potassium (Isentress), 400 MG ORAL TWICE A DAY, (Reported) Ritonavir* (Norvir*), 100 MG ORAL TWICE A DAY, (Reported) Ritonavir* (Norvir*), 100 MG ORAL TWICE A DAY, (Reported) Trimethoprim/Sulfamethoxazole 160/800* (Bactrim Ds Tablet*), 1 TAB ORAL Q12H Scheduled PRN Ibuprofen* (Motrin*), 600 MG ORAL Q8H PRN for For Pain Promethazine/Dextromethorphan (Promethazine-Dm Syrup), 1 TSP ORAL Q4H PRN for For Cough Zolpidem Tartrate* (Ambien*), 5 MG ORAL BEDTIME PRN for Insomnia, (Reported) Miscellaneous Medications Emtricitabine/Tenofovir (Truvada 100 mg-150 mg Tablet), 1 EACH PO, (Reported) Nicotine (Nicotine Patch), 21 MG TD, (Reported) Patient History History Provided By: Patient, Medical Record, PMD Healthcare decision maker Resuscitation status Advanced Directive on File Past Medical/Surgical History Past Medical/Surgical History: (1) Polyneuropathic pain (2) Acute encephalopathy (3) Sepsis (4) Prostate cancer (5) Failure to thrive (6) Dehydration (7) Altered mental status (8) Anemia (9) FTT (failure to thrive) in adult (10) Protein-calorie malnutrition, severe (11) Gastrointestinal hemorrhage (12) Acute UTI (13) Hypertension (14) Angioedema (15) Interstitial lung disease (16) Facial laceration (17) Intracerebral bleed (18) HIV disease Review of Systems Review of Symptoms General ROS: no weight loss or fever Psychological ROS: no depression or mood changes, no memory loss Ophthalmic ROS: no visual changes or eye irritation ENT ROS: no nasal congestion, hearing loss, dizziness Allergy and Immunology ROS: no allergic symptoms or urticaria Hematological and Lymphatic ROS: no swollen glands, unusual bleeding or bruising Endocrine ROS: no polyuria, polydipsia, weight changes, temperature intolerance Respiratory ROS: no cough, shortness of breath, or wheezing Cardiovascular ROS: no chest pain or dyspnea on exertion Gastrointestinal ROS: denies abdominal pain, no bright red blood in stool. Musculoskeletal ROS: no myalgias or arthralgias Neurological ROS: no TIA or stroke symptoms Dermatological ROS: no new or changing skin lesions, rashes or pruritis Physical Exam Physical Exam General appearance: alert, cooperative, no distress, appears stated age Head: Normocephalic, without obvious abnormality, atraumatic Eyes: conjunctivae/corneas clear. PERRL, EOM's intact. Fundi benign Throat: Lips, mucosa, and tongue normal. Teeth and gums normal Neck: supple, symmetrical, trachea midline, no adenopathy, thyroid: not enlarged, symmetric, no tenderness/mass/nodules, no carotid bruit and no JVD Lungs: clear to auscultation bilaterally Heart: regular rate and rhythm, S1, S2 normal, no murmur, click, rub or gallop Abdomen: soft, non-tender. Bowel sounds normal. No masses, no organomegaly Extremities: extremities see below Pulses: 2+ and symmetric Skin: Skin color, texture, turgor normal. No rashes or lesions Neurologic: Grossly normal Last 24 Hour Vital Signs Date Time Temp Pulse Resp B/P (MAP) Pulse Ox O2 Delivery O2 Flow Rate FiO2 10/29/18 08:00 98.6 93 20 123/79 (94) 98 10/29/18 04:00 97.2 90 20 93/60 (71) 95 10/29/18 01:00 Room Air 10/29/18 00:00 98.0 90 16 108/60 (76) 93 10/28/18 22:19 97.2 82 18 115/61 (79) 97 10/28/18 21:46 98.2 10/28/18 21:30 98.2 84 14 125/73 97 Room Air 10/28/18 19:35 81 14 Room Air 10/28/18 19:35 98.2 84 14 125/73 97 Room Air 10/28/18 19:32 98.2 81 14 125/73 (90) 97 Room Air Intake and Output 10/28/18 10/29/18 19:00 07:00 Intake Total 600 ml Output Total 250 ml Balance 350 ml Intake Free Water 500 ml Tube Feeding 100 ml Output Urine Total 250 ml Laboratory Tests Test 10/28/18 20:25 10/28/18 21:20 10/28/18 21:30 10/29/18 05:15 White Blood Count 8.1 K/UL (4.8-10.8) 8.3 K/UL (4.8-10.8) Red Blood Count 3.69 M/UL (4.70-6.10) L 3.34 M/UL (4.70-6.10) L Hemoglobin 8.7 G/DL (14.2-18.0) L 7.8 G/DL (14.2-18.0) L Hematocrit 28.8 % (42.0-52.0) L 25.9 % (42.0-52.0) L Mean Corpuscular Volume 78 FL (80-99) L 78 FL (80-99) L Mean Corpuscular Hemoglobin 23.7 PG (27.0-31.0) L 23.4 PG (27.0-31.0) L Mean Corpuscular Hemoglobin Concent 30.4 G/DL (32.0-36.0) L 30.1 G/DL (32.0-36.0) L Red Cell Distribution Width 16.0 % (11.6-14.8) H 17.3 % (11.6-14.8) H Platelet Count 184 K/UL (150-450) 196 K/UL (150-450) Mean Platelet Volume 7.2 FL (6.5-10.1) 6.4 FL (6.5-10.1) L Neutrophils (%) (Auto) 71.2 % (45.0-75.0) % (45.0-75.0) Lymphocytes (%) (Auto) 18.4 % (20.0-45.0) L % (20.0-45.0) Monocytes (%) (Auto) 9.3 % (1.0-10.0) % (1.0-10.0) Eosinophils (%) (Auto) 0.5 % (0.0-3.0) % (0.0-3.0) Basophils (%) (Auto) 0.7 % (0.0-2.0) % (0.0-2.0) Sodium Level 140 MMOL/L (136-145) 142 MMOL/L (136-145) Potassium Level 3.7 MMOL/L (3.5-5.1) 4.0 MMOL/L (3.5-5.1) Chloride Level 102 MMOL/L (98-107) 106 MMOL/L (98-107) Carbon Dioxide Level 28 MMOL/L (21-32) 29 MMOL/L (21-32) Anion Gap 10 mmol/L (5-15) 7 mmol/L (5-15) Blood Urea Nitrogen 20 mg/dL (7-18) H 19 mg/dL (7-18) H Creatinine 0.6 MG/DL (0.55-1.30) 0.6 MG/DL (0.55-1.30) Estimat Glomerular Filtration Rate mL/min (>60) mL/min (>60) Glucose Level 93 MG/DL (74-106) 81 MG/DL (74-106) Lactic Acid Level 2.60 mmol/L (0.4-2.0) H 2.00 mmol/L (0.66-2.22) Calcium Level 8.5 MG/DL (8.5-10.1) 8.4 MG/DL (8.5-10.1) L Phosphorus Level 2.7 MG/DL (2.5-4.9) Magnesium Level 2.2 MG/DL (1.8-2.4) Total Bilirubin 0.6 MG/DL (0.2-1.0) 0.7 MG/DL (0.2-1.0) Aspartate Amino Transf (AST/SGOT) 38 U/L (15-37) H 33 U/L (15-37) Alanine Aminotransferase (ALT/SGPT) 19 U/L (12-78) 15 U/L (12-78) Alkaline Phosphatase 552 U/L (46-116) H 506 U/L (46-116) H Total Creatine Kinase 203 U/L (26-140) H Creatine Kinase MB 23.3 NG/ML (0.0-3.6) H Creatine Kinase MB Relative Index 11.4 Troponin I 0.000 ng/mL (0.000-0.056) Pro-B-Type Natriuretic Peptide 1065 pg/mL (0-125) H Total Protein 6.2 G/DL (6.4-8.2) L 5.9 G/DL (6.4-8.2) L Albumin 1.6 G/DL (3.4-5.0) L 1.6 G/DL (3.4-5.0) L Globulin 4.6 g/dL 4.3 g/dL Albumin/Globulin Ratio 0.3 (1.0-2.7) L 0.4 (1.0-2.7) L Lipase 94 U/L (73-393) Prothrombin Time 12.0 SEC (9.30-11.50) H Prothromb Time International Ratio 1.1 (0.9-1.1) Activated Partial Thromboplast Time 34 SEC (23-33) H Urine Color Yellow Urine Appearance Cloudy Urine pH 7 (4.5-8.0) Urine Specific [place] 1.010 (1.005-1.035) Urine Protein 2+ (NEGATIVE) H Urine Glucose (UA) Negative (NEGATIVE) Urine Ketones Negative (NEGATIVE) Urine Blood 4+ (NEGATIVE) H Urine Nitrite Negative (NEGATIVE) Urine Bilirubin Negative (NEGATIVE) Urine Urobilinogen 4 MG/DL (0.0-1.0) H Urine Leukocyte Esterase 3+ (NEGATIVE) H Urine RBC 15-20 /HPF (0 - 0) H Urine WBC Tntc /HPF (0 - 0) H Urine Squamous Epithelial Cells None /LPF (NONE/OCC) Urine Bacteria Moderate /HPF (NONE) H Differential Total Cells Counted 100 Neutrophils % (Manual) 70 % (45-75) Lymphocytes % (Manual) 20 % (20-45) Monocytes % (Manual) 8 % (1-10) Eosinophils % (Manual) 2 % (0-3) Basophils % (Manual) 0 % (0-2) Band Neutrophils 0 % (0-8) Platelet Estimate Adequate Platelet Morphology Normal Hypochromasia 1+ Anisocytosis 1+ Microcytosis 1+ Hemoglobin A1c 6.0 % (4.3-6.0) Triglycerides Level 68 MG/DL (30-150) Cholesterol Level 95 MG/DL (< 200) LDL Cholesterol 58 mg/dL (<100) HDL Cholesterol 28 MG/DL (40-60) L Cholesterol/HDL Ratio 3.4 (3.3-4.4) Thyroid Stimulating Hormone (TSH) 4.201 uiU/mL (0.358-3.740) Microbiology Date/Time Source Procedure Growth Status 10/28/18 21:30 Urine,Clean Catch Urine Culture - Preliminary Resulted Height (Feet): 5 Height (Inches): 11.00 Weight (Pounds): 130 Medications Current Medications Medications (Trade) Dose Ordered Sig/Delgado Route PRN Reason Start Time Stop Time Status Last Admin Dose Admin Acetaminophen (Tylenol) 650 mg Q4H PRN ORAL fever 10/28/18 22:30 11/27/18 22:29 Darunavir (Prezista) 600 mg EVERY 12 HOURS ORAL 10/29/18 09:00 11/28/18 08:59 UNV Dextrose (Dextrose 50%) 25 ml Q30M PRN IV Hypoglycemia 10/28/18 22:30 11/27/18 22:29 Dextrose (Dextrose 50%) 50 ml Q30M PRN IV Hypoglycemia 10/28/18 22:30 11/27/18 22:29 Heparin Sodium (Porcine) (Heparin 5000 units/ml) 5,000 units EVERY 12 HOURS SUBQ 10/29/18 09:00 11/28/18 08:59 10/29/18 08:45 Lansoprazole (Prevacid) 30 mg DAILY GT 10/30/18 09:00 11/29/18 08:59 Lorazepam (Ativan 2mg/ml 1ml) 0.5 mg Q4H PRN IV For Anxiety 10/28/18 22:30 11/04/18 22:29 Methadone HCl (Methadone HCl) 5 mg EVERY 12 HOURS ORAL 10/29/18 09:00 11/05/18 08:59 UNV Morphine Sulfate (Morphine Sulfate) 1 mg EVERY 4 HOURS PRN IVP For Pain 10/28/18 22:30 11/04/18 22:29 Ondansetron HCl (Zofran) 4 mg Q6H PRN IVP Nausea & Vomiting 10/28/18 22:30 11/27/18 22:29 Polyethylene Glycol (Miralax) 17 gm HSPRN PRN ORAL Constipation 10/28/18 22:30 11/27/18 22:29 Ritonavir (Norvir) 100 mg TWICE A DAY ORAL 10/29/18 09:00 11/28/18 08:59 UNV Zolpidem Tartrate (Ambien) 5 mg HSPRN PRN ORAL Insomnia 10/28/18 22:30 11/04/18 22:29 Assessment/Plan Problem List: (1) Decubitus skin ulcer Assessment & Plan: Pt presented on admission with multiple pressure injuries and contractures. Pt is very emaciated. He is very pleasant and responsive. awake alert and cognitively intact Full thickness pressure injury L shoulder/L deltoid(L)4cm x (W)11.5cm. Base of wound has 30% slough ,70% pink granulation. Borders are macerated. Small amt non -odorous serous exudate. Periwound without erythema or induration. Two full thickness pressure injuries L iliac that are in close proximity. (#1 Proximal)Base of wound has 75% rivera slough,25% pink granulation. Erythematous borders. No odor or exudate noted(L)1cm x (W)2cm (#2 Inferior)Base of wound 100% rivera slough,erythematous margins. No odor or exudate noted. (L)2cm x (W)1.1cm. Partial thickness pressure injury R scapula. Base of wound is moist and viable. Edges flat and adherent to base of wound(L)3.5cm x (W)1cm. Second partial thickness pressure injury R scapula in close proximity to above wound. Base of wound is moist and viable. edges adhrent to base of wound. No exudate noted.(L)1.5cm x (W)1cm. Full thickness pressure injury L trochanteric. Base of wound Base of wound 90% soft necrosis ,10% kobe ,and is malodorous. Non blanchable erythema without induration or fluctuance periwound.(L)5.3cm x (W)6cm. Partial thickness pressure injury sacrum with surrounding hyperpigmentation. Base of wound is moist and viable(L)2cm x (W)1.2cm. Full thickness pressure injury R perianal region. Base of wound has 90% soft necrosis,erythematous along borders(L02.2cm x (W)1.5cm. Wound is malodorous. Two Full thickness pressure injuries R trochanteric that are in close proximity. (#1 Proximal) Base of wound has 100% soft necrosis. Wound is malodorous (L) 1.5cm x (W)2cm.(#2 Inferior)Base of wound is concave and is 100% necrotic with erythematous borders(L)3.5cm x (W)3cm.Wound is malodorous. Surrounding area of R greater trochanteric encompassing both wounds is indurated and erythematous. No elevation in skin temp noted.(L)9cm x (W)11.5cm Full thickness pressure injury R ischium .Base of wound is 100% necrotic with erythematous and macerated borders(L)4.5cm x (W)4cm. Dry eschar medial R foot . Periwound without erythema or induration.(L)1.8cm x ( W)4cm.. DTPI R hallux. Base of wound is fluctuant and maroon in colour. Marginal erythema periwound.(L)1.5cm x (W)1.9cm. Dry eschar lateral R malleolus(L)2.8cm x (W) 1.3cm. Stable dry eschar medial L knee . Periwound without erythema or induration. (L) 3.5cm x (W)4cm. Stable dry eschar lateral L malleolus. Periwound without erythema or induration. (L)2.5cm x (W)1cm. Spoke with patient in regards to above findings and plan. May consider debridement Tx.Plan: Cleanse wound L shoulder /L deltoid with saline. Apply Therahoney. Apply Cavilon Skin Barrier periwound. Cover with Optifoam drsg. Change Daily and prn. Cleanse wounds R trochanter, R Ischium, L trochanter , L ischium ,with Dakin's nina. 0.125%. Apply Dakin's moist Gauze to each wound . Apply Moisture Barrier paste periwound. Cover each wound with Optifoam drsg Daily and prn. Apply Moisture Barrier paste to perianal and sacral wounds. Cover with Optifoam drsg. Change every 3 days and prn. Apply Cavilon Skin Barrier to each heel. Cover each heel with Optifoam drsg. Change every 7 days and prn. APM/GRETA mattress overlay. Reposition at least every 2hours or as tolerated. Off-load heels with pillow. ICD Codes: L89.90 - Pressure ulcer of unspecified site, unspecified stage SNOMED: 984249482 (2) Failure to thrive SNOMED: 20793620 Qualifiers: Qualified Codes: R62.7 - Adult failure to thrive (3) Protein-calorie malnutrition, severe Assessment & Plan: DAILY ESTIMATED NEEDS: Needs based on Malnutrition, HIV, severe wasting, wounds, 43kg 30-40 kcals/kg 5433-4676 total kcals 1.25-2 g protein/kg 54-86 g total protein 25-30 mL/kg 6418-3469 total fluid mLs NUTRITION DIAGNOSIS: Malnutrition, severe, in the context of chronic disease r/t HIV, FTT, h/o prostate ca, as evidenced by pt w/ severe generalized wasting, presents w/ 46lbs wt loss/ 33% unfavorable wt change in 2 years, currently @53% of [place] Body Weight. CURRENT TF:Jevity 1.2 @50 x20 ENTERAL NUTRITION RECOMMENDATIONS: Glucerna 1.2 @55ml/hr x24 hrs to provide 1320ml, 1584 kcal, 79g pro, 1063ml free H2O - Rec rate and TF change to Glucerna 1.2. - Initiate @35ml/hr for 6 hrs, advance as tolerated 10ml/hr q4-6 hrs to goal rate - Flush per MD, HOB over 30 degrees -------- ADDITIONAL RECOMMENDATIONS: * Pt is 6ft tall (72 inches) and 43.2kg per bed scale * REC TF CHANGE ABOVE * WOUND CARE: (f/up w/ WC eval) Add DEBBIE BID Add VIT C 500mg daily * Weekly CALIBRATED BED SCALE WTS * NISS w/ TF's for glycemic control ICD Codes: E43 - Unspecified severe protein-calorie malnutrition SNOMED: [id number], [id number], [id number] Chris Jin Oct 29, 2018 11:14
--- NOTE | 2018-10-29 14:16 | NUR ---
NURSE NOTES:Pt presented on admission with multiple pressure injuries and contractures. Pt is very emaciated. Full thickness pressure injury L shoulder/L deltoid(L)4cm x (W)11.5cm. Base of wound has 30% slough ,70% pink granulation. Borders are macerated. Small amt non-odorous serous exudate. Periwound without erythema or induration. Two full thickness pressure injuries L iliac that are in close proximity.(#1 Proximal)Base of wound has 75% rivera slough,25% pink granulation. Erythematous borders. No odor or exudate noted(L)1cm x (W)2cm. (#2 Inferior)Base of wound 100% rivera slough, erythematous margins. No odor or exudate noted. (L)2cm x (W)1.1cm. Partial thickness pressure injury R scapula. Base of wound is moist and viable. Edges flat and adherent to base of wound(L)3.5cm x (W)1cm. Second partial thickness pressure injury R scapula in close proximity to above wound. Base of wound is moist and viable. edges adhrent to base of wound. No exudate noted.(L)1.5cm x (W)1cm. Full thickness pressure injury L trochanteric. Base of wound Base of wound 90% soft necrosis ,10% kobe ,and is malodorous. Non blanchable erythema without induration or fluctuance periwound.(L)5.3cm x (W)6cm. Partial thickness pressure injury sacrum with surrounding hyperpigmentation. Base of wound is moist and viable(L)2cm x (W)1.2cm. Full thickness pressure injury R perianal region. Base of wound has 90% soft necrosis,erythematous along borders(L02.2cm x (W)1.5cm. Wound is malodorous. Two Full thickness pressure injuries R trochanteric that are in close proximity.(#1 Proximal) Base of wound has 100% soft necrosis. Wound is malodorous (L)1.5cm x (W)2cm.(#2 Inferior)Base of wound is concave and is 100% necrotic with erythematous borders(L)3.5cm x (W)3cm.Wound is malodorous. Surrounding area of R greater trochanteric encompassing both wounds is indurated and erythematous. No elevation in skin temp noted.(L)9cm x (W)11.5cm Full thickness pressure injury R ischium .Base of wound is 100% necrotic with erythematous and macerated borders(L)4.5cm x (W)4cm. Dry eschar medial R foot . Periwound without erythema or induration.(L)1.8cm x (W)4cm.. DTPI R hallux. Base of wound is fluctuant and maroon in colour. Marginal erythema periwound.(L)1.5cm x (W)1.9cm. Dry eschar lateral R malleolus(L)2.8cm x (W) 1.3cm. Stable dry eschar medial L knee . Periwound without erythema or induration. (L)3.5cm x (W)4cm. Stable dry eschar lateral L malleolus. Periwound without erythema or induration. (L)2.5cm x (W)1cm. Tx.Plan: Cleanse wound L shoulder /L deltoid with saline. Apply Therahoney. Apply Cavilon Skin Barrier periwound. Cover with Optifoam drsg. Change Daily and prn. Cleanse wounds R trochanter, R Ischium, L trochanter , L ischium ,with Dakin's nina. 0.125%. Apply Dakin's moist Gauze to each wound . Apply Moisture Barrier paste periwound. Cover each wound with Optifoam drsg Daily and prn. Apply Moisture Barrier paste to perianal and sacral wounds. Cover with Optifoam drsg. Change every 3 days and prn. Apply Cavilon Skin Barrier to each heel. Cover each heel with Optifoam drsg. Change every 7 days and prn. APM/GRETA mattress overlay. Reposition at least every 2hours or as tolerated. Off-load heels with pillow.
--- NOTE | 2018-10-29 14:28 | Consultation ---
History of Present Illness General Chief Complaint: Generalized Weakness Referring physician: YOUNG GUTIERREZ Reason for Consultation: FTT Present Illness Allergies: Coded Allergies: No Known Allergies (Unverified , 08/31/13) Medication History Scheduled Acetaminophen (Tylenol), 650 MG ORAL Q4HR, (Reported) Aspirin* (Aspir 81*), 81 MG ORAL DAILY, (Reported) Benzocaine (Orabase), 11.9 GM MM BID Benzonatate* (Tessalon Perle*), 100 MG ORAL THREE TIMES A DAY Carvedilol (Coreg), Unknown Dose ORAL EVERY 12 HOURS, (Reported) Cephalexin* (Keflex*), 500 MG ORAL Q6H Ciprofloxacin Hcl* (Ciprofloxacin Hcl*), 500 MG ORAL Q12H Darunavir Ethanolate* (Prezista*), 600 MG ORAL EVERY 12 HOURS, (Reported) Dicyclomine Hcl* (Bentyl*), 10 MG ORAL BID Diphenoxylate HCl/Atropine (Lomotil Tablet), 1 EACH PO THREE TIMES A DAY Docusate Sodium* (Colace*), 100 MG ORAL TWICE A DAY Etravirine (Intelence), 200 MG ORAL BID, (Reported) Etravirine* (Intelence*), 200 MG ORAL EVERY 12 HOURS, (Reported) Levofloxacin (Levofloxacin*), 500 MG ORAL DAILY Levofloxacin* (Levaquin*), 500 MG ORAL DAILY, (Reported) Levofloxacin* (Levaquin*), 500 MG ORAL DAILY, (Reported) Lisinopril* (Lisinopril*), 40 MG ORAL DAILY, (Reported) Memantine Hcl* (Namenda*), 5 MG ORAL TWICE A DAY, (Reported) Methadone Hcl (Methadone Hcl), 5 MG PO EVERY 12 HOURS, (Reported) Methadone Hcl* (Methadone*), 5 MG PO EVERY 12 HOURS, (Reported) Phenazopyridine Hcl* (Pyridium*), 100 MG ORAL THREE TIMES A DAY Polyethylene Glycol 3350* (Miralax*), 17 GM ORAL DAILY Polyethylene Glycol 3350* (Miralax*), 17 GM ORAL DAILY, (Reported) Raltegravir Potassium (Isentress), 400 MG ORAL TWICE A DAY, (Reported) Ritonavir* (Norvir*), 100 MG ORAL TWICE A DAY, (Reported) Ritonavir* (Norvir*), 100 MG ORAL TWICE A DAY, (Reported) Trimethoprim/Sulfamethoxazole 160/800* (Bactrim Ds Tablet*), 1 TAB ORAL Q12H Scheduled PRN Ibuprofen* (Motrin*), 600 MG ORAL Q8H PRN for For Pain Promethazine/Dextromethorphan (Promethazine-Dm Syrup), 1 TSP ORAL Q4H PRN for For Cough Zolpidem Tartrate* (Ambien*), 5 MG ORAL BEDTIME PRN for Insomnia, (Reported) Miscellaneous Medications Emtricitabine/Tenofovir (Truvada 100 mg-150 mg Tablet), 1 EACH PO, (Reported) Nicotine (Nicotine Patch), 21 MG TD, (Reported) Patient History Healthcare decision maker Resuscitation status Advanced Directive on File Physical Exam Last 24 Hour Vital Signs Date Time Temp Pulse Resp B/P (MAP) Pulse Ox O2 Delivery O2 Flow Rate FiO2 10/29/18 08:00 98.6 93 20 123/79 (94) 98 10/29/18 04:00 97.2 90 20 93/60 (71) 95 10/29/18 01:00 Room Air 10/29/18 00:00 98.0 90 16 108/60 (76) 93 10/28/18 22:19 97.2 82 18 115/61 (79) 97 10/28/18 21:46 98.2 10/28/18 21:30 98.2 84 14 125/73 97 Room Air 10/28/18 19:35 81 14 Room Air 10/28/18 19:35 98.2 84 14 125/73 97 Room Air 10/28/18 19:32 98.2 81 14 125/73 (90) 97 Room Air Intake and Output 10/28/18 10/29/18 19:00 07:00 Intake Total 600 ml Output Total 250 ml Balance 350 ml Intake Free Water 500 ml Tube Feeding 100 ml Output Urine Total 250 ml Laboratory Tests Test 10/28/18 20:25 10/28/18 21:20 10/28/18 21:30 10/29/18 05:15 White Blood Count 8.1 K/UL (4.8-10.8) 8.3 K/UL (4.8-10.8) Red Blood Count 3.69 M/UL (4.70-6.10) L 3.34 M/UL (4.70-6.10) L Hemoglobin 8.7 G/DL (14.2-18.0) L 7.8 G/DL (14.2-18.0) L Hematocrit 28.8 % (42.0-52.0) L 25.9 % (42.0-52.0) L Mean Corpuscular Volume 78 FL (80-99) L 78 FL (80-99) L Mean Corpuscular Hemoglobin 23.7 PG (27.0-31.0) L 23.4 PG (27.0-31.0) L Mean Corpuscular Hemoglobin Concent 30.4 G/DL (32.0-36.0) L 30.1 G/DL (32.0-36.0) L Red Cell Distribution Width 16.0 % (11.6-14.8) H 17.3 % (11.6-14.8) H Platelet Count 184 K/UL (150-450) 196 K/UL (150-450) Mean Platelet Volume 7.2 FL (6.5-10.1) 6.4 FL (6.5-10.1) L Neutrophils (%) (Auto) 71.2 % (45.0-75.0) % (45.0-75.0) Lymphocytes (%) (Auto) 18.4 % (20.0-45.0) L % (20.0-45.0) Monocytes (%) (Auto) 9.3 % (1.0-10.0) % (1.0-10.0) Eosinophils (%) (Auto) 0.5 % (0.0-3.0) % (0.0-3.0) Basophils (%) (Auto) 0.7 % (0.0-2.0) % (0.0-2.0) Sodium Level 140 MMOL/L (136-145) 142 MMOL/L (136-145) Potassium Level 3.7 MMOL/L (3.5-5.1) 4.0 MMOL/L (3.5-5.1) Chloride Level 102 MMOL/L (98-107) 106 MMOL/L (98-107) Carbon Dioxide Level 28 MMOL/L (21-32) 29 MMOL/L (21-32) Anion Gap 10 mmol/L (5-15) 7 mmol/L (5-15) Blood Urea Nitrogen 20 mg/dL (7-18) H 19 mg/dL (7-18) H Creatinine 0.6 MG/DL (0.55-1.30) 0.6 MG/DL (0.55-1.30) Estimat Glomerular Filtration Rate mL/min (>60) mL/min (>60) Glucose Level 93 MG/DL (74-106) 81 MG/DL (74-106) Lactic Acid Level 2.60 mmol/L (0.4-2.0) H 2.00 mmol/L (0.66-2.22) Calcium Level 8.5 MG/DL (8.5-10.1) 8.4 MG/DL (8.5-10.1) L Phosphorus Level 2.7 MG/DL (2.5-4.9) Magnesium Level 2.2 MG/DL (1.8-2.4) Total Bilirubin 0.6 MG/DL (0.2-1.0) 0.7 MG/DL (0.2-1.0) Aspartate Amino Transf (AST/SGOT) 38 U/L (15-37) H 33 U/L (15-37) Alanine Aminotransferase (ALT/SGPT) 19 U/L (12-78) 15 U/L (12-78) Alkaline Phosphatase 552 U/L (46-116) H 506 U/L (46-116) H Total Creatine Kinase 203 U/L (26-140) H Creatine Kinase MB 23.3 NG/ML (0.0-3.6) H Creatine Kinase MB Relative Index 11.4 Troponin I 0.000 ng/mL (0.000-0.056) Pro-B-Type Natriuretic Peptide 1065 pg/mL (0-125) H Total Protein 6.2 G/DL (6.4-8.2) L 5.9 G/DL (6.4-8.2) L Albumin 1.6 G/DL (3.4-5.0) L 1.6 G/DL (3.4-5.0) L Globulin 4.6 g/dL 4.3 g/dL Albumin/Globulin Ratio 0.3 (1.0-2.7) L 0.4 (1.0-2.7) L Lipase 94 U/L (73-393) Prothrombin Time 12.0 SEC (9.30-11.50) H Prothromb Time International Ratio 1.1 (0.9-1.1) Activated Partial Thromboplast Time 34 SEC (23-33) H Urine Color Yellow Urine Appearance Cloudy Urine pH 7 (4.5-8.0) Urine Specific [place] 1.010 (1.005-1.035) Urine Protein 2+ (NEGATIVE) H Urine Glucose (UA) Negative (NEGATIVE) Urine Ketones Negative (NEGATIVE) Urine Blood 4+ (NEGATIVE) H Urine Nitrite Negative (NEGATIVE) Urine Bilirubin Negative (NEGATIVE) Urine Urobilinogen 4 MG/DL (0.0-1.0) H Urine Leukocyte Esterase 3+ (NEGATIVE) H Urine RBC 15-20 /HPF (0 - 0) H Urine WBC Tntc /HPF (0 - 0) H Urine Squamous Epithelial Cells None /LPF (NONE/OCC) Urine Bacteria Moderate /HPF (NONE) H Differential Total Cells Counted 100 Neutrophils % (Manual) 70 % (45-75) Lymphocytes % (Manual) 20 % (20-45) Monocytes % (Manual) 8 % (1-10) Eosinophils % (Manual) 2 % (0-3) Basophils % (Manual) 0 % (0-2) Band Neutrophils 0 % (0-8) Platelet Estimate Adequate Platelet Morphology Normal Hypochromasia 1+ Anisocytosis 1+ Microcytosis 1+ Hemoglobin A1c 6.0 % (4.3-6.0) Triglycerides Level 68 MG/DL (30-150) Cholesterol Level 95 MG/DL (< 200) LDL Cholesterol 58 mg/dL (<100) HDL Cholesterol 28 MG/DL (40-60) L Cholesterol/HDL Ratio 3.4 (3.3-4.4) Thyroid Stimulating Hormone (TSH) 4.201 uiU/mL (0.358-3.740) Microbiology Date/Time Source Procedure Growth Status 10/28/18 21:30 Urine,Clean Catch Urine Culture - Preliminary Resulted Height (Feet): 5 Height (Inches): 11.00 Weight (Pounds): 130 Medications Current Medications Medications (Trade) Dose Ordered Sig/Delgado Route PRN Reason Start Time Stop Time Status Last Admin Dose Admin Acetaminophen (Tylenol) 650 mg Q4H PRN ORAL fever 10/28/18 22:30 11/27/18 22:29 Ascorbic Acid (Vitamin C) 500 mg DAILY ORAL 10/30/18 09:00 11/29/18 08:59 Darunavir (Prezista) 600 mg EVERY 12 HOURS ORAL 10/29/18 09:00 11/28/18 08:59 UNV Dextrose (Dextrose 50%) 25 ml Q30M PRN IV Hypoglycemia 10/28/18 22:30 11/27/18 22:29 Dextrose (Dextrose 50%) 50 ml Q30M PRN IV Hypoglycemia 10/28/18 22:30 11/27/18 22:29 Heparin Sodium (Porcine) (Heparin 5000 units/ml) 5,000 units EVERY 12 HOURS SUBQ 10/29/18 09:00 11/28/18 08:59 10/29/18 08:45 Lansoprazole (Prevacid) 30 mg DAILY GT 10/30/18 09:00 11/29/18 08:59 Lorazepam (Ativan 2mg/ml 1ml) 0.5 mg Q4H PRN IV For Anxiety 10/28/18 22:30 11/04/18 22:29 Methadone HCl (Methadone HCl) 5 mg EVERY 12 HOURS ORAL 10/29/18 21:00 11/05/18 20:59 Morphine Sulfate (Morphine Sulfate) 1 mg EVERY 4 HOURS PRN IVP For Pain 10/28/18 22:30 11/04/18 22:29 Ondansetron HCl (Zofran) 4 mg Q6H PRN IVP Nausea & Vomiting 10/28/18 22:30 11/27/18 22:29 Polyethylene Glycol (Miralax) 17 gm HSPRN PRN ORAL Constipation 10/28/18 22:30 11/27/18 22:29 Ritonavir (Norvir) 100 mg TWICE A DAY ORAL 10/29/18 09:00 11/28/18 08:59 UNV Zolpidem Tartrate (Ambien) 5 mg HSPRN PRN ORAL Insomnia 10/28/18 22:30 11/04/18 22:29 Assessment/Plan Assessment/Plan: Oncology Consult RFC: Prostate cancer Chief Complaint: FTT REQ MD: Nicanor Gutierrez DOS: 10/29/18 HPI Patient is an 83-year-old male who presented after increased generalized weakness and fatigue. Patient a prior history of intracranial hemorrhage on prior visit. Patient reported having bilateral leg pain. He reports having associated dizziness and difficulty with ambulation. Patient was noted to have recently been seen at [facility] well as [facility]. psa is 1286 is elevated and metastatic disease noted Allergies: No Known Allergies (Unverified , 08/31/13) Reviewed Nursing Documentation: PMH: Agreed; PSxH: Agreed Past Medical History: No History, Except For Hx Cardiac Problems: No - HIV POSITIVE Hx Hypertension: Yes Hx Pacemaker: No Hx Asthma: No Hx COPD: No Hx Diabetes: No Hx Cancer: Yes - prostate Hx Gastrointestinal Problems: Yes - colostomy Hx Dialysis: No Hx Neurological Problems: No Hx Cerebrovascular Accident: No Hx Seizures: No Review of Systems All Other Systems: negative except mentioned in HPI General Vitals: reviewed if any abnormal, note them General Appearance: NAD HEENT: normocephalic, atraumatic Neck: non-tender, normal alignment Respiratory/Chest: normal breath sounds bilaterally Cardiovascular/Chest: normal peripheral pulses, normal rate Abdomen: normal bowel sounds, soft, nontender Extremities: normal range of motion ER Procedures - General Procedures ER MDM/Plan Assessment and Recs: # Prostate cancer, stage IV, metastatic, psa 1286 --> bone scan extensive diffuse patchy abnormal uptake within the axial skeleton including the entire spine, pelvic bones and multiple ribs consistent with the metastatic neoplasm. --> outpatient management v hospice as per pcp decision --> PSA level ordered # Anemia of chronic disease --> anemia panel has been reviewed --> hgb trend 8.7-->7.8 # HIV disease --> HAART meds as per ID # Thalamic hemorrhage --> CT head which is unchanged from previous CT which showed some thalamic hemorrhage. # FTt likely due to malignancy --> decreased appetite with gtube # Dvt ppx scds The timing of this note does not necessarily reflect the time of the patient was seen. Greatly appreciate consultation! Marcello Villanueva MD Oct 29, 2018 14:28
--- NOTE | 2018-10-29 15:08 | Consultation ---
History of Present Illness General Date patient seen: Oct 29, 2018 Chief Complaint: Generalized Weakness Referring physician: YOUNG GUTIERREZ Reason for Consultation: FTT Present Illness HPI 83 year old male with hx of metastatic prostate cancer, cachexia, Gtube feeding , decubiti ulcer, bed bound, AIDS, brought in for altered mental status. Pt is extremely cachectic, his skeleton is almost visible through the very thin skin. He opens his eyes when called but seems to be too week to talk. Allergies: Coded Allergies: No Known Allergies (Unverified , 08/31/13) Medication History Scheduled Acetaminophen (Tylenol), 650 MG ORAL Q4HR, (Reported) Aspirin* (Aspir 81*), 81 MG ORAL DAILY, (Reported) Benzocaine (Orabase), 11.9 GM MM BID Benzonatate* (Tessalon Perle*), 100 MG ORAL THREE TIMES A DAY Carvedilol (Coreg), Unknown Dose ORAL EVERY 12 HOURS, (Reported) Cephalexin* (Keflex*), 500 MG ORAL Q6H Ciprofloxacin Hcl* (Ciprofloxacin Hcl*), 500 MG ORAL Q12H Darunavir Ethanolate* (Prezista*), 600 MG ORAL EVERY 12 HOURS, (Reported) Dicyclomine Hcl* (Bentyl*), 10 MG ORAL BID Diphenoxylate HCl/Atropine (Lomotil Tablet), 1 EACH PO THREE TIMES A DAY Docusate Sodium* (Colace*), 100 MG ORAL TWICE A DAY Etravirine (Intelence), 200 MG ORAL BID, (Reported) Etravirine* (Intelence*), 200 MG ORAL EVERY 12 HOURS, (Reported) Levofloxacin (Levofloxacin*), 500 MG ORAL DAILY Levofloxacin* (Levaquin*), 500 MG ORAL DAILY, (Reported) Levofloxacin* (Levaquin*), 500 MG ORAL DAILY, (Reported) Lisinopril* (Lisinopril*), 40 MG ORAL DAILY, (Reported) Memantine Hcl* (Namenda*), 5 MG ORAL TWICE A DAY, (Reported) Methadone Hcl (Methadone Hcl), 5 MG PO EVERY 12 HOURS, (Reported) Methadone Hcl* (Methadone*), 5 MG PO EVERY 12 HOURS, (Reported) Phenazopyridine Hcl* (Pyridium*), 100 MG ORAL THREE TIMES A DAY Polyethylene Glycol 3350* (Miralax*), 17 GM ORAL DAILY Polyethylene Glycol 3350* (Miralax*), 17 GM ORAL DAILY, (Reported) Raltegravir Potassium (Isentress), 400 MG ORAL TWICE A DAY, (Reported) Ritonavir* (Norvir*), 100 MG ORAL TWICE A DAY, (Reported) Ritonavir* (Norvir*), 100 MG ORAL TWICE A DAY, (Reported) Trimethoprim/Sulfamethoxazole 160/800* (Bactrim Ds Tablet*), 1 TAB ORAL Q12H Scheduled PRN Ibuprofen* (Motrin*), 600 MG ORAL Q8H PRN for For Pain Promethazine/Dextromethorphan (Promethazine-Dm Syrup), 1 TSP ORAL Q4H PRN for For Cough Zolpidem Tartrate* (Ambien*), 5 MG ORAL BEDTIME PRN for Insomnia, (Reported) Miscellaneous Medications Emtricitabine/Tenofovir (Truvada 100 mg-150 mg Tablet), 1 EACH PO, (Reported) Nicotine (Nicotine Patch), 21 MG TD, (Reported) Patient History Healthcare decision maker Resuscitation status Advanced Directive on File Past Medical/Surgical History Past Medical/Surgical History: (1) Prostate cancer (2) Protein-calorie malnutrition, severe (3) HIV disease (4) Intracerebral bleed (5) Hypertension Review of Systems All Other Systems: negative except mentioned in HPI Physical Exam General Appearance: cachetic, thin Lines, tubes and drains: peripheral HEENT: normocephalic Neck: non-tender, normal alignment Respiratory/Chest: chest wall non-tender, lungs clear Breasts: no masses Cardiovascular/Chest: normal peripheral pulses Abdomen: normal bowel sounds, soft Genitourinary/Rectal: normal genital exam, normal prostate exam Extremities: non-tender Last 24 Hour Vital Signs Date Time Temp Pulse Resp B/P (MAP) Pulse Ox O2 Delivery O2 Flow Rate FiO2 10/29/18 12:00 96.4 93 18 128/83 (98) 98 10/29/18 08:00 98.6 93 20 123/79 (94) 98 10/29/18 04:00 97.2 90 20 93/60 (71) 95 10/29/18 01:00 Room Air 10/29/18 00:00 98.0 90 16 108/60 (76) 93 10/28/18 22:19 97.2 82 18 115/61 (79) 97 10/28/18 21:46 98.2 10/28/18 21:30 98.2 84 14 125/73 97 Room Air 10/28/18 19:35 81 14 Room Air 10/28/18 19:35 98.2 84 14 125/73 97 Room Air 10/28/18 19:32 98.2 81 14 125/73 (90) 97 Room Air Intake and Output 10/28/18 10/29/18 19:00 07:00 Intake Total 600 ml Output Total 250 ml Balance 350 ml Intake Free Water 500 ml Tube Feeding 100 ml Output Urine Total 250 ml Laboratory Tests Test 10/28/18 20:25 10/28/18 21:20 10/28/18 21:30 10/29/18 05:15 White Blood Count 8.1 K/UL (4.8-10.8) 8.3 K/UL (4.8-10.8) Red Blood Count 3.69 M/UL (4.70-6.10) L 3.34 M/UL (4.70-6.10) L Hemoglobin 8.7 G/DL (14.2-18.0) L 7.8 G/DL (14.2-18.0) L Hematocrit 28.8 % (42.0-52.0) L 25.9 % (42.0-52.0) L Mean Corpuscular Volume 78 FL (80-99) L 78 FL (80-99) L Mean Corpuscular Hemoglobin 23.7 PG (27.0-31.0) L 23.4 PG (27.0-31.0) L Mean Corpuscular Hemoglobin Concent 30.4 G/DL (32.0-36.0) L 30.1 G/DL (32.0-36.0) L Red Cell Distribution Width 16.0 % (11.6-14.8) H 17.3 % (11.6-14.8) H Platelet Count 184 K/UL (150-450) 196 K/UL (150-450) Mean Platelet Volume 7.2 FL (6.5-10.1) 6.4 FL (6.5-10.1) L Neutrophils (%) (Auto) 71.2 % (45.0-75.0) % (45.0-75.0) Lymphocytes (%) (Auto) 18.4 % (20.0-45.0) L % (20.0-45.0) Monocytes (%) (Auto) 9.3 % (1.0-10.0) % (1.0-10.0) Eosinophils (%) (Auto) 0.5 % (0.0-3.0) % (0.0-3.0) Basophils (%) (Auto) 0.7 % (0.0-2.0) % (0.0-2.0) Sodium Level 140 MMOL/L (136-145) 142 MMOL/L (136-145) Potassium Level 3.7 MMOL/L (3.5-5.1) 4.0 MMOL/L (3.5-5.1) Chloride Level 102 MMOL/L (98-107) 106 MMOL/L (98-107) Carbon Dioxide Level 28 MMOL/L (21-32) 29 MMOL/L (21-32) Anion Gap 10 mmol/L (5-15) 7 mmol/L (5-15) Blood Urea Nitrogen 20 mg/dL (7-18) H 19 mg/dL (7-18) H Creatinine 0.6 MG/DL (0.55-1.30) 0.6 MG/DL (0.55-1.30) Estimat Glomerular Filtration Rate mL/min (>60) mL/min (>60) Glucose Level 93 MG/DL (74-106) 81 MG/DL (74-106) Lactic Acid Level 2.60 mmol/L (0.4-2.0) H 2.00 mmol/L (0.66-2.22) Calcium Level 8.5 MG/DL (8.5-10.1) 8.4 MG/DL (8.5-10.1) L Phosphorus Level 2.7 MG/DL (2.5-4.9) Magnesium Level 2.2 MG/DL (1.8-2.4) Total Bilirubin 0.6 MG/DL (0.2-1.0) 0.7 MG/DL (0.2-1.0) Aspartate Amino Transf (AST/SGOT) 38 U/L (15-37) H 33 U/L (15-37) Alanine Aminotransferase (ALT/SGPT) 19 U/L (12-78) 15 U/L (12-78) Alkaline Phosphatase 552 U/L (46-116) H 506 U/L (46-116) H Total Creatine Kinase 203 U/L (26-140) H Creatine Kinase MB 23.3 NG/ML (0.0-3.6) H Creatine Kinase MB Relative Index 11.4 Troponin I 0.000 ng/mL (0.000-0.056) Pro-B-Type Natriuretic Peptide 1065 pg/mL (0-125) H Total Protein 6.2 G/DL (6.4-8.2) L 5.9 G/DL (6.4-8.2) L Albumin 1.6 G/DL (3.4-5.0) L 1.6 G/DL (3.4-5.0) L Globulin 4.6 g/dL 4.3 g/dL Albumin/Globulin Ratio 0.3 (1.0-2.7) L 0.4 (1.0-2.7) L Lipase 94 U/L (73-393) Prothrombin Time 12.0 SEC (9.30-11.50) H Prothromb Time International Ratio 1.1 (0.9-1.1) Activated Partial Thromboplast Time 34 SEC (23-33) H Urine Color Yellow Urine Appearance Cloudy Urine pH 7 (4.5-8.0) Urine Specific [place] 1.010 (1.005-1.035) Urine Protein 2+ (NEGATIVE) H Urine Glucose (UA) Negative (NEGATIVE) Urine Ketones Negative (NEGATIVE) Urine Blood 4+ (NEGATIVE) H Urine Nitrite Negative (NEGATIVE) Urine Bilirubin Negative (NEGATIVE) Urine Urobilinogen 4 MG/DL (0.0-1.0) H Urine Leukocyte Esterase 3+ (NEGATIVE) H Urine RBC 15-20 /HPF (0 - 0) H Urine WBC Tntc /HPF (0 - 0) H Urine Squamous Epithelial Cells None /LPF (NONE/OCC) Urine Bacteria Moderate /HPF (NONE) H Differential Total Cells Counted 100 Neutrophils % (Manual) 70 % (45-75) Lymphocytes % (Manual) 20 % (20-45) Monocytes % (Manual) 8 % (1-10) Eosinophils % (Manual) 2 % (0-3) Basophils % (Manual) 0 % (0-2) Band Neutrophils 0 % (0-8) Platelet Estimate Adequate Platelet Morphology Normal Hypochromasia 1+ Anisocytosis 1+ Microcytosis 1+ Hemoglobin A1c 6.0 % (4.3-6.0) Triglycerides Level 68 MG/DL (30-150) Cholesterol Level 95 MG/DL (< 200) LDL Cholesterol 58 mg/dL (<100) HDL Cholesterol 28 MG/DL (40-60) L Cholesterol/HDL Ratio 3.4 (3.3-4.4) Prostate Specific Antigen Pending Thyroid Stimulating Hormone (TSH) 4.201 uiU/mL (0.358-3.740) Microbiology Date/Time Source Procedure Growth Status 10/28/18 21:30 Urine,Clean Catch Urine Culture - Preliminary Resulted Height (Feet): 5 Height (Inches): 11.00 Weight (Pounds): 130 Medications Current Medications Medications (Trade) Dose Ordered Sig/Delgado Route PRN Reason Start Time Stop Time Status Last Admin Dose Admin Acetaminophen (Tylenol) 650 mg Q4H PRN ORAL fever 10/28/18 22:30 11/27/18 22:29 Ascorbic Acid (Vitamin C) 500 mg DAILY ORAL 10/30/18 09:00 11/29/18 08:59 Darunavir (Prezista) 600 mg EVERY 12 HOURS ORAL 10/29/18 09:00 11/28/18 08:59 UNV Dextrose (Dextrose 50%) 25 ml Q30M PRN IV Hypoglycemia 10/28/18 22:30 11/27/18 22:29 Dextrose (Dextrose 50%) 50 ml Q30M PRN IV Hypoglycemia 10/28/18 22:30 11/27/18 22:29 Heparin Sodium (Porcine) (Heparin 5000 units/ml) 5,000 units EVERY 12 HOURS SUBQ 10/29/18 09:00 11/28/18 08:59 10/29/18 08:45 Lansoprazole (Prevacid) 30 mg DAILY GT 10/30/18 09:00 11/29/18 08:59 Lorazepam (Ativan 2mg/ml 1ml) 0.5 mg Q4H PRN IV For Anxiety 10/28/18 22:30 11/04/18 22:29 Methadone HCl (Methadone HCl) 5 mg EVERY 12 HOURS ORAL 10/29/18 21:00 11/05/18 20:59 Morphine Sulfate (Morphine Sulfate) 1 mg EVERY 4 HOURS PRN IVP For Pain 10/28/18 22:30 11/04/18 22:29 Ondansetron HCl (Zofran) 4 mg Q6H PRN IVP Nausea & Vomiting 10/28/18 22:30 11/27/18 22:29 Polyethylene Glycol (Miralax) 17 gm HSPRN PRN ORAL Constipation 10/28/18 22:30 11/27/18 22:29 Ritonavir (Norvir) 100 mg TWICE A DAY ORAL 10/29/18 09:00 11/28/18 08:59 UNV Zolpidem Tartrate (Ambien) 5 mg HSPRN PRN ORAL Insomnia 10/28/18 22:30 11/04/18 22:29 Assessment/Plan Problem List: (1) Anemia ICD Codes: D64.9 - Anemia, unspecified SNOMED: 380391237 (2) End of life care ICD Codes: Z51.5 - Encounter for palliative care SNOMED: 139042218, 848575399 (3) HIV disease ICD Codes: B20 - Human immunodeficiency virus [HIV] disease SNOMED: 18371986 (4) Prostate cancer ICD Codes: C61 - Malignant neoplasm of prostate SNOMED: 720842551 (5) Protein-calorie malnutrition, severe ICD Codes: E43 - Unspecified severe protein-calorie malnutrition SNOMED: 734966450, 067526066, 854048326 (6) Decubitus skin ulcer ICD Codes: L89.90 - Pressure ulcer of unspecified site, unspecified stage SNOMED: 286604864 Assessment/Plan: symptomatic treatment pain management frequent turning in bed wound care pt really needs to be DNR. pt is very hospice appropriate. Gracie Echeverria MD Oct 29, 2018 15:08
--- NOTE | 2018-10-29 15:10 | NUR ---
[employer] AGENT 83 YO MALE BIBA FROM [facility] TO ER CC LETHARGIC DECREASE PO INTAKE X 19 DAYS SI: FAILURE TO THRIVE T. 98.7 HR 81 RR 14 B/P 125/73 BUN 20 AST 38 CKMB 23.5 BNP 1065 UA PROTEIN,BLOOD,UROBILINOGEN,LEUKOCYTE ESTERASE BACTERIA IS: IV BOLUS NS X 1 LITER ADMITTED TO MED/SURG MED/SURG STATUS
--- NOTE | 2018-10-29 15:57 | NUR ---
SWALLOW/SPEECH THERAPY NOTE: REFERRED FOR SWALLOW EVAL BY DR HAYDEN, SEE FULL REPORT TO FOLLOW. DYSPHAGIA RISK FACTORS FOR THIS 83 Y.O.M.: ACUTE ISSUES: FTT FOR 19 DAYS, SEVERE MALNUTRITION, PROGRESSIVELY WEAK, DEHYDRATION, LETHARGIC, AMS, CXR BILATERAL FIBROSIS. H/O 08/18/16 PNEUMONITIS, 03/13/18 INTERCEREBRAL BLEED (HEAD CT SCAN SUBCORTICAL CVA MILD-MODERATE BRAIN ATROPHY ALSO CHECK MRI BRAIN SCAN), COPD, DYSPHAGIA HAS GT, MALNUTRITION, HIV, PSYCH, SMOKING, PROSTATE CA. AT SNF ON PEG FEEDINGS GLUCERNA FORMULA NO PO FOR NOW. INITIAL IMPRESSIONS: HIGH RISK FOR A SIGNIFICANT OROPHARYNGEAL DYSPHAGIA (WEAK/FTT/HX OF CVA) HIGH RISK FOR SILENT ASPIRATION DUE TO STROKE HISTORY POOR INTAKE FOR 19 DAYS PATIENT IS ALERT AND ABLE TO EXPRESS BASIC NEEDS. DENIES ANY SWALLOWING PROBLEMS. ON ROOM AIR. RECOMMENDATIONS: COMPLETE MODIFIED BARIUM SWALLOW STUDY TO FURTHER ASSESS SWALLOW, DETERMINE SILENT ASPIRATION RISK, AND ATTEMPT TRIAL TX (ON THURSDAY). HOLD PO FOR NOW AND CONTINUE WITH PEG FEEDINGS AND ORAL CARE SKILLED DYSPHAGIA MANAGEMENT AND TX RN AWARE OF NEED FOR ORAL CARE AND NO PO AT THIS TIME. D/W LORI BENITEZ AND PATIENT
--- NOTE | 2018-10-29 16:08 | Consultation ---
History of Present Illness General Chief Complaint: Generalized Weakness Referring physician: YOUNG GUTIERREZ Reason for Consultation: FTT Present Illness HPI Mr. Menjivar is an 83 yo HIV positive male with PMHx of metastatic prostate cancer , cachexia Gtube feeding, decubiti ulcer, HTN, thalamic CVA, pulmonary fibrosis who was sent to the ED with weakness and dizziness. He is some what confused but reports No F/C, N/V/D or abd pain, He does say that he has pain with urination. His UA was positive but he has no fever or leukocytosis. He does not know his HIV meds. On his last admit he was taking Isentress, norvir, truvada, intelence, prezista. These are also in his med list. The pharmacy is trying ot confirm and get his HIV meds. ID was consulted for HIV PMHx/PSHx Metastatic prostate cancer, Cachexia Gtube feeding Decubiti ulcer HTN Thalamic CVA Pulmonary fibrosis SocHx No E/T/D FamHx Not Contributory Allergies: Coded Allergies: No Known Allergies (Unverified , 08/31/13) Medication History Scheduled Acetaminophen (Tylenol), 650 MG ORAL Q4HR, (Reported) Aspirin* (Aspir 81*), 81 MG ORAL DAILY, (Reported) Benzocaine (Orabase), 11.9 GM MM BID Benzonatate* (Tessalon Perle*), 100 MG ORAL THREE TIMES A DAY Carvedilol (Coreg), Unknown Dose ORAL EVERY 12 HOURS, (Reported) Cephalexin* (Keflex*), 500 MG ORAL Q6H Ciprofloxacin Hcl* (Ciprofloxacin Hcl*), 500 MG ORAL Q12H Darunavir Ethanolate* (Prezista*), 600 MG ORAL EVERY 12 HOURS, (Reported) Dicyclomine Hcl* (Bentyl*), 10 MG ORAL BID Diphenoxylate HCl/Atropine (Lomotil Tablet), 1 EACH PO THREE TIMES A DAY Docusate Sodium* (Colace*), 100 MG ORAL TWICE A DAY Etravirine (Intelence), 200 MG ORAL BID, (Reported) Etravirine* (Intelence*), 200 MG ORAL EVERY 12 HOURS, (Reported) Levofloxacin (Levofloxacin*), 500 MG ORAL DAILY Levofloxacin* (Levaquin*), 500 MG ORAL DAILY, (Reported) Levofloxacin* (Levaquin*), 500 MG ORAL DAILY, (Reported) Lisinopril* (Lisinopril*), 40 MG ORAL DAILY, (Reported) Memantine Hcl* (Namenda*), 5 MG ORAL TWICE A DAY, (Reported) Methadone Hcl (Methadone Hcl), 5 MG PO EVERY 12 HOURS, (Reported) Methadone Hcl* (Methadone*), 5 MG PO EVERY 12 HOURS, (Reported) Phenazopyridine Hcl* (Pyridium*), 100 MG ORAL THREE TIMES A DAY Polyethylene Glycol 3350* (Miralax*), 17 GM ORAL DAILY Polyethylene Glycol 3350* (Miralax*), 17 GM ORAL DAILY, (Reported) Raltegravir Potassium (Isentress), 400 MG ORAL TWICE A DAY, (Reported) Ritonavir* (Norvir*), 100 MG ORAL TWICE A DAY, (Reported) Ritonavir* (Norvir*), 100 MG ORAL TWICE A DAY, (Reported) Trimethoprim/Sulfamethoxazole 160/800* (Bactrim Ds Tablet*), 1 TAB ORAL Q12H Scheduled PRN Ibuprofen* (Motrin*), 600 MG ORAL Q8H PRN for For Pain Promethazine/Dextromethorphan (Promethazine-Dm Syrup), 1 TSP ORAL Q4H PRN for For Cough Zolpidem Tartrate* (Ambien*), 5 MG ORAL BEDTIME PRN for Insomnia, (Reported) Miscellaneous Medications Emtricitabine/Tenofovir (Truvada 100 mg-150 mg Tablet), 1 EACH PO, (Reported) Nicotine (Nicotine Patch), 21 MG TD, (Reported) Patient History Healthcare decision maker Resuscitation status Advanced Directive on File Review of Systems ROS Narrative 12 point ROS negative except as noted in the HPI Physical Exam Last 24 Hour Vital Signs Date Time Temp Pulse Resp B/P (MAP) Pulse Ox O2 Delivery O2 Flow Rate FiO2 10/29/18 12:00 96.4 93 18 128/83 (98) 98 10/29/18 09:00 Room Air 10/29/18 08:00 98.6 93 20 123/79 (94) 98 10/29/18 04:00 97.2 90 20 93/60 (71) 95 10/29/18 01:00 Room Air 10/29/18 00:00 98.0 90 16 108/60 (76) 93 10/28/18 22:19 97.2 82 18 115/61 (79) 97 10/28/18 21:46 98.2 10/28/18 21:30 98.2 84 14 125/73 97 Room Air 10/28/18 19:35 81 14 Room Air 10/28/18 19:35 98.2 84 14 125/73 97 Room Air 10/28/18 19:32 98.2 81 14 125/73 (90) 97 Room Air Intake and Output 10/28/18 10/29/18 19:00 07:00 Intake Total 600 ml Output Total 250 ml Balance 350 ml Intake Free Water 500 ml Tube Feeding 100 ml Output Urine Total 250 ml Laboratory Tests Test 10/28/18 20:25 10/28/18 21:20 10/28/18 21:30 10/29/18 05:15 White Blood Count 8.1 K/UL (4.8-10.8) 8.3 K/UL (4.8-10.8) Red Blood Count 3.69 M/UL (4.70-6.10) L 3.34 M/UL (4.70-6.10) L Hemoglobin 8.7 G/DL (14.2-18.0) L 7.8 G/DL (14.2-18.0) L Hematocrit 28.8 % (42.0-52.0) L 25.9 % (42.0-52.0) L Mean Corpuscular Volume 78 FL (80-99) L 78 FL (80-99) L Mean Corpuscular Hemoglobin 23.7 PG (27.0-31.0) L 23.4 PG (27.0-31.0) L Mean Corpuscular Hemoglobin Concent 30.4 G/DL (32.0-36.0) L 30.1 G/DL (32.0-36.0) L Red Cell Distribution Width 16.0 % (11.6-14.8) H 17.3 % (11.6-14.8) H Platelet Count 184 K/UL (150-450) 196 K/UL (150-450) Mean Platelet Volume 7.2 FL (6.5-10.1) 6.4 FL (6.5-10.1) L Neutrophils (%) (Auto) 71.2 % (45.0-75.0) % (45.0-75.0) Lymphocytes (%) (Auto) 18.4 % (20.0-45.0) L % (20.0-45.0) Monocytes (%) (Auto) 9.3 % (1.0-10.0) % (1.0-10.0) Eosinophils (%) (Auto) 0.5 % (0.0-3.0) % (0.0-3.0) Basophils (%) (Auto) 0.7 % (0.0-2.0) % (0.0-2.0) Sodium Level 140 MMOL/L (136-145) 142 MMOL/L (136-145) Potassium Level 3.7 MMOL/L (3.5-5.1) 4.0 MMOL/L (3.5-5.1) Chloride Level 102 MMOL/L (98-107) 106 MMOL/L (98-107) Carbon Dioxide Level 28 MMOL/L (21-32) 29 MMOL/L (21-32) Anion Gap 10 mmol/L (5-15) 7 mmol/L (5-15) Blood Urea Nitrogen 20 mg/dL (7-18) H 19 mg/dL (7-18) H Creatinine 0.6 MG/DL (0.55-1.30) 0.6 MG/DL (0.55-1.30) Estimat Glomerular Filtration Rate mL/min (>60) mL/min (>60) Glucose Level 93 MG/DL (74-106) 81 MG/DL (74-106) Lactic Acid Level 2.60 mmol/L (0.4-2.0) H 2.00 mmol/L (0.66-2.22) Calcium Level 8.5 MG/DL (8.5-10.1) 8.4 MG/DL (8.5-10.1) L Phosphorus Level 2.7 MG/DL (2.5-4.9) Magnesium Level 2.2 MG/DL (1.8-2.4) Total Bilirubin 0.6 MG/DL (0.2-1.0) 0.7 MG/DL (0.2-1.0) Aspartate Amino Transf (AST/SGOT) 38 U/L (15-37) H 33 U/L (15-37) Alanine Aminotransferase (ALT/SGPT) 19 U/L (12-78) 15 U/L (12-78) Alkaline Phosphatase 552 U/L (46-116) H 506 U/L (46-116) H Total Creatine Kinase 203 U/L (26-140) H Creatine Kinase MB 23.3 NG/ML (0.0-3.6) H Creatine Kinase MB Relative Index 11.4 Troponin I 0.000 ng/mL (0.000-0.056) Pro-B-Type Natriuretic Peptide 1065 pg/mL (0-125) H Total Protein 6.2 G/DL (6.4-8.2) L 5.9 G/DL (6.4-8.2) L Albumin 1.6 G/DL (3.4-5.0) L 1.6 G/DL (3.4-5.0) L Globulin 4.6 g/dL 4.3 g/dL Albumin/Globulin Ratio 0.3 (1.0-2.7) L 0.4 (1.0-2.7) L Lipase 94 U/L (73-393) Prothrombin Time 12.0 SEC (9.30-11.50) H Prothromb Time International Ratio 1.1 (0.9-1.1) Activated Partial Thromboplast Time 34 SEC (23-33) H Urine Color Yellow Urine Appearance Cloudy Urine pH 7 (4.5-8.0) Urine Specific [place] 1.010 (1.005-1.035) Urine Protein 2+ (NEGATIVE) H Urine Glucose (UA) Negative (NEGATIVE) Urine Ketones Negative (NEGATIVE) Urine Blood 4+ (NEGATIVE) H Urine Nitrite Negative (NEGATIVE) Urine Bilirubin Negative (NEGATIVE) Urine Urobilinogen 4 MG/DL (0.0-1.0) H Urine Leukocyte Esterase 3+ (NEGATIVE) H Urine RBC 15-20 /HPF (0 - 0) H Urine WBC Tntc /HPF (0 - 0) H Urine Squamous Epithelial Cells None /LPF (NONE/OCC) Urine Bacteria Moderate /HPF (NONE) H Differential Total Cells Counted 100 Neutrophils % (Manual) 70 % (45-75) Lymphocytes % (Manual) 20 % (20-45) Monocytes % (Manual) 8 % (1-10) Eosinophils % (Manual) 2 % (0-3) Basophils % (Manual) 0 % (0-2) Band Neutrophils 0 % (0-8) Platelet Estimate Adequate Platelet Morphology Normal Hypochromasia 1+ Anisocytosis 1+ Microcytosis 1+ Hemoglobin A1c 6.0 % (4.3-6.0) Triglycerides Level 68 MG/DL (30-150) Cholesterol Level 95 MG/DL (< 200) LDL Cholesterol 58 mg/dL (<100) HDL Cholesterol 28 MG/DL (40-60) L Cholesterol/HDL Ratio 3.4 (3.3-4.4) Prostate Specific Antigen 430.41 ng/mL (0.13-4.0) H Thyroid Stimulating Hormone (TSH) 4.201 uiU/mL (0.358-3.740) Microbiology Date/Time Source Procedure Growth Status 10/28/18 21:30 Urine,Clean Catch Urine Culture - Preliminary Resulted Height (Feet): 5 Height (Inches): 11.00 Weight (Pounds): 130 Medications Current Medications Medications (Trade) Dose Ordered Sig/Delgado Route PRN Reason Start Time Stop Time Status Last Admin Dose Admin Acetaminophen (Tylenol) 650 mg Q4H PRN ORAL fever 10/28/18 22:30 11/27/18 22:29 Ascorbic Acid (Vitamin C) 500 mg DAILY ORAL 10/30/18 09:00 11/29/18 08:59 Darunavir (Prezista) 600 mg EVERY 12 HOURS ORAL 10/29/18 09:00 11/28/18 08:59 UNV Dextrose (Dextrose 50%) 25 ml Q30M PRN IV Hypoglycemia 10/28/18 22:30 11/27/18 22:29 Dextrose (Dextrose 50%) 50 ml Q30M PRN IV Hypoglycemia 10/28/18 22:30 11/27/18 22:29 Heparin Sodium (Porcine) (Heparin 5000 units/ml) 5,000 units EVERY 12 HOURS SUBQ 10/29/18 09:00 11/28/18 08:59 10/29/18 08:45 Lansoprazole (Prevacid) 30 mg DAILY GT 10/30/18 09:00 11/29/18 08:59 Lorazepam (Ativan 2mg/ml 1ml) 0.5 mg Q4H PRN IV For Anxiety 10/28/18 22:30 11/04/18 22:29 Methadone HCl (Methadone HCl) 5 mg EVERY 12 HOURS ORAL 10/29/18 21:00 11/05/18 20:59 Morphine Sulfate (Morphine Sulfate) 1 mg EVERY 4 HOURS PRN IVP For Pain 10/28/18 22:30 11/04/18 22:29 Ondansetron HCl (Zofran) 4 mg Q6H PRN IVP Nausea & Vomiting 10/28/18 22:30 11/27/18 22:29 Polyethylene Glycol (Miralax) 17 gm HSPRN PRN ORAL Constipation 10/28/18 22:30 11/27/18 22:29 Ritonavir (Norvir) 100 mg TWICE A DAY ORAL 10/29/18 09:00 11/28/18 08:59 UNV Zolpidem Tartrate (Ambien) 5 mg HSPRN PRN ORAL Insomnia 10/28/18 22:30 11/04/18 22:29 Objective Narrative Gen: NAD, Some what confused, cachexitic HEENT: NCAT, MMM, EOMI, PERRL, No Oral lesion, no scleral icterus NECK: full range of motion, supple, no meningismus, No LAD, No JVD LUNGS: CTAB, No W/C, No Accessory muscle use CARDS: RRR, S1, S2, No M/R/G, ABD: Soft, NT, ND, No R/G, + BS, No HSM, No Masses : Deferred Ext: C/C/E, Pulses 2+ B/L (DP, Rad): NEURO: A/O x 3, Strength and Sensation Grossly intact PSYCH: Normal mood and affect SKIN: Warm/dry, No rashes, Sacral ulcers Assessment/Plan Assessment/Plan: 83 yo HIV positive male with PMHx of metastatic prostate cancer, cachexia Gtube feeding, decubiti ulcer, HTN, thalamic CVA, pulmonary fibrosis who was sent to the ED with weakness and dizziness. UTI UA (+) UCx Aferbile No leukocytosis HIV -04/2018 CD4 508 (20.4%), VL ND Sacral ulcers Significant necrosis Metastatic prostate cancer, Cachexia Gtube feeding Decubiti ulcer HTN Thalamic CVA Pulmonary fibrosis PLAN: - Start Zosyn #1 for UTI and sacral ulcer - Start HIV meds once received from his facility - f/u Urine Cx - f/u Sacral ucler wound Cx - Monitor CBC and Temps Thank you for this consult. [facility] will continue to follow the patient with you during this hospitalization. Finn Kaur MD Oct 29, 2018 16:08
--- NOTE | 2018-10-29 16:45 | History and Physical Report ---
DATE OF ADMISSION: 10/28/2018 DATE AND TIME SEEN: 10/29/2018 at 2 p.m. CONSULTANTS: 1. Clifton Patten M.D. 2. Gracie Echeverria M.D. CHIEF COMPLAINT: Failure to thrive, cachexia. BRIEF HISTORY: This is an 83-year-old male from [facility], presented with above-mentioned diagnoses. Currently calm, confused in bed, not talking much. REVIEW OF SYSTEMS: Unavailable. PAST MEDICAL HISTORY: Includes failure to thrive, altered mental status, prostate CA, decubitus, and HIV PAST SURGICAL HISTORY: Unknown. ALLERGIES: Denies. MEDICATIONS: Include Prevacid, ascorbic acid, methadone, Prezista, ritonavir, Tylenol, morphine, Zofran, lorazepam, and zolpidem. SOCIAL HISTORY: The patient does not want to discuss. OBJECTIVE: GENERAL: Calm in bed, oriented x1, in no acute distress. VITAL SIGNS: Show temperature is 96, pulse 93, respirations 18, and blood pressure 120/83. CARDIOVASCULAR: No murmur. LUNGS: Distant and clear. ABDOMEN: Bowel sound positive. Nontender. Nondistended. EXTREMITIES: No cyanosis, clubbing, or edema. NEUROLOGIC: The patient is lethargic in bed, but moves all extremities. LABORATORY AND DIAGNOSTIC DATA: Labs at this time show hemoglobin 7.8, otherwise CBC is normal. BMP shows BUN 19. Calcium 8.4. Alkaline phosphatase 506. Albumin 1.6. INR 1.1, PTT 34. Urinalysis, 3+ leukocyte esterase. ASSESSMENT: 1. Failure to thrive. 2. Cachexia. 3. Anemia. 4. Urinary tract infection. 5. Dehydration. 6. Human immunodeficiency virus. 7. Malnutrition. 8. Neuropathic pain. 9. Prostate CA. 10. Decubitus ulcers. PLAN: 1. PT and dietary evaluation. 2. CBC and BMP in the morning. 3. Antibiotics per Infectious Disease. 4. Resume home medications. 5. We will ask psych and ID to evaluate. Prabhu Trejo D.O. DR: GARRY JOB#: [id number] CC:
--- NOTE | 2018-10-29 19:55 | NUR ---
NURSE NOTES: Received report from LORI Hopkins. Patient is in bed, awake and alert x2. On room air with no signs of distress or SOB. IV intact and patient is currently receiving a blood transfusion started last shift. Per AM nurse, 6pm Zosyn was not given yet due to blood transfusion. G-tube intact and running Glucerna 1.2 at 55 cc/hr. Baez catheter intact. Bed locked and in lowest position. Bed alarm on. Will continue to monitor the patient.
--- NOTE | 2018-10-29 20:20 | NUR ---
HAND-OFF: Report given to LORI Wilson.
[2018-10-29] MEDS: Piperacillin/Tazobactam 3.375 GM in NS 110 ML IVPB SCH (22:14)
[2018-10-30] VITALS: BP 140/70
[2018-10-30 04:00] VITALS: BP 123/70
--- NOTE | 2018-10-30 04:57 | NUR ---
NURSE NOTES: Received report from Diego from microbiology that the patients blood is growing gram positive cocci in clusters, and that he will notify Dr. Kaur. Charge nurse made aware.
[2018-10-30] MEDS: Piperacillin/Tazobactam 3.375 GM in NS 110 ML IVPB SCH ×3 (05:36→20:44)
[2018-10-30 06:29] LABS: BASOPHILS % (AUTO) 0.2 % (0.0-2.0); EOSINOPHILS % (AUTO) 0.2 % (0.0-3.0); HEMATOCRIT 33.4 % (42.0-52.0); HEMOGLOBIN 10.3 G/DL (14.2-18.0); LYMPHOCYTES % (AUTO) 13.2 % (20.0-45.0); MEAN CORPUSCULAR VOLUME 79 FL (80-99); MONOCYTES % (AUTO) 7.3 % (1.0-10.0); NEUTROPHILS % (AUTO) 79.1 % (45.0-75.0); PLATELET COUNT 204 K/UL (150-450); RED CELL DISTRIBUTION WIDTH 17.7 % (11.6-14.8); WHITE BLOOD COUNT 8.9 K/UL (4.8-10.8)
[2018-10-30 06:32] LABS: INR 1.1 (0.9-1.1)
--- NOTE | 2018-10-30 07:00 | NUR ---
NURSE NOTES: Received report from LORI Wilson. Pt in bed, asleep, respirations unlabored and regular, G-tube running according to order, bed in lowest position, call light within reach.
--- NOTE | 2018-10-30 07:07 | NUR ---
HAND-OFF: Report given to LORI Latif.
[2018-10-30 07:16] LABS: ALANINE AMINOTRANSFERASE 21 U/L (12-78); ALBUMIN 1.7 G/DL (3.4-5.0); ALBUMIN/GLOBULIN RATIO 0.3 (1.0-2.7); ALKALINE PHOSPHATASE 547 U/L (46-116); ANION GAP 8 mmol/L (5-15); ASPARTATE AMINO TRANSFERASE 32 U/L (15-37); BILIRUBIN,TOTAL 0.8 MG/DL (0.2-1.0); BLOOD UREA NITROGEN 20 mg/dL (7-18); CALCIUM 8.7 MG/DL (8.5-10.1); CARBON DIOXIDE 29 MMOL/L (21-32); CHLORIDE 108 MMOL/L (98-107); CREATININE 0.7 MG/DL (0.55-1.30); FERRITIN 1914 NG/ML (8-388); POTASSIUM 3.6 MMOL/L (3.5-5.1); SODIUM 145 MMOL/L (136-145)
[2018-10-30 07:44] LABS: % IRON SATURATION 45 % (15-50); IRON 43 ug/dL (50-175); TOTAL IRON BINDING CAPACITY 96 ug/dL (250-450)
[2018-10-30 08:00] VITALS: BP 126/74
--- NOTE | 2018-10-30 08:51 | Surgery Progress Note ---
Surgery Progress Note Subjective Additional Comments no acute events comfortable states he is feeling well tolerating diet labs noted Objective Last 24 Hour Vital Signs Date Time Temp Pulse Resp B/P (MAP) Pulse Ox O2 Delivery O2 Flow Rate FiO2 10/30/18 07:42 Room Air 10/30/18 04:00 98.9 87 20 123/70 (87) 95 10/30/18 00:00 97.5 74 19 140/70 (93) 95 10/29/18 21:50 98.1 87 120/68 (85) 10/29/18 21:00 Room Air 10/29/18 20:00 97.9 72 19 137/70 (92) 96 10/29/18 16:00 99.1 96 20 130/75 (93) 98 10/29/18 12:00 96.4 93 18 128/83 (98) 98 10/29/18 09:00 Room Air I&O Intake and Output 10/29/18 10/30/18 18:59 06:59 Intake Total 1105 ml Output Total 350 ml Balance -350 ml 1105 ml Intake Free Water 500 ml Tube Feeding 605 ml Output Urine Total 350 ml # Voids 2 Dressing: saturated Wound: other Drains: other Cardiovascular: RSR Respiratory: clear Abdomen: soft, flat, present bowel sounds Extremities: other Laboratory Tests Test 10/30/18 05:40 White Blood Count 8.9 K/UL (4.8-10.8) Red Blood Count 4.20 M/UL (4.70-6.10) L Hemoglobin 10.3 G/DL (14.2-18.0) #L Hematocrit 33.4 % (42.0-52.0) L Mean Corpuscular Volume 79 FL (80-99) L Mean Corpuscular Hemoglobin 24.7 PG (27.0-31.0) L Mean Corpuscular Hemoglobin Concent 31.0 G/DL (32.0-36.0) L Red Cell Distribution Width 17.7 % (11.6-14.8) H Platelet Count 204 K/UL (150-450) Mean Platelet Volume 6.3 FL (6.5-10.1) L Neutrophils (%) (Auto) 79.1 % (45.0-75.0) H Lymphocytes (%) (Auto) 13.2 % (20.0-45.0) L Monocytes (%) (Auto) 7.3 % (1.0-10.0) Eosinophils (%) (Auto) 0.2 % (0.0-3.0) Basophils (%) (Auto) 0.2 % (0.0-2.0) Reticulocyte Count Pending Prothrombin Time 12.0 SEC (9.30-11.50) H Prothromb Time International Ratio 1.1 (0.9-1.1) Activated Partial Thromboplast Time 32 SEC (23-33) Sodium Level 145 MMOL/L (136-145) Potassium Level 3.6 MMOL/L (3.5-5.1) Chloride Level 108 MMOL/L (98-107) H Carbon Dioxide Level 29 MMOL/L (21-32) Anion Gap 8 mmol/L (5-15) Blood Urea Nitrogen 20 mg/dL (7-18) H Creatinine 0.7 MG/DL (0.55-1.30) Estimat Glomerular Filtration Rate mL/min (>60) Glucose Level 88 MG/DL (74-106) Calcium Level 8.7 MG/DL (8.5-10.1) Iron Level 43 ug/dL (50-175) L Total Iron Binding Capacity 96 ug/dL (250-450) L Percent Iron Saturation 45 % (15-50) Unsaturated Iron Binding 53 ug/dL (112-346) L Ferritin 1914 NG/ML (8-388) H Total Bilirubin 0.8 MG/DL (0.2-1.0) Aspartate Amino Transf (AST/SGOT) 32 U/L (15-37) Alanine Aminotransferase (ALT/SGPT) 21 U/L (12-78) Alkaline Phosphatase 547 U/L (46-116) H Total Protein 6.6 G/DL (6.4-8.2) Albumin 1.7 G/DL (3.4-5.0) L Globulin 4.9 g/dL Albumin/Globulin Ratio 0.3 (1.0-2.7) L Vitamin B12 Level 935 PG/ML (193-986) Folate 17.6 NG/ML (8.6-58.9) Thyroid Stimulating Hormone (TSH) 2.147 uiU/mL (0.358-3.740) Free Thyroxine 0.81 NG/DL (0.76-1.46) Plan Problems: (1) Decubitus skin ulcer Assessment & Plan: Pt presented on admission with multiple pressure injuries and contractures. Pt is very emaciated. He is very pleasant and responsive. awake alert and cognitively intact Full thickness pressure injury L shoulder/L deltoid(L)4cm x (W)11.5cm. Base of wound has 30% slough ,70% pink granulation. Borders are macerated. Small amt non -odorous serous exudate. Periwound without erythema or induration. Two full thickness pressure injuries L iliac that are in close proximity. (#1 Proximal)Base of wound has 75% rivera slough,25% pink granulation. Erythematous borders. No odor or exudate noted(L)1cm x (W)2cm (#2 Inferior)Base of wound 100% rivera slough,erythematous margins. No odor or exudate noted. (L)2cm x (W)1.1cm. Partial thickness pressure injury R scapula. Base of wound is moist and viable. Edges flat and adherent to base of wound(L)3.5cm x (W)1cm. Second partial thickness pressure injury R scapula in close proximity to above wound. Base of wound is moist and viable. edges adhrent to base of wound. No exudate noted.(L)1.5cm x (W)1cm. Full thickness pressure injury L trochanteric. Base of wound Base of wound 90% soft necrosis ,10% kobe ,and is malodorous. Non blanchable erythema without induration or fluctuance periwound.(L)5.3cm x (W)6cm. Partial thickness pressure injury sacrum with surrounding hyperpigmentation. Base of wound is moist and viable(L)2cm x (W)1.2cm. Full thickness pressure injury R perianal region. Base of wound has 90% soft necrosis,erythematous along borders(L02.2cm x (W)1.5cm. Wound is malodorous. Two Full thickness pressure injuries R trochanteric that are in close proximity. (#1 Proximal) Base of wound has 100% soft necrosis. Wound is malodorous (L) 1.5cm x (W)2cm.(#2 Inferior)Base of wound is concave and is 100% necrotic with erythematous borders(L)3.5cm x (W)3cm.Wound is malodorous. Surrounding area of R greater trochanteric encompassing both wounds is indurated and erythematous. No elevation in skin temp noted.(L)9cm x (W)11.5cm Full thickness pressure injury R ischium .Base of wound is 100% necrotic with erythematous and macerated borders(L)4.5cm x (W)4cm. Dry eschar medial R foot . Periwound without erythema or induration.(L)1.8cm x ( W)4cm.. DTPI R hallux. Base of wound is fluctuant and maroon in colour. Marginal erythema periwound.(L)1.5cm x (W)1.9cm. Dry eschar lateral R malleolus(L)2.8cm x (W) 1.3cm. Stable dry eschar medial L knee . Periwound without erythema or induration. (L) 3.5cm x (W)4cm. Stable dry eschar lateral L malleolus. Periwound without erythema or induration. (L)2.5cm x (W)1cm. Spoke with patient in regards to above findings and plan. May consider debridement Tx.Plan: Cleanse wound L shoulder /L deltoid with saline. Apply Therahoney. Apply Cavilon Skin Barrier periwound. Cover with Optifoam drsg. Change Daily and prn. Cleanse wounds R trochanter, R Ischium, L trochanter , L ischium ,with Dakin's nina. 0.125%. Apply Dakin's moist Gauze to each wound . Apply Moisture Barrier paste periwound. Cover each wound with Optifoam drsg Daily and prn. Apply Moisture Barrier paste to perianal and sacral wounds. Cover with Optifoam drsg. Change every 3 days and prn. Apply Cavilon Skin Barrier to each heel. Cover each heel with Optifoam drsg. Change every 7 days and prn. APM/GRETA mattress overlay. Reposition at least every 2hours or as tolerated. Off-load heels with pillow. (2) Protein-calorie malnutrition, severe Assessment & Plan: DAILY ESTIMATED NEEDS: Needs based on Malnutrition, HIV, severe wasting, wounds, 43kg 30-40 kcals/kg 0606-2874 total kcals 1.25-2 g protein/kg 54-86 g total protein 25-30 mL/kg 3629-5984 total fluid mLs NUTRITION DIAGNOSIS: Malnutrition, severe, in the context of chronic disease r/t HIV, FTT, h/o prostate ca, as evidenced by pt w/ severe generalized wasting, presents w/ 46lbs wt loss/ 33% unfavorable wt change in 2 years, currently @53% of [place] Body Weight. CURRENT TF:Jevity 1.2 @50 x20 ENTERAL NUTRITION RECOMMENDATIONS: Glucerna 1.2 @55ml/hr x24 hrs to provide 1320ml, 1584 kcal, 79g pro, 1063ml free H2O - Rec rate and TF change to Glucerna 1.2. - Initiate @35ml/hr for 6 hrs, advance as tolerated 10ml/hr q4-6 hrs to goal rate - Flush per MD, HOB over 30 degrees -------- ADDITIONAL RECOMMENDATIONS: * Pt is 6ft tall (72 inches) and 43.2kg per bed scale * REC TF CHANGE ABOVE * WOUND CARE: (f/up w/ WC eval) Add DEBBIE BID Add VIT C 500mg daily * Weekly CALIBRATED BED SCALE WTS * NISS w/ TF's for glycemic control Chris Jin Oct 30, 2018 08:51
[2018-10-30] MEDS ORDERED: Dakin's 0.125% Soln (Quarter Strength) 16oz TOPIC SCH (09:00)
[2018-10-30] MEDS: Ascorbic Acid 500mg tab ORAL SCH (09:09)
[2018-10-30] MEDS: Heparin 5000 units/ml inj SUBQ SCH ×2 (09:10→20:45)
--- NOTE | 2018-10-30 09:37 | Pulmonology Progress Note ---
Assessment/Plan Problems: (1) Anemia (2) End of life care (3) HIV disease (4) Prostate cancer (5) Protein-calorie malnutrition, severe (6) Decubitus skin ulcer Assessment/Plan tolerating feeding looks comfortable pt needs to be DNR and comfort care Subjective ROS Limited/Unobtainable: No Constitutional: Reports: no symptoms HEENT: Repors: no symptoms Respiratory: Reports: no symptoms Allergies: Coded Allergies: No Known Allergies (Unverified , 08/31/13) Objective Last 24 Hour Vital Signs Date Time Temp Pulse Resp B/P (MAP) Pulse Ox O2 Delivery O2 Flow Rate FiO2 10/30/18 08:00 97.5 90 16 126/74 (91) 98 10/30/18 07:42 Room Air 10/30/18 04:00 98.9 87 20 123/70 (87) 95 10/30/18 00:00 97.5 74 19 140/70 (93) 95 10/29/18 21:50 98.1 87 120/68 (85) 10/29/18 21:00 Room Air 10/29/18 20:00 97.9 72 19 137/70 (92) 96 10/29/18 16:00 99.1 96 20 130/75 (93) 98 10/29/18 12:00 96.4 93 18 128/83 (98) 98 Intake and Output 10/29/18 10/30/18 18:59 06:59 Intake Total 1105 ml Output Total 350 ml Balance -350 ml 1105 ml Intake Free Water 500 ml Tube Feeding 605 ml Output Urine Total 350 ml # Voids 2 Objective General Appearance: cachectic HEENT: normocephalic, atraumatic Respiratory/Chest: chest wall non-tender, lungs clear Breasts: no masses Cardiovascular: normal peripheral pulses Abdomen: normal bowel sounds, soft, non tender Genitourinary: normal external genitalia Extremities: no clubbing 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: electronic drafter II-XII grossly normal Lymphatic: no neck adenopathy Microbiology Date/Time Source Procedure Growth Status 10/28/18 20:40 Blood Blood Culture - Preliminary NO GROWTH AFTER 24 HOURS Resulted 10/28/18 20:25 Blood Blood Culture - Preliminary Gram Positive Cocci Resulted 10/28/18 21:30 Urine,Clean Catch Urine Culture - Preliminary Strep Species, Gamma-Hemolytic Resulted Laboratory Tests 10/30/18 05:40: White Blood Count 8.9, Red Blood Count 4.20L, Hemoglobin 10.3#L, Hematocrit 33.4L, Mean Corpuscular Volume 79L, Mean Corpuscular Hemoglobin 24.7L, Mean Corpuscular Hemoglobin Concent 31.0L, Red Cell Distribution Width 17.7H, Platelet Count 204, Mean Platelet Volume 6.3L, Neutrophils (%) (Auto) 79.1H, Lymphocytes (%) (Auto) 13.2L, Monocytes (%) (Auto) 7.3, Eosinophils (%) (Auto) 0.2, Basophils (%) (Auto) 0.2, Reticulocyte Count [Pending], Prothrombin Time 12.0H, Prothromb Time International Ratio 1.1, Activated Partial Thromboplast Time 32, Sodium Level 145, Potassium Level 3.6, Chloride Level 108H, Carbon Dioxide Level 29, Anion Gap 8, Blood Urea Nitrogen 20H, Creatinine 0.7, Estimat Glomerular Filtration Rate , Glucose Level 88, Calcium Level 8.7, Iron Level 43L , Total Iron Binding Capacity 96L, Percent Iron Saturation 45, Unsaturated Iron Binding 53L, Ferritin 1914H, Total Bilirubin 0.8, Aspartate Amino Transf (AST/ SGOT) 32, Alanine Aminotransferase (ALT/SGPT) 21, Alkaline Phosphatase 547H, Total Protein 6.6, Albumin 1.7L, Globulin 4.9, Albumin/Globulin Ratio 0.3L, Vitamin B12 Level 935, Folate 17.6, Thyroid Stimulating Hormone (TSH) 2.147, Free Thyroxine 0.81 Current Medications Medications (Trade) Dose Ordered Sig/Delgado Route PRN Reason Start Time Stop Time Status Last Admin Dose Admin Acetaminophen (Tylenol) 650 mg Q4H PRN ORAL fever 10/28/18 22:30 11/27/18 22:29 Ascorbic Acid (Vitamin C) 500 mg DAILY ORAL 10/30/18 09:00 11/29/18 08:59 10/30/18 09:09 Darunavir (Prezista) 600 mg EVERY 12 HOURS ORAL 10/29/18 09:00 11/28/18 08:59 UNV Dextrose (Dextrose 50%) 25 ml Q30M PRN IV Hypoglycemia 10/28/18 22:30 11/27/18 22:29 Dextrose (Dextrose 50%) 50 ml Q30M PRN IV Hypoglycemia 10/28/18 22:30 11/27/18 22:29 Heparin Sodium (Porcine) (Heparin 5000 units/ml) 5,000 units EVERY 12 HOURS SUBQ 10/29/18 09:00 11/28/18 08:59 10/30/18 09:10 Lansoprazole (Prevacid) 30 mg DAILY GT 10/30/18 09:00 11/29/18 08:59 10/30/18 09:09 Lorazepam (Ativan 2mg/ml 1ml) 0.5 mg Q4H PRN IV For Anxiety 10/28/18 22:30 11/04/18 22:29 Methadone HCl (Methadone HCl) 5 mg EVERY 12 HOURS ORAL 10/29/18 21:00 11/05/18 20:59 10/30/18 09:08 Morphine Sulfate (Morphine Sulfate) 1 mg EVERY 4 HOURS PRN IVP For Pain 10/28/18 22:30 11/04/18 22:29 Ondansetron HCl (Zofran) 4 mg Q6H PRN IVP Nausea & Vomiting 10/28/18 22:30 11/27/18 22:29 Piperacillin Sod/ Tazobactam Sod 3.375 gm/Sodium Chloride 110 ml @ 27.5 mls/hr EVERY 8 HOURS IVPB 10/29/18 18:00 11/03/18 17:59 10/30/18 05:36 Polyethylene Glycol (Miralax) 17 gm HSPRN PRN ORAL Constipation 10/28/18 22:30 11/27/18 22:29 Ritonavir (Norvir) 100 mg TWICE A DAY ORAL 10/29/18 09:00 11/28/18 08:59 UNV Sodium Hypochlorite (Dakin's Quarter Strength) 1 applic QHS TOPIC 10/30/18 21:00 11/29/18 20:59 Zolpidem Tartrate (Ambien) 5 mg HSPRN PRN ORAL Insomnia 10/28/18 22:30 11/04/18 22:29 Gracie Echeverria MD Oct 30, 2018 09:37
[2018-10-30] MEDS: PREZISTA 600 MG ORAL SCH ×2 (11:14→20:42)
[2018-10-30] MEDS: INTELENCE 200 MG ORAL SCH ×2 (11:14→20:39)
[2018-10-30 12:00] VITALS: BP 120/73
--- NOTE | 2018-10-30 12:46 | Hematology/Onc Progress Note ---
Assessment/Plan Assessment/Plan Assessment and Recs: # Prostate cancer, stage IV, metastatic, psa 1286 --> bone scan extensive diffuse patchy abnormal uptake within the axial skeleton including the entire spine, pelvic bones and multiple ribs consistent with the metastatic neoplasm. 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 # FTt likely due to malignancy --> decreased appetite with gtube # Dvt ppx scds The timing of this note does not necessarily reflect the time of the patient was seen. Greatly appreciate consultation! Subjective HEENT: Denies: no symptoms, eye pain, blurred vision, tearing, double vision, ear pain, ear discharge, nose pain, nose congestion, throat pain, throat swelling, mouth pain, mouth swelling, other Cardiovascular: Denies: no symptoms, chest pain, edema, irregular heart rate, lightheadedness, palpitations, syncope, other Respiratory: Denies: no symptoms, cough, shortness of breath, SOB with excertion, SOB at rest, sputum, wheezing, other Gastrointestinal/Abdominal: Denies: no symptoms, abdomen distended, abdominal pain, black stools, tarry stools, blood in stool, constipated, diarrhea, difficulty swallowing, nausea, poor appetite, poor fluid intake, rectal bleeding , vomiting, other Genitourinary: Denies: no symptoms, burning, discharge, frequency, flank pain, hematuria, incontinence, pain, urgency, other 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: Denies: no symptoms, anxiety, depressed, emotional problems, headache, numbness, paresthesia, pre-existing deficit, seizure, tingling, tremors, weakness, other Endocrine: Denies: no symptoms, excessive sweating, flushing, intolerance to cold, intolerance to heat, increased hunger, increased thirst, increased urine, unexplained weight gain, unexplained weight loss, other Allergies: Coded Allergies: No Known Allergies (Unverified , 08/31/13) Subjective 10/30: on zosyn, gtube feeds, labs noted, remains fatigued today Objective Objective Current Medications Medications (Trade) Dose Ordered Sig/Delgado Route PRN Reason Start Time Stop Time Status Last Admin Dose Admin Acetaminophen (Tylenol) 650 mg Q4H PRN ORAL fever 10/28/18 22:30 11/27/18 22:29 Ascorbic Acid (Vitamin C) 500 mg DAILY ORAL 10/30/18 09:00 11/29/18 08:59 10/30/18 09:09 Dextrose (Dextrose 50%) 25 ml Q30M PRN IV Hypoglycemia 10/28/18 22:30 11/27/18 22:29 Dextrose (Dextrose 50%) 50 ml Q30M PRN IV Hypoglycemia 10/28/18 22:30 11/27/18 22:29 Heparin Sodium (Porcine) (Heparin 5000 units/ml) 5,000 units EVERY 12 HOURS SUBQ 10/29/18 09:00 11/28/18 08:59 10/30/18 09:10 Lansoprazole (Prevacid) 30 mg DAILY GT 10/30/18 09:00 11/29/18 08:59 10/30/18 09:09 Lorazepam (Ativan 2mg/ml 1ml) 0.5 mg Q4H PRN IV For Anxiety 10/28/18 22:30 11/04/18 22:29 Methadone HCl (Methadone HCl) 5 mg EVERY 12 HOURS ORAL 10/29/18 21:00 11/05/18 20:59 10/30/18 09:08 Morphine Sulfate (Morphine Sulfate) 1 mg EVERY 4 HOURS PRN IVP For Pain 10/28/18 22:30 11/04/18 22:29 Ondansetron HCl (Zofran) 4 mg Q6H PRN IVP Nausea & Vomiting 10/28/18 22:30 11/27/18 22:29 Patient Own Medication (Patient's Own Med) 1 ea DAILY ORAL 10/31/18 11:00 11/30/18 10:59 Patient Own Medication (Patient's Own Med) 1 ea Q12HR ORAL 10/30/18 11:00 11/29/18 10:59 10/30/18 11:13 Patient Own Medication (Patient's Own Med) 1 ea Q12HR ORAL 10/30/18 11:00 11/29/18 10:59 10/30/18 11:13 Patient Own Medication (Patient's Own Med) 1 ea Q12HR ORAL 10/30/18 11:00 11/29/18 10:59 10/30/18 11:14 Patient Own Medication (Patient's Own Med) 1 ea Q12HR ORAL 10/30/18 11:00 11/29/18 10:59 10/30/18 11:14 Piperacillin Sod/ Tazobactam Sod 3.375 gm/Sodium Chloride 110 ml @ 27.5 mls/hr EVERY 8 HOURS IVPB 10/29/18 18:00 11/03/18 17:59 10/30/18 05:36 Polyethylene Glycol (Miralax) 17 gm HSPRN PRN ORAL Constipation 10/28/18 22:30 11/27/18 22:29 Sodium Hypochlorite (Dakin's Quarter Strength) 1 applic QHS TOPIC 10/30/18 21:00 11/29/18 20:59 Zolpidem Tartrate (Ambien) 5 mg HSPRN PRN ORAL Insomnia 10/28/18 22:30 11/04/18 22:29 Last 24 Hour Vital Signs Date Time Temp Pulse Resp B/P (MAP) Pulse Ox O2 Delivery O2 Flow Rate FiO2 10/30/18 12:00 90 20 120/73 (89) 96 10/30/18 08:00 97.5 90 16 126/74 (91) 98 10/30/18 07:42 Room Air 10/30/18 04:00 98.9 87 20 123/70 (87) 95 10/30/18 00:00 97.5 74 19 140/70 (93) 95 10/29/18 21:50 98.1 87 120/68 (85) 10/29/18 21:00 Room Air 10/29/18 20:00 97.9 72 19 137/70 (92) 96 10/29/18 16:00 99.1 96 20 130/75 (93) 98 10/29/18 12:00 96.4 93 18 128/83 (98) 98 10/29/18 09:00 Room Air 10/29/18 08:00 98.6 93 20 123/79 (94) 98 10/29/18 04:00 97.2 90 20 93/60 (71) 95 10/29/18 01:00 Room Air 10/29/18 00:00 98.0 90 16 108/60 (76) 93 10/28/18 22:19 97.2 82 18 115/61 (79) 97 10/28/18 21:46 98.2 10/28/18 21:30 98.2 84 14 125/73 97 Room Air 10/28/18 19:35 81 14 Room Air 10/28/18 19:35 98.2 84 14 125/73 97 Room Air 10/28/18 19:32 98.2 81 14 125/73 (90) 97 Room Air Intake and Output 10/29/18 10/30/18 19:00 07:00 Intake Total 1160 ml Output Total 350 ml Balance -350 ml 1160 ml Intake Free Water 500 ml Tube Feeding 660 ml Output Urine Total 350 ml # Voids 2 Labs Test 10/28/18 20:25 10/28/18 21:20 10/28/18 21:30 10/29/18 05:15 White Blood Count 8.1 K/UL (4.8-10.8) 8.3 K/UL (4.8-10.8) Red Blood Count 3.69 M/UL (4.70-6.10) 3.34 M/UL (4.70-6.10) Hemoglobin 8.7 G/DL (14.2-18.0) 7.8 G/DL (14.2-18.0) Hematocrit 28.8 % (42.0-52.0) 25.9 % (42.0-52.0) Mean Corpuscular Volume 78 FL (80-99) 78 FL (80-99) Mean Corpuscular Hemoglobin 23.7 PG (27.0-31.0) 23.4 PG (27.0-31.0) Mean Corpuscular Hemoglobin Concent 30.4 G/DL (32.0-36.0) 30.1 G/DL (32.0-36.0) Red Cell Distribution Width 16.0 % (11.6-14.8) 17.3 % (11.6-14.8) Platelet Count 184 K/UL (150-450) 196 K/UL (150-450) Mean Platelet Volume 7.2 FL (6.5-10.1) 6.4 FL (6.5-10.1) Neutrophils (%) (Auto) 71.2 % (45.0-75.0) % (45.0-75.0) Lymphocytes (%) (Auto) 18.4 % (20.0-45.0) % (20.0-45.0) Monocytes (%) (Auto) 9.3 % (1.0-10.0) % (1.0-10.0) Eosinophils (%) (Auto) 0.5 % (0.0-3.0) % (0.0-3.0) Basophils (%) (Auto) 0.7 % (0.0-2.0) % (0.0-2.0) Sodium Level 140 MMOL/L (136-145) 142 MMOL/L (136-145) Potassium Level 3.7 MMOL/L (3.5-5.1) 4.0 MMOL/L (3.5-5.1) Chloride Level 102 MMOL/L (98-107) 106 MMOL/L (98-107) Carbon Dioxide Level 28 MMOL/L (21-32) 29 MMOL/L (21-32) Anion Gap 10 mmol/L (5-15) 7 mmol/L (5-15) Blood Urea Nitrogen 20 mg/dL (7-18) 19 mg/dL (7-18) Creatinine 0.6 MG/DL (0.55-1.30) 0.6 MG/DL (0.55-1.30) Estimat Glomerular Filtration Rate mL/min (>60) mL/min (>60) Glucose Level 93 MG/DL (74-106) 81 MG/DL (74-106) Lactic Acid Level 2.60 mmol/L (0.4-2.0) 2.00 mmol/L (0.66-2.22) Calcium Level 8.5 MG/DL (8.5-10.1) 8.4 MG/DL (8.5-10.1) Phosphorus Level 2.7 MG/DL (2.5-4.9) Magnesium Level 2.2 MG/DL (1.8-2.4) Total Bilirubin 0.6 MG/DL (0.2-1.0) 0.7 MG/DL (0.2-1.0) Aspartate Amino Transf (AST/SGOT) 38 U/L (15-37) 33 U/L (15-37) Alanine Aminotransferase (ALT/SGPT) 19 U/L (12-78) 15 U/L (12-78) Alkaline Phosphatase 552 U/L (46-116) 506 U/L (46-116) Total Creatine Kinase 203 U/L (26-140) Creatine Kinase MB 23.3 NG/ML (0.0-3.6) Creatine Kinase MB Relative Index 11.4 Troponin I 0.000 ng/mL (0.000-0.056) Pro-B-Type Natriuretic Peptide 1065 pg/mL (0-125) Total Protein 6.2 G/DL (6.4-8.2) 5.9 G/DL (6.4-8.2) Albumin 1.6 G/DL (3.4-5.0) 1.6 G/DL (3.4-5.0) Globulin 4.6 g/dL 4.3 g/dL Albumin/Globulin Ratio 0.3 (1.0-2.7) 0.4 (1.0-2.7) Lipase 94 U/L (73-393) Prothrombin Time 12.0 SEC (9.30-11.50) Prothromb Time International Ratio 1.1 (0.9-1.1) Activated Partial Thromboplast Time 34 SEC (23-33) Urine Color Yellow Urine Appearance Cloudy Urine pH 7 (4.5-8.0) Urine Specific [place] 1.010 (1.005-1.035) Urine Protein 2+ (NEGATIVE) Urine Glucose (UA) Negative (NEGATIVE) Urine Ketones Negative (NEGATIVE) Urine Blood 4+ (NEGATIVE) Urine Nitrite Negative (NEGATIVE) Urine Bilirubin Negative (NEGATIVE) Urine Urobilinogen 4 MG/DL (0.0-1.0) Urine Leukocyte Esterase 3+ (NEGATIVE) Urine RBC 15-20 /HPF (0 - 0) Urine WBC Tntc /HPF (0 - 0) Urine Squamous Epithelial Cells None /LPF (NONE/OCC) Urine Bacteria Moderate /HPF (NONE) Differential Total Cells Counted 100 Neutrophils % (Manual) 70 % (45-75) Lymphocytes % (Manual) 20 % (20-45) Monocytes % (Manual) 8 % (1-10) Eosinophils % (Manual) 2 % (0-3) Basophils % (Manual) 0 % (0-2) Band Neutrophils 0 % (0-8) Platelet Estimate Adequate Platelet Morphology Normal Hypochromasia 1+ Anisocytosis 1+ Microcytosis 1+ Hemoglobin A1c 6.0 % (4.3-6.0) Triglycerides Level 68 MG/DL (30-150) Cholesterol Level 95 MG/DL (< 200) LDL Cholesterol 58 mg/dL (<100) HDL Cholesterol 28 MG/DL (40-60) Cholesterol/HDL Ratio 3.4 (3.3-4.4) Prostate Specific Antigen 430.41 ng/mL (0.13-4.0) Thyroid Stimulating Hormone (TSH) 4.201 uiU/mL (0.358-3.740) Test 10/30/18 05:40 White Blood Count 8.9 K/UL (4.8-10.8) Red Blood Count 4.20 M/UL (4.70-6.10) Hemoglobin 10.3 G/DL (14.2-18.0) Hematocrit 33.4 % (42.0-52.0) Mean Corpuscular Volume 79 FL (80-99) Mean Corpuscular Hemoglobin 24.7 PG (27.0-31.0) Mean Corpuscular Hemoglobin Concent 31.0 G/DL (32.0-36.0) Red Cell Distribution Width 17.7 % (11.6-14.8) Platelet Count 204 K/UL (150-450) Mean Platelet Volume 6.3 FL (6.5-10.1) Neutrophils (%) (Auto) 79.1 % (45.0-75.0) Lymphocytes (%) (Auto) 13.2 % (20.0-45.0) Monocytes (%) (Auto) 7.3 % (1.0-10.0) Eosinophils (%) (Auto) 0.2 % (0.0-3.0) Basophils (%) (Auto) 0.2 % (0.0-2.0) Reticulocyte Count 1.4 % (0.5-2.0) Prothrombin Time 12.0 SEC (9.30-11.50) Prothromb Time International Ratio 1.1 (0.9-1.1) Activated Partial Thromboplast Time 32 SEC (23-33) Sodium Level 145 MMOL/L (136-145) Potassium Level 3.6 MMOL/L (3.5-5.1) Chloride Level 108 MMOL/L (98-107) Carbon Dioxide Level 29 MMOL/L (21-32) Anion Gap 8 mmol/L (5-15) Blood Urea Nitrogen 20 mg/dL (7-18) Creatinine 0.7 MG/DL (0.55-1.30) Estimat Glomerular Filtration Rate mL/min (>60) Glucose Level 88 MG/DL (74-106) Calcium Level 8.7 MG/DL (8.5-10.1) Iron Level 43 ug/dL (50-175) Total Iron Binding Capacity 96 ug/dL (250-450) Percent Iron Saturation 45 % (15-50) Unsaturated Iron Binding 53 ug/dL (112-346) Ferritin 1914 NG/ML (8-388) Total Bilirubin 0.8 MG/DL (0.2-1.0) Aspartate Amino Transf (AST/SGOT) 32 U/L (15-37) Alanine Aminotransferase (ALT/SGPT) 21 U/L (12-78) Alkaline Phosphatase 547 U/L (46-116) Total Protein 6.6 G/DL (6.4-8.2) Albumin 1.7 G/DL (3.4-5.0) Globulin 4.9 g/dL Albumin/Globulin Ratio 0.3 (1.0-2.7) Vitamin B12 Level 935 PG/ML (193-986) Folate 17.6 NG/ML (8.6-58.9) Thyroid Stimulating Hormone (TSH) 2.147 uiU/mL (0.358-3.740) Free Thyroxine 0.81 NG/DL (0.76-1.46) Height (Feet): 5 Height (Inches): 11.00 Weight (Pounds): 130 Objective gen: nad, cachectic pulm: ctab, no cwr cv: rrr, no mgr abd, soft, nt, nd ext: no cce neuro: grossly intact Marcello Villanueva MD Oct 30, 2018 12:46
[2018-10-30 16:00] VITALS: BP 131/83
--- NOTE | 2018-10-30 16:19 | General Progress Note ---
Assessment/Plan Problem List: (1) Cachexia ICD Codes: R64 - Cachexia SNOMED: 225744936 (2) Acute UTI (3) HIV disease ICD Codes: B20 - Human immunodeficiency virus [HIV] disease SNOMED: 66011174 (4) Protein-calorie malnutrition, severe ICD Codes: E43 - Unspecified severe protein-calorie malnutrition SNOMED: 887986226, 226419142, 309805715 (5) Anemia ICD Codes: D64.9 - Anemia, unspecified SNOMED: 752189127 (6) Prostate cancer ICD Codes: C61 - Malignant neoplasm of prostate SNOMED: 553951467 Status: unchanged Assessment/Plan: pt diet abx gi f/u cbc bmp am Subjective Constitutional: Reports: weakness Allergies: Coded Allergies: No Known Allergies (Unverified , 08/31/13) All Systems: reviewed and negative except above Subjective sleepy calm Objective Last 24 Hour Vital Signs Date Time Temp Pulse Resp B/P (MAP) Pulse Ox O2 Delivery O2 Flow Rate FiO2 10/30/18 12:00 90 20 120/73 (89) 96 10/30/18 08:00 97.5 90 16 126/74 (91) 98 10/30/18 07:42 Room Air 10/30/18 04:00 98.9 87 20 123/70 (87) 95 10/30/18 00:00 97.5 74 19 140/70 (93) 95 10/29/18 21:50 98.1 87 120/68 (85) 10/29/18 21:00 Room Air 10/29/18 20:00 97.9 72 19 137/70 (92) 96 Intake and Output 10/29/18 10/30/18 19:00 07:00 Intake Total 1160 ml Output Total 350 ml Balance -350 ml 1160 ml Intake Free Water 500 ml Tube Feeding 660 ml Output Urine Total 350 ml # Voids 2 Laboratory Tests 10/30/18 05:40: White Blood Count 8.9, Red Blood Count 4.20L, Hemoglobin 10.3#L, Hematocrit 33.4L, Mean Corpuscular Volume 79L, Mean Corpuscular Hemoglobin 24.7L, Mean Corpuscular Hemoglobin Concent 31.0L, Red Cell Distribution Width 17.7H, Platelet Count 204, Mean Platelet Volume 6.3L, Neutrophils (%) (Auto) 79.1H, Lymphocytes (%) (Auto) 13.2L, Monocytes (%) (Auto) 7.3, Eosinophils (%) (Auto) 0.2, Basophils (%) (Auto) 0.2, Reticulocyte Count 1.4, Prothrombin Time 12.0H, Prothromb Time International Ratio 1.1, Activated Partial Thromboplast Time 32, Sodium Level 145, Potassium Level 3.6, Chloride Level 108H, Carbon Dioxide Level 29, Anion Gap 8, Blood Urea Nitrogen 20H, Creatinine 0.7, Estimat Glomerular Filtration Rate , Glucose Level 88, Calcium Level 8.7, Iron Level 43L , Total Iron Binding Capacity 96L, Percent Iron Saturation 45, Unsaturated Iron Binding 53L, Ferritin 1914H, Total Bilirubin 0.8, Aspartate Amino Transf (AST/ SGOT) 32, Alanine Aminotransferase (ALT/SGPT) 21, Alkaline Phosphatase 547H, Total Protein 6.6, Albumin 1.7L, Globulin 4.9, Albumin/Globulin Ratio 0.3L, Vitamin B12 Level 935, Folate 17.6, Thyroid Stimulating Hormone (TSH) 2.147, Free Thyroxine 0.81 Height (Feet): 5 Height (Inches): 11.00 Weight (Pounds): 130 General Appearance: lethargic EENT: normal ENT inspection Neck: normal alignment Cardiovascular: normal peripheral pulses, normal rate, regular rhythm Respiratory/Chest: chest wall non-tender, lungs clear, normal breath sounds Extremities: normal inspection Edema: no edema noted Arm (L), no edema noted Arm (R), no edema noted Leg (L), no edema noted Leg (R), no edema noted Pedal (L), no edema noted Pedal (R), no edema noted Generalized Neurologic: motor weakness Skin: normal pigmentation, warm/dry Prabhu Trejo DO Oct 30, 2018 16:19
[2018-10-30] MEDS: Memantine 5 MG TAB ORAL SCH (17:50)
--- NOTE | 2018-10-30 19:15 | NUR ---
NURSE NOTES: Patient is in bed,awake,alert and verbal. breathing on room air. No acute distress noted. G tube is patent and running Glucerna 1.2@55cc/hr and patient tolerated well. F/C draining yellow urine.IV on right upper arm is patent and intact. Bed in low and locked position. Call light within reach. Patient will be monitored.
--- NOTE | 2018-10-30 19:26 | NUR ---
HAND-OFF: Report given to LORI Cole and LORI Grove.
[2018-10-30 20:00] VITALS: BP 140/87
--- NOTE | 2018-10-30 20:00 | NUR ---
NURSE NOTES: Pt is in bed, awake and verbal. No acute distress noted. HOB elevated. Pt is NPO. Glucerna 1.2 running via G-tube at 55ml/hr. Baez cath draining yellow urine. Pt has multiple wound dressing, dry and intact. Pt is on P200 matrass. Bed locked low in position,side rails up and call light within reach. Fall precaution in place. Bed alarm On. Pt will be monitored. Addendum: 10/30/18 at 2125 by MARCUS VANG RN RN Trainee Maine Torres RN will be assisting in the care of the patient.
[2018-10-30] MEDS: Zolpidem 5mg tab ORAL PRN (20:35)
--- NOTE | 2018-10-30 20:41 | General Progress Note ---
Assessment/Plan Status: unchanged Assessment/Plan: GI: Plan Problems: (1) Anemia (2) Failure to thrive (3) Dehydration (4) Altered mental status (5) FTT (failure to thrive) in adult (6) Protein-calorie malnutrition, severe Plan dietary consult for nutritional needs ST evaluation for oral gratification continue GT feedings GT site care daily/prn anemia work up, will consider EGD if needed OB stool r/o GI bleed monitor H&H, prn transfusions bowel regimen ppi fu labs Subjective Allergies: Coded Allergies: No Known Allergies (Unverified , 08/31/13) Subjective Weak minimally interactive (+) feeds Objective Last 24 Hour Vital Signs Date Time Temp Pulse Resp B/P (MAP) Pulse Ox O2 Delivery O2 Flow Rate FiO2 10/30/18 16:00 99.1 94 20 131/83 (99) 97 10/30/18 12:00 90 20 120/73 (89) 96 10/30/18 08:00 97.5 90 16 126/74 (91) 98 10/30/18 07:42 Room Air 10/30/18 04:00 98.9 87 20 123/70 (87) 95 10/30/18 00:00 97.5 74 19 140/70 (93) 95 10/29/18 21:50 98.1 87 120/68 (85) 10/29/18 21:00 Room Air Intake and Output 10/29/18 10/30/18 19:00 07:00 Intake Total 1160 ml Output Total 350 ml Balance -350 ml 1160 ml Intake Free Water 500 ml Tube Feeding 660 ml Output Urine Total 350 ml # Voids 2 Laboratory Tests 10/30/18 05:40: White Blood Count 8.9, Red Blood Count 4.20L, Hemoglobin 10.3#L, Hematocrit 33.4L, Mean Corpuscular Volume 79L, Mean Corpuscular Hemoglobin 24.7L, Mean Corpuscular Hemoglobin Concent 31.0L, Red Cell Distribution Width 17.7H, Platelet Count 204, Mean Platelet Volume 6.3L, Neutrophils (%) (Auto) 79.1H, Lymphocytes (%) (Auto) 13.2L, Monocytes (%) (Auto) 7.3, Eosinophils (%) (Auto) 0.2, Basophils (%) (Auto) 0.2, Reticulocyte Count 1.4, Prothrombin Time 12.0H, Prothromb Time International Ratio 1.1, Activated Partial Thromboplast Time 32, Sodium Level 145, Potassium Level 3.6, Chloride Level 108H, Carbon Dioxide Level 29, Anion Gap 8, Blood Urea Nitrogen 20H, Creatinine 0.7, Estimat Glomerular Filtration Rate , Glucose Level 88, Calcium Level 8.7, Iron Level 43L , Total Iron Binding Capacity 96L, Percent Iron Saturation 45, Unsaturated Iron Binding 53L, Ferritin 1914H, Total Bilirubin 0.8, Aspartate Amino Transf (AST/ SGOT) 32, Alanine Aminotransferase (ALT/SGPT) 21, Alkaline Phosphatase 547H, Total Protein 6.6, Albumin 1.7L, Globulin 4.9, Albumin/Globulin Ratio 0.3L, Vitamin B12 Level 935, Folate 17.6, Thyroid Stimulating Hormone (TSH) 2.147, Free Thyroxine 0.81 Height (Feet): 5 Height (Inches): 11.00 Weight (Pounds): 130 Objective Thin AA woman NCAT supple CTA RRR abd flat, (+) GT no edema Austen Brantley MD Oct 30, 2018 20:41
[2018-10-30] MEDS: Dakin's 0.125% Soln (Quarter Strength) 16oz TOPIC SCH (20:44)
--- NOTE | 2018-10-30 22:30 | Progress Note ---
DATE: 10/30/2018 SUBJECTIVE: The patient is admitted to the hospital. She is an 83-year-old ____. Incomplete Dictation Shar Jacob M.D. DR: GODFREY JOB#: [id number] CC:
--- NOTE | 2018-10-30 23:15 | Consultation ---
DATE OF CONSULTATION: 10/30/2018 CONSULTING PHYSICIAN: Shar Jacob M.D. HISTORY OF PRESENT ILLNESS: An 83-year-old male patient came to the hospital with failure to thrive, but this patient also has because he has failure to thrive and decline in cognition medically, his cognition has declined below his baseline. That is why, his attending physician has requested daily psychiatric consultation. MEDICAL HISTORY: Includes failure to thrive, altered mental status, prostate cancer, decubitus ulcer, and HIV. ALLERGIES: No known drug allergies. PSYCHOTROPIC MEDICATIONS: On admission, Ativan 0.5 mg IV q.4 hours p.r.n. anxiety and agitation. SUBSTANCE ABUSE HISTORY: Denies. PAIN ASSESSMENT: A 04/18 pain. DEVELOPMENTAL PROBLEMS: Denies. SOCIAL HISTORY: Lives in [facility]. Financially supported by [employer] and Medicare. PSYCHIATRIC HISTORY: History of major depressive disorder, severe, recurrent with psychotic features, rule out dementia with psychosis. MENTAL STATUS EXAMINATION: An 83-year-old male. Appearance is disheveled. Attitude, irritable, and agitated. Affect is guarded and restricted. Intellect poor. He does know current events, does not know last four presidents. Mood, depressed and anxious. Motor activity, psychomotor agitation. Attention span is poor because he cannot do serial 7's, spell world backwards. Orientation x2. He is oriented to person and place, not to time and situation. Speech is low volume, slurred. Thought process, disorganized and illogical. Thought content, auditory hallucinations paranoid delusions. Perception is poor because the patient has paranoid delusions. Abstract reasoning is poor. This patient does not understand proverbs, only concrete thinking. Insight is poor because the patient does not recognize cognitive decline. Judgment is poor because he cannot make clear medical decisions for himself. Memory 0/3 of 3 word recall, so poor short-term memory, long-term memory is poor. This patient cannot recall long-term events in his life such as high school that he went to. No suicidal or homicidal thoughts, but the patient is diagnosed with major depressive disorder, severe, recurrent with psychotic features, rule out dementia with psychosis. Medical is failure to thrive, prostate cancer, decubitus ulcer, HIV, altered mental status. PSYCHOSOCIAL STRESSORS: Financial. PLAN: Treat the patient with medication regimen of Ativan 0.5 mg IV q.4 hours p.r.n. anxiety and agitation. Also, treat this patient with a medication regimen of Remeron 7.5 mg at bedtime to increase the patient's appetite and also treat depression and anxiety. A 20 minutes of cognitive behavioral therapy provided to help him negative thoughts help him convert the negative thoughts to more positive thoughts to reduce depression, anxiety, and suicidality. Chart reviewed. Discussed with staff. The patient is seen and assessed at bedside. Shar Jacob M.D. DR: GODFREY JOB#: [id number] CC:
[2018-10-31] VITALS: BP 138/87
[2018-10-31 04:00] VITALS: BP_SYST 136; BP_SYST 138; BP_DIAS 87; BP_DIAS 88
--- NOTE | 2018-10-31 05:00 | NUR ---
NURSE NOTES: Pt is in bed, awake and verbal. No acute distress noted. Vitals stable. Biliary drainage is 500ml. Pt was repositioned frequently. Blood drawn from PICC line sent to lab. Addendum: 10/31/18 at 0703 by MARCUS VANG RN RN Disregard above note; wrong patient.
--- NOTE | 2018-10-31 05:45 | Consultation ---
DATE OF CONSULTATION: 10/29/2018 NOTE: INCOMPLETE DICTATION SUBJECTIVE: The patient is an 83-year-old male patient, admitted to the hospital secondary to failure to thrive and cachexia. He is from [facility] and basically he has confusion and altered mental status worsened by stress of his medical illness that is why, his attending has requested daily psychiatric consultation. He came in with failure to thrive, but he also has altered mental status, prostate cancer, decubitus ulcer, and HIV. ALLERGIES: No known drug allergies at this time. PSYCHOTROPIC MEDICATIONS: On admission, as per record, the patient is currently on Ativan as needed but other than that no known psychotropic medications at this time, although he does have significant altered mental status. SUBSTANCE ABUSE HISTORY: No history of any drug or alcohol use . PAIN ASSESSMENT: 0/10 pain. DEVELOPMENTAL PROBLEMS: Denies. FAMILY PSYCHIATRIC HISTORY: Denies. SOCIAL HISTORY: The patient lives in [facility], financially supported by [employer] and Medicare. MENTAL STATUS EXAMINATION: The patient is an 83-year-old male. Appearance is disheveled. Attitude, irritable and agitated. Affect, guarded and restricted. Intellect poor because he does not know current events and does not know the last four presidents. Mood, depressed and anxious. Motor activity, psychomotor agitation. Attention span is poor because he cannot do serial sevens or spell world backwards. Orientation . Shar Jacob M.D. DR: Luther JOB#: [id number] CC:
[2018-10-31] MEDS: Piperacillin/Tazobactam 3.375 GM in NS 110 ML IVPB SCH ×3 (06:10→22:56)
[2018-10-31 06:34] LABS: BASOPHILS % (AUTO) 0.4 % (0.0-2.0); EOSINOPHILS % (AUTO) 0.2 % (0.0-3.0); HEMATOCRIT 32.8 % (42.0-52.0); HEMOGLOBIN 10.3 G/DL (14.2-18.0); MEAN CORPUSCULAR VOLUME 79 FL (80-99); MONOCYTES % (AUTO) 9.3 % (1.0-10.0); NEUTROPHILS % (AUTO) 75.1 % (45.0-75.0); PLATELET COUNT 200 K/UL (150-450); RED BLOOD COUNT 4.14 M/UL (4.70-6.10); RED CELL DISTRIBUTION WIDTH 17.5 % (11.6-14.8); WHITE BLOOD COUNT 8.6 K/UL (4.8-10.8)
[2018-10-31 07:02] LABS: ANION GAP 5 mmol/L (5-15); BLOOD UREA NITROGEN 21 mg/dL (7-18); CALCIUM 8.2 MG/DL (8.5-10.1); CARBON DIOXIDE 30 MMOL/L (21-32); CHLORIDE 109 MMOL/L (98-107); CREATININE 0.7 MG/DL (0.55-1.30); POTASSIUM 3.5 MMOL/L (3.5-5.1); SODIUM 144 MMOL/L (136-145)
--- NOTE | 2018-10-31 07:04 | NUR ---
NURSE NOTES: Pt is in bed, awake and alert. No acute distress noted. Pt's dressing changed. G-tube flushed. Pt tolerating feeding well. Pt repositioned frequently. Pt had no BM, unable to collect stool for lab. Pt was given a bed bath. Vitals stable.
--- NOTE | 2018-10-31 07:27 | NUR ---
HAND-OFF: Report given to Latasha SANDOVAL.
--- NOTE | 2018-10-31 07:57 | General Progress Note ---
Assessment/Plan Problem List: (1) Cachexia ICD Codes: R64 - Cachexia SNOMED: 213144798 (2) Acute UTI (3) HIV disease ICD Codes: B20 - Human immunodeficiency virus [HIV] disease SNOMED: 95587215 (4) Protein-calorie malnutrition, severe ICD Codes: E43 - Unspecified severe protein-calorie malnutrition SNOMED: 589350057, 403035768, 513066809 (5) Anemia ICD Codes: D64.9 - Anemia, unspecified SNOMED: 666004543 (6) Prostate cancer ICD Codes: C61 - Malignant neoplasm of prostate SNOMED: 322858465 Status: unchanged Assessment/Plan: pt diet abx gi f/u cbc bmp am Subjective Constitutional: Reports: weakness Allergies: Coded Allergies: No Known Allergies (Unverified , 08/31/13) All Systems: reviewed and negative except above Subjective sleepy calm Objective Last 24 Hour Vital Signs Date Time Temp Pulse Resp B/P (MAP) Pulse Ox O2 Delivery O2 Flow Rate FiO2 10/31/18 04:00 96.8 90 19 136/88 (104) 95 10/31/18 00:00 97.2 93 20 138/87 (104) 95 10/30/18 21:00 Room Air 10/30/18 20:00 97.6 92 19 140/87 (104) 95 10/30/18 16:00 99.1 94 20 131/83 (99) 97 10/30/18 12:00 90 20 120/73 (89) 96 10/30/18 08:00 97.5 90 16 126/74 (91) 98 Intake and Output 10/30/18 10/31/18 18:59 06:59 Intake Total 692.5 ml 1575.0 ml Output Total 450 ml 550 ml Balance 242.5 ml 1025.0 ml Intake Free Water 500 ml 750 ml IV Total 82.5 ml 110.0 ml Tube Feeding 110 ml 715 ml Output Urine Total 450 ml 550 ml # Voids 2 # Bowel Movements 1 Laboratory Tests 10/31/18 05:40: White Blood Count 8.6, Red Blood Count 4.14L, Hemoglobin 10.3L, Hematocrit 32.8L , Mean Corpuscular Volume 79L, Mean Corpuscular Hemoglobin 24.8L, Mean Corpuscular Hemoglobin Concent 31.2L, Red Cell Distribution Width 17.5H, Platelet Count 200, Mean Platelet Volume 6.5, Neutrophils (%) (Auto) 75.1H, Lymphocytes (%) (Auto) 15.0L, Monocytes (%) (Auto) 9.3, Eosinophils (%) (Auto) 0.2, Basophils (%) (Auto) 0.4, Sodium Level 144, Potassium Level 3.5, Chloride Level 109H, Carbon Dioxide Level 30, Anion Gap 5, Blood Urea Nitrogen 21H, Creatinine 0.7, Estimat Glomerular Filtration Rate , Glucose Level 96, Calcium Level 8.2L Height (Feet): 5 Height (Inches): 11.00 Weight (Pounds): 130 General Appearance: lethargic EENT: normal ENT inspection Neck: normal alignment Cardiovascular: normal peripheral pulses, normal rate, regular rhythm Respiratory/Chest: chest wall non-tender, lungs clear, normal breath sounds Abdomen: normal bowel sounds, non tender, soft Extremities: normal inspection Edema: no edema noted Arm (L), no edema noted Arm (R), no edema noted Leg (L), no edema noted Leg (R), no edema noted Pedal (L), no edema noted Pedal (R), no edema noted Generalized Neurologic: motor weakness Skin: normal pigmentation, warm/dry Prabhu Trejo DO Oct 31, 2018 07:57
[2018-10-31 08:00] VITALS: BP 135/81
--- NOTE | 2018-10-31 08:00 | NUR ---
NURSE NOTES: Patient awake when name called,respirations unlabored.G-tube feedings on going as ordered.No residual noted at this time,abdomen is soft.Baez catheter is in place and draining terrell color urine.HOB is elevated.Bed alarm is on,call light within reach.
[2018-10-31] MEDS: Memantine 5 MG TAB ORAL SCH ×2 (09:34→18:12)
[2018-10-31] MEDS: INTELENCE 200 MG ORAL SCH ×2 (09:36→20:39)
[2018-10-31] MEDS: PREZISTA 600 MG ORAL SCH ×2 (09:38→20:38)
[2018-10-31] MEDS: Heparin 5000 units/ml inj SUBQ SCH ×2 (09:42→20:35)
[2018-10-31] MEDS: Ascorbic Acid 500mg tab ORAL SCH (09:43)
--- NOTE | 2018-10-31 10:36 | Infectious Diseases Prog Note ---
Subjective Allergies: Coded Allergies: No Known Allergies (Unverified , 08/31/13) Subjective Afebrile No Leukocytosis Objective Vital Signs Last 24 Hour Vital Signs Date Time Temp Pulse Resp B/P (MAP) Pulse Ox O2 Delivery O2 Flow Rate FiO2 10/31/18 08:00 98.5 87 22 135/81 (99) 100 10/31/18 04:00 96.8 90 19 136/88 (104) 95 10/31/18 00:00 97.2 93 20 138/87 (104) 95 10/30/18 21:00 Room Air 10/30/18 20:00 97.6 92 19 140/87 (104) 95 10/30/18 16:00 99.1 94 20 131/83 (99) 97 10/30/18 12:00 90 20 120/73 (89) 96 Height (Feet): 5 Height (Inches): 11.00 Weight (Pounds): 130 Objective Gen: NAD, Some what confused, cachexitic HEENT: NCAT, MMM, EOMI, PERRL, No Oral lesion, no scleral icterus NECK: full range of motion, supple, no meningismus, No LAD, No JVD LUNGS: CTAB, No W/C, No Accessory muscle use CARDS: RRR, S1, S2, No M/R/G, ABD: Soft, NT, ND, No R/G, + BS, No HSM, No Masses : Deferred Ext: C/C/E, Pulses 2+ B/L (DP, Rad): NEURO: A/O x 3, Strength and Sensation Grossly intact PSYCH: Normal mood and affect SKIN: Warm/dry, No rashes, Sacral ulcers Assessment/Plan Assessment/Plan Assessment/Plan: 83 yo HIV positive male with PMHx of metastatic prostate cancer, cachexia Gtube feeding, decubiti ulcer, HTN, thalamic CVA, pulmonary fibrosis who was sent to the ED with weakness and dizziness. UTI UA (+) UCx Aferbile No leukocytosis HIV -04/2018 CD4 508 (20.4%), VL ND Sacral ulcers Significant necrosis Positive Blood Cx - Contaminant ? Blood 10/28/18 - Staph 2/2 Blood 10/31/18 - Pend Metastatic prostate cancer, Cachexia Gtube feeding Decubiti ulcer HTN Thalamic CVA Pulmonary fibrosis PLAN: - Continue Zosyn #3 for UTI and sacral ulcer - Start Vancomcyin #1 - Continue HIV meds - f/u Urine Cx - f/u Sacral ucler wound Cx - f/u Blood Cx - Monitor CBC and Temps Thank you for this consult. [facility] will continue to follow the patient with you during this hospitalization. Microbiology Date/Time Source Procedure Growth Status 10/28/18 20:40 Blood Blood Culture - Preliminary Staphylococcus Species Resulted 10/28/18 20:25 Blood Blood Culture - Preliminary Staphylococcus Species Resulted 10/28/18 21:30 Urine,Clean Catch Urine Culture - Final Enterococcus Faecalis Complete 10/30/18 04:55 Sacral Wound Gram Stain - Final Resulted 10/30/18 04:55 Wound Culture - Preliminary Gram Negative Jd Staphylococcus Aureus Resulted Laboratory Tests Test 10/31/18 05:40 White Blood Count 8.6 K/UL (4.8-10.8) Red Blood Count 4.14 M/UL (4.70-6.10) L Hemoglobin 10.3 G/DL (14.2-18.0) L Hematocrit 32.8 % (42.0-52.0) L Mean Corpuscular Volume 79 FL (80-99) L Mean Corpuscular Hemoglobin 24.8 PG (27.0-31.0) L Mean Corpuscular Hemoglobin Concent 31.2 G/DL (32.0-36.0) L Red Cell Distribution Width 17.5 % (11.6-14.8) H Platelet Count 200 K/UL (150-450) Mean Platelet Volume 6.5 FL (6.5-10.1) Neutrophils (%) (Auto) 75.1 % (45.0-75.0) H Lymphocytes (%) (Auto) 15.0 % (20.0-45.0) L Monocytes (%) (Auto) 9.3 % (1.0-10.0) Eosinophils (%) (Auto) 0.2 % (0.0-3.0) Basophils (%) (Auto) 0.4 % (0.0-2.0) Sodium Level 144 MMOL/L (136-145) Potassium Level 3.5 MMOL/L (3.5-5.1) Chloride Level 109 MMOL/L (98-107) H Carbon Dioxide Level 30 MMOL/L (21-32) Anion Gap 5 mmol/L (5-15) Blood Urea Nitrogen 21 mg/dL (7-18) H Creatinine 0.7 MG/DL (0.55-1.30) Estimat Glomerular Filtration Rate mL/min (>60) Glucose Level 96 MG/DL (74-106) Calcium Level 8.2 MG/DL (8.5-10.1) L Current Medications Medications (Trade) Dose Ordered Sig/Delgado Route PRN Reason Start Time Stop Time Status Last Admin Dose Admin Acetaminophen (Tylenol) 650 mg Q4H PRN ORAL fever 10/28/18 22:30 11/27/18 22:29 Ascorbic Acid (Vitamin C) 500 mg DAILY ORAL 10/30/18 09:00 11/29/18 08:59 10/31/18 09:43 Dextrose (Dextrose 50%) 25 ml Q30M PRN IV Hypoglycemia 10/28/18 22:30 11/27/18 22:29 Dextrose (Dextrose 50%) 50 ml Q30M PRN IV Hypoglycemia 10/28/18 22:30 11/27/18 22:29 Heparin Sodium (Porcine) (Heparin 5000 units/ml) 5,000 units EVERY 12 HOURS SUBQ 10/29/18 09:00 11/28/18 08:59 10/31/18 09:42 Lansoprazole (Prevacid) 30 mg DAILY GT 10/30/18 09:00 11/29/18 08:59 10/31/18 09:34 Lorazepam (Ativan 2mg/ml 1ml) 0.5 mg Q4H PRN IV For Anxiety 10/28/18 22:30 11/04/18 22:29 Memantine (Namenda) 5 mg BID ORAL 10/30/18 18:00 11/29/18 17:59 10/31/18 09:34 Methadone HCl (Methadone HCl) 5 mg EVERY 12 HOURS ORAL 10/29/18 21:00 11/05/18 20:59 10/31/18 09:34 Mirtazapine (Remeron) 7.5 mg BEDTIME ORAL 10/30/18 21:00 11/29/18 20:59 10/30/18 20:35 Morphine Sulfate (Morphine Sulfate) 1 mg EVERY 4 HOURS PRN IVP For Pain 10/28/18 22:30 11/04/18 22:29 Ondansetron HCl (Zofran) 4 mg Q6H PRN IVP Nausea & Vomiting 10/28/18 22:30 11/27/18 22:29 Patient Own Medication (Patient's Own Med) 1 ea DAILY ORAL 10/31/18 09:00 11/30/18 08:59 10/31/18 09:40 Patient Own Medication (Patient's Own Med) 1 ea Q12HR ORAL 10/31/18 09:00 11/30/18 08:59 10/31/18 09:36 Patient Own Medication (Patient's Own Med) 1 ea Q12HR ORAL 10/31/18 09:00 11/30/18 08:59 10/31/18 09:37 Patient Own Medication (Patient's Own Med) 1 ea Q12HR ORAL 10/31/18 09:00 11/30/18 08:59 10/31/18 09:38 Patient Own Medication (Patient's Own Med) 1 ea Q12HR ORAL 10/31/18 09:00 11/30/18 08:59 10/31/18 09:39 Piperacillin Sod/ Tazobactam Sod 3.375 gm/Sodium Chloride 110 ml @ 27.5 mls/hr EVERY 8 HOURS IVPB 10/29/18 18:00 11/03/18 17:59 10/31/18 06:10 Polyethylene Glycol (Miralax) 17 gm HSPRN PRN ORAL Constipation 10/28/18 22:30 11/27/18 22:29 Sodium Hypochlorite (Dakin's Quarter Strength) 1 applic QHS TOPIC 10/30/18 21:00 11/29/18 20:59 10/30/18 20:44 Zolpidem Tartrate (Ambien) 5 mg HSPRN PRN ORAL Insomnia 10/28/18 22:30 11/04/18 22:29 10/30/18 20:35 Finn Kaur MD Oct 31, 2018 10:36
--- NOTE | 2018-10-31 11:30 | Progress Note ---
DATE: 10/31/2018 SUBJECTIVE: This is an 83-year-old male patient, failure to thrive, but he still has altered mental status, confusion, and decline in cognition below his baseline. That is why, his attending has requested daily psychiatric consultation. MENTAL STATUS EXAMINATION: This is an 83-year-old male. Appearance is disheveled. Attitude, irritable and agitated. Affect, guarded and restricted. Intellect poor. Mood, depressed and anxious. Motor activity, psychomotor agitation. Insight and judgment is poor. DIAGNOSIS: Major depressive disorder, severe, recurrent, with psychotic features. PLAN: Treat this patient with Remeron 7.5 mg at bedtime, Namenda 5 twice a day, Ativan 0.5 mg IV q.4 hours p.r.n. anxiety and agitation. A 20 minutes of reality-based supportive psychotherapy. A 20 minutes of cognitive behavioral therapy will help him identify his automatic negative thoughts, help him convert those negative thoughts to more positive thoughts to reduce depression, anxiety, and suicidality. Chart reviewed. Discussed with staff. Seen and assessed in his room. Shar Jacob M.D. DR: KAM JOB#: [id number] CC:
[2018-10-31 12:00] VITALS: BP 134/67
[2018-10-31] MEDS ORDERED: Vancomycin 750mg/NS 275ml IVPB ONE ×2 (12:00)
--- NOTE | 2018-10-31 13:49 | Surgery Progress Note ---
Surgery Progress Note Subjective Additional Comments no acute events comfortable Objective Last 24 Hour Vital Signs Date Time Temp Pulse Resp B/P (MAP) Pulse Ox O2 Delivery O2 Flow Rate FiO2 10/31/18 12:00 97.9 66 22 134/67 (89) 98 10/31/18 09:00 Room Air 10/31/18 08:00 98.5 87 22 135/81 (99) 100 10/31/18 04:00 96.8 90 19 136/88 (104) 95 10/31/18 00:00 97.2 93 20 138/87 (104) 95 10/30/18 21:00 Room Air 10/30/18 20:00 97.6 92 19 140/87 (104) 95 10/30/18 16:00 99.1 94 20 131/83 (99) 97 I&O Intake and Output 10/30/18 10/31/18 18:59 06:59 Intake Total 692.5 ml 1575.0 ml Output Total 450 ml 550 ml Balance 242.5 ml 1025.0 ml Intake Free Water 500 ml 750 ml IV Total 82.5 ml 110.0 ml Tube Feeding 110 ml 715 ml Output Urine Total 450 ml 550 ml # Voids 2 # Bowel Movements 1 Dressing: saturated Wound: other Drains: other Cardiovascular: RSR Respiratory: clear Abdomen: soft, present bowel sounds, non-distended Extremities: other Laboratory Tests Test 10/31/18 05:40 White Blood Count 8.6 K/UL (4.8-10.8) Red Blood Count 4.14 M/UL (4.70-6.10) L Hemoglobin 10.3 G/DL (14.2-18.0) L Hematocrit 32.8 % (42.0-52.0) L Mean Corpuscular Volume 79 FL (80-99) L Mean Corpuscular Hemoglobin 24.8 PG (27.0-31.0) L Mean Corpuscular Hemoglobin Concent 31.2 G/DL (32.0-36.0) L Red Cell Distribution Width 17.5 % (11.6-14.8) H Platelet Count 200 K/UL (150-450) Mean Platelet Volume 6.5 FL (6.5-10.1) Neutrophils (%) (Auto) 75.1 % (45.0-75.0) H Lymphocytes (%) (Auto) 15.0 % (20.0-45.0) L Monocytes (%) (Auto) 9.3 % (1.0-10.0) Eosinophils (%) (Auto) 0.2 % (0.0-3.0) Basophils (%) (Auto) 0.4 % (0.0-2.0) Sodium Level 144 MMOL/L (136-145) Potassium Level 3.5 MMOL/L (3.5-5.1) Chloride Level 109 MMOL/L (98-107) H Carbon Dioxide Level 30 MMOL/L (21-32) Anion Gap 5 mmol/L (5-15) Blood Urea Nitrogen 21 mg/dL (7-18) H Creatinine 0.7 MG/DL (0.55-1.30) Estimat Glomerular Filtration Rate mL/min (>60) Glucose Level 96 MG/DL (74-106) Calcium Level 8.2 MG/DL (8.5-10.1) L Plan Problems: (1) Decubitus skin ulcer Assessment & Plan: Pt presented on admission with multiple pressure injuries and contractures. Pt is very emaciated. He is very pleasant and responsive. awake alert and cognitively intact Full thickness pressure injury L shoulder/L deltoid(L)4cm x (W)11.5cm. Base of wound has 30% slough ,70% pink granulation. Borders are macerated. Small amt non -odorous serous exudate. Periwound without erythema or induration. Two full thickness pressure injuries L iliac that are in close proximity. (#1 Proximal)Base of wound has 75% rivera slough,25% pink granulation. Erythematous borders. No odor or exudate noted(L)1cm x (W)2cm (#2 Inferior)Base of wound 100% rivera slough,erythematous margins. No odor or exudate noted. (L)2cm x (W)1.1cm. Partial thickness pressure injury R scapula. Base of wound is moist and viable. Edges flat and adherent to base of wound(L)3.5cm x (W)1cm. Second partial thickness pressure injury R scapula in close proximity to above wound. Base of wound is moist and viable. edges adhrent to base of wound. No exudate noted.(L)1.5cm x (W)1cm. Full thickness pressure injury L trochanteric. Base of wound Base of wound 90% soft necrosis ,10% kobe ,and is malodorous. Non blanchable erythema without induration or fluctuance periwound.(L)5.3cm x (W)6cm. Partial thickness pressure injury sacrum with surrounding hyperpigmentation. Base of wound is moist and viable(L)2cm x (W)1.2cm. Full thickness pressure injury R perianal region. Base of wound has 90% soft necrosis,erythematous along borders(L02.2cm x (W)1.5cm. Wound is malodorous. Two Full thickness pressure injuries R trochanteric that are in close proximity. (#1 Proximal) Base of wound has 100% soft necrosis. Wound is malodorous (L) 1.5cm x (W)2cm.(#2 Inferior)Base of wound is concave and is 100% necrotic with erythematous borders(L)3.5cm x (W)3cm.Wound is malodorous. Surrounding area of R greater trochanteric encompassing both wounds is indurated and erythematous. No elevation in skin temp noted.(L)9cm x (W)11.5cm Full thickness pressure injury R ischium .Base of wound is 100% necrotic with erythematous and macerated borders(L)4.5cm x (W)4cm. Dry eschar medial R foot . Periwound without erythema or induration.(L)1.8cm x ( W)4cm.. DTPI R hallux. Base of wound is fluctuant and maroon in colour. Marginal erythema periwound.(L)1.5cm x (W)1.9cm. Dry eschar lateral R malleolus(L)2.8cm x (W) 1.3cm. Stable dry eschar medial L knee . Periwound without erythema or induration. (L) 3.5cm x (W)4cm. Stable dry eschar lateral L malleolus. Periwound without erythema or induration. (L)2.5cm x (W)1cm. Spoke with patient in regards to above findings and plan. May consider debridement Tx.Plan: Cleanse wound L shoulder /L deltoid with saline. Apply Therahoney. Apply Cavilon Skin Barrier periwound. Cover with Optifoam drsg. Change Daily and prn. Cleanse wounds R trochanter, R Ischium, L trochanter , L ischium ,with Dakin's nina. 0.125%. Apply Dakin's moist Gauze to each wound . Apply Moisture Barrier paste periwound. Cover each wound with Optifoam drsg Daily and prn. Apply Moisture Barrier paste to perianal and sacral wounds. Cover with Optifoam drsg. Change every 3 days and prn. Apply Cavilon Skin Barrier to each heel. Cover each heel with Optifoam drsg. Change every 7 days and prn. APM/GRETA mattress overlay. Reposition at least every 2hours or as tolerated. Off-load heels with pillow. (2) Protein-calorie malnutrition, severe Assessment & Plan: DAILY ESTIMATED NEEDS: Needs based on Malnutrition, HIV, severe wasting, wounds, 43kg 30-40 kcals/kg 6669-4061 total kcals 1.25-2 g protein/kg 54-86 g total protein 25-30 mL/kg 3342-0471 total fluid mLs NUTRITION DIAGNOSIS: Malnutrition, severe, in the context of chronic disease r/t HIV, FTT, h/o prostate ca, as evidenced by pt w/ severe generalized wasting, presents w/ 46lbs wt loss/ 33% unfavorable wt change in 2 years, currently @53% of [place] Body Weight. CURRENT TF:Jevity 1.2 @50 x20 ENTERAL NUTRITION RECOMMENDATIONS: Glucerna 1.2 @55ml/hr x24 hrs to provide 1320ml, 1584 kcal, 79g pro, 1063ml free H2O - Rec rate and TF change to Glucerna 1.2. - Initiate @35ml/hr for 6 hrs, advance as tolerated 10ml/hr q4-6 hrs to goal rate - Flush per MD, HOB over 30 degrees -------- ADDITIONAL RECOMMENDATIONS: * Pt is 6ft tall (72 inches) and 43.2kg per bed scale * REC TF CHANGE ABOVE * WOUND CARE: (f/up w/ WC eval) Add DEBBIE BID Add VIT C 500mg daily * Weekly CALIBRATED BED SCALE WTS * NISS w/ TF's for glycemic control Chris Jin Oct 31, 2018 13:49
[2018-10-31 16:00] VITALS: BP 135/85
--- NOTE | 2018-10-31 16:17 | General Progress Note ---
Assessment/Plan Status: unchanged Assessment/Plan: GI: Plan Problems: (1) Anemia (2) Failure to thrive (3) Dehydration (4) Altered mental status (5) FTT (failure to thrive) in adult (6) Protein-calorie malnutrition, severe Plan dietary consult for nutritional needs ST evaluation for oral gratification continue GT feedings GT site care daily/prn anemia work up, will consider EGD if needed OB stool r/o GI bleed monitor H&H, prn transfusions bowel regimen ppi fu labs Subjective Allergies: Coded Allergies: No Known Allergies (Unverified , 08/31/13) Subjective Weak arousable minimally interactive (+) feeds Objective Last 24 Hour Vital Signs Date Time Temp Pulse Resp B/P (MAP) Pulse Ox O2 Delivery O2 Flow Rate FiO2 10/31/18 12:00 97.9 66 22 134/67 (89) 98 10/31/18 09:00 Room Air 10/31/18 08:00 98.5 87 22 135/81 (99) 100 10/31/18 04:00 96.8 90 19 136/88 (104) 95 10/31/18 00:00 97.2 93 20 138/87 (104) 95 10/30/18 21:00 Room Air 10/30/18 20:00 97.6 92 19 140/87 (104) 95 Intake and Output 10/30/18 10/31/18 19:00 07:00 Intake Total 692.5 ml 1520.0 ml Output Total 450 ml 550 ml Balance 242.5 ml 970.0 ml Intake Free Water 500 ml 750 ml IV Total 82.5 ml 110.0 ml Tube Feeding 110 ml 660 ml Output Urine Total 450 ml 550 ml # Voids 2 # Bowel Movements 1 Laboratory Tests 10/31/18 05:40: White Blood Count 8.6, Red Blood Count 4.14L, Hemoglobin 10.3L, Hematocrit 32.8L , Mean Corpuscular Volume 79L, Mean Corpuscular Hemoglobin 24.8L, Mean Corpuscular Hemoglobin Concent 31.2L, Red Cell Distribution Width 17.5H, Platelet Count 200, Mean Platelet Volume 6.5, Neutrophils (%) (Auto) 75.1H, Lymphocytes (%) (Auto) 15.0L, Monocytes (%) (Auto) 9.3, Eosinophils (%) (Auto) 0.2, Basophils (%) (Auto) 0.4, Sodium Level 144, Potassium Level 3.5, Chloride Level 109H, Carbon Dioxide Level 30, Anion Gap 5, Blood Urea Nitrogen 21H, Creatinine 0.7, Estimat Glomerular Filtration Rate , Glucose Level 96, Calcium Level 8.2L Height (Feet): 5 Height (Inches): 11.00 Weight (Pounds): 130 Objective Thin AA woman NCAT supple CTA RRR abd flat, (+) GT no edema Austen Brantley MD Oct 31, 2018 16:17
--- NOTE | 2018-10-31 17:38 | Cardiology Report ---
APPROVED REPORT EKG Measurement Heart [id number] Normal sinus rhythm Right bundle branch block Left anterior fascicular block Bifascicular block Moderate voltage criteria for LVH, may be normal variant Abnormal ECG
[2018-10-31] MEDS ORDERED: DOCUSATE SODIU100 MG GT (17:55)
[2018-10-31] MEDS ORDERED: PRO-STAT LIQUID30 ML GT (17:57)
[2018-10-31] MEDS ORDERED: CATAPRES0.1 MG GT (17:57)
[2018-10-31] MEDS ORDERED: MULTI-DELYN237 ML GT (17:57)
[2018-10-31] MEDS ORDERED: DUONEB 0.5-3(2.53 ML HHN (17:57)
[2018-10-31] MEDS ORDERED: ZOFRAN4 M3 GT (17:57)
[2018-10-31] MEDS ORDERED: MYLANTA30 M1 GT (17:58)
--- NOTE | 2018-10-31 19:03 | NUR ---
NURSE NOTES: Turned and position,skin care and oral care given G-tube feeding remains as ordered.No residual at this time,residual at 1830 noted at 60cc.Bed alarm is on,jeff light within reach.HOB is elevated.
--- NOTE | 2018-10-31 19:30 | NUR ---
HAND-OFF: Report given to MARCUS SANDOVAL.
--- NOTE | 2018-10-31 19:44 | NUR ---
NURSE NOTES: Patient is in bed,awake,alert and verbal. Breathing on room air. No acute distress noted. G tube is patent and running Glucerna 1.2@55cc/hr and patient tolerated well. F/C draining yellow urine.IV on left arm is patent and intact. Bed in low and locked position. Call light within reach. Patient will be monitored.
[2018-10-31 20:00] VITALS: BP 134/77
--- NOTE | 2018-10-31 20:26 | NUR ---
NURSE NOTES: Pt is in bed, awake and verbal. No acute distress noted. HOB elevated. Pt is NPO. Glucerna 1.2 running via G-tube at 55ml/hr. Baez cath draining yellow urine. Pt has multiple wound dressing, dry and intact. Pt is on P200 matrass. Bed locked low in position,side rails up and call light within reach. Fall precaution in place. Bed alarm On. Pt will be monitored. Trainee Maine Torres RN will be assisting in the care of the patient.
[2018-10-31] MEDS: Zolpidem 5mg tab ORAL PRN (20:33)
[2018-10-31] MEDS: Vancomycin 750mg/NS 275ml IVPB SCH ×2 (20:34)
[2018-10-31] MEDS: Dakin's 0.125% Soln (Quarter Strength) 16oz TOPIC SCH (20:54)
[2018-11-01] VITALS: BP 145/78
--- NOTE | 2018-11-01 01:15 | NUR ---
NURSE NOTES: Pt is in bed, asleep. No distress or discomfort noted. G-tube is patent and flushed as ordered. HOB elevated. Repositioned frequently. Bed in low and locked position. Call light within reach. will continue to monitor.
[2018-11-01 04:00] VITALS: BP 125/73
[2018-11-01] MEDS: Piperacillin/Tazobactam 3.375 GM in NS 110 ML IVPB SCH ×3 (05:04→21:52)
--- NOTE | 2018-11-01 06:38 | NUR ---
NURSE NOTES: Pt is in bed, awake and alert. No acute distress noted. G-tube flushed as ordered. Pt tolerating feeding well. Pt repositioned frequently. Pt had no BM, unable to collect stool for lab. Pt was given a bed bath. Vitals stable.
[2018-11-01 07:04] LABS: BASOPHILS % (AUTO) 0.7 % (0.0-2.0); EOSINOPHILS % (AUTO) 0.6 % (0.0-3.0); HEMATOCRIT 30.7 % (42.0-52.0); HEMOGLOBIN 9.4 G/DL (14.2-18.0); LYMPHOCYTES % (AUTO) 18.4 % (20.0-45.0); MEAN CORPUSCULAR VOLUME 79 FL (80-99); MONOCYTES % (AUTO) 9.8 % (1.0-10.0); NEUTROPHILS % (AUTO) 70.5 % (45.0-75.0); PLATELET COUNT 182 K/UL (150-450); RED BLOOD COUNT 3.87 M/UL (4.70-6.10); WHITE BLOOD COUNT 7.3 K/UL (4.8-10.8)
[2018-11-01 07:19] LABS: ANION GAP 7 mmol/L (5-15); BLOOD UREA NITROGEN 19 mg/dL (7-18); CALCIUM 8.1 MG/DL (8.5-10.1); CARBON DIOXIDE 29 MMOL/L (21-32); CHLORIDE 108 MMOL/L (98-107); CREATININE 0.6 MG/DL (0.55-1.30); POTASSIUM 3.3 MMOL/L (3.5-5.1); SODIUM 144 MMOL/L (136-145)
--- NOTE | 2018-11-01 07:22 | NUR ---
HAND-OFF: Report given to Zeina SANDOVAL..
--- NOTE | 2018-11-01 07:46 | NUR ---
NURSE NOTES: Patient received in stable condition, breathing unlabored on room air. G-tube patent and intact with feeding running. Baez catheter draining urine. Bed locked in lowest position, hob elevated. Call light placed within reach, will continue to monitor.
[2018-11-01 08:00] VITALS: BP 110/65
[2018-11-01] MEDS: Ascorbic Acid 500mg tab ORAL SCH (08:08)
[2018-11-01] MEDS: Memantine 5 MG TAB ORAL SCH ×2 (08:09→16:53)
[2018-11-01] MEDS: PREZISTA 600 MG ORAL SCH ×2 (08:09→20:32)
[2018-11-01] MEDS: INTELENCE 200 MG ORAL SCH ×2 (08:09→20:31)
[2018-11-01] MEDS: Heparin 5000 units/ml inj SUBQ SCH ×2 (08:13→20:43)
--- NOTE | 2018-11-01 08:58 | General Progress Note ---
Assessment/Plan Problem List: (1) Cachexia ICD Codes: R64 - Cachexia SNOMED: 449260036 (2) Acute UTI (3) HIV disease ICD Codes: B20 - Human immunodeficiency virus [HIV] disease SNOMED: 15741306 (4) Protein-calorie malnutrition, severe ICD Codes: E43 - Unspecified severe protein-calorie malnutrition SNOMED: 307149390, 641514472, 750234812 (5) Anemia ICD Codes: D64.9 - Anemia, unspecified SNOMED: 630124591 (6) Prostate cancer ICD Codes: C61 - Malignant neoplasm of prostate SNOMED: 798373207 Status: unchanged Assessment/Plan: pt diet abx gi f/u cbc bmp am Subjective Constitutional: Reports: weakness Allergies: Coded Allergies: No Known Allergies (Unverified , 08/31/13) All Systems: reviewed and negative except above Subjective sleepy calm Objective Last 24 Hour Vital Signs Date Time Temp Pulse Resp B/P (MAP) Pulse Ox O2 Delivery O2 Flow Rate FiO2 11/01/18 04:00 98.9 79 20 125/73 (90) 95 11/01/18 00:00 98.0 85 19 145/78 (100) 95 10/31/18 21:00 Room Air 10/31/18 20:00 98.7 88 19 134/77 (96) 95 10/31/18 16:00 99.4 88 20 135/85 (102) 97 10/31/18 12:00 97.9 66 22 134/67 (89) 98 10/31/18 09:00 Room Air Intake and Output 10/31/18 11/01/18 19:00 07:00 Intake Total 745 ml 1609.1 ml Output Total 1100 ml Balance -355 ml 1609.1 ml Intake Free Water 250 ml 500 ml IV Total 504.1 ml Tube Feeding 495 ml 605 ml Output Urine Total 1100 ml Laboratory Tests 11/01/18 05:40: White Blood Count 7.3, Red Blood Count 3.87L, Hemoglobin 9.4L, Hematocrit 30.7L , Mean Corpuscular Volume 79L, Mean Corpuscular Hemoglobin 24.3L, Mean Corpuscular Hemoglobin Concent 30.7L, Red Cell Distribution Width 18.0H, Platelet Count 182, Mean Platelet Volume 6.1L, Neutrophils (%) (Auto) 70.5, Lymphocytes (%) (Auto) 18.4L, Monocytes (%) (Auto) 9.8, Eosinophils (%) (Auto) 0.6, Basophils (%) (Auto) 0.7, Sodium Level 144, Potassium Level 3.3L, Chloride Level 108H, Carbon Dioxide Level 29, Anion Gap 7, Blood Urea Nitrogen 19H, Creatinine 0.6, Estimat Glomerular Filtration Rate , Glucose Level 103, Calcium Level 8.1L Height (Feet): 5 Height (Inches): 11.00 Weight (Pounds): 130 General Appearance: lethargic EENT: normal ENT inspection Neck: normal alignment Cardiovascular: normal peripheral pulses, normal rate, regular rhythm Respiratory/Chest: chest wall non-tender, lungs clear, normal breath sounds Abdomen: normal bowel sounds, non tender, soft Extremities: normal inspection Edema: no edema noted Arm (L), no edema noted Arm (R), no edema noted Leg (L), no edema noted Leg (R), no edema noted Pedal (L), no edema noted Pedal (R), no edema noted Generalized Neurologic: motor weakness Skin: normal pigmentation, warm/dry Prabhu Trejo DO Nov 01, 2018 08:58
--- NOTE | 2018-11-01 09:15 | Progress Note ---
DATE: 11/01/2018 SUBJECTIVE: The patient is an 83-year-old male patient with failure to thrive, but this patient has altered mental status, confusion, decline in cognition below his baseline that is why his attending physician has requested daily psychiatric consultation at this time. He has failure to thrive. MENTAL STATUS EXAMINATION: This is an 83-year-old male. Appearance is disheveled. Attitude, irritable and agitated. Affect, guarded and restricted. Intellect poor. Mood, depressed and anxious. Motor activity, psychomotor agitation. Attention is poor. Orientation x2. Speech is low volume, slurred. Thought process, disorganized and illogical. Insight and judgment is poor. DIAGNOSIS: Schizoaffective, bipolar type. PLAN: Treat him with psychotropic medication regimen consisting of and Remeron 7.5 mg at bedtime Ativan 0.5 mg every 4 hours. p.r.n. anxiety and agitation. A 20 minutes of reality-based supportive psychotherapy. Chart reviewed and discussed with staff. Seen and assessed in his room. A 20 minutes of cognitive behavioral therapy was provided to this patient to help him identify his automatic negative thoughts, help him convert his negative thoughts to more positive thoughts to reduce depression, anxiety, mood lability. A 20 minutes of cognitive behavioral therapy also provided to help him have a more adaptive behavioral pattern. Also treat him with Namenda 5 twice a day, Remeron 7.5 mg at bedtime to help with failure to thrive, depression, anxiety, and also Ativan 0.5 mg every 4 hours p.r.n. anxiety and agitation. Chart reviewed and discussed with staff. The patient was seen and assessed in his room. Shar Jacob M.D. DR: Luther JOB#: [id number] CC:
--- NOTE | 2018-11-01 09:26 | Hematology/Onc Progress Note ---
Assessment/Plan Assessment/Plan Assessment and Recs: # Prostate cancer, stage IV, metastatic, psa 1286 --> bone scan extensive diffuse patchy abnormal uptake within the axial skeleton including the entire spine, pelvic bones and multiple ribs consistent with the metastatic neoplasm. 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 # FTt likely due to malignancy --> decreased appetite with gtube # Dvt ppx scds The timing of this note does not necessarily reflect the time of the patient was seen. Greatly appreciate consultation! Subjective Constitutional: Denies: no symptoms, chills, fever, malaise, weakness, other HEENT: Denies: no symptoms, eye pain, blurred vision, tearing, double vision, ear pain, ear discharge, nose pain, nose congestion, throat pain, throat swelling, mouth pain, mouth swelling, other Cardiovascular: Denies: no symptoms, chest pain, edema, irregular heart rate, lightheadedness, palpitations, syncope, other Respiratory: Denies: no symptoms, cough, shortness of breath, SOB with excertion, SOB at rest, sputum, wheezing, other Gastrointestinal/Abdominal: Denies: no symptoms, abdomen distended, abdominal pain, black stools, tarry stools, blood in stool, constipated, diarrhea, difficulty swallowing, nausea, poor appetite, poor fluid intake, rectal bleeding , vomiting, other Genitourinary: Denies: no symptoms, burning, discharge, frequency, flank pain, hematuria, incontinence, pain, urgency, other 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: Denies: no symptoms, anxiety, depressed, emotional problems, headache, numbness, paresthesia, pre-existing deficit, seizure, tingling, tremors, weakness, other Allergies: Coded Allergies: No Known Allergies (Unverified , 08/31/13) Subjective 10/30: on zosyn, gtube feeds, labs noted, remains fatigued today 11/01: no events, no bleeding, no changes, no hemolysis Objective Objective Current Medications Medications (Trade) Dose Ordered Sig/Delgado Route PRN Reason Start Time Stop Time Status Last Admin Dose Admin Acetaminophen (Tylenol) 650 mg Q4H PRN ORAL fever 10/28/18 22:30 11/27/18 22:29 Ascorbic Acid (Vitamin C) 500 mg DAILY ORAL 10/30/18 09:00 11/29/18 08:59 11/01/18 08:08 Dextrose (Dextrose 50%) 25 ml Q30M PRN IV Hypoglycemia 10/28/18 22:30 11/27/18 22:29 Dextrose (Dextrose 50%) 50 ml Q30M PRN IV Hypoglycemia 10/28/18 22:30 11/27/18 22:29 Heparin Sodium (Porcine) (Heparin 5000 units/ml) 5,000 units EVERY 12 HOURS SUBQ 10/29/18 09:00 11/28/18 08:59 11/01/18 08:13 Lansoprazole (Prevacid) 30 mg DAILY GT 10/30/18 09:00 11/29/18 08:59 11/01/18 08:08 Lorazepam (Ativan 2mg/ml 1ml) 0.5 mg Q4H PRN IV For Anxiety 10/28/18 22:30 11/04/18 22:29 Memantine (Namenda) 5 mg BID ORAL 10/30/18 18:00 11/29/18 17:59 11/01/18 08:09 Methadone HCl (Methadone HCl) 5 mg EVERY 12 HOURS ORAL 10/29/18 21:00 11/05/18 20:59 11/01/18 08:08 Mirtazapine (Remeron) 7.5 mg BEDTIME ORAL 10/30/18 21:00 11/29/18 20:59 10/31/18 20:33 Morphine Sulfate (Morphine Sulfate) 1 mg EVERY 4 HOURS PRN IVP For Pain 10/28/18 22:30 11/04/18 22:29 Ondansetron HCl (Zofran) 4 mg Q6H PRN IVP Nausea & Vomiting 10/28/18 22:30 11/27/18 22:29 Patient Own Medication (Patient's Own Med) 1 ea DAILY ORAL 10/31/18 09:00 11/30/18 08:59 11/01/18 08:09 Patient Own Medication (Patient's Own Med) 1 ea Q12HR ORAL 10/31/18 09:00 11/30/18 08:59 11/01/18 08:09 Patient Own Medication (Patient's Own Med) 1 ea Q12HR ORAL 10/31/18 09:00 11/30/18 08:59 11/01/18 08:09 Patient Own Medication (Patient's Own Med) 1 ea Q12HR ORAL 10/31/18 09:00 11/30/18 08:59 11/01/18 08:09 Patient Own Medication (Patient's Own Med) 1 ea Q12HR ORAL 10/31/18 09:00 11/30/18 08:59 11/01/18 08:09 Piperacillin Sod/ Tazobactam Sod 3.375 gm/Sodium Chloride 110 ml @ 27.5 mls/hr EVERY 8 HOURS IVPB 10/29/18 18:00 11/03/18 17:59 11/01/18 05:04 Polyethylene Glycol (Miralax) 17 gm HSPRN PRN ORAL Constipation 10/28/18 22:30 11/27/18 22:29 Potassium Chloride (K-Dur) 40 meq ONCE ORAL 11/01/18 09:30 11/01/18 11:29 Sodium Hypochlorite (Dakin's Quarter Strength) 1 applic QHS TOPIC 10/30/18 21:00 11/29/18 20:59 10/31/18 20:54 Vancomycin HCl (Vanco rx to dose) 1 ea DAILY PRN MISC Per rx protocol 10/31/18 10:45 11/30/18 10:44 Vancomycin HCl 750 mg/Sodium Chloride 275 ml @ 183.333 mls/hr Q12H IVPB 10/31/18 21:00 11/05/18 20:59 10/31/18 20:34 Zolpidem Tartrate (Ambien) 5 mg HSPRN PRN ORAL Insomnia 10/28/18 22:30 11/04/18 22:29 10/31/18 20:33 Last 24 Hour Vital Signs Date Time Temp Pulse Resp B/P (MAP) Pulse Ox O2 Delivery O2 Flow Rate FiO2 11/01/18 04:00 98.9 79 20 125/73 (90) 95 11/01/18 00:00 98.0 85 19 145/78 (100) 95 10/31/18 21:00 Room Air 10/31/18 20:00 98.7 88 19 134/77 (96) 95 10/31/18 16:00 99.4 88 20 135/85 (102) 97 10/31/18 12:00 97.9 66 22 134/67 (89) 98 10/31/18 09:00 Room Air 10/31/18 08:00 98.5 87 22 135/81 (99) 100 10/31/18 04:00 96.8 90 19 136/88 (104) 95 10/31/18 00:00 97.2 93 20 138/87 (104) 95 10/30/18 21:00 Room Air 10/30/18 20:00 97.6 92 19 140/87 (104) 95 10/30/18 16:00 99.1 94 20 131/83 (99) 97 10/30/18 12:00 90 20 120/73 (89) 96 Intake and Output 10/31/18 11/01/18 19:00 07:00 Intake Total 745 ml 1609.1 ml Output Total 1100 ml Balance -355 ml 1609.1 ml Intake Free Water 250 ml 500 ml IV Total 504.1 ml Tube Feeding 495 ml 605 ml Output Urine Total 1100 ml Labs Test 10/30/18 05:40 10/31/18 05:40 11/01/18 05:40 White Blood Count 8.9 K/UL (4.8-10.8) 8.6 K/UL (4.8-10.8) 7.3 K/UL (4.8-10.8) Red Blood Count 4.20 M/UL (4.70-6.10) 4.14 M/UL (4.70-6.10) 3.87 M/UL (4.70-6.10) Hemoglobin 10.3 G/DL (14.2-18.0) 10.3 G/DL (14.2-18.0) 9.4 G/DL (14.2-18.0) Hematocrit 33.4 % (42.0-52.0) 32.8 % (42.0-52.0) 30.7 % (42.0-52.0) Mean Corpuscular Volume 79 FL (80-99) 79 FL (80-99) 79 FL (80-99) Mean Corpuscular Hemoglobin 24.7 PG (27.0-31.0) 24.8 PG (27.0-31.0) 24.3 PG (27.0-31.0) Mean Corpuscular Hemoglobin Concent 31.0 G/DL (32.0-36.0) 31.2 G/DL (32.0-36.0) 30.7 G/DL (32.0-36.0) Red Cell Distribution Width 17.7 % (11.6-14.8) 17.5 % (11.6-14.8) 18.0 % (11.6-14.8) Platelet Count 204 K/UL (150-450) 200 K/UL (150-450) 182 K/UL (150-450) Mean Platelet Volume 6.3 FL (6.5-10.1) 6.5 FL (6.5-10.1) 6.1 FL (6.5-10.1) Neutrophils (%) (Auto) 79.1 % (45.0-75.0) 75.1 % (45.0-75.0) 70.5 % (45.0-75.0) Lymphocytes (%) (Auto) 13.2 % (20.0-45.0) 15.0 % (20.0-45.0) 18.4 % (20.0-45.0) Monocytes (%) (Auto) 7.3 % (1.0-10.0) 9.3 % (1.0-10.0) 9.8 % (1.0-10.0) Eosinophils (%) (Auto) 0.2 % (0.0-3.0) 0.2 % (0.0-3.0) 0.6 % (0.0-3.0) Basophils (%) (Auto) 0.2 % (0.0-2.0) 0.4 % (0.0-2.0) 0.7 % (0.0-2.0) Reticulocyte Count 1.4 % (0.5-2.0) Prothrombin Time 12.0 SEC (9.30-11.50) Prothromb Time International Ratio 1.1 (0.9-1.1) Activated Partial Thromboplast Time 32 SEC (23-33) Sodium Level 145 MMOL/L (136-145) 144 MMOL/L (136-145) 144 MMOL/L (136-145) Potassium Level 3.6 MMOL/L (3.5-5.1) 3.5 MMOL/L (3.5-5.1) 3.3 MMOL/L (3.5-5.1) Chloride Level 108 MMOL/L (98-107) 109 MMOL/L (98-107) 108 MMOL/L (98-107) Carbon Dioxide Level 29 MMOL/L (21-32) 30 MMOL/L (21-32) 29 MMOL/L (21-32) Anion Gap 8 mmol/L (5-15) 5 mmol/L (5-15) 7 mmol/L (5-15) Blood Urea Nitrogen 20 mg/dL (7-18) 21 mg/dL (7-18) 19 mg/dL (7-18) Creatinine 0.7 MG/DL (0.55-1.30) 0.7 MG/DL (0.55-1.30) 0.6 MG/DL (0.55-1.30) Estimat Glomerular Filtration Rate mL/min (>60) mL/min (>60) mL/min (>60) Glucose Level 88 MG/DL (74-106) 96 MG/DL (74-106) 103 MG/DL (74-106) Calcium Level 8.7 MG/DL (8.5-10.1) 8.2 MG/DL (8.5-10.1) 8.1 MG/DL (8.5-10.1) Iron Level 43 ug/dL (50-175) Total Iron Binding Capacity 96 ug/dL (250-450) Percent Iron Saturation 45 % (15-50) Unsaturated Iron Binding 53 ug/dL (112-346) Ferritin 1914 NG/ML (8-388) Total Bilirubin 0.8 MG/DL (0.2-1.0) Aspartate Amino Transf (AST/SGOT) 32 U/L (15-37) Alanine Aminotransferase (ALT/SGPT) 21 U/L (12-78) Alkaline Phosphatase 547 U/L (46-116) Total Protein 6.6 G/DL (6.4-8.2) Albumin 1.7 G/DL (3.4-5.0) Globulin 4.9 g/dL Albumin/Globulin Ratio 0.3 (1.0-2.7) Vitamin B12 Level 935 PG/ML (193-986) Folate 17.6 NG/ML (8.6-58.9) Thyroid Stimulating Hormone (TSH) 2.147 uiU/mL (0.358-3.740) Free Thyroxine 0.81 NG/DL (0.76-1.46) Height (Feet): 5 Height (Inches): 11.00 Weight (Pounds): 130 Objective gen: nad, cachectic pulm: ctab, no cwr cv: rrr, no mgr abd, soft, nt, nd ext: no cce neuro: grossly intact Marcello Villanueva MD Nov 01, 2018 09:26
[2018-11-01] MEDS: Vancomycin 750mg/NS 275ml IVPB SCH ×4 (09:39→21:00)
--- NOTE | 2018-11-01 11:06 | Pulmonology Progress Note ---
Assessment/Plan Problems: (1) Anemia (2) End of life care (3) HIV disease (4) Prostate cancer (5) Protein-calorie malnutrition, severe (6) Decubitus skin ulcer Assessment/Plan comfortable wound care aspiration precaution tolerating feeding looks comfortable pt needs to be DNR and comfort care Subjective ROS Limited/Unobtainable: No Constitutional: Reports: no symptoms HEENT: Repors: no symptoms Allergies: Coded Allergies: No Known Allergies (Unverified , 08/31/13) Objective Last 24 Hour Vital Signs Date Time Temp Pulse Resp B/P (MAP) Pulse Ox O2 Delivery O2 Flow Rate FiO2 11/01/18 09:00 Room Air 11/01/18 08:00 97.5 83 19 110/65 (80) 100 11/01/18 04:00 98.9 79 20 125/73 (90) 95 11/01/18 00:00 98.0 85 19 145/78 (100) 95 10/31/18 21:00 Room Air 10/31/18 20:00 98.7 88 19 134/77 (96) 95 10/31/18 16:00 99.4 88 20 135/85 (102) 97 10/31/18 12:00 97.9 66 22 134/67 (89) 98 Intake and Output 10/31/18 11/01/18 19:00 07:00 Intake Total 745 ml 1609.1 ml Output Total 1100 ml Balance -355 ml 1609.1 ml Intake Free Water 250 ml 500 ml IV Total 504.1 ml Tube Feeding 495 ml 605 ml Output Urine Total 1100 ml Objective General Appearance: cachectic HEENT: normocephalic, atraumatic Respiratory/Chest: chest wall non-tender, lungs clear Breasts: no masses Cardiovascular: normal peripheral pulses Abdomen: normal bowel sounds, soft, non tender Genitourinary: normal external genitalia Extremities: no clubbing 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: psychiatric rn II-XII grossly normal Lymphatic: no neck adenopathy Microbiology Date/Time Source Procedure Growth Status 10/30/18 04:55 Sacral Wound Gram Stain - Final Resulted 10/30/18 04:55 Wound Culture - Preliminary Pseudomonas Aeruginosa Staphylococcus Aureus Gram Negative Jd Strep Species, Alpha Hemolytic Diphtheroids Resulted Laboratory Tests 11/01/18 05:40: White Blood Count 7.3, Red Blood Count 3.87L, Hemoglobin 9.4L, Hematocrit 30.7L , Mean Corpuscular Volume 79L, Mean Corpuscular Hemoglobin 24.3L, Mean Corpuscular Hemoglobin Concent 30.7L, Red Cell Distribution Width 18.0H, Platelet Count 182, Mean Platelet Volume 6.1L, Neutrophils (%) (Auto) 70.5, Lymphocytes (%) (Auto) 18.4L, Monocytes (%) (Auto) 9.8, Eosinophils (%) (Auto) 0.6, Basophils (%) (Auto) 0.7, Sodium Level 144, Potassium Level 3.3L, Chloride Level 108H, Carbon Dioxide Level 29, Anion Gap 7, Blood Urea Nitrogen 19H, Creatinine 0.6, Estimat Glomerular Filtration Rate , Glucose Level 103, Calcium Level 8.1L Current Medications Medications (Trade) Dose Ordered Sig/Delgado Route PRN Reason Start Time Stop Time Status Last Admin Dose Admin Acetaminophen (Tylenol) 650 mg Q4H PRN ORAL fever 10/28/18 22:30 11/27/18 22:29 Ascorbic Acid (Vitamin C) 500 mg DAILY ORAL 10/30/18 09:00 11/29/18 08:59 11/01/18 08:08 Dextrose (Dextrose 50%) 25 ml Q30M PRN IV Hypoglycemia 10/28/18 22:30 11/27/18 22:29 Dextrose (Dextrose 50%) 50 ml Q30M PRN IV Hypoglycemia 10/28/18 22:30 11/27/18 22:29 Heparin Sodium (Porcine) (Heparin 5000 units/ml) 5,000 units EVERY 12 HOURS SUBQ 10/29/18 09:00 11/28/18 08:59 11/01/18 08:13 Lansoprazole (Prevacid) 30 mg DAILY GT 10/30/18 09:00 11/29/18 08:59 11/01/18 08:08 Lorazepam (Ativan 2mg/ml 1ml) 0.5 mg Q4H PRN IV For Anxiety 10/28/18 22:30 11/04/18 22:29 Memantine (Namenda) 5 mg BID ORAL 10/30/18 18:00 11/29/18 17:59 11/01/18 08:09 Methadone HCl (Methadone HCl) 5 mg EVERY 12 HOURS ORAL 10/29/18 21:00 11/05/18 20:59 11/01/18 08:08 Mirtazapine (Remeron) 7.5 mg BEDTIME ORAL 10/30/18 21:00 11/29/18 20:59 10/31/18 20:33 Morphine Sulfate (Morphine Sulfate) 1 mg EVERY 4 HOURS PRN IVP For Pain 10/28/18 22:30 11/04/18 22:29 Ondansetron HCl (Zofran) 4 mg Q6H PRN IVP Nausea & Vomiting 10/28/18 22:30 11/27/18 22:29 Patient Own Medication (Patient's Own Med) 1 ea DAILY ORAL 10/31/18 09:00 11/30/18 08:59 11/01/18 08:09 Patient Own Medication (Patient's Own Med) 1 ea Q12HR ORAL 10/31/18 09:00 11/30/18 08:59 11/01/18 08:09 Patient Own Medication (Patient's Own Med) 1 ea Q12HR ORAL 10/31/18 09:00 11/30/18 08:59 11/01/18 08:09 Patient Own Medication (Patient's Own Med) 1 ea Q12HR ORAL 10/31/18 09:00 11/30/18 08:59 11/01/18 08:09 Patient Own Medication (Patient's Own Med) 1 ea Q12HR ORAL 10/31/18 09:00 11/30/18 08:59 11/01/18 08:09 Piperacillin Sod/ Tazobactam Sod 3.375 gm/Sodium Chloride 110 ml @ 27.5 mls/hr EVERY 8 HOURS IVPB 10/29/18 18:00 11/03/18 17:59 11/01/18 05:04 Polyethylene Glycol (Miralax) 17 gm HSPRN PRN ORAL Constipation 10/28/18 22:30 11/27/18 22:29 Potassium Chloride (K-Dur) 40 meq ONCE ORAL 11/01/18 09:30 11/01/18 11:29 11/01/18 09:39 Sodium Hypochlorite (Dakin's Quarter Strength) 1 applic QHS TOPIC 10/30/18 21:00 11/29/18 20:59 10/31/18 20:54 Vancomycin HCl (Vanco rx to dose) 1 ea DAILY PRN MISC Per rx protocol 10/31/18 10:45 11/30/18 10:44 Vancomycin HCl 750 mg/Sodium Chloride 275 ml @ 183.333 mls/hr Q12H IVPB 10/31/18 21:00 11/05/18 20:59 11/01/18 09:39 Zolpidem Tartrate (Ambien) 5 mg HSPRN PRN ORAL Insomnia 10/28/18 22:30 11/04/18 22:29 10/31/18 20:33 Gracie Echeverria MD Nov 01, 2018 11:06
[2018-11-01 12:00] VITALS: BP 115/69
--- NOTE | 2018-11-01 12:34 | GI Progress Note ---
Assessment/Plan Problems: (1) Protein-calorie malnutrition, severe ICD Codes: E43 - Unspecified severe protein-calorie malnutrition SNOMED: 976785963, 048889588, [id number] (2) Anemia ICD Codes: D64.9 - Anemia, unspecified SNOMED: 795751691 Status: stable, unchanged Status Narrative Discussed with Dr. Patten. Assessment/Plan ST evaluation reviewed, continue non oral feedings GTFs per RD GT site care daily/prn OB stool r/o GI bleed, uncollected monitor H&H, prn transfusions bowel regimen ppi fu labs The patient was seen and examined at bedside and all new and available data was reviewed in the patients chart. I agree with the above findings, impression and plan. (Patient seen earlier today. Signature stamp does not reflect patient encounter time.). - Clifton Patten MD Subjective Subjective limited Objective Last 24 Hour Vital Signs Date Time Temp Pulse Resp B/P (MAP) Pulse Ox O2 Delivery O2 Flow Rate FiO2 11/01/18 09:00 Room Air 11/01/18 08:00 97.5 83 19 110/65 (80) 100 11/01/18 04:00 98.9 79 20 125/73 (90) 95 11/01/18 00:00 98.0 85 19 145/78 (100) 95 10/31/18 21:00 Room Air 10/31/18 20:00 98.7 88 19 134/77 (96) 95 10/31/18 16:00 99.4 88 20 135/85 (102) 97 Intake and Output 10/31/18 11/01/18 18:59 06:59 Intake Total 745 ml 1609.1 ml Output Total 1100 ml Balance -355 ml 1609.1 ml Intake Free Water 250 ml 500 ml IV Total 504.1 ml Tube Feeding 495 ml 605 ml Output Urine Total 1100 ml Laboratory Tests Test 11/01/18 05:40 White Blood Count 7.3 K/UL (4.8-10.8) Red Blood Count 3.87 M/UL (4.70-6.10) L Hemoglobin 9.4 G/DL (14.2-18.0) L Hematocrit 30.7 % (42.0-52.0) L Mean Corpuscular Volume 79 FL (80-99) L Mean Corpuscular Hemoglobin 24.3 PG (27.0-31.0) L Mean Corpuscular Hemoglobin Concent 30.7 G/DL (32.0-36.0) L Red Cell Distribution Width 18.0 % (11.6-14.8) H Platelet Count 182 K/UL (150-450) Mean Platelet Volume 6.1 FL (6.5-10.1) L Neutrophils (%) (Auto) 70.5 % (45.0-75.0) Lymphocytes (%) (Auto) 18.4 % (20.0-45.0) L Monocytes (%) (Auto) 9.8 % (1.0-10.0) Eosinophils (%) (Auto) 0.6 % (0.0-3.0) Basophils (%) (Auto) 0.7 % (0.0-2.0) Sodium Level 144 MMOL/L (136-145) Potassium Level 3.3 MMOL/L (3.5-5.1) L Chloride Level 108 MMOL/L (98-107) H Carbon Dioxide Level 29 MMOL/L (21-32) Anion Gap 7 mmol/L (5-15) Blood Urea Nitrogen 19 mg/dL (7-18) H Creatinine 0.6 MG/DL (0.55-1.30) Estimat Glomerular Filtration Rate mL/min (>60) Glucose Level 103 MG/DL (74-106) Calcium Level 8.1 MG/DL (8.5-10.1) L Height (Feet): 5 Height (Inches): 11.00 Weight (Pounds): 130 General Appearance: WD/WN, no apparent distress, alert Cardiovascular: normal rate Respiratory/Chest: normal breath sounds, no respiratory distress Abdominal Exam: normal bowel sounds, non tender, soft Extremities: normal range of motion, non-tender Ricky Nettles NP Nov 01, 2018 12:34
--- NOTE | 2018-11-01 13:09 | Surgery Progress Note ---
Surgery Progress Note Subjective Additional Comments No acute events. Patient is less talkative today and a little bit more drowsy. He is tolerating his tube feeds. Overall condition is deteriorating. Reviewed pulmonology note and need to consider hospice/comfort care prior to considerations for any further intervention at this time Objective Last 24 Hour Vital Signs Date Time Temp Pulse Resp B/P (MAP) Pulse Ox O2 Delivery O2 Flow Rate FiO2 11/01/18 09:00 Room Air 11/01/18 08:00 97.5 83 19 110/65 (80) 100 11/01/18 04:00 98.9 79 20 125/73 (90) 95 11/01/18 00:00 98.0 85 19 145/78 (100) 95 10/31/18 21:00 Room Air 10/31/18 20:00 98.7 88 19 134/77 (96) 95 10/31/18 16:00 99.4 88 20 135/85 (102) 97 I&O Intake and Output 10/31/18 11/01/18 18:59 06:59 Intake Total 745 ml 1609.1 ml Output Total 1100 ml Balance -355 ml 1609.1 ml Intake Free Water 250 ml 500 ml IV Total 504.1 ml Tube Feeding 495 ml 605 ml Output Urine Total 1100 ml Dressing: saturated Wound: other Drains: other Cardiovascular: RSR Respiratory: clear, decreased breath sounds Abdomen: soft, present bowel sounds, non-distended Extremities: other Laboratory Tests Test 11/01/18 05:40 White Blood Count 7.3 K/UL (4.8-10.8) Red Blood Count 3.87 M/UL (4.70-6.10) L Hemoglobin 9.4 G/DL (14.2-18.0) L Hematocrit 30.7 % (42.0-52.0) L Mean Corpuscular Volume 79 FL (80-99) L Mean Corpuscular Hemoglobin 24.3 PG (27.0-31.0) L Mean Corpuscular Hemoglobin Concent 30.7 G/DL (32.0-36.0) L Red Cell Distribution Width 18.0 % (11.6-14.8) H Platelet Count 182 K/UL (150-450) Mean Platelet Volume 6.1 FL (6.5-10.1) L Neutrophils (%) (Auto) 70.5 % (45.0-75.0) Lymphocytes (%) (Auto) 18.4 % (20.0-45.0) L Monocytes (%) (Auto) 9.8 % (1.0-10.0) Eosinophils (%) (Auto) 0.6 % (0.0-3.0) Basophils (%) (Auto) 0.7 % (0.0-2.0) Sodium Level 144 MMOL/L (136-145) Potassium Level 3.3 MMOL/L (3.5-5.1) L Chloride Level 108 MMOL/L (98-107) H Carbon Dioxide Level 29 MMOL/L (21-32) Anion Gap 7 mmol/L (5-15) Blood Urea Nitrogen 19 mg/dL (7-18) H Creatinine 0.6 MG/DL (0.55-1.30) Estimat Glomerular Filtration Rate mL/min (>60) Glucose Level 103 MG/DL (74-106) Calcium Level 8.1 MG/DL (8.5-10.1) L Plan Problems: (1) Decubitus skin ulcer Assessment & Plan: Pt presented on admission with multiple pressure injuries and contractures. Pt is very emaciated. He is very pleasant and responsive. awake alert and cognitively intact Full thickness pressure injury L shoulder/L deltoid(L)4cm x (W)11.5cm. Base of wound has 30% slough ,70% pink granulation. Borders are macerated. Small amt non -odorous serous exudate. Periwound without erythema or induration. Two full thickness pressure injuries L iliac that are in close proximity. (#1 Proximal)Base of wound has 75% rivera slough,25% pink granulation. Erythematous borders. No odor or exudate noted(L)1cm x (W)2cm (#2 Inferior)Base of wound 100% rivera slough,erythematous margins. No odor or exudate noted. (L)2cm x (W)1.1cm. Partial thickness pressure injury R scapula. Base of wound is moist and viable. Edges flat and adherent to base of wound(L)3.5cm x (W)1cm. Second partial thickness pressure injury R scapula in close proximity to above wound. Base of wound is moist and viable. edges adhrent to base of wound. No exudate noted.(L)1.5cm x (W)1cm. Full thickness pressure injury L trochanteric. Base of wound Base of wound 90% soft necrosis ,10% kobe ,and is malodorous. Non blanchable erythema without induration or fluctuance periwound.(L)5.3cm x (W)6cm. Partial thickness pressure injury sacrum with surrounding hyperpigmentation. Base of wound is moist and viable(L)2cm x (W)1.2cm. Full thickness pressure injury R perianal region. Base of wound has 90% soft necrosis,erythematous along borders(L02.2cm x (W)1.5cm. Wound is malodorous. Two Full thickness pressure injuries R trochanteric that are in close proximity. (#1 Proximal) Base of wound has 100% soft necrosis. Wound is malodorous (L) 1.5cm x (W)2cm.(#2 Inferior)Base of wound is concave and is 100% necrotic with erythematous borders(L)3.5cm x (W)3cm.Wound is malodorous. Surrounding area of R greater trochanteric encompassing both wounds is indurated and erythematous. No elevation in skin temp noted.(L)9cm x (W)11.5cm Full thickness pressure injury R ischium .Base of wound is 100% necrotic with erythematous and macerated borders(L)4.5cm x (W)4cm. Dry eschar medial R foot . Periwound without erythema or induration.(L)1.8cm x ( W)4cm.. DTPI R hallux. Base of wound is fluctuant and maroon in colour. Marginal erythema periwound.(L)1.5cm x (W)1.9cm. Dry eschar lateral R malleolus(L)2.8cm x (W) 1.3cm. Stable dry eschar medial L knee . Periwound without erythema or induration. (L) 3.5cm x (W)4cm. Stable dry eschar lateral L malleolus. Periwound without erythema or induration. (L)2.5cm x (W)1cm. Spoke with patient in regards to above findings and plan. May consider debridement Needs to address CODE STATUS prior to any further intervention Tx.Plan: Cleanse wound L shoulder /L deltoid with saline. Apply Therahoney. Apply Cavilon Skin Barrier periwound. Cover with Optifoam drsg. Change Daily and prn. Cleanse wounds R trochanter, R Ischium, L trochanter , L ischium ,with Dakin's nina. 0.125%. Apply Dakin's moist Gauze to each wound . Apply Moisture Barrier paste periwound. Cover each wound with Optifoam drsg Daily and prn. Apply Moisture Barrier paste to perianal and sacral wounds. Cover with Optifoam drsg. Change every 3 days and prn. Apply Cavilon Skin Barrier to each heel. Cover each heel with Optifoam drsg. Change every 7 days and prn. APM/GRETA mattress overlay. Reposition at least every 2hours or as tolerated. Off-load heels with pillow. (2) Protein-calorie malnutrition, severe Assessment & Plan: DAILY ESTIMATED NEEDS: Needs based on Malnutrition, HIV, severe wasting, wounds, 43kg 30-40 kcals/kg 6039-2617 total kcals 1.25-2 g protein/kg 54-86 g total protein 25-30 mL/kg 5030-3829 total fluid mLs NUTRITION DIAGNOSIS: Malnutrition, severe, in the context of chronic disease r/t HIV, FTT, h/o prostate ca, as evidenced by pt w/ severe generalized wasting, presents w/ 46lbs wt loss/ 33% unfavorable wt change in 2 years, currently @53% of [place] Body Weight. CURRENT TF:Jevity 1.2 @50 x20 ENTERAL NUTRITION RECOMMENDATIONS: Glucerna 1.2 @55ml/hr x24 hrs to provide 1320ml, 1584 kcal, 79g pro, 1063ml free H2O - Rec rate and TF change to Glucerna 1.2. - Initiate @35ml/hr for 6 hrs, advance as tolerated 10ml/hr q4-6 hrs to goal rate - Flush per MD, HOB over 30 degrees -------- ADDITIONAL RECOMMENDATIONS: * Pt is 6ft tall (72 inches) and 43.2kg per bed scale * REC TF CHANGE ABOVE * WOUND CARE: (f/up w/ WC eval) Add DEBBIE BID Add VIT C 500mg daily * Weekly CALIBRATED BED SCALE WTS * NISS w/ TF's for glycemic control Chris Jin Nov 01, 2018 13:09
--- NOTE | 2018-11-01 13:24 | NUR ---
ST NOTES: SWALLOW STATUS: PATIENT NOT ALERT FOR PO TRIALS. PER DR HAYDEN, NO NEED FOR MOD BARIUM SWALLOW EVAL. GIVEN PATIENT IS ON COMFORT MEASURES. WILL GIVE PO TRIALS TOMORROW FOR ORAL GRATIFICATION MOSTLY. RN AWARE OF ORAL CARE NEEDS AND ASPIRATION PREC WITH PEG FEEDINGS. PLAN: PO TRIALS WITH [employer] TOMORROW WHEN PATIENT ALERT CONTINUE WITH NONORAL FEEDINGS AND ORAL CARE
[2018-11-01 16:00] VITALS: BP 126/72
--- NOTE | 2018-11-01 19:30 | NUR ---
NURSE NOTES: Patient awake in bed, with gtube intact and connected to feeding. No complaint at this time. With davidson intact and draining well. Instructed to use call light for assistance, in reach. Bed in lowest, lock engaged and alarm on. Will continue to monitor.
--- NOTE | 2018-11-01 19:34 | NUR ---
HAND-OFF: Report given to Denise SANDOVAL.
[2018-11-01 20:00] VITALS: BP 117/71
[2018-11-01] MEDS: Dakin's 0.125% Soln (Quarter Strength) 16oz TOPIC SCH (20:40)
[2018-11-01] MEDS: Vancomycin 1gm/D5W 275ml IVPB SCH ×2 (22:14)
[2018-11-02] VITALS: BP 126/64
[2018-11-02 04:00] VITALS: BP 146/68
[2018-11-02] MEDS: Piperacillin/Tazobactam 3.375 GM in NS 110 ML IVPB SCH ×3 (05:08→22:21)
--- NOTE | 2018-11-02 06:04 | Hematology/Onc Progress Note ---
Assessment/Plan Assessment/Plan Assessment and Recs: # Prostate cancer, stage IV, metastatic, psa 1286 --> bone scan extensive diffuse patchy abnormal uptake within the axial skeleton including the entire spine, pelvic bones and multiple ribs consistent with the metastatic neoplasm. 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 # FTt likely due to malignancy --> decreased appetite with gtube # Dvt ppx scds The timing of this note does not necessarily reflect the time of the patient was seen. Greatly appreciate consultation! Subjective Constitutional: Denies: no symptoms, chills, fever, malaise, weakness, other HEENT: Denies: no symptoms, eye pain, blurred vision, tearing, double vision, ear pain, ear discharge, nose pain, nose congestion, throat pain, throat swelling, mouth pain, mouth swelling, other Cardiovascular: Denies: no symptoms, chest pain, edema, irregular heart rate, lightheadedness, palpitations, syncope, other Gastrointestinal/Abdominal: Denies: no symptoms, abdomen distended, abdominal pain, black stools, tarry stools, blood in stool, constipated, diarrhea, difficulty swallowing, nausea, poor appetite, poor fluid intake, rectal bleeding , vomiting, other 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: Denies: no symptoms, anxiety, depressed, emotional problems, headache, numbness, paresthesia, pre-existing deficit, seizure, tingling, tremors, weakness, other Endocrine: Denies: no symptoms, excessive sweating, flushing, intolerance to cold, intolerance to heat, increased hunger, increased thirst, increased urine, unexplained weight gain, unexplained weight loss, other Allergies: Coded Allergies: No Known Allergies (Unverified , 08/31/13) Subjective 10/30: on zosyn, gtube feeds, labs noted, remains fatigued today 11/01: no events, no bleeding, no changes, no hemolysis 11/02: no events overnight, with gtube ongoing, no bleeding, cbc pending Objective Objective Current Medications Medications (Trade) Dose Ordered Sig/Delgado Route PRN Reason Start Time Stop Time Status Last Admin Dose Admin Acetaminophen (Tylenol) 650 mg Q4H PRN ORAL fever 10/28/18 22:30 11/27/18 22:29 Ascorbic Acid (Vitamin C) 500 mg DAILY ORAL 10/30/18 09:00 11/29/18 08:59 11/01/18 08:08 Dextrose (Dextrose 50%) 25 ml Q30M PRN IV Hypoglycemia 10/28/18 22:30 11/27/18 22:29 Dextrose (Dextrose 50%) 50 ml Q30M PRN IV Hypoglycemia 10/28/18 22:30 11/27/18 22:29 Heparin Sodium (Porcine) (Heparin 5000 units/ml) 5,000 units EVERY 12 HOURS SUBQ 10/29/18 09:00 11/28/18 08:59 11/01/18 20:43 Lansoprazole (Prevacid) 30 mg DAILY GT 10/30/18 09:00 11/29/18 08:59 11/01/18 08:08 Lorazepam (Ativan 2mg/ml 1ml) 0.5 mg Q4H PRN IV For Anxiety 10/28/18 22:30 11/04/18 22:29 Memantine (Namenda) 5 mg BID ORAL 10/30/18 18:00 11/29/18 17:59 11/01/18 16:53 Methadone HCl (Methadone HCl) 5 mg EVERY 12 HOURS ORAL 10/29/18 21:00 11/05/18 20:59 11/01/18 20:39 Mirtazapine (Remeron) 7.5 mg BEDTIME ORAL 10/30/18 21:00 11/29/18 20:59 11/01/18 20:39 Morphine Sulfate (Morphine Sulfate) 1 mg EVERY 4 HOURS PRN IVP For Pain 10/28/18 22:30 11/04/18 22:29 11/01/18 18:57 Ondansetron HCl (Zofran) 4 mg Q6H PRN IVP Nausea & Vomiting 10/28/18 22:30 11/27/18 22:29 Patient Own Medication (Patient's Own Med) 1 ea DAILY ORAL 10/31/18 09:00 11/30/18 08:59 11/01/18 08:09 Patient Own Medication (Patient's Own Med) 1 ea Q12HR ORAL 10/31/18 09:00 11/30/18 08:59 11/01/18 20:31 Patient Own Medication (Patient's Own Med) 1 ea Q12HR ORAL 10/31/18 09:00 11/30/18 08:59 11/01/18 20:32 Patient Own Medication (Patient's Own Med) 1 ea Q12HR ORAL 10/31/18 09:00 11/30/18 08:59 11/01/18 20:32 Patient Own Medication (Patient's Own Med) 1 ea Q12HR ORAL 10/31/18 09:00 11/30/18 08:59 11/01/18 20:32 Piperacillin Sod/ Tazobactam Sod 3.375 gm/Sodium Chloride 110 ml @ 27.5 mls/hr EVERY 8 HOURS IVPB 10/29/18 18:00 11/03/18 17:59 11/02/18 05:08 Polyethylene Glycol (Miralax) 17 gm HSPRN PRN ORAL Constipation 10/28/18 22:30 11/27/18 22:29 Sodium Hypochlorite (Dakin's Quarter Strength) 1 applic QHS TOPIC 10/30/18 21:00 11/29/18 20:59 11/01/18 20:40 Vancomycin HCl (Vanco rx to dose) 1 ea DAILY PRN MISC Per rx protocol 10/31/18 10:45 11/30/18 10:44 Vancomycin HCl 1 gm/Dextrose 275 ml @ 183.708 mls/hr Q12H IVPB 11/01/18 22:00 11/06/18 21:59 11/01/18 22:14 Zolpidem Tartrate (Ambien) 5 mg HSPRN PRN ORAL Insomnia 10/28/18 22:30 11/04/18 22:29 10/31/18 20:33 Last 24 Hour Vital Signs Date Time Temp Pulse Resp B/P (MAP) Pulse Ox O2 Delivery O2 Flow Rate FiO2 11/02/18 00:00 97.9 85 18 126/64 (84) 99 11/01/18 21:00 Room Air 11/01/18 20:00 97.7 84 16 117/71 (86) 97 11/01/18 16:00 98.7 72 18 126/72 (90) 96 11/01/18 12:00 98.0 80 18 115/69 (84) 99 11/01/18 09:00 Room Air 11/01/18 08:00 97.5 83 19 110/65 (80) 100 11/01/18 04:00 98.9 79 20 125/73 (90) 95 11/01/18 00:00 98.0 85 19 145/78 (100) 95 10/31/18 21:00 Room Air 10/31/18 20:00 98.7 88 19 134/77 (96) 95 10/31/18 16:00 99.4 88 20 135/85 (102) 97 10/31/18 12:00 97.9 66 22 134/67 (89) 98 10/31/18 09:00 Room Air 10/31/18 08:00 98.5 87 22 135/81 (99) 100 Intake and Output 11/01/18 11/02/18 19:00 07:00 Intake Total 660 ml 635 ml Output Total 450 ml Balance 210 ml 635 ml Intake Free Water 250 ml Tube Feeding 660 ml 385 ml Output Urine Total 450 ml Labs Test 10/31/18 05:40 11/01/18 05:40 11/01/18 20:50 White Blood Count 8.6 K/UL (4.8-10.8) 7.3 K/UL (4.8-10.8) Red Blood Count 4.14 M/UL (4.70-6.10) 3.87 M/UL (4.70-6.10) Hemoglobin 10.3 G/DL (14.2-18.0) 9.4 G/DL (14.2-18.0) Hematocrit 32.8 % (42.0-52.0) 30.7 % (42.0-52.0) Mean Corpuscular Volume 79 FL (80-99) 79 FL (80-99) Mean Corpuscular Hemoglobin 24.8 PG (27.0-31.0) 24.3 PG (27.0-31.0) Mean Corpuscular Hemoglobin Concent 31.2 G/DL (32.0-36.0) 30.7 G/DL (32.0-36.0) Red Cell Distribution Width 17.5 % (11.6-14.8) 18.0 % (11.6-14.8) Platelet Count 200 K/UL (150-450) 182 K/UL (150-450) Mean Platelet Volume 6.5 FL (6.5-10.1) 6.1 FL (6.5-10.1) Neutrophils (%) (Auto) 75.1 % (45.0-75.0) 70.5 % (45.0-75.0) Lymphocytes (%) (Auto) 15.0 % (20.0-45.0) 18.4 % (20.0-45.0) Monocytes (%) (Auto) 9.3 % (1.0-10.0) 9.8 % (1.0-10.0) Eosinophils (%) (Auto) 0.2 % (0.0-3.0) 0.6 % (0.0-3.0) Basophils (%) (Auto) 0.4 % (0.0-2.0) 0.7 % (0.0-2.0) Sodium Level 144 MMOL/L (136-145) 144 MMOL/L (136-145) Potassium Level 3.5 MMOL/L (3.5-5.1) 3.3 MMOL/L (3.5-5.1) Chloride Level 109 MMOL/L (98-107) 108 MMOL/L (98-107) Carbon Dioxide Level 30 MMOL/L (21-32) 29 MMOL/L (21-32) Anion Gap 5 mmol/L (5-15) 7 mmol/L (5-15) Blood Urea Nitrogen 21 mg/dL (7-18) 19 mg/dL (7-18) Creatinine 0.7 MG/DL (0.55-1.30) 0.6 MG/DL (0.55-1.30) Estimat Glomerular Filtration Rate mL/min (>60) mL/min (>60) Glucose Level 96 MG/DL (74-106) 103 MG/DL (74-106) Calcium Level 8.2 MG/DL (8.5-10.1) 8.1 MG/DL (8.5-10.1) Vancomycin Level Trough 11.0 ug/mL (5.0-12.0) Height (Feet): 5 Height (Inches): 11.00 Weight (Pounds): 130 Objective gen: nad, cachectic pulm: ctab, no cwr cv: rrr, no mgr abd, soft, nt, nd ext: no cce neuro: grossly intact Marcello Villanueva MD Nov 02, 2018 06:04
[2018-11-02 06:35] LABS: BASOPHILS % (AUTO) 0.7 % (0.0-2.0); EOSINOPHILS % (AUTO) 0.8 % (0.0-3.0); HEMATOCRIT 31.7 % (42.0-52.0); HEMOGLOBIN 9.6 G/DL (14.2-18.0); LYMPHOCYTES % (AUTO) 15.3 % (20.0-45.0); MEAN CORPUSCULAR VOLUME 80 FL (80-99); MONOCYTES % (AUTO) 9.9 % (1.0-10.0); NEUTROPHILS % (AUTO) 73.2 % (45.0-75.0); PLATELET COUNT 174 K/UL (150-450); RED BLOOD COUNT 3.96 M/UL (4.70-6.10); RED CELL DISTRIBUTION WIDTH 18.1 % (11.6-14.8); WHITE BLOOD COUNT 7.1 K/UL (4.8-10.8)
[2018-11-02 06:58] LABS: ANION GAP 8 mmol/L (5-15); BLOOD UREA NITROGEN 21 mg/dL (7-18); CALCIUM 8.3 MG/DL (8.5-10.1); CARBON DIOXIDE 28 MMOL/L (21-32); CHLORIDE 108 MMOL/L (98-107); CREATININE 0.6 MG/DL (0.55-1.30); POTASSIUM 3.7 MMOL/L (3.5-5.1); SODIUM 144 MMOL/L (136-145)
--- NOTE | 2018-11-02 07:43 | NUR ---
HAND-OFF: Report given to LORI Pastrana.
--- NOTE | 2018-11-02 07:45 | NUR ---
NURSE NOTES: Patient received in stable condition, resting in bed. Breathing unlabored on room air. Responds to name. New IV site on left forearm observed to be patent and intact, with fluids running at 75cc/hr. OB stool to be collected today if BM occurs. G-tube patent and intact with feeding running at 50cc/hr. Bed locked in lowest position with HOB elevated. Call light placed within reach, will continue to monitor.
[2018-11-02 08:00] VITALS: BP 98/64
[2018-11-02] MEDS: PREZISTA 600 MG ORAL SCH ×2 (09:04→21:20)
[2018-11-02] MEDS: Memantine 5 MG TAB ORAL SCH (09:04)
[2018-11-02] MEDS: Ascorbic Acid 500mg tab ORAL SCH (09:04)
[2018-11-02] MEDS: Heparin 5000 units/ml inj SUBQ SCH ×2 (09:17→21:22)
[2018-11-02] MEDS: INTELENCE 200 MG ORAL SCH ×2 (09:17→21:20)
[2018-11-02] MEDS ORDERED: Miralax 17gm pkt GT PRN (11:00)
[2018-11-02] MEDS ORDERED: Zolpidem 5mg tab GT PRN (11:00)
[2018-11-02] MEDS ORDERED: Acetaminophen 650mg/20.3ml GT PRN (11:00)
[2018-11-02] MEDS: Vancomycin 1gm/D5W 275ml IVPB SCH ×4 (11:03→22:20)
--- NOTE | 2018-11-02 11:21 | GI Progress Note ---
Assessment/Plan Problems: (1) Protein-calorie malnutrition, severe ICD Codes: E43 - Unspecified severe protein-calorie malnutrition SNOMED: 444350411, 089034029, [id number] (2) Anemia ICD Codes: D64.9 - Anemia, unspecified SNOMED: 740544160 Status: stable Status Narrative Discussed with Dr. Patten. Assessment/Plan ST evaluation reviewed, continue non oral feedings GTFs per RD GT site care daily/prn OB stool r/o GI bleed, uncollected monitor H&H, prn transfusions bowel regimen ppi fu labs The patient was seen and examined at bedside and all new and available data was reviewed in the patients chart. I agree with the above findings, impression and plan. (Patient seen earlier today. Signature stamp does not reflect patient encounter time.). - Clifton Patten MD Subjective Subjective limited Objective Last 24 Hour Vital Signs Date Time Temp Pulse Resp B/P (MAP) Pulse Ox O2 Delivery O2 Flow Rate FiO2 11/02/18 08:00 97.6 70 18 98/64 (75) 98 11/02/18 04:00 98.4 65 18 146/68 (94) 98 11/02/18 00:00 97.9 85 18 126/64 (84) 99 11/01/18 21:00 Room Air 11/01/18 20:00 97.7 84 16 117/71 (86) 97 11/01/18 16:00 98.7 72 18 126/72 (90) 96 11/01/18 12:00 98.0 80 18 115/69 (84) 99 Intake and Output 11/01/18 11/02/18 19:00 07:00 Intake Total 660 ml 1105 ml Output Total 450 ml Balance 210 ml 1105 ml Intake Free Water 500 ml Tube Feeding 660 ml 605 ml Output Urine Total 450 ml # Bowel Movements 2 Laboratory Tests Test 11/01/18 20:50 11/02/18 05:20 Vancomycin Level Trough 11.0 ug/mL (5.0-12.0) White Blood Count 7.1 K/UL (4.8-10.8) Red Blood Count 3.96 M/UL (4.70-6.10) L Hemoglobin 9.6 G/DL (14.2-18.0) L Hematocrit 31.7 % (42.0-52.0) L Mean Corpuscular Volume 80 FL (80-99) Mean Corpuscular Hemoglobin 24.3 PG (27.0-31.0) L Mean Corpuscular Hemoglobin Concent 30.3 G/DL (32.0-36.0) L Red Cell Distribution Width 18.1 % (11.6-14.8) H Platelet Count 174 K/UL (150-450) Mean Platelet Volume 6.7 FL (6.5-10.1) Neutrophils (%) (Auto) 73.2 % (45.0-75.0) Lymphocytes (%) (Auto) 15.3 % (20.0-45.0) L Monocytes (%) (Auto) 9.9 % (1.0-10.0) Eosinophils (%) (Auto) 0.8 % (0.0-3.0) Basophils (%) (Auto) 0.7 % (0.0-2.0) Sodium Level 144 MMOL/L (136-145) Potassium Level 3.7 MMOL/L (3.5-5.1) Chloride Level 108 MMOL/L (98-107) H Carbon Dioxide Level 28 MMOL/L (21-32) Anion Gap 8 mmol/L (5-15) Blood Urea Nitrogen 21 mg/dL (7-18) H Creatinine 0.6 MG/DL (0.55-1.30) Estimat Glomerular Filtration Rate mL/min (>60) Glucose Level 93 MG/DL (74-106) Calcium Level 8.3 MG/DL (8.5-10.1) L Height (Feet): 5 Height (Inches): 11.00 Weight (Pounds): 130 General Appearance: WD/WN, no apparent distress, alert Cardiovascular: normal rate Respiratory/Chest: normal breath sounds, no respiratory distress Abdominal Exam: normal bowel sounds, non tender, soft, GT site Extremities: non-tender Ricky Nettles HAND PROFILER Nov 02, 2018 11:21
--- NOTE | 2018-11-02 11:29 | Pulmonology Progress Note ---
Assessment/Plan Problems: (1) Prostate cancer (2) End of life care (3) Anemia (4) HIV disease (5) Protein-calorie malnutrition, severe (6) Decubitus skin ulcer Assessment/Plan no new events comfortable wound care aspiration precaution tolerating feeding looks comfortable pt needs to be DNR and comfort care Subjective ROS Limited/Unobtainable: Yes Constitutional: Reports: no symptoms HEENT: Repors: no symptoms Allergies: Coded Allergies: No Known Allergies (Unverified , 08/31/13) Objective Last 24 Hour Vital Signs Date Time Temp Pulse Resp B/P (MAP) Pulse Ox O2 Delivery O2 Flow Rate FiO2 11/02/18 08:00 97.6 70 18 98/64 (75) 98 11/02/18 04:00 98.4 65 18 146/68 (94) 98 11/02/18 00:00 97.9 85 18 126/64 (84) 99 11/01/18 21:00 Room Air 11/01/18 20:00 97.7 84 16 117/71 (86) 97 11/01/18 16:00 98.7 72 18 126/72 (90) 96 11/01/18 12:00 98.0 80 18 115/69 (84) 99 Intake and Output 11/01/18 11/02/18 19:00 07:00 Intake Total 660 ml 1105 ml Output Total 450 ml Balance 210 ml 1105 ml Intake Free Water 500 ml Tube Feeding 660 ml 605 ml Output Urine Total 450 ml # Bowel Movements 2 Objective General Appearance: cachectic HEENT: normocephalic, atraumatic Respiratory/Chest: chest wall non-tender, lungs clear Breasts: no masses Cardiovascular: normal peripheral pulses Abdomen: normal bowel sounds, soft, non tender Genitourinary: normal external genitalia Extremities: no clubbing 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: physician specialist II-XII grossly normal Lymphatic: no neck adenopathy Microbiology Date/Time Source Procedure Growth Status 10/31/18 11:10 Blood Blood Culture - Preliminary NO GROWTH AFTER 24 HOURS Resulted 10/31/18 10:15 Blood Blood Culture - Preliminary NO GROWTH AFTER 24 HOURS Resulted Laboratory Tests 11/01/18 20:50: Vancomycin Level Trough 11.0 11/02/18 05:20: White Blood Count 7.1, Red Blood Count 3.96L, Hemoglobin 9.6L, Hematocrit 31.7L , Mean Corpuscular Volume 80, Mean Corpuscular Hemoglobin 24.3L, Mean Corpuscular Hemoglobin Concent 30.3L, Red Cell Distribution Width 18.1H, Platelet Count 174, Mean Platelet Volume 6.7, Neutrophils (%) (Auto) 73.2, Lymphocytes (%) (Auto) 15.3L, Monocytes (%) (Auto) 9.9, Eosinophils (%) (Auto) 0.8, Basophils (%) (Auto) 0.7, Sodium Level 144, Potassium Level 3.7, Chloride Level 108H, Carbon Dioxide Level 28, Anion Gap 8, Blood Urea Nitrogen 21H, Creatinine 0.6, Estimat Glomerular Filtration Rate , Glucose Level 93, Calcium Level 8.3L Current Medications Medications (Trade) Dose Ordered Sig/Delgado Route PRN Reason Start Time Stop Time Status Last Admin Dose Admin Acetaminophen (Tylenol) 650 mg Q4H PRN GT fever 11/02/18 11:00 11/27/18 22:29 Ascorbic Acid (Vitamin C) 500 mg DAILY GT 11/03/18 09:00 11/29/18 08:59 Dextrose (Dextrose 50%) 25 ml Q30M PRN IV Hypoglycemia 10/28/18 22:30 11/27/18 22:29 Dextrose (Dextrose 50%) 50 ml Q30M PRN IV Hypoglycemia 10/28/18 22:30 11/27/18 22:29 Heparin Sodium (Porcine) (Heparin 5000 units/ml) 5,000 units EVERY 12 HOURS SUBQ 10/29/18 09:00 11/28/18 08:59 11/02/18 09:17 Lansoprazole (Prevacid) 30 mg DAILY GT 10/30/18 09:00 11/29/18 08:59 11/02/18 09:04 Lorazepam (Ativan 2mg/ml 1ml) 0.5 mg Q4H PRN IV For Anxiety 10/28/18 22:30 11/04/18 22:29 Memantine (Namenda) 5 mg BID GT 11/02/18 18:00 11/29/18 17:59 Methadone HCl (Methadone HCl) 5 mg EVERY 12 HOURS GT 11/02/18 21:00 11/05/18 20:59 Mirtazapine (Remeron) 7.5 mg BEDTIME GT 11/02/18 21:00 11/29/18 20:59 Morphine Sulfate (Morphine Sulfate) 1 mg EVERY 4 HOURS PRN IVP For Pain 10/28/18 22:30 11/04/18 22:29 11/01/18 18:57 Ondansetron HCl (Zofran) 4 mg Q6H PRN IVP Nausea & Vomiting 10/28/18 22:30 11/27/18 22:29 Patient Own Medication (Patient's Own Med) 1 ea DAILY ORAL 10/31/18 09:00 11/30/18 08:59 11/02/18 09:05 Patient Own Medication (Patient's Own Med) 1 ea Q12HR ORAL 10/31/18 09:00 11/30/18 08:59 11/02/18 09:04 Patient Own Medication (Patient's Own Med) 1 ea Q12HR ORAL 10/31/18 09:00 11/30/18 08:59 11/02/18 09:04 Patient Own Medication (Patient's Own Med) 1 ea Q12HR ORAL 10/31/18 09:00 11/30/18 08:59 11/02/18 09:04 Patient Own Medication (Patient's Own Med) 1 ea Q12HR ORAL 10/31/18 09:00 11/30/18 08:59 11/02/18 09:17 Piperacillin Sod/ Tazobactam Sod 3.375 gm/Sodium Chloride 110 ml @ 27.5 mls/hr EVERY 8 HOURS IVPB 10/29/18 18:00 11/07/18 17:59 11/02/18 05:08 Polyethylene Glycol (Miralax) 17 gm HSPRN PRN GT Constipation 11/02/18 11:00 11/27/18 22:29 Sodium Hypochlorite (Dakin's Quarter Strength) 1 applic QHS TOPIC 10/30/18 21:00 11/29/18 20:59 11/01/18 20:40 Vancomycin HCl (Vanco rx to dose) 1 ea DAILY PRN MISC Per rx protocol 10/31/18 10:45 11/30/18 10:44 Vancomycin HCl 1 gm/Dextrose 275 ml @ 183.708 mls/hr Q12H IVPB 11/01/18 22:00 11/06/18 21:59 11/02/18 11:03 Zolpidem Tartrate (Ambien) 5 mg HSPRN PRN GT Insomnia 11/02/18 11:00 11/04/18 22:29 Gracie Echeverria MD Nov 02, 2018 11:29
[2018-11-02 12:00] VITALS: BP 101/69
--- NOTE | 2018-11-02 13:11 | General Progress Note ---
Assessment/Plan Problem List: (1) Cachexia ICD Codes: R64 - Cachexia SNOMED: 720428459 (2) Acute UTI (3) HIV disease ICD Codes: B20 - Human immunodeficiency virus [HIV] disease SNOMED: 50602834 (4) Protein-calorie malnutrition, severe ICD Codes: E43 - Unspecified severe protein-calorie malnutrition SNOMED: 106085484, 468005488, 790405124 (5) Anemia ICD Codes: D64.9 - Anemia, unspecified SNOMED: 851982867 (6) Prostate cancer ICD Codes: C61 - Malignant neoplasm of prostate SNOMED: 529855044 Status: stable Assessment/Plan: pt diet abx gi f/u cbc bmp am dc if clear Subjective Constitutional: Reports: weakness Allergies: Coded Allergies: No Known Allergies (Unverified , 08/31/13) All Systems: reviewed and negative except above Subjective sleepy calm Objective Last 24 Hour Vital Signs Date Time Temp Pulse Resp B/P (MAP) Pulse Ox O2 Delivery O2 Flow Rate FiO2 11/02/18 12:00 97.9 71 18 101/69 (80) 95 11/02/18 09:00 Room Air 11/02/18 08:00 97.6 70 18 98/64 (75) 98 11/02/18 04:00 98.4 65 18 146/68 (94) 98 11/02/18 00:00 97.9 85 18 126/64 (84) 99 11/01/18 21:00 Room Air 11/01/18 20:00 97.7 84 16 117/71 (86) 97 11/01/18 16:00 98.7 72 18 126/72 (90) 96 Intake and Output 11/01/18 11/02/18 19:00 07:00 Intake Total 660 ml 1105 ml Output Total 450 ml Balance 210 ml 1105 ml Intake Free Water 500 ml Tube Feeding 660 ml 605 ml Output Urine Total 450 ml # Bowel Movements 2 Laboratory Tests 11/01/18 20:50: Vancomycin Level Trough 11.0 11/02/18 05:20: White Blood Count 7.1, Red Blood Count 3.96L, Hemoglobin 9.6L, Hematocrit 31.7L , Mean Corpuscular Volume 80, Mean Corpuscular Hemoglobin 24.3L, Mean Corpuscular Hemoglobin Concent 30.3L, Red Cell Distribution Width 18.1H, Platelet Count 174, Mean Platelet Volume 6.7, Neutrophils (%) (Auto) 73.2, Lymphocytes (%) (Auto) 15.3L, Monocytes (%) (Auto) 9.9, Eosinophils (%) (Auto) 0.8, Basophils (%) (Auto) 0.7, Sodium Level 144, Potassium Level 3.7, Chloride Level 108H, Carbon Dioxide Level 28, Anion Gap 8, Blood Urea Nitrogen 21H, Creatinine 0.6, Estimat Glomerular Filtration Rate , Glucose Level 93, Calcium Level 8.3L Height (Feet): 5 Height (Inches): 11.00 Weight (Pounds): 130 General Appearance: lethargic EENT: normal ENT inspection Neck: normal alignment Cardiovascular: normal peripheral pulses, normal rate, regular rhythm Respiratory/Chest: chest wall non-tender, lungs clear, normal breath sounds Abdomen: normal bowel sounds, non tender, soft Extremities: normal inspection Edema: no edema noted Arm (L), no edema noted Arm (R), no edema noted Leg (L), no edema noted Leg (R), no edema noted Pedal (L), no edema noted Pedal (R), no edema noted Generalized Neurologic: motor weakness Skin: normal pigmentation, warm/dry Prabhu Trejo DO Nov 02, 2018 13:11
--- NOTE | 2018-11-02 14:03 | NUR ---
RD ASSESSMENT & RECOMMENDATIONS SEE CARE ACTIVITY FOR COMPLETE ASSESSMENT DAILY ESTIMATED NEEDS: Needs based on Malnutrition, HIV, severe wasting, wounds, 43kg 30-40 kcals/kg 8079-0927 total kcals 1.25-2 g protein/kg 54-86 g total protein 25-30 mL/kg 3391-9985 total fluid mLs NUTRITION DIAGNOSIS: Malnutrition, severe, in the context of chronic disease r/t HIV, FTT, h/o prostate ca, as evidenced by pt w/ severe generalized wasting, presents w/ 46lbs wt loss/ 33% unfavorable wt change in 2 years, @53% of [place] Body Weight. CURRENT TF:Glucerna 1.2 @55ml/hr x24 hrs ENTERAL NUTRITION RECOMMENDATIONS: Glucerna 1.2 @55ml/hr x24 hrs to provide 1320ml, 1584 kcal, 79g pro, 1063ml free H2O - Maintain current TF order- meets 100% est kcal/prot needs - Flush per MD, HOB over 30 degrees ADDITIONAL RECOMMENDATIONS: * Pt is 6ft tall (72 inches) and 43.2kg per bed scale * WOUND CARE: Add DEBBIE BID Continue Vit C * Weekly CALIBRATED BED SCALE WTS * NISS w/ TF's for glycemic control : A1C 6.0 * Monitor lytes, replete as needed .
--- NOTE | 2018-11-02 14:56 | Surgery Progress Note ---
Surgery Progress Note Subjective Additional Comments Patient seen and examined. No acute events. Patient emaciated and ill- appearing. Nutritional status noted. Nutritional input noted. Given patient' s current medical condition is very concerning and slowly deteriorating. Objective Last 24 Hour Vital Signs Date Time Temp Pulse Resp B/P (MAP) Pulse Ox O2 Delivery O2 Flow Rate FiO2 11/02/18 12:00 97.9 71 18 101/69 (80) 95 11/02/18 09:00 Room Air 11/02/18 08:00 97.6 70 18 98/64 (75) 98 11/02/18 04:00 98.4 65 18 146/68 (94) 98 11/02/18 00:00 97.9 85 18 126/64 (84) 99 11/01/18 21:00 Room Air 11/01/18 20:00 97.7 84 16 117/71 (86) 97 11/01/18 16:00 98.7 72 18 126/72 (90) 96 I&O Intake and Output 11/01/18 11/02/18 19:00 07:00 Intake Total 660 ml 1105 ml Output Total 450 ml Balance 210 ml 1105 ml Intake Free Water 500 ml Tube Feeding 660 ml 605 ml Output Urine Total 450 ml # Bowel Movements 2 Dressing: dry Wound: other Drains: other Cardiovascular: RSR Respiratory: clear Abdomen: soft, non-tender, present bowel sounds Extremities: no cyanosis, other Laboratory Tests Test 11/01/18 20:50 11/02/18 05:20 Vancomycin Level Trough 11.0 ug/mL (5.0-12.0) White Blood Count 7.1 K/UL (4.8-10.8) Red Blood Count 3.96 M/UL (4.70-6.10) L Hemoglobin 9.6 G/DL (14.2-18.0) L Hematocrit 31.7 % (42.0-52.0) L Mean Corpuscular Volume 80 FL (80-99) Mean Corpuscular Hemoglobin 24.3 PG (27.0-31.0) L Mean Corpuscular Hemoglobin Concent 30.3 G/DL (32.0-36.0) L Red Cell Distribution Width 18.1 % (11.6-14.8) H Platelet Count 174 K/UL (150-450) Mean Platelet Volume 6.7 FL (6.5-10.1) Neutrophils (%) (Auto) 73.2 % (45.0-75.0) Lymphocytes (%) (Auto) 15.3 % (20.0-45.0) L Monocytes (%) (Auto) 9.9 % (1.0-10.0) Eosinophils (%) (Auto) 0.8 % (0.0-3.0) Basophils (%) (Auto) 0.7 % (0.0-2.0) Sodium Level 144 MMOL/L (136-145) Potassium Level 3.7 MMOL/L (3.5-5.1) Chloride Level 108 MMOL/L (98-107) H Carbon Dioxide Level 28 MMOL/L (21-32) Anion Gap 8 mmol/L (5-15) Blood Urea Nitrogen 21 mg/dL (7-18) H Creatinine 0.6 MG/DL (0.55-1.30) Estimat Glomerular Filtration Rate mL/min (>60) Glucose Level 93 MG/DL (74-106) Calcium Level 8.3 MG/DL (8.5-10.1) L Plan Problems: (1) Decubitus skin ulcer Assessment & Plan: Pt presented on admission with multiple pressure injuries and contractures. Pt is very emaciated. He is very pleasant and responsive. awake alert and cognitively intact Full thickness pressure injury L shoulder/L deltoid(L)4cm x (W)11.5cm. Base of wound has 30% slough ,70% pink granulation. Borders are macerated. Small amt non -odorous serous exudate. Periwound without erythema or induration. Two full thickness pressure injuries L iliac that are in close proximity. (#1 Proximal)Base of wound has 75% rivera slough,25% pink granulation. Erythematous borders. No odor or exudate noted(L)1cm x (W)2cm (#2 Inferior)Base of wound 100% rivera slough,erythematous margins. No odor or exudate noted. (L)2cm x (W)1.1cm. Partial thickness pressure injury R scapula. Base of wound is moist and viable. Edges flat and adherent to base of wound(L)3.5cm x (W)1cm. Second partial thickness pressure injury R scapula in close proximity to above wound. Base of wound is moist and viable. edges adhrent to base of wound. No exudate noted.(L)1.5cm x (W)1cm. Full thickness pressure injury L trochanteric. Base of wound Base of wound 90% soft necrosis ,10% kobe ,and is malodorous. Non blanchable erythema without induration or fluctuance periwound.(L)5.3cm x (W)6cm. Partial thickness pressure injury sacrum with surrounding hyperpigmentation. Base of wound is moist and viable(L)2cm x (W)1.2cm. Full thickness pressure injury R perianal region. Base of wound has 90% soft necrosis,erythematous along borders(L02.2cm x (W)1.5cm. Wound is malodorous. Two Full thickness pressure injuries R trochanteric that are in close proximity. (#1 Proximal) Base of wound has 100% soft necrosis. Wound is malodorous (L) 1.5cm x (W)2cm.(#2 Inferior)Base of wound is concave and is 100% necrotic with erythematous borders(L)3.5cm x (W)3cm.Wound is malodorous. Surrounding area of R greater trochanteric encompassing both wounds is indurated and erythematous. No elevation in skin temp noted.(L)9cm x (W)11.5cm Full thickness pressure injury R ischium .Base of wound is 100% necrotic with erythematous and macerated borders(L)4.5cm x (W)4cm. Dry eschar medial R foot . Periwound without erythema or induration.(L)1.8cm x ( W)4cm.. DTPI R hallux. Base of wound is fluctuant and maroon in colour. Marginal erythema periwound.(L)1.5cm x (W)1.9cm. Dry eschar lateral R malleolus(L)2.8cm x (W) 1.3cm. Stable dry eschar medial L knee . Periwound without erythema or induration. (L) 3.5cm x (W)4cm. Stable dry eschar lateral L malleolus. Periwound without erythema or induration. (L)2.5cm x (W)1cm. Spoke with patient in regards to above findings and plan. May consider debridement Needs to address CODE STATUS prior to any further intervention Tx.Plan: Cleanse wound L shoulder /L deltoid with saline. Apply Therahoney. Apply Cavilon Skin Barrier periwound. Cover with Optifoam drsg. Change Daily and prn. Cleanse wounds R trochanter, R Ischium, L trochanter , L ischium ,with Dakin's nina. 0.125%. Apply Dakin's moist Gauze to each wound . Apply Moisture Barrier paste periwound. Cover each wound with Optifoam drsg Daily and prn. Apply Moisture Barrier paste to perianal and sacral wounds. Cover with Optifoam drsg. Change every 3 days and prn. Apply Cavilon Skin Barrier to each heel. Cover each heel with Optifoam drsg. Change every 7 days and prn. APM/GRETA mattress overlay. Reposition at least every 2hours or as tolerated. Off-load heels with pillow. (2) Protein-calorie malnutrition, severe Assessment & Plan: DAILY ESTIMATED NEEDS: Needs based on Malnutrition, HIV, severe wasting, wounds, 43kg 30-40 kcals/kg 8359-5371 total kcals 1.25-2 g protein/kg 54-86 g total protein 25-30 mL/kg 8086-7525 total fluid mLs NUTRITION DIAGNOSIS: Malnutrition, severe, in the context of chronic disease r/t HIV, FTT, h/o prostate ca, as evidenced by pt w/ severe generalized wasting, presents w/ 46lbs wt loss/ 33% unfavorable wt change in 2 years, currently @53% of [place] Body Weight. CURRENT TF:Jevity 1.2 @50 x20 ENTERAL NUTRITION RECOMMENDATIONS: Glucerna 1.2 @55ml/hr x24 hrs to provide 1320ml, 1584 kcal, 79g pro, 1063ml free H2O - Rec rate and TF change to Glucerna 1.2. - Initiate @35ml/hr for 6 hrs, advance as tolerated 10ml/hr q4-6 hrs to goal rate - Flush per MD, HOB over 30 degrees -------- ADDITIONAL RECOMMENDATIONS: * Pt is 6ft tall (72 inches) and 43.2kg per bed scale * REC TF CHANGE ABOVE * WOUND CARE: (f/up w/ WC eval) Add DEBBIE BID Add VIT C 500mg daily * Weekly CALIBRATED BED SCALE WTS * NISS w/ TF's for glycemic control Chris Jin Nov 02, 2018 14:56
[2018-11-02 16:00] VITALS: BP 110/63
[2018-11-02] MEDS: Memantine 5 MG TAB GT SCH (17:26)
--- NOTE | 2018-11-02 19:25 | NUR ---
NURSE NOTES: Received report from LORI Pastrana. Patient awake and verbally responsive with soft voice to let his needs known. Breathing unlabored without apparent distress/discomfort/sob at this time. 2 IV site noted on the left arm intact and patent. Baez intact draining urine. Bed placed at the lowest with alarm, brake, and siderails up for safety. Call light placed within reach. Will continue to monitor and provide care as ordered.
--- NOTE | 2018-11-02 19:27 | NUR ---
HAND-OFF: Report given to Yuvalu RN.
[2018-11-02 20:00] VITALS: BP 115/71
[2018-11-02] MEDS: Dakin's 0.125% Soln (Quarter Strength) 16oz TOPIC SCH (21:21)
--- NOTE | 2018-11-02 23:55 | NUR ---
NURSE NOTES: Dressing change performed as ordered. Patient explained the procedure prior and during the dressing change. Patient tolerated the dressing well. Will continue to monitor.
[2018-11-03] VITALS: BP 124/75
--- NOTE | 2018-11-03 03:30 | Progress Note ---
DATE: 11/02/2018 SUBJECTIVE: The patient is an 83-year-old male patient with failure to thrive. He continues to be confused, disorganized, mood labile, decline in cognition below baseline. He has mood lability, confusion, altered mental status also increased depression that is why his attending physician has requested daily psychiatric consultation. MENTAL STATUS EXAMINATION: This is an 83-year-old male. Appearance is disheveled. Attitude, irritable and agitated. Affect, guarded and restricted. Intellect poor. Mood, depressed and anxious. Motor activity, psychomotor agitation. Attention is poor. Orientation x2. Speech is pressured. Thought process, disorganized and illogical. Insight and judgment are poor. DIAGNOSIS: Major depressive disorder, severe, recurrent with psychotic features rule out dementia with psychosis. PLAN: Treat with Namenda 5 mg twice a day, Remeron 7.5 mg at bedtime, Ativan 0.5 mg every 4 hours p.r.n. anxiety and agitation. Twenty minutes of cognitive behavioral therapy to help his identify automatic negative thoughts and help his convert negative thoughts to more positive thoughts to reduce depression, anxiety, and mood lability and help him have a more adaptive behavioral pattern. Chart was reviewed and discussed with staff. Seen and assessed at bedside. Shar Jacob M.D. DR: Luther JOB#: [id number] CC:
[2018-11-03 04:00] VITALS: BP 150/78
[2018-11-03] MEDS: Piperacillin/Tazobactam 3.375 GM in NS 110 ML IVPB SCH ×2 (05:50→14:17)
--- NOTE | 2018-11-03 07:58 | NUR ---
HAND-OFF: Report given to LORI Latif and LORI Murdock.
[2018-11-03 08:00] VITALS: BP 122/68
--- NOTE | 2018-11-03 08:42 | NUR ---
NURSE NOTES: Received report from Zenobia, RN. Pt in bed, fatigued, weak, no complaints of pain, no apparent distress noted, bed in lowest position, call light within reach, G-tube running according to order.
[2018-11-03 09:00] LABS: BASOPHILS % (AUTO) 0.9 % (0.0-2.0); EOSINOPHILS % (AUTO) 1.8 % (0.0-3.0); HEMATOCRIT 31.3 % (42.0-52.0); HEMOGLOBIN 9.5 G/DL (14.2-18.0); MEAN CORPUSCULAR VOLUME 80 FL (80-99); MONOCYTES % (AUTO) 8.2 % (1.0-10.0); NEUTROPHILS % (AUTO) 72.2 % (45.0-75.0); PLATELET COUNT 159 K/UL (150-450); RED BLOOD COUNT 3.94 M/UL (4.70-6.10); WHITE BLOOD COUNT 7.5 K/UL (4.8-10.8)
[2018-11-03] MEDS ORDERED: Ascorbic Acid 500mg tab GT SCH (09:00)
--- NOTE | 2018-11-03 09:00 | Hematology/Onc Progress Note ---
Assessment/Plan Assessment/Plan Assessment and Recs: # Prostate cancer, stage IV, metastatic, psa 1286 --> bone scan extensive diffuse patchy abnormal uptake within the axial skeleton including the entire spine, pelvic bones and multiple ribs consistent with the metastatic neoplasm. 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 # FTt likely due to malignancy --> decreased appetite with gtube # Dvt ppx scds The timing of this note does not necessarily reflect the time of the patient was seen. Greatly appreciate consultation! Subjective Allergies: Coded Allergies: No Known Allergies (Unverified , 08/31/13) Subjective 10/30: on zosyn, gtube feeds, labs noted, remains fatigued today 11/01: no events, no bleeding, no changes, no hemolysis 11/02: no events overnight, with gtube ongoing, no bleeding, cbc pending 11/03: resting in bed, no acute events, on abx, stool ob pending Objective Objective Current Medications Medications (Trade) Dose Ordered Sig/Delgado Route PRN Reason Start Time Stop Time Status Last Admin Dose Admin Acetaminophen (Tylenol) 650 mg Q4H PRN GT fever 11/02/18 11:00 11/27/18 22:29 Ascorbic Acid (Vitamin C) 500 mg DAILY GT 11/03/18 09:00 11/29/18 08:59 Dextrose (Dextrose 50%) 25 ml Q30M PRN IV Hypoglycemia 10/28/18 22:30 11/27/18 22:29 Dextrose (Dextrose 50%) 50 ml Q30M PRN IV Hypoglycemia 10/28/18 22:30 11/27/18 22:29 Heparin Sodium (Porcine) (Heparin 5000 units/ml) 5,000 units EVERY 12 HOURS SUBQ 10/29/18 09:00 11/28/18 08:59 11/02/18 21:22 Lansoprazole (Prevacid) 30 mg DAILY GT 10/30/18 09:00 11/29/18 08:59 11/02/18 09:04 Lorazepam (Ativan 2mg/ml 1ml) 0.5 mg Q4H PRN IV For Anxiety 10/28/18 22:30 11/04/18 22:29 Memantine (Namenda) 5 mg BID GT 11/02/18 18:00 11/29/18 17:59 11/02/18 17:26 Methadone HCl (Methadone HCl) 5 mg EVERY 12 HOURS GT 11/02/18 21:00 11/05/18 20:59 11/02/18 21:19 Mirtazapine (Remeron) 7.5 mg BEDTIME GT 11/02/18 21:00 11/29/18 20:59 11/02/18 21:20 Morphine Sulfate (Morphine Sulfate) 1 mg EVERY 4 HOURS PRN IVP For Pain 10/28/18 22:30 11/04/18 22:29 11/01/18 18:57 Ondansetron HCl (Zofran) 4 mg Q6H PRN IVP Nausea & Vomiting 10/28/18 22:30 11/27/18 22:29 Patient Own Medication (Patient's Own Med) 1 ea DAILY ORAL 10/31/18 09:00 11/30/18 08:59 11/02/18 09:05 Patient Own Medication (Patient's Own Med) 1 ea Q12HR ORAL 10/31/18 09:00 11/30/18 08:59 11/02/18 21:20 Patient Own Medication (Patient's Own Med) 1 ea Q12HR ORAL 10/31/18 09:00 11/30/18 08:59 11/02/18 21:20 Patient Own Medication (Patient's Own Med) 1 ea Q12HR ORAL 10/31/18 09:00 11/30/18 08:59 11/02/18 21:20 Patient Own Medication (Patient's Own Med) 1 ea Q12HR ORAL 10/31/18 09:00 11/30/18 08:59 11/02/18 21:20 Piperacillin Sod/ Tazobactam Sod 3.375 gm/Sodium Chloride 110 ml @ 27.5 mls/hr EVERY 8 HOURS IVPB 10/29/18 18:00 11/07/18 17:59 11/03/18 05:50 Polyethylene Glycol (Miralax) 17 gm HSPRN PRN GT Constipation 11/02/18 11:00 11/27/18 22:29 Sodium Hypochlorite (Dakin's Quarter Strength) 1 applic QHS TOPIC 10/30/18 21:00 11/29/18 20:59 11/02/18 21:21 Vancomycin HCl (Vanco rx to dose) 1 ea DAILY PRN MISC Per rx protocol 10/31/18 10:45 11/30/18 10:44 Vancomycin HCl 1 gm/Dextrose 275 ml @ 183.708 mls/hr Q12H IVPB 11/01/18 22:00 11/06/18 21:59 11/02/18 22:20 Zolpidem Tartrate (Ambien) 5 mg HSPRN PRN GT Insomnia 11/02/18 11:00 11/04/18 22:29 Last 24 Hour Vital Signs Date Time Temp Pulse Resp B/P (MAP) Pulse Ox O2 Delivery O2 Flow Rate FiO2 11/03/18 08:00 97.0 61 20 122/68 (86) 98 11/03/18 04:00 97.6 73 20 150/78 (102) 97 11/03/18 00:00 98.1 72 18 124/75 (91) 98 11/02/18 23:55 Room Air 11/02/18 21:00 Room Air 11/02/18 20:00 97.9 74 18 115/71 (86) 96 11/02/18 16:00 98.4 76 19 110/63 (79) 98 11/02/18 12:00 97.9 71 18 101/69 (80) 95 11/02/18 09:00 Room Air 11/02/18 08:00 97.6 70 18 98/64 (75) 98 11/02/18 04:00 98.4 65 18 146/68 (94) 98 11/02/18 00:00 97.9 85 18 126/64 (84) 99 11/01/18 21:00 Room Air 11/01/18 20:00 97.7 84 16 117/71 (86) 97 11/01/18 16:00 98.7 72 18 126/72 (90) 96 11/01/18 12:00 98.0 80 18 115/69 (84) 99 11/01/18 09:00 Room Air Intake and Output 11/02/18 11/03/18 19:00 07:00 Intake Total 605 ml Output Total 100 ml 1300 ml Balance 505 ml -1300 ml Tube Feeding 605 ml Output Urine Total 100 ml 1300 ml # Voids 2 Labs Test 11/01/18 05:40 11/01/18 20:50 11/02/18 05:20 11/03/18 03:45 White Blood Count 7.3 K/UL (4.8-10.8) 7.1 K/UL (4.8-10.8) Red Blood Count 3.87 M/UL (4.70-6.10) 3.96 M/UL (4.70-6.10) Hemoglobin 9.4 G/DL (14.2-18.0) 9.6 G/DL (14.2-18.0) Hematocrit 30.7 % (42.0-52.0) 31.7 % (42.0-52.0) Mean Corpuscular Volume 79 FL (80-99) 80 FL (80-99) Mean Corpuscular Hemoglobin 24.3 PG (27.0-31.0) 24.3 PG (27.0-31.0) Mean Corpuscular Hemoglobin Concent 30.7 G/DL (32.0-36.0) 30.3 G/DL (32.0-36.0) Red Cell Distribution Width 18.0 % (11.6-14.8) 18.1 % (11.6-14.8) Platelet Count 182 K/UL (150-450) 174 K/UL (150-450) Mean Platelet Volume 6.1 FL (6.5-10.1) 6.7 FL (6.5-10.1) Neutrophils (%) (Auto) 70.5 % (45.0-75.0) 73.2 % (45.0-75.0) Lymphocytes (%) (Auto) 18.4 % (20.0-45.0) 15.3 % (20.0-45.0) Monocytes (%) (Auto) 9.8 % (1.0-10.0) 9.9 % (1.0-10.0) Eosinophils (%) (Auto) 0.6 % (0.0-3.0) 0.8 % (0.0-3.0) Basophils (%) (Auto) 0.7 % (0.0-2.0) 0.7 % (0.0-2.0) Sodium Level 144 MMOL/L (136-145) 144 MMOL/L (136-145) Potassium Level 3.3 MMOL/L (3.5-5.1) 3.7 MMOL/L (3.5-5.1) Chloride Level 108 MMOL/L (98-107) 108 MMOL/L (98-107) Carbon Dioxide Level 29 MMOL/L (21-32) 28 MMOL/L (21-32) Anion Gap 7 mmol/L (5-15) 8 mmol/L (5-15) Blood Urea Nitrogen 19 mg/dL (7-18) 21 mg/dL (7-18) Creatinine 0.6 MG/DL (0.55-1.30) 0.6 MG/DL (0.55-1.30) Estimat Glomerular Filtration Rate mL/min (>60) mL/min (>60) Glucose Level 103 MG/DL (74-106) 93 MG/DL (74-106) Calcium Level 8.1 MG/DL (8.5-10.1) 8.3 MG/DL (8.5-10.1) Vancomycin Level Trough 11.0 ug/mL (5.0-12.0) Height (Feet): 5 Height (Inches): 11.00 Weight (Pounds): 119 Objective gen: nad, cachectic pulm: ctab, no cwr cv: rrr, no mgr abd, soft, nt, nd ext: no cce neuro: grossly intact Marcello Villanueva MD Nov 03, 2018 09:00
[2018-11-03 09:08] LABS: ANION GAP 6 mmol/L (5-15); BLOOD UREA NITROGEN 20 mg/dL (7-18); CALCIUM 8.5 MG/DL (8.5-10.1); CARBON DIOXIDE 30 MMOL/L (21-32); CHLORIDE 110 MMOL/L (98-107); CREATININE 0.6 MG/DL (0.55-1.30); POTASSIUM 3.9 MMOL/L (3.5-5.1); SODIUM 146 MMOL/L (136-145)
--- NOTE | 2018-11-03 09:24 | General Progress Note ---
Assessment/Plan Problem List: (1) Cachexia ICD Codes: R64 - Cachexia SNOMED: 424094961 (2) Acute UTI (3) HIV disease ICD Codes: B20 - Human immunodeficiency virus [HIV] disease SNOMED: 14584978 (4) Protein-calorie malnutrition, severe ICD Codes: E43 - Unspecified severe protein-calorie malnutrition SNOMED: 939138871, 426891086, 193144567 (5) Anemia ICD Codes: D64.9 - Anemia, unspecified SNOMED: 424151795 (6) Prostate cancer ICD Codes: C61 - Malignant neoplasm of prostate SNOMED: 094559599 Status: unchanged Assessment/Plan: pt diet abx gi f/u cbc bmp am dc if clear Subjective Constitutional: Reports: weakness Allergies: Coded Allergies: No Known Allergies (Unverified , 08/31/13) All Systems: reviewed and negative except above Subjective sleepy calm Objective Last 24 Hour Vital Signs Date Time Temp Pulse Resp B/P (MAP) Pulse Ox O2 Delivery O2 Flow Rate FiO2 11/03/18 08:00 97.0 61 20 122/68 (86) 98 11/03/18 04:00 97.6 73 20 150/78 (102) 97 11/03/18 00:00 98.1 72 18 124/75 (91) 98 11/02/18 23:55 Room Air 11/02/18 21:00 Room Air 11/02/18 20:00 97.9 74 18 115/71 (86) 96 11/02/18 16:00 98.4 76 19 110/63 (79) 98 11/02/18 12:00 97.9 71 18 101/69 (80) 95 Intake and Output 11/02/18 11/03/18 19:00 07:00 Intake Total 605 ml Output Total 100 ml 1300 ml Balance 505 ml -1300 ml Tube Feeding 605 ml Output Urine Total 100 ml 1300 ml # Voids 2 Laboratory Tests 11/03/18 03:45: Stool Occult Blood [Pending] 11/03/18 08:50: White Blood Count 7.5, Red Blood Count 3.94L, Hemoglobin 9.5L, Hematocrit 31.3L , Mean Corpuscular Volume 80, Mean Corpuscular Hemoglobin 24.1L, Mean Corpuscular Hemoglobin Concent 30.3L, Red Cell Distribution Width 18.0H, Platelet Count 159, Mean Platelet Volume 6.0L, Neutrophils (%) (Auto) 72.2, Lymphocytes (%) (Auto) 17.0L, Monocytes (%) (Auto) 8.2, Eosinophils (%) (Auto) 1.8, Basophils (%) (Auto) 0.9, Sodium Level 146H, Potassium Level 3.9, Chloride Level 110H, Carbon Dioxide Level 30, Anion Gap 6, Blood Urea Nitrogen 20H, Creatinine 0.6, Estimat Glomerular Filtration Rate , Glucose Level 108H, Calcium Level 8.5, Vancomycin Level Trough [Pending] Height (Feet): 5 Height (Inches): 11.00 Weight (Pounds): 119 General Appearance: lethargic EENT: normal ENT inspection Neck: normal alignment Cardiovascular: normal peripheral pulses, normal rate, regular rhythm Respiratory/Chest: chest wall non-tender, lungs clear, normal breath sounds Abdomen: normal bowel sounds, non tender, soft Extremities: normal inspection Edema: no edema noted Arm (L), no edema noted Arm (R), no edema noted Leg (L), no edema noted Leg (R), no edema noted Pedal (L), no edema noted Pedal (R), no edema noted Generalized Neurologic: motor weakness Skin: normal pigmentation, warm/dry Prabhu Trejo DO Nov 03, 2018 09:24
[2018-11-03] MEDS: Memantine 5 MG TAB GT SCH ×2 (09:25→18:35)
[2018-11-03] MEDS: Heparin 5000 units/ml inj SUBQ SCH (09:25)
[2018-11-03] MEDS: INTELENCE 200 MG ORAL SCH (09:27)
[2018-11-03] MEDS: PREZISTA 600 MG ORAL SCH (09:28)
--- NOTE | 2018-11-03 11:00 | NUR ---
CHARGE NURSE NOTE: Spoke with for ID clearance. He said is covering him. Spoke with . He will see patient today.
--- NOTE | 2018-11-03 11:58 | GI Progress Note ---
Assessment/Plan Problems: (1) Protein-calorie malnutrition, severe ICD Codes: E43 - Unspecified severe protein-calorie malnutrition SNOMED: 467969459, 881742404, [id number] (2) Anemia ICD Codes: D64.9 - Anemia, unspecified SNOMED: 150570713 Status: stable Status Narrative Discussed with Dr. Patten. Assessment/Plan ST evaluation reviewed, continue non oral feedings GTFs per RD GT site care daily/prn OB stool r/o GI bleed, uncollected monitor H&H, prn transfusions bowel regimen ppi fu labs dc planning The patient was seen and examined at bedside and all new and available data was reviewed in the patients chart. I agree with the above findings, impression and plan. (Patient seen earlier today. Signature stamp does not reflect patient encounter time.). - Clifton Patten MD Subjective Subjective limited Objective Last 24 Hour Vital Signs Date Time Temp Pulse Resp B/P (MAP) Pulse Ox O2 Delivery O2 Flow Rate FiO2 11/03/18 09:00 Room Air 11/03/18 08:00 97.0 61 20 122/68 (86) 98 11/03/18 04:00 97.6 73 20 150/78 (102) 97 11/03/18 00:00 98.1 72 18 124/75 (91) 98 11/02/18 23:55 Room Air 11/02/18 21:00 Room Air 11/02/18 20:00 97.9 74 18 115/71 (86) 96 11/02/18 16:00 98.4 76 19 110/63 (79) 98 11/02/18 12:00 97.9 71 18 101/69 (80) 95 Intake and Output 11/02/18 11/03/18 19:00 07:00 Intake Total 605 ml Output Total 100 ml 1300 ml Balance 505 ml -1300 ml Tube Feeding 605 ml Output Urine Total 100 ml 1300 ml # Voids 2 Laboratory Tests Test 11/03/18 03:45 11/03/18 08:50 Stool Occult Blood Pending White Blood Count 7.5 K/UL (4.8-10.8) Red Blood Count 3.94 M/UL (4.70-6.10) L Hemoglobin 9.5 G/DL (14.2-18.0) L Hematocrit 31.3 % (42.0-52.0) L Mean Corpuscular Volume 80 FL (80-99) Mean Corpuscular Hemoglobin 24.1 PG (27.0-31.0) L Mean Corpuscular Hemoglobin Concent 30.3 G/DL (32.0-36.0) L Red Cell Distribution Width 18.0 % (11.6-14.8) H Platelet Count 159 K/UL (150-450) Mean Platelet Volume 6.0 FL (6.5-10.1) L Neutrophils (%) (Auto) 72.2 % (45.0-75.0) Lymphocytes (%) (Auto) 17.0 % (20.0-45.0) L Monocytes (%) (Auto) 8.2 % (1.0-10.0) Eosinophils (%) (Auto) 1.8 % (0.0-3.0) Basophils (%) (Auto) 0.9 % (0.0-2.0) Sodium Level 146 MMOL/L (136-145) H Potassium Level 3.9 MMOL/L (3.5-5.1) Chloride Level 110 MMOL/L (98-107) H Carbon Dioxide Level 30 MMOL/L (21-32) Anion Gap 6 mmol/L (5-15) Blood Urea Nitrogen 20 mg/dL (7-18) H Creatinine 0.6 MG/DL (0.55-1.30) Estimat Glomerular Filtration Rate mL/min (>60) Glucose Level 108 MG/DL (74-106) H Calcium Level 8.5 MG/DL (8.5-10.1) Vancomycin Level Trough 24.1 ug/mL (5.0-12.0) H Height (Feet): 5 Height (Inches): 11.00 Weight (Pounds): 119 General Appearance: no apparent distress Cardiovascular: normal rate Respiratory/Chest: normal breath sounds, no respiratory distress Abdominal Exam: normal bowel sounds, non tender, soft, GT site Extremities: non-tender Ricky Nettles NP Nov 03, 2018 11:58
[2018-11-03 12:00] VITALS: BP 110/67
--- NOTE | 2018-11-03 12:03 | Pulmonology Progress Note ---
Assessment/Plan Problems: (1) End of life care (2) Prostate cancer (3) Anemia (4) HIV disease (5) Protein-calorie malnutrition, severe (6) Decubitus skin ulcer Assessment/Plan no new events comfortable wound care aspiration precaution tolerating feeding looks comfortable pt needs to be DNR and comfort care All medications and treatment were reviewed. meds for detention reviewed. Subjective ROS Limited/Unobtainable: Yes Constitutional: Reports: no symptoms HEENT: Repors: no symptoms Allergies: Coded Allergies: No Known Allergies (Unverified , 08/31/13) Objective Last 24 Hour Vital Signs Date Time Temp Pulse Resp B/P (MAP) Pulse Ox O2 Delivery O2 Flow Rate FiO2 11/03/18 09:00 Room Air 11/03/18 08:00 97.0 61 20 122/68 (86) 98 11/03/18 04:00 97.6 73 20 150/78 (102) 97 11/03/18 00:00 98.1 72 18 124/75 (91) 98 11/02/18 23:55 Room Air 11/02/18 21:00 Room Air 11/02/18 20:00 97.9 74 18 115/71 (86) 96 11/02/18 16:00 98.4 76 19 110/63 (79) 98 Intake and Output 11/02/18 11/03/18 19:00 07:00 Intake Total 605 ml Output Total 100 ml 1300 ml Balance 505 ml -1300 ml Tube Feeding 605 ml Output Urine Total 100 ml 1300 ml # Voids 2 Objective General Appearance: cachectic HEENT: normocephalic, atraumatic Respiratory/Chest: chest wall non-tender, lungs clear Breasts: no masses Cardiovascular: normal peripheral pulses Abdomen: normal bowel sounds, soft, non tender Genitourinary: normal external genitalia Extremities: no clubbing 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 Lymphatic: no neck adenopathy Laboratory Tests 11/03/18 03:45: Stool Occult Blood [Pending] 11/03/18 08:50: White Blood Count 7.5, Red Blood Count 3.94L, Hemoglobin 9.5L, Hematocrit 31.3L , Mean Corpuscular Volume 80, Mean Corpuscular Hemoglobin 24.1L, Mean Corpuscular Hemoglobin Concent 30.3L, Red Cell Distribution Width 18.0H, Platelet Count 159, Mean Platelet Volume 6.0L, Neutrophils (%) (Auto) 72.2, Lymphocytes (%) (Auto) 17.0L, Monocytes (%) (Auto) 8.2, Eosinophils (%) (Auto) 1.8, Basophils (%) (Auto) 0.9, Sodium Level 146H, Potassium Level 3.9, Chloride Level 110H, Carbon Dioxide Level 30, Anion Gap 6, Blood Urea Nitrogen 20H, Creatinine 0.6, Estimat Glomerular Filtration Rate , Glucose Level 108H, Calcium Level 8.5, Vancomycin Level Trough 24.1H Current Medications Medications (Trade) Dose Ordered Sig/Delgado Route PRN Reason Start Time Stop Time Status Last Admin Dose Admin Acetaminophen (Tylenol) 650 mg Q4H PRN GT fever 11/02/18 11:00 11/27/18 22:29 Ascorbic Acid (Vitamin C) 500 mg DAILY GT 11/03/18 09:00 11/29/18 08:59 11/03/18 09:26 Dextrose (Dextrose 50%) 25 ml Q30M PRN IV Hypoglycemia 10/28/18 22:30 11/27/18 22:29 Dextrose (Dextrose 50%) 50 ml Q30M PRN IV Hypoglycemia 10/28/18 22:30 11/27/18 22:29 Heparin Sodium (Porcine) (Heparin 5000 units/ml) 5,000 units EVERY 12 HOURS SUBQ 10/29/18 09:00 11/28/18 08:59 11/03/18 09:25 Lansoprazole (Prevacid) 30 mg DAILY GT 10/30/18 09:00 11/29/18 08:59 11/03/18 09:25 Lorazepam (Ativan 2mg/ml 1ml) 0.5 mg Q4H PRN IV For Anxiety 10/28/18 22:30 11/04/18 22:29 Memantine (Namenda) 5 mg BID GT 11/02/18 18:00 11/29/18 17:59 11/03/18 09:25 Methadone HCl (Methadone HCl) 5 mg EVERY 12 HOURS GT 11/02/18 21:00 11/05/18 20:59 11/03/18 09:26 Mirtazapine (Remeron) 7.5 mg BEDTIME GT 11/02/18 21:00 11/29/18 20:59 11/02/18 21:20 Morphine Sulfate (Morphine Sulfate) 1 mg EVERY 4 HOURS PRN IVP For Pain 10/28/18 22:30 11/04/18 22:29 11/01/18 18:57 Ondansetron HCl (Zofran) 4 mg Q6H PRN IVP Nausea & Vomiting 10/28/18 22:30 11/27/18 22:29 Patient Own Medication (Patient's Own Med) 1 ea DAILY ORAL 10/31/18 09:00 11/30/18 08:59 11/03/18 09:28 Patient Own Medication (Patient's Own Med) 1 ea Q12HR ORAL 10/31/18 09:00 11/30/18 08:59 11/03/18 09:27 Patient Own Medication (Patient's Own Med) 1 ea Q12HR ORAL 10/31/18 09:00 11/30/18 08:59 11/03/18 09:28 Patient Own Medication (Patient's Own Med) 1 ea Q12HR ORAL 10/31/18 09:00 11/30/18 08:59 11/03/18 09:28 Patient Own Medication (Patient's Own Med) 1 ea Q12HR ORAL 10/31/18 09:00 11/30/18 08:59 11/03/18 09:28 Piperacillin Sod/ Tazobactam Sod 3.375 gm/Sodium Chloride 110 ml @ 27.5 mls/hr EVERY 8 HOURS IVPB 10/29/18 18:00 11/07/18 17:59 11/03/18 05:50 Polyethylene Glycol (Miralax) 17 gm HSPRN PRN GT Constipation 11/02/18 11:00 11/27/18 22:29 Sodium Hypochlorite (Dakin's Quarter Strength) 1 applic QHS TOPIC 10/30/18 21:00 11/29/18 20:59 11/02/18 21:21 Vancomycin HCl (Vanco rx to dose) 1 ea DAILY PRN MISC Per rx protocol 10/31/18 10:45 11/30/18 10:44 Vancomycin HCl 750 mg/Sodium Chloride 275 ml @ 183.333 mls/hr Q12HR@0200,1400 IVPB 11/03/18 14:00 11/08/18 13:59 Zolpidem Tartrate (Ambien) 5 mg HSPRN PRN GT Insomnia 11/02/18 11:00 11/04/18 22:29 Gracie Echeverria MD Nov 03, 2018 12:03
--- NOTE | 2018-11-03 13:12 | NUR ---
DISCHARGE SWALLOW/SPEECH THERAPY SUMMARY: PATIENT SEEN FOR DYSPHAGIA AND ORAL GRATIFICATION. PATIENT WAS NOT ALERT FOR PO TRIALS. PER DR HAYDEN, NO NEED FOR MOD BARIUM SWALLOW EVAL. GIVEN PATIENT IS ON COMFORT MEASURES. GOALS MET FOR RN AWARE OF ORAL CARE NEEDS AND ASPIRATION PREC WITH PEG FEEDINGS. PLAN: F/UP WITH MICROELECTRONICS ENGINEER AT D/C SETTING FOR DYSPHAGIA MANAGEMENT AND PO TRIALS FOR ORAL GRATIFICATION. CONTINUE WITH NONORAL FEEDINGS AND ORAL CARE
[2018-11-03] MEDS ORDERED: Vancomycin 750mg/NS 275ml IVPB SCH ×2 (14:00)
--- NOTE | 2018-11-03 14:35 | NUR ---
CHARGE NURSE NOTE: Spoke with . He cleared pt for discharge.
--- NOTE | 2018-11-03 14:48 | Infectious Diseases Prog Note ---
Assessment/Plan Assessment/Plan 83 yo HIV positive male with PMHx of metastatic prostate cancer, cachexia Gtube feeding, decubiti ulcer, HTN, thalamic CVA, pulmonary fibrosis who was sent to the ED with weakness and dizziness. UTI UA (+) UCx Enterococcus Aferbile No leukocytosis HIV -04/2018 CD4 508 (20.4%), VL ND Sacral ulcers (Not grossly infected), Wnd Cx : multiple growth Significant necrosis Positive Blood Cx - Contaminant ? Blood 10/28/18 - COS Blood 10/31/18 - Pend Metastatic prostate cancer, Cachexia Gtube feeding Decubiti ulcer HTN Thalamic CVA Pulmonary fibrosis PLAN: ok to DC pt off of AB RX ( MARCO A RN) - Cont Zosyn # 6/5-7 for UTI - DC Vancomcyin #4 - Continue HIV meds - f/u Blood Cx - Monitor CBC and Temps Subjective Allergies: Coded Allergies: No Known Allergies (Unverified , 08/31/13) Subjective afebrile Objective Vital Signs Last 24 Hour Vital Signs Date Time Temp Pulse Resp B/P (MAP) Pulse Ox O2 Delivery O2 Flow Rate FiO2 11/03/18 12:00 98.1 65 17 110/67 (81) 97 11/03/18 09:00 Room Air 11/03/18 08:00 97.0 61 20 122/68 (86) 98 11/03/18 04:00 97.6 73 20 150/78 (102) 97 11/03/18 00:00 98.1 72 18 124/75 (91) 98 11/02/18 23:55 Room Air 11/02/18 21:00 Room Air 11/02/18 20:00 97.9 74 18 115/71 (86) 96 11/02/18 16:00 98.4 76 19 110/63 (79) 98 Height (Feet): 5 Height (Inches): 11.00 Weight (Pounds): 119 HEENT: anicteric Respiratory/Chest: no respiratory distress Cardiovascular: no gallop/murmur Abdomen: no organomegaly Laboratory Tests Test 11/03/18 03:45 11/03/18 08:50 Stool Occult Blood Negative (NEGATIVE) White Blood Count 7.5 K/UL (4.8-10.8) Red Blood Count 3.94 M/UL (4.70-6.10) L Hemoglobin 9.5 G/DL (14.2-18.0) L Hematocrit 31.3 % (42.0-52.0) L Mean Corpuscular Volume 80 FL (80-99) Mean Corpuscular Hemoglobin 24.1 PG (27.0-31.0) L Mean Corpuscular Hemoglobin Concent 30.3 G/DL (32.0-36.0) L Red Cell Distribution Width 18.0 % (11.6-14.8) H Platelet Count 159 K/UL (150-450) Mean Platelet Volume 6.0 FL (6.5-10.1) L Neutrophils (%) (Auto) 72.2 % (45.0-75.0) Lymphocytes (%) (Auto) 17.0 % (20.0-45.0) L Monocytes (%) (Auto) 8.2 % (1.0-10.0) Eosinophils (%) (Auto) 1.8 % (0.0-3.0) Basophils (%) (Auto) 0.9 % (0.0-2.0) Sodium Level 146 MMOL/L (136-145) H Potassium Level 3.9 MMOL/L (3.5-5.1) Chloride Level 110 MMOL/L (98-107) H Carbon Dioxide Level 30 MMOL/L (21-32) Anion Gap 6 mmol/L (5-15) Blood Urea Nitrogen 20 mg/dL (7-18) H Creatinine 0.6 MG/DL (0.55-1.30) Estimat Glomerular Filtration Rate mL/min (>60) Glucose Level 108 MG/DL (74-106) H Calcium Level 8.5 MG/DL (8.5-10.1) Vancomycin Level Trough 24.1 ug/mL (5.0-12.0) H Current Medications Medications (Trade) Dose Ordered Sig/Delgado Route PRN Reason Start Time Stop Time Status Last Admin Dose Admin Acetaminophen (Tylenol) 650 mg Q4H PRN GT fever 11/02/18 11:00 11/27/18 22:29 Ascorbic Acid (Vitamin C) 500 mg DAILY GT 11/03/18 09:00 11/29/18 08:59 11/03/18 09:26 Dextrose (Dextrose 50%) 25 ml Q30M PRN IV Hypoglycemia 10/28/18 22:30 11/27/18 22:29 Dextrose (Dextrose 50%) 50 ml Q30M PRN IV Hypoglycemia 10/28/18 22:30 11/27/18 22:29 Heparin Sodium (Porcine) (Heparin 5000 units/ml) 5,000 units EVERY 12 HOURS SUBQ 10/29/18 09:00 11/28/18 08:59 11/03/18 09:25 Lansoprazole (Prevacid) 30 mg DAILY GT 10/30/18 09:00 11/29/18 08:59 11/03/18 09:25 Lorazepam (Ativan 2mg/ml 1ml) 0.5 mg Q4H PRN IV For Anxiety 10/28/18 22:30 11/04/18 22:29 Memantine (Namenda) 5 mg BID GT 11/02/18 18:00 11/29/18 17:59 11/03/18 09:25 Methadone HCl (Methadone HCl) 5 mg EVERY 12 HOURS GT 11/02/18 21:00 11/05/18 20:59 11/03/18 09:26 Mirtazapine (Remeron) 7.5 mg BEDTIME GT 11/02/18 21:00 11/29/18 20:59 11/02/18 21:20 Morphine Sulfate (Morphine Sulfate) 1 mg EVERY 4 HOURS PRN IVP For Pain 10/28/18 22:30 11/04/18 22:29 11/01/18 18:57 Ondansetron HCl (Zofran) 4 mg Q6H PRN IVP Nausea & Vomiting 10/28/18 22:30 11/27/18 22:29 Patient Own Medication (Patient's Own Med) 1 ea DAILY ORAL 10/31/18 09:00 11/30/18 08:59 11/03/18 09:28 Patient Own Medication (Patient's Own Med) 1 ea Q12HR ORAL 10/31/18 09:00 11/30/18 08:59 11/03/18 09:27 Patient Own Medication (Patient's Own Med) 1 ea Q12HR ORAL 10/31/18 09:00 11/30/18 08:59 11/03/18 09:28 Patient Own Medication (Patient's Own Med) 1 ea Q12HR ORAL 10/31/18 09:00 11/30/18 08:59 11/03/18 09:28 Patient Own Medication (Patient's Own Med) 1 ea Q12HR ORAL 10/31/18 09:00 11/30/18 08:59 11/03/18 09:28 Piperacillin Sod/ Tazobactam Sod 3.375 gm/Sodium Chloride 110 ml @ 27.5 mls/hr EVERY 8 HOURS IVPB 10/29/18 18:00 11/07/18 17:59 11/03/18 14:17 Polyethylene Glycol (Miralax) 17 gm HSPRN PRN GT Constipation 11/02/18 11:00 11/27/18 22:29 Sodium Hypochlorite (Dakin's Quarter Strength) 1 applic QHS TOPIC 10/30/18 21:00 11/29/18 20:59 11/02/18 21:21 Vancomycin HCl (Vanco rx to dose) 1 ea DAILY PRN MISC Per rx protocol 10/31/18 10:45 11/30/18 10:44 Vancomycin HCl 750 mg/Sodium Chloride 275 ml @ 183.333 mls/hr Q12HR@0200,1400 IVPB 11/03/18 14:00 11/08/18 13:59 11/03/18 14:17 Zolpidem Tartrate (Ambien) 5 mg HSPRN PRN GT Insomnia 11/02/18 11:00 11/04/18 22:29 Charlie Moon MD Nov 03, 2018 14:48
--- NOTE | 2018-11-03 15:21 | NUR ---
NURSE NOTES: Lindsay SULLIVAN confirmed with Dr. Moon regarding IV Abx. Pt is to stop Vanco IV and continue Zosyn IV 3.375mg IVPB Q8 until the pt is discharged.
--- NOTE | 2018-11-03 15:22 | NUR ---
NURSE NOTES: Per AM conversation with Dr. Trejo, pt is to be DC with clearance from ID and Psych. Dr. Trejo asked RN to contact Dr. Jacob to do a capacity test and get clearance for pt. RN notified Dr. Jacob.
[2018-11-03 16:00] VITALS: BP 126/83
--- NOTE | 2018-11-03 16:00 | NUR ---
NURSE NOTES: Picked up pt's own medications from pharmacy, placed at pt's bedside for DC scheduled at 1800
--- NOTE | 2018-11-03 16:04 | NUR ---
DISCHARGE PLANNING DISCHARGE ORDER NOTED Patient has been accepted to; [address] [address] Bed:15-B Skilled [phone] for Nurse to Nurse report [facility] ETA for transportation: 18:00
--- NOTE | 2018-11-03 16:08 | NUR ---
NURSE NOTES: Received interfacility transfer sheet at 1550, schedule operation supervisor 1600. RN unable to accommodate operation supervisor time as pt has multiple wounds, need to complete form, call report. Rn called [facility] reschedule to 1800 as [facility] has a operation supervisor for [facility] already that is being pushed back, new operation supervisor time is 1800, RN notified TIMUR Hebert.
--- NOTE | 2018-11-03 16:10 | NUR ---
NURSE NOTES: RN attempted to call report to [facility], their nurse is not available at this time and will call back Addendum: 11/03/18 at 1622 by ARNIE GALEANO RN NURSE NOTES: Called Report to Albina at [facility]
--- NOTE | 2018-11-03 19:03 | NUR ---
HAND-OFF: Report given to Minsu, RN Endorsed that pt's own meds are at bedside.
--- NOTE | 2018-11-03 19:30 | NUR ---
NURSE NOTES: Received report from LORI Latif. Patient asleep. Breathing unlabored without distress, discomfort, or sob on room air. No s/s of pain noted at this time. IV noted on the left forearm intact and patent with dry dressing. Patient's own medication at the bedside in security bag. Patient on air mattress. Patient ready for discharge. [facility] experiencing delay in arrival, will follow up. Baez intact draining urine. Gtube feeding running as ordered with 10 cc of residual at this time. Bed placed at the lowest with alarm, brake, and siderails up for safety. Call light placed within reach. Will continue to monitor and provide care as ordered.
[2018-11-03 20:00] VITALS: BP 129/72
--- NOTE | 2018-11-03 20:03 | NUR ---
CASE MANAGEMENT: REVIEW SI: FAILURE TO THRIVE . DECUBITUS SKIN ULCER LEFT SHOULDER T 97.0 HR 61 RR 20 BP 150/78 SAT 97% ROOM AIR H/H 9.5/31.3 IS: ZOSYN IV Q8HR METHADONE 5MG Q12HR HEPARIN SUBQ Q12HR WOUND CARE PRN MED/SURG STATUS DCP: PATIENT IS FROM [facility]
--- NOTE | 2018-11-03 21:13 | NUR ---
NURSE NOTES: Report given to [facility] personnel Rekha. Patient a/a/o x 2, breathing unlabored without distress, discomfort, or sob on room air. Verbalized 10/10 pain at this time. Scheduled pain medication methadone 5mg was given before patient left the unit. Confirm with charge nurse okay to give. Patient had no other belongings except patient's own medication which was handed to [facility] personnel. Patient was unable to sign the belonging list. ID band removed and IV removed. Stopped gtube feeding, flushed with 250cc of water, clamped, and locked. Patient discharged with chronic davidson catheter patient came in with. Vital signs: 138/86, HR 85, RR20 and O2Sat 97% on room air. Patient left the unit at 2108 on a gurney to [facility], room 115B. Report given by AM shift to LORI Bolaños and wound pictures taken.
--- NOTE | 2018-11-03 21:42 | Surgery Progress Note ---
Surgery Progress Note Subjective Additional Comments does not remember who I am today no complaints does not remember he is in Hospital for so long Objective Last 24 Hour Vital Signs Date Time Temp Pulse Resp B/P (MAP) Pulse Ox O2 Delivery O2 Flow Rate FiO2 11/03/18 20:00 99.2 87 16 129/72 (91) 98 11/03/18 16:00 98.9 76 17 126/83 (97) 98 11/03/18 12:00 98.1 65 17 110/67 (81) 97 11/03/18 09:00 Room Air 11/03/18 08:00 97.0 61 20 122/68 (86) 98 11/03/18 04:00 97.6 73 20 150/78 (102) 97 11/03/18 00:00 98.1 72 18 124/75 (91) 98 11/02/18 23:55 Room Air I&O Intake and Output 11/02/18 11/03/18 19:00 07:00 Intake Total 605 ml Output Total 100 ml 1300 ml Balance 505 ml -1300 ml Tube Feeding 605 ml Output Urine Total 100 ml 1300 ml # Voids 2 Dressing: saturated Wound: other Drains: other Cardiovascular: RSR Respiratory: clear Abdomen: soft, non-tender, present bowel sounds Extremities: no cyanosis, other Laboratory Tests Test 11/03/18 03:45 11/03/18 08:50 Stool Occult Blood Negative (NEGATIVE) White Blood Count 7.5 K/UL (4.8-10.8) Red Blood Count 3.94 M/UL (4.70-6.10) L Hemoglobin 9.5 G/DL (14.2-18.0) L Hematocrit 31.3 % (42.0-52.0) L Mean Corpuscular Volume 80 FL (80-99) Mean Corpuscular Hemoglobin 24.1 PG (27.0-31.0) L Mean Corpuscular Hemoglobin Concent 30.3 G/DL (32.0-36.0) L Red Cell Distribution Width 18.0 % (11.6-14.8) H Platelet Count 159 K/UL (150-450) Mean Platelet Volume 6.0 FL (6.5-10.1) L Neutrophils (%) (Auto) 72.2 % (45.0-75.0) Lymphocytes (%) (Auto) 17.0 % (20.0-45.0) L Monocytes (%) (Auto) 8.2 % (1.0-10.0) Eosinophils (%) (Auto) 1.8 % (0.0-3.0) Basophils (%) (Auto) 0.9 % (0.0-2.0) Sodium Level 146 MMOL/L (136-145) H Potassium Level 3.9 MMOL/L (3.5-5.1) Chloride Level 110 MMOL/L (98-107) H Carbon Dioxide Level 30 MMOL/L (21-32) Anion Gap 6 mmol/L (5-15) Blood Urea Nitrogen 20 mg/dL (7-18) H Creatinine 0.6 MG/DL (0.55-1.30) Estimat Glomerular Filtration Rate mL/min (>60) Glucose Level 108 MG/DL (74-106) H Calcium Level 8.5 MG/DL (8.5-10.1) Vancomycin Level Trough 24.1 ug/mL (5.0-12.0) H Plan Problems: (1) Decubitus skin ulcer Assessment & Plan: Pt presented on admission with multiple pressure injuries and contractures. Pt is very emaciated. He is very pleasant and responsive. awake alert and cognitively intact Full thickness pressure injury L shoulder/L deltoid(L)4cm x (W)11.5cm. Base of wound has 30% slough ,70% pink granulation. Borders are macerated. Small amt non -odorous serous exudate. Periwound without erythema or induration. Two full thickness pressure injuries L iliac that are in close proximity. (#1 Proximal)Base of wound has 75% rivera slough,25% pink granulation. Erythematous borders. No odor or exudate noted(L)1cm x (W)2cm (#2 Inferior)Base of wound 100% rivera slough,erythematous margins. No odor or exudate noted. (L)2cm x (W)1.1cm. Partial thickness pressure injury R scapula. Base of wound is moist and viable. Edges flat and adherent to base of wound(L)3.5cm x (W)1cm. Second partial thickness pressure injury R scapula in close proximity to above wound. Base of wound is moist and viable. edges adhrent to base of wound. No exudate noted.(L)1.5cm x (W)1cm. Full thickness pressure injury L trochanteric. Base of wound Base of wound 90% soft necrosis ,10% kobe ,and is malodorous. Non blanchable erythema without induration or fluctuance periwound.(L)5.3cm x (W)6cm. Partial thickness pressure injury sacrum with surrounding hyperpigmentation. Base of wound is moist and viable(L)2cm x (W)1.2cm. Full thickness pressure injury R perianal region. Base of wound has 90% soft necrosis,erythematous along borders(L02.2cm x (W)1.5cm. Wound is malodorous. Two Full thickness pressure injuries R trochanteric that are in close proximity. (#1 Proximal) Base of wound has 100% soft necrosis. Wound is malodorous (L) 1.5cm x (W)2cm.(#2 Inferior)Base of wound is concave and is 100% necrotic with erythematous borders(L)3.5cm x (W)3cm.Wound is malodorous. Surrounding area of R greater trochanteric encompassing both wounds is indurated and erythematous. No elevation in skin temp noted.(L)9cm x (W)11.5cm Full thickness pressure injury R ischium .Base of wound is 100% necrotic with erythematous and macerated borders(L)4.5cm x (W)4cm. Dry eschar medial R foot . Periwound without erythema or induration.(L)1.8cm x ( W)4cm.. DTPI R hallux. Base of wound is fluctuant and maroon in colour. Marginal erythema periwound.(L)1.5cm x (W)1.9cm. Dry eschar lateral R malleolus(L)2.8cm x (W) 1.3cm. Stable dry eschar medial L knee . Periwound without erythema or induration. (L) 3.5cm x (W)4cm. Stable dry eschar lateral L malleolus. Periwound without erythema or induration. (L)2.5cm x (W)1cm. Spoke with patient in regards to above findings and plan. May consider debridement Needs to address CODE STATUS prior to any further intervention Tx.Plan: Cleanse wound L shoulder /L deltoid with saline. Apply Therahoney. Apply Cavilon Skin Barrier periwound. Cover with Optifoam drsg. Change Daily and prn. Cleanse wounds R trochanter, R Ischium, L trochanter , L ischium ,with Dakin's nina. 0.125%. Apply Dakin's moist Gauze to each wound . Apply Moisture Barrier paste periwound. Cover each wound with Optifoam drsg Daily and prn. Apply Moisture Barrier paste to perianal and sacral wounds. Cover with Optifoam drsg. Change every 3 days and prn. Apply Cavilon Skin Barrier to each heel. Cover each heel with Optifoam drsg. Change every 7 days and prn. APM/GRETA mattress overlay. Reposition at least every 2hours or as tolerated. Off-load heels with pillow. (2) Protein-calorie malnutrition, severe Assessment & Plan: DAILY ESTIMATED NEEDS: Needs based on Malnutrition, HIV, severe wasting, wounds, 43kg 30-40 kcals/kg 1232-1632 total kcals 1.25-2 g protein/kg 54-86 g total protein 25-30 mL/kg 7842-7248 total fluid mLs NUTRITION DIAGNOSIS: Malnutrition, severe, in the context of chronic disease r/t HIV, FTT, h/o prostate ca, as evidenced by pt w/ severe generalized wasting, presents w/ 46lbs wt loss/ 33% unfavorable wt change in 2 years, currently @53% of [place] Body Weight. CURRENT TF:Jevity 1.2 @50 x20 ENTERAL NUTRITION RECOMMENDATIONS: Glucerna 1.2 @55ml/hr x24 hrs to provide 1320ml, 1584 kcal, 79g pro, 1063ml free H2O - Rec rate and TF change to Glucerna 1.2. - Initiate @35ml/hr for 6 hrs, advance as tolerated 10ml/hr q4-6 hrs to goal rate - Flush per MD, HOB over 30 degrees -------- ADDITIONAL RECOMMENDATIONS: * Pt is 6ft tall (72 inches) and 43.2kg per bed scale * REC TF CHANGE ABOVE * WOUND CARE: (f/up w/ WC eval) Add DEBBIE BID Add VIT C 500mg daily * Weekly CALIBRATED BED SCALE WTS * NISS w/ TF's for glycemic control Chris Jin Nov 03, 2018 21:42
[2018-11-03] MEDS ORDERED: Piperacillin/Tazobactam 3.375 GM in NS 110 ML IVPB SCH (22:00)
--- NOTE | 2018-11-04 01:15 | Progress Note ---
DATE: 11/03/2018 SUBJECTIVE: This is an 83-year-old male patient with failure to thrive. He does have some altered mental status and confusion worsened by stress of his medical illness. That is why, his attending physician has requested daily psychiatric consultation for this patient. He does have some mood lability, confusion, disorganized thought process, and decline in cognition below his baseline. He paranoid thought, confusion, disorganized thought process, mood lability, and decline in cognition below baseline. DIAGNOSIS: Major depressive disorder, mild, recurrent with psychotic features, rule out dementia with psychosis. MENTAL STATUS EXAMINATION: This is an 83-year-old male. Appearance is disheveled. Attitude, irritable and agitated. Affect, guarded and restricted. Intellect, poor. Mood, depressed and anxious. Motor activity, psychomotor agitation. Insight and judgment is poor. PLAN: Treat him with Remeron 7.5 mg nightly, Namenda 5 mg twice a day, and Ativan 0.5 mg every 4 hours as needed. Provided with 20 minutes of cognitive behavioral therapy to help identify automatic negative thoughts and help to convert those negative thoughts to more positive thoughts to reduce depression, anxiety, mood lability. 20 minutes of cognitive behavioral therapy provided. Chart reviewed and discussed with staff. Seen and assessed at bedside. Shar Jacob M.D. DR: JEANETTE JOB#: [id number] CC:
--- NOTE | 2018-11-04 01:45 | Consultation ---
DATE OF CONSULTATION: 11/03/2018 NOTE: POOR AUDIO PSYCHOTHERAPY CONSULTATION PROGRESS NOTE CONSULTING PHYSICIAN: Miranda Clifford M.D. TREATING ATTENDING PHYSICIAN: Prabhu Trejo D.O. HISTORY OF PRESENT ILLNESS: The patient is an 83-year-old male patient brought into the hospital for failure to thrive. This patient is from correction facility. The patient has been very confused, disorganized and helpless, altered in his mental status. For these reasons, he is referred for psychotherapeutic services. This clinician assessed this patient. The patient at this time is altered in his mental status. He is very confused, disorganized, unable to provide a logical viable plan for his self-care or safety at this time. At this time, he is unable to any understanding. At this time, medical condition . For his treatment, he lacks capacity, he does not communicate his treatment choice. He lacks understanding to his . He is unable to demonstrate any comprehension of this information and unable to express any appreciation of reasoning for his . At this time, he lacks capacity to make medical decisions for himself. He is confused, disoriented, and altered mental status, unable to provide any viable or logical information. The patient is a poor historian. PAST MEDICAL HISTORY: History of failure to thrive . ALLERGIES: The patient has no known drug allergies. SUBSTANCE ABUSE HISTORY: The patient denies history of alcohol use, illicit substance use, or smoking cigarettes. PAST PSYCHIATRIC HISTORY: At this time, the patient has a and psychosis, possible dementia. SOCIAL HISTORY: The patient is currently at Nursing Facility. An 83-year-old single male patient, financially sustained at this time. MENTAL STATUS EXAMINATION: He is alert and oriented to person. His mood is dysphoric. Affect is blunted. Thought process, disorganized. He has poor attention and concentration. Poor insight, judgment, impulse control. He lacks capacity to make medical decisions for himself. DIAGNOSIS: Rule out major neurocognitive disorder, Alzheimer's type without behavioral disturbances. The patient also had a history of major depressive disorder, severe, recurrent without psychotic features. PLAN: I assessed this patient. I provide the patient with: 1. Reality orientation, which is focused on improving cognitive function of the patient who is confused and disorganized. Oriented to person, place, time, and situation. 2. Provided the patient with supportive psychotherapy. The patient is confused, disorganized. medication compliance, positive coping skills . Discussed treatment with treatment team. Psychotherapy provided for this patient, 45 minutes. confused and disoriented. Miranda Clifford PsyD. DR: DOTTIE JOB#: [id number] CC:
--- NOTE | 2018-11-04 09:10 | Discharge Summary ---
Discharge Summary Discharge Summary _ DATE OF ADMISSION: 10/28/2018 DATE OF DISCHARGE: 11/03/2018 DISCHARGED BY: Dr. Trejo REASON FOR ADMISSION: 83 years old male with past medical history of HIV, hypertension, metastatic prostate cancer, HTN, thalamic CVA, cachexia, presented with failure to thrive from the detention facility to emergency room for evaluation. Vital signs were stable. Laboratory work-up revealed no leukocytosis , hemoglobin 8.7, hematocrit 28.8. Platelet count 184. Stable electrolytes and renal parameters. Glucose 93. Lactic acid 2.6. Alkaline phosphatase 552. Troponin negative. pro BNP 1065. EKG revealed sinus rhythm with right bundle branch block and left anterior fascicular block. No acute hemic changes. Albumin 1.6. Urinalysis revealed +2 protein, +4 blood , +3 leukocyte esterase, pyuria and moderate bacteria. Chest x-ray revealed no acute cardiopulmonary pathology. E In emergency department patient started on the IV fluids , empiric antibiotic and admitted for further management. CONSULTANTS: hospitalist / technical maintenance specialist Dr. Echeverria ID specialist Dr. Kaur GI specialist Dr. Patten stand up forklift operator/oncologist Dr. Villanueva surgery Dr. Jin psychiatrist Dr. Jacob [facility] COURSE: Patient admitted to medical surgical floor. Patient started on the IV hydration. Renal parameters and electrolytes were closely monitored. Electrolytes corrected as needed. Patient started on empiric antibiotic as per ID specialist recommendation. Blood culture revealed Staph epidermidis and Staph hominis. Urine culture revealed Enterococcus faecalis. Repeated blood culture on 10/31 revealed no evidence of growth. Initial blood culture were likely contaminant. Wound culture revealed Pseudomonas, Staphylococcus aureus, E. coli and enterococci and inferiorly. Sacral ulcer was not grossly infected, but show significant necrosis. Antibiotic provided as per ID specialist recommendations. Patient completed treatment for UTI while in the hospital. ID specialist cleared patient for discharge off antibiotic . No leukocytosis , no fevers. Continue current antiretroviral therapy. GI specialist closely followed. Bedside swallow evaluation was done. GI specialist recommended continue with nonoral feeding. Tube feeding formula provided as per registered associate recommendation. Protein supplements included as per registered associate recommendation to improve nutritional status. G-tube site care provided. Strict aspiration/reflux precaution maintained. Hemoglobin and hematocrit were closely monitored goal to keep hemoglobin above 7. Anemia work-up was consistent with anemia of chronic disease. Stool for occult blood was negative. Patient received transfusion of 1 unit of packed red blood cells on 10/29. Prior to discharge hemoglobin 9.5 , hematocrit 31.3. GI prophylaxis provided Bowel regimen instituted. Oncologist followed. Patient has stage IV prostate cancer , metastatic. Bone scan previously showed extensive diffuse patchy abnormal uptake within the axial skeleton including the entire spine, pelvic bones and multiple ribs consistent with the metastatic neoplasm. PSA 430. Oncologist recommended outpatient management versus hospice services. DVT prophylaxis provided. Pain management was addressed as needed. Hemodynamic status was closely monitored, blood pressure remained stable. Psychiatrist followed . Per psychiatrist ,patient had major depressive disorder with psychotic features . psychiatric medication regimen was optimized. Patient was provided with cognitive behavioral therapy to help identify automatic negative thoughts and help to convert this negative thought to more positive to reduce depression, anxiety, and mood lability. Cognitive behavioral therapy provided as well. Wound care for multiply pressure injuries, present on admission, provided as per surgeon recommendation. Heels were offloaded with pillows. Patient was reposition at least every 2 hours and as tolerated. Hospitalist /technical maintenance specialist recommended comfort care and DNR status for end-of-life care. Patient stabilized and was ready for transfer back to detention facility. FINAL DIAGNOSES: Metastatic prostate cancer stage IV UTI with Enterococcus faecalis Anemia of chronic disease HIV disease Severe protein calorie malnutrition Dehydration Cachexia History of hypertension History of thalamic CVA Multiple pressure injuries, including sacral decubitus ulcer, present on admission Major depressive disorder, mild, recurrent with psychotic features End of life care DISCHARGE MEDICATIONS: See Medication Reconciliation list. DISCHARGE INSTRUCTIONS: Patient was discharged to the detention facility. Follow up with medical doctor at the facility. I have been assigned to dictate discharge summary for this account. I was not involved in the patient's management. Kelsi Hart NP Nov 04, 2018 09:09
--- NOTE | 2018-11-05 10:52 | Coder Physician Query ---
Clarification is required for compliance, coding accuracy, and to reflect severity of illness for this patient Dear Dr. GUTIERREZ Date: 11/05/18 Foreclosure Paralegal/CDS Name: RACHAEL SORIANO Please respond to the following question: Is there a diagnosis specific to these symptoms or values? If so please state below. REASON FOR ADMISSION: 83 years old male with past medical history of HIV, hypertension, metastatic prostate cancer, HTN, thalamic CVA, cachexia, presented with failure to thrive from the longterm facility to emergency room for evaluation. HOSPITAL COURSE: Patient started on the IV hydration. Renal parameters and electrolytes were closely monitored. Electrolytes corrected as needed. Patient started on empiric antibiotic as per ID specialist recommendation. Blood culture revealed Staph epidermidis and Staph hominis. Urine culture revealed Enterococcus faecalis. Repeated blood culture on 10/31 revealed no evidence of growth. Initial blood culture were likely contaminant. FINAL DIAGNOSES: Metastatic prostate cancer stage IV UTI with Enterococcus faecalis Anemia of chronic disease HIV disease, Severe protein calorie malnutrition Dehydration,Cachexia History of hypertension History of thalamic CVA Multiple pressure injuries, including sacral decubitus ulcer, present on admission Major depressive disorder, mild, recurrent with psychotic features End of life care Is there an underlying diagnosis related to this patient's FAILURE TO THRIVE? PHYSICIAN RESPONSE: Prabhu Gutierrez D.O. Date &Time Please also document in your Progress Notes and/or Discharge Summary and indicate if the condition was present on admission. DEJAH
== END 2018-11-03 21:10 | DRG 722 ==
LOC: EDUNIT# 19:30 → EDBD 19:30 → EMR 19:54 → 3E 20:04 → EDBEDREQ 20:21 → 4E 10-29 02:43
PROC: 30233N1 Transfusion of Nonautologous Red Blood Cells into Peripheral Vein, Percutaneous Approach (ICD-10-PCS; principal; 2018-10-29)
DX: C61 Malignant neoplasm of prostate (principal); E43 Unspecified severe protein-calorie malnutrition; I61.8 Other nontraumatic intracerebral hemorrhage; C79.51 Secondary malignant neoplasm of bone; B20 Human immunodeficiency virus [HIV] disease; R64 Cachexia; Z68.1 Body mass index [BMI] 19.9 or less, adult; N39.0 Urinary tract infection, site not specified; Z43.1 Encounter for attention to gastrostomy; F33.3 Major depressive disorder, recurrent, severe with psychotic symptoms; R62.7 Adult failure to thrive; E86.0 Dehydration; B95.2 Enterococcus as the cause of diseases classified elsewhere; D63.8 Anemia in other chronic diseases classified elsewhere; Z86.73 Personal history of transient ischemic attack (TIA), and cerebral infarction without residual deficits; I10 Essential (primary) hypertension; G62.9 Polyneuropathy, unspecified; J84.10 Pulmonary fibrosis, unspecified; L89.890 Pressure ulcer of other site, unstageable; L89.159 Pressure ulcer of sacral region, unspecified stage; L89.219 Pressure ulcer of right hip, unspecified stage
CPT/HCPCS: 36415; 71045; 80048; 80053; 80061; 80202; 81003; 82270; 82550; 82553; 82607; 82728; 82746; 82962; 83036; 83540; 83550; 83605; 83690; 83735; 83880; 84100; 84153; 84439; 84443; 84484; 85007; 85025; 85044; 85610; 85730; 86850; 86900; 86901; 86920; 87040; 87070; 87086; 87181; 87205; 93005; 96361; 96374; 96375; 99285; J2405; J8499